=== PATIENT | male | born 1945 | race Caucasian/White ===

== ENCOUNTER → 2019-11-16 09:09 | Outpatient (BNVA) | payer SELFPAY | PROVIDERS: PCP Internal Medicine; Visit Provider Internal Medicine Cardiovascular Disease | DX: Z76.89 Persons encountering health services in other specified circumstances (principal) ==

== ENCOUNTER → 2020-04-19 10:23 | Outpatient (BNVA) | payer MEDICARE, SELFPAY | PROVIDERS: PCP Internal Medicine; Visit Provider Internal Medicine | DX: I25.10 Atherosclerotic heart disease of native coronary artery without angina pectoris (principal); I25.5 Ischemic cardiomyopathy; I10 Essential (primary) hypertension; Z95.1 Presence of aortocoronary bypass graft | CPT/HCPCS: 99212 ==

== ENCOUNTER 2020-10-03 08:08 | Outpatient (REF) | payer MEDICARE, SELFPAY ==
[2020-10-03 12:48] LABS: MANUAL DIFF FLAG NO
[2020-10-03 12:57] LABS: Basophils Absolute Auto 0.1 X10*3/uL (0.0-0.2); Basophils Percent Auto 1.2 % (0-2); Eosinophils Absolute Auto 0.2 X10*3/uL (0.0-0.4); Eosinophils Percent Auto 2.3 % (0-4); Hematocrit 44.6 % (42-52); Hemoglobin 14.2 g/dl (14.0-18.0); Imm Gran Abs Auto 0.02 X10*3/uL (0.00-0.03); Imm Gran Pct Auto 0.3 % (0.0-0.4); Immature Retic Fraction 7.4 % (2.3-13.4); Lymphocytes Absolute Auto 1.5 X10*3/uL (1.2-4.9); Lymphocytes Percent Auto 23.2 % (20-40); Mean Corpuscular HGB Conc 31.8 g/dl (31.0-36.0); Mean Corpuscular Hemoglobin 28.4 pg (27.0-33.0); Mean Corpuscular Volume 89.2 fL (80-98); Mean Platelet Volume 9.8 fL (9.4-12.4); Monocytes Absolute Auto 0.8 X10*3/uL (0.1-1.2); Platelet Count 246 X10*3/uL (160-400); Red Cell Distribution Width 14.8 % (11.0-16.0); Reticulocyte Percent 0.8 % (0.5-1.8); Reticulocytes Absolute 0.038 X10*6/uL (0.026-0.095); White Blood Count 6.5 X10*3/uL (4.8-10.8)
[2020-10-03 13:32] LABS: Alanine Aminotransferase 22 U/L (0-40); Albumin Level 4.2 g/dL (3.5-5.0); Alkaline Phosphatase 60 U/L (39-117); Anion Gap 13 (12-20); Aspartate Amino Transferase 24 U/L (5-37); Bilirubin Total 0.7 mg/dL (0.0-1.0); Blood Urea Nitrogen 19 mg/dL (9-16); Calcium 9.4 mg/dL (8.4-10.2); Carbon Dioxide 28 mmol/L (22-29); Chloride 101 mmol/L (96-108); Cholesterol 144 mg/dL; Estimated Glomerular Filt Rate > 60; Free T4 (Free Thyroxine) 1.19 ng/dL (0.71-1.85); Glucose Random 86 mg/dL (60-115); HDL Cholesterol 58 mg/dL; Iron 115 mcg/dL (45-160); LDL Cholesterol Calculated 71 mg/dl; Potassium 4.5 mmol/L (3.3-5.1); Sodium 137 mmol/L (135-145); Thyroid Stimulating Hormone 1.31 uIU/mL (0.32-4.0); Total Protein 6.8 g/dL (6.5-8.0); Triglycerides 77 mg/dL
[2020-10-03 13:41] LABS: Folate 18.8 ng/mL (> or = 4.0); Vitamin B12 662 pg/mL (200-900)
[2020-10-03 14:00] LABS: Ferritin 55 ng/mL (20-250)
[2020-10-05 15:07] LABS: Percent Iron Saturation 35 % (15-50); Total Iron Binding Capacity 326 mcg/dL (228-428); Unsaturated Iron Binding 211 ug/dL
== END 2020-10-03 08:09 | disposition home or self-care (01) ==
LOC: HO.HMGCLDS 08:08
PROVIDERS: PCP Internal Medicine; Visit Provider Internal Medicine
DX: I10 Essential (primary) hypertension (principal); D50.9 Iron deficiency anemia, unspecified; R73.01 Impaired fasting glucose; E78.00 Pure hypercholesterolemia, unspecified
CPT/HCPCS: 36415; 80053; 80061; 82607; 82728; 82746; 83540; 84439; 84443; 85025; 85045

== ENCOUNTER → 2020-10-24 12:14 | Outpatient (BNVA) | payer MEDICARE, SELFPAY | PROVIDERS: PCP Internal Medicine; Visit Provider Internal Medicine | DX: I25.10 Atherosclerotic heart disease of native coronary artery without angina pectoris (principal); I25.5 Ischemic cardiomyopathy; I34.0 Nonrheumatic mitral (valve) insufficiency; I10 Essential (primary) hypertension; Z95.1 Presence of aortocoronary bypass graft | CPT/HCPCS: 93005; 99212 ==

== ENCOUNTER → 2021-05-01 08:28 | Outpatient (BNVA) | payer MEDICARE, SELFPAY | PROVIDERS: PCP Internal Medicine; Referring Provider Internal Medicine; Visit Provider Internal Medicine | DX: I25.10 Atherosclerotic heart disease of native coronary artery without angina pectoris (principal); I34.0 Nonrheumatic mitral (valve) insufficiency; I25.5 Ischemic cardiomyopathy; I10 Essential (primary) hypertension; Z95.1 Presence of aortocoronary bypass graft | CPT/HCPCS: 93005; 99212 ==

== ENCOUNTER 2021-05-04 13:56 | Inpatient (IN) | payer MEDICARE, SELFPAY ==
--- NOTE | ~2021-05-04 | FL_ITS ---
EXAMINATION: FL SMALL BOWEL SERIES CLINICAL INFORMATION: Small bowel obstruction COMPARISON: Previous CT of the abdomen and pelvis 05/04/2021 TECHNIQUE: Following a licensed prosthetist/orthotist image of the abdomen, Gastrografin contrast was administered through the nasogastric tube and interval abdominal radiographs were performed to assess for contrast progression through the small bowel. FINDINGS: Software Administrator film demonstrates a nasogastric tube projecting over the proximal stomach. There are dilated loops of small bowel. There is a paucity of bowel gas seen in the large bowel. Small bowel follow-through was performed up to 20 hours post administration of oral Gastrografin contrast. There are dilated contrast-filled loops of small bowel. There is delayed small bowel transit. There is no passage of contrast into the large bowel. Appearance is compatible with complete small bowel obstruction. There is evidence of atherosclerotic disease. There are degenerative changes of the spine and hip joints. There are median sternotomy wires. FLUOROSCOPY TIME: 0 minutes 9 overhead exams. FL/FL small bowel follow through IMPRESSION: Small bowel obstruction. Findings will be communicated by the [employer] work flow machine programmer.
--- NOTE | ~2021-05-04 | XR_ITS ---
EXAMINATION: XR CHEST CLINICAL INFORMATION: NG tube placement COMPARISON: chest x-ray 09/14/2018 TECHNIQUE: Frontal portable view of the chest was obtained. 11:04 PM FINDINGS: Nasogastric and and sidehole are within the stomach. Status post median sternotomy. There is low inspiratory effort causing crowding of the bronchovascular markings. Patchy airspace opacity in the right midlung may be cardiogenic in etiology or related to an infectious or inflammatory etiology. No pleural effusion or pneumothorax. XR/XR chest 1V IMPRESSION: Nasogastric tube in stomach. Low inspiratory effort. Patchy airspace opacity in the right midlung.
--- NOTE | ~2021-05-04 | CT_ITS ---
EXAMINATION: CT GI BLEED ABDOMEN PELVIS WITHOUT AND WITH CONTRAST. CT CLINICAL INFORMATION: GI bleed. COMPARISON: None TECHNIQUE: 5 minutes thin axial and reformatted 2 mm thin sagittal and coronal images of abdomen were obtained without and with IV 80 mL Omnipaque 350. DLP 577 FINDINGS: Hyperinflated lung bases with right basilar scarring or atelectasis. The heart size is normal. Visualized liver, spleen and pancreas appears unremarkable. Bilateral adrenal glands are unremarkable. There is symmetrical bilateral left grams without any cyst, solid mass or hydronephrosis. The abdominal aorta is atherosclerotic and calcified without dilation. No recurrent lymph nodes seen. There are multiple dilated small bowel loops involving the jejunum and ileum. The ileocecal junction and the cecum appears normal the terminal ileum is likely normal as well. The transition point is not well visualized on this exam. The entire colon is nondistended and collapsed. No free air seen. There is no free fluid visualized. No contrast extravasation seen to suspect any site of GI bleed The abdominal wall appears unremarkable. No evidence of hernia. Imaging through the pelvis reveals no significant abnormality. Bone windows reveal diffuse osteopenia. No lytic or sclerotic process seen. CT/CT gi bleed abd pel wo/w con IMPRESSION: Small bowel obstruction with transition point not well visualized but presumed to be somewhere in distal ileum/right lower quadrant. The terminal ileum and the entire colon appears normal. Appendix is not seen. There is no free fluid. Recommend NG tube with small bowel follow-through. There is no contrast extravasation seen to suspect any site of GI bleed at this time.
[2021-05-04 14:38] VITALS: BP 152/85; PULSE 105; RESP 18; TEMP 37.1; O2SAT 93; BMI 15.7
[2021-05-04 16:36] LABS: Hematocrit 47.7 % (42.0-52.0); Mean Corpuscular HGB Conc 33.5 g/dl (31.0-36.0); Mean Corpuscular Hemoglobin 28.4 pg (27.0-33.0); Mean Corpuscular Volume 84.7 fL (80.0-98.0); Mean Platelet Volume 9.1 fL (9.4-12.4); Platelet Count 309 X10*3/uL (160-400); Red Blood Count 5.63 X10*6/uL (4.60-5.80); Red Cell Distribution Width 14.4 % (11.0-16.0); White Blood Count 11.6 X10*3/uL (4.8-10.8)
[2021-05-04 16:53] LABS: Anion Gap 21 (12-20); Blood Urea Nitrogen 59 mg/dL (9-16); Calcium 10.6 mg/dL (8.4-10.2); Carbon Dioxide 23 mmol/L (22-29); Chloride 93 mmol/L (96-108); Creatinine Clr Calc Pharmacy 26.3; Estimated Glomerular Filt Rate 46; Glucose Random 158 mg/dL (60-115); Potassium 4.9 mmol/L (3.3-5.1); Sodium 132 mmol/L (135-145)
[2021-05-04 17:18] LABS: Band Neutrophils Percent 5 % (3-5); Lymphocytes Absolute Manual 0.5 X10*3/uL (1.2-4.9); Lymphocytes Percent Manual 4 % (20-40); Microcytosis 1+ (5-14) /OIF; Monocytes Percent Manual 9 % (2-11); Neutrophils Absolute Manual 10.1 X10*3/uL (2.0-8.3); Neutrophils Percent Manual 82 % (45-73); Platelet Estimate SLIGHTLY DECREASED (NORMAL); Platelet Morphology Comment NORMAL
[2021-05-04 17:19] LABS: Burr Cells 1+ (0-2) /OIF; Toxic Vacuolation PRESENT
[2021-05-04 18:18] LABS: RBC Morphology NOTED
--- NOTE | 2021-05-04 18:28 | ED.GENADULT ---
HPI - General Adult General Chief complaint: General Medical <Deedee Sheppard NP - Last Filed: 05/05/21 01:03> Stated complaint: bleeding ulcer <Deedee Sheppard NP - Last Filed: 05/05/21 01:03> Time Seen by Provider: 05/05/21 01:25 <GABY Gallardo Last Filed: 05/05/21 01:03> Source: patient <Deedee Sheppard NP - Last Filed: 05/05/21 01:03> Mode of arrival: ambulatory <Deedee Sheppard NP - Last Filed: 05/05/21 01:03> Limitations: no limitations <Deedee Sheppard NP - Last Filed: 05/05/21 01:03> History of Present Illness HPI narrative: 75-year-old male presents for a suspected GI bleed. States that he vomited coffee ground emesis this morning, has been feeling weak, has had significant weight loss and is pale. Patient states that he has not been feeling well for several weeks. He does have a history of GI bleed approximately 20 years ago. He does not take any NSAIDs or blood thinners at this time. He does take a daily baby aspirin. <Deedee Sheppard NP - Last Filed: 05/05/21 01:03> Onset (ago): week(s) <Deedee Sheppard NP - Last Filed: 05/05/21 01:03> Location: abdomen <Deedee Sheppard NP - Last Filed: 05/05/21 01:03> Radiation: non-radiation <Deedee Sheppard NP - Last Filed: 05/05/21 01:03> Severity: severe <Deedee Sheppard NP - Last Filed: 05/05/21 01:03> Severity scale (1-10): 8 <Deedee Sheppard NP - Last Filed: 05/05/21 01:03> Quality: aching <Deedee Sheppard NP - Last Filed: 05/05/21 01:03> Pain Consistency: constant <GABY Gallardo Last Filed: 05/05/21 01:03> Relieving factors: none <Deedee Sheppard NP - Last Filed: 05/05/21 01:03> Exacerbating factors: movement <GABY Gallardo Last Filed: 05/05/21 01:03> Associated symptoms: loss of appetite, malaise, nausea/vomiting, shortness of breath and weakness <GABY Gallardo Last Filed: 05/05/21 01:03> Treatments prior to arrival: none <GABY Gallardo Last Filed: 05/05/21 01:03> Related Data Home medications: Home Medications Medication Instructions Recorded Confirmed aspirin 81 mg tablet,delayed 81 mg PO DAILY 11/16/19 05/04/21 release vitamin B complex 1 tab PO DAILY 11/16/19 05/04/21 Previous Rx's Medication Instructions Recorded pantoprazole 40 mg tablet,delayed 40 mg PO DAILY #90 tab 11/23/20 release metoprolol succinate 25 mg 25 mg PO DAILY 90 Days #90 tab 03/27/21 tablet,extended release 24 hr <GABY Gallardo Last Filed: 05/05/21 01:03> Allergies/adverse reactions: Allergies Allergy/AdvReac Type Severity Reaction Status Date / Time lisinopril AdvReac Unknown cough Verified 05/01/21 08:42 <GABY Gallardo Last Filed: 05/05/21 01:03> Review of Systems Review of Systems: Constitutional: Positive Weight loss, No Fever, No Chills, No Night Sweats, positive Fatigue, No Malaise ENT/Mouth: No Hearing loss, No Ear Pain, No Nasal Congestion, No Sinus Pain, No Hoarseness, No sore throat, No Rhinorrhea, No Swallowing Difficulty Eyes: No Eye Pain, No Swelling, No Redness, No Foreign Body, No Discharge, No Vision Changes Cardiovascular: No Chest Pain, positive SOB, positive Dyspnea on Exertion, No Orthopnea, No Edema, positive Palpitations Respiratory: No Cough, No Sputum, No Wheezing, No Smoke Exposure, No Dyspnea Gastrointestinal: Positive Nausea, Positive Vomiting, no Diarrhea, positive abdominal Pain, No Hematochezia, positive Melena, positive hematemesis Genitourinary: no irregular bleeding, No Dysuria, No Urinary Frequency, No Hematuria, No Urinary Incontinence, No Urgency, No Flank Pain, No Urinary Flow Changes, No Hesitancy Musculoskeletal: No joint pain, No Myalgias, No Joint Swelling Skin: No Skin Lesions, No rash Neuro: Positive Weakness, No Numbness, No Paresthesias, No Loss of Consciousness, positive Dizziness, No Headache Psych: No Anxiety/Panic, No Depression, No SI/HI/AH/VH, No Social Issues Heme/Lymph: No Bruising, No Bleeding,No Lymphadenopathy Endocrine: No Polyuria, No Polydipsia, No Temperature Intolerance <Deedee Sheppard NP - Last Filed: 05/05/21 01:03> Yes all other systems are reviewed and are negative <Deedee Sheppard NP - Last Filed: 05/05/21 01:03> [facility] Past Medical History Attestation statement: The following information was validated with the patient. 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 Mother No problems noted. <Deedee Sheppard NP - Last Filed: 05/05/21 01:03> Social History Social History: Social History Housing: House Alcohol intake: never Patient Tobacco Use Status: Former Tobacco user Tobacco use type: Cigarette e-Cigarette/Vaping Use: Never Used Second Hand Smoke Exposure: No Advance Directives: Yes Advance Directives Information Provided: No Advance Directives on File: No Current occupational status: retired <Deedee Sheppard NP - Last Filed: 05/05/21 01:03> Physical Exam ED Vital Signs: Vital Signs - 24 hr 05/04/21 14:38 05/04/21 19:22 05/04/21 21:33 Temperature 98.7 F 98.4 F Pulse Rate 105 H 105 H 109 H Respiratory Rate 18 18 16 Blood Pressure 152/85 H 137/82 150/77 H Pulse Oximetry 93 99 98 BMI result Body Mass Index 15.7 <Deedee Sheppard NP - Last Filed: 05/05/21 01:03> Appearance: Alert. Oriented X3. Moderate distress. Cachectic. Pale. Head: Normal external exam. Normocephalic. Atraumatic. No Connell signs noted. No raccoon eyes noted Eyes: PERRLA. EOMI. Conjunctiva and sclera pale. Eyelids normal. ENT: TM's Normal. Pharynx normal. Uvula midline. Dry mucous membranes. No trismus noted. No drooling noted. No muffled voice noted. Neck: Normal inspection. Neck supple. No adenopathy. CVS: Tachycardic heart rate and rhythm. Heart sound normal. No murmurs noted. Pulses equal to all extremities. Respiratory: Tachypneic, moderate respiratory distress. Painless inspiration. Breath sounds normal. No wheezes/rales/rhonchi noted. Chest nontender. No accessory muscle usage noted or decreased air movement noted. Abdomen: Soft and diffusely tender. Hyperactive sounds normal in all 4 quadrants. No organomegaly noted. No visible injury noted. Back: No CVA tenderness. Full range of motion noted. Skin: Skin warm and dry. Normal skin color. Normal skin turgor. No rashes/lesions/lacerations noted. Extremities: No lower extremity edema. Extremities exhibit normal range of motion. Extremities nontender. Neuro: cranial nerves 2-12 intact, no focal neural deficits, strength 5/5 to all extremities, No motor deficit. No sensory deficit. <Deedee Sheppard NP - Last Filed: 05/05/21 01:03> Course Course Course Narrative: 75-year-old male presents with an episode of hematemesis, weakness, pallor, tachycardia, shortness breath on exertion and weight loss. High suspicion for GI bleed. Labs drawn while patient was in the waiting room, BUN elevated at 59, H&H is 16/47.7 which is significantly higher than prior values however I feel that this patient may be dehydrated at this time. He is cachectic, mucous membranes are dry, sclera nonicteric, conjunctiva nonicteric and pale. Tachycardic will order EKG, troponins, start proton pump inhibitor, fluids, CT scan of abdomen pelvis for GI protocol. Patient will be NPO. Two IV line started, type and screen is pending. 19:35 troponin elevated at 67.8, will repeat in 3 hours. 21:06 CT scan abdomen pelvis indicates small bowel obstruction. [place] text to Dr. Johnson. 21:[address] Lund, plan to admit for small-bowel obstruction. <Deedee Sheppard NP - Last Filed: 05/05/21 01:03> Consultations Consultation #1: Alex <Deedee Sheppard NP - Last Filed: 05/05/21 01:03> Time: 21:07 <Deedee Sheppard NP - Last Filed: 05/05/21 01:03> Consultation #2: Kevon <Deedee Sheppard NP - Last Filed: 05/05/21 01:03> Time: 21:24 <Deedee Sheppard NP - Last Filed: 05/05/21 01:03> Medical Decision Making Differential Diagnosis Differential Diagnosis: PUD, ischemia, obstruction, colon cancer, gastric CA <Deedee Sheppard NP - Last Filed: 05/05/21 01:03> Medical Records Medical records reviewed: Yes I reviewed the patient's medical records. <Deedee Sheppard NP - Last Filed: 05/05/21 01:03> Lab Data Lab results reviewed: Yes I reviewed the patient's lab results. <Deedee Sheppard NP - Last Filed: 05/05/21 01:03> Result diagrams: : 05/04/21 19:03 05/04/21 20:50 <Deedee Sheppard NP - Last Filed: 05/05/21 01:03> Labs: Lab Results 05/04/21 05/04/21 05/04/21 Range/Units 16:23 16:23 19:03 WBC 11.6 H 10.7 (4.8-10.8) X10*3/uL RBC 5.63 5.71 (4.60-5.80) X10*6/uL Hgb 16.0 16.1 (14.0-18.0) g/dl Hct 47.7 48.5 (42.0-52.0) % MCV 84.7 84.9 (80.0-98.0) fL MCH 28.4 28.2 (27.0-33.0) pg MCHC 33.5 33.2 (31.0-36.0) g/dl RDW 14.4 14.4 (11.0-16.0) % Plt Count 309 316 (160-400) X10*3/uL MPV 9.1 L 9.1 L (9.4-12.4) fL Immature Gran % (Auto) Cancelled Cancelled Neut % (Auto) Cancelled Cancelled Lymph % (Auto) Cancelled Cancelled [place] % (Auto) Cancelled Cancelled Eos % (Auto) Cancelled Cancelled Baso % (Auto) Cancelled Cancelled Lymph # (Auto) Cancelled Cancelled [place] # (Auto) Cancelled Cancelled Eos # (Auto) Cancelled Cancelled Baso # (Auto) Cancelled Cancelled Abs Immat Gran (auto) Cancelled Cancelled Absolute Neuts (auto) Cancelled Cancelled Absolute Nucleated RBC 0.000 0.000 (0.0-0.012) X10*3/uL Nucleated RBC % (auto) 0.0 0.0 (0.0-0.2) /100WBC Neutrophils % (Manual) 82 H 82 H (45-73) % Band Neutrophils % 5 3 (3-5) % Lymphocytes % (Manual) 4 L 5 L (20-40) % Monocytes % (Manual) 9 10 (2-11) % Abs Neuts (Manual) 10.1 H 9.1 H (2.0-8.3) X10*3/uL Lymphocytes # (Manual) 0.5 L 0.5 L (1.2-4.9) X10*3/uL Monocytes # (Manual) 1.0 1.1 (0.1-1.2) X10*3/uL Toxic Vacuolation PRESENT PRESENT Platelet Estimate SLIGHTLY DECREASED SLIGHTLY DECREASED (NORMAL) Plt Morphology Comment NORMAL NORM RBC Morphology NOTED NOTED Polychromasia 1+ (0-2) /OIF Microcytosis 1+ (5-14) 1+ (5-14) /OIF Stefanie Cells 1+ (0-2) 1+ (0-2) /OIF PT (9.9-13.0) SEC INR (0.9-1.1) APTT (24.1-38.0) SEC Sodium 132 L (135-145) mmol/L Potassium 4.9 (3.3-5.1) mmol/L Chloride 93 L (96-108) mmol/L Carbon Dioxide 23 (22-29) mmol/L Anion Gap 21 H (12-20) BUN 59 H (9-16) mg/dL Creatinine 1.50 H (0.5-1.4) mg/dL Estim Creat Clear Calc 26.3 Estimated GFR 46 Random Glucose 158 H D (60-115) mg/dL Lactic Acid (0.5-2.0) mmol/L Calcium 10.6 H D (8.4-10.2) mg/dL Magnesium (1.6-2.6) mg/dL Total Bilirubin (0.0-1.0) mg/dL Direct Bilirubin (0.0-0.5) mg/dL AST (5-37) U/L ALT (0-40) U/L Alkaline Phosphatase (39-117) U/L Troponin I High Sens (<3.5-35.0) ng/L Total Protein (6.5-8.0) g/dL Albumin (3.5-5.0) g/dL Lipase (8-78) U/L Urine Color Urine Appearance Urine pH (5.0-8.0) Ur Specific [place] (1.005-1.025) Urine Protein (NEG-TRACE) MG/DL Urine Glucose (UA) (NEG) MG/DL Urine Ketones (NEG) MG/DL Urine Blood (NEG) Urine Nitrite (NEG) Ur Leukocyte Esterase (NEG) Urine RBC (0) /HPF Urine WBC (0-4) /HPF Ur Squamous Epith Cells /LPF Urine Bacteria /LPF Ethyl Alcohol mg/dL Influenza Type A (PCR) (Negative) Influenza Type B (PCR) (Negative) RSV RNA Qual (PCR) (Negative) SARS-CoV-2 RNA (RT-PCR) (Negative) Blood Type Antibody Screen 05/04/21 05/04/21 05/04/21 Range/Units 19:03 19:03 19:03 WBC (4.8-10.8) X10*3/uL RBC (4.60-5.80) X10*6/uL Hgb (14.0-18.0) g/dl Hct (42.0-52.0) % MCV (80.0-98.0) fL MCH (27.0-33.0) pg MCHC (31.0-36.0) g/dl RDW (11.0-16.0) % Plt Count (160-400) X10*3/uL MPV (9.4-12.4) fL Immature Gran % (Auto) Neut % (Auto) Lymph % (Auto) [place] % (Auto) Eos % (Auto) Baso % (Auto) Lymph # (Auto) [place] # (Auto) Eos # (Auto) Baso # (Auto) Abs Immat Gran (auto) Absolute Neuts (auto) Absolute Nucleated RBC (0.0-0.012) X10*3/uL Nucleated RBC % (auto) (0.0-0.2) /100WBC Neutrophils % (Manual) (45-73) % Band Neutrophils % (3-5) % Lymphocytes % (Manual) (20-40) % Monocytes % (Manual) (2-11) % Abs Neuts (Manual) (2.0-8.3) X10*3/uL Lymphocytes # (Manual) (1.2-4.9) X10*3/uL Monocytes # (Manual) (0.1-1.2) X10*3/uL Toxic Vacuolation Platelet Estimate (NORMAL) Plt Morphology Comment RBC Morphology Polychromasia /OIF Microcytosis /OIF [place] Cells /OIF PT 16.6 H (9.9-13.0) SEC INR 1.5 H (0.9-1.1) APTT 33.1 (24.1-38.0) SEC Sodium (135-145) mmol/L Potassium (3.3-5.1) mmol/L Chloride (96-108) mmol/L Carbon Dioxide (22-29) mmol/L Anion Gap (12-20) BUN (9-16) mg/dL Creatinine (0.5-1.4) mg/dL Estim Creat Clear Calc Estimated GFR Random Glucose (60-115) mg/dL Lactic Acid (0.5-2.0) mmol/L Calcium (8.4-10.2) mg/dL Magnesium 2.7 H (1.6-2.6) mg/dL Total Bilirubin 1.3 H (0.0-1.0) mg/dL Direct Bilirubin 0.4 (0.0-0.5) mg/dL AST 36 D (5-37) U/L ALT 19 (0-40) U/L Alkaline Phosphatase 75 D (39-117) U/L Troponin I High Sens 67.8 H (<3.5-35.0) ng/L Total Protein 8.1 H (6.5-8.0) g/dL Albumin 4.6 (3.5-5.0) g/dL Lipase 22 (8-78) U/L Urine Color Urine Appearance Urine pH (5.0-8.0) Ur Specific [place] (1.005-1.025) Urine Protein (NEG-TRACE) MG/DL Urine Glucose (UA) (NEG) MG/DL Urine Ketones (NEG) MG/DL Urine Blood (NEG) Urine Nitrite (NEG) Ur Leukocyte Esterase (NEG) Urine RBC (0) /HPF Urine WBC (0-4) /HPF Ur Squamous Epith Cells /LPF Urine Bacteria /LPF Ethyl Alcohol mg/dL Influenza Type A (PCR) (Negative) Influenza Type B (PCR) (Negative) RSV RNA Qual (PCR) (Negative) SARS-CoV-2 RNA (RT-PCR) (Negative) Blood Type Antibody Screen 05/04/21 05/04/21 05/04/21 Range/Units 19:03 19:03 20:50 WBC (4.8-10.8) X10*3/uL RBC (4.60-5.80) X10*6/uL Hgb (14.0-18.0) g/dl Hct (42.0-52.0) % MCV (80.0-98.0) fL MCH (27.0-33.0) pg MCHC (31.0-36.0) g/dl RDW (11.0-16.0) % Plt Count (160-400) X10*3/uL MPV (9.4-12.4) fL Immature Gran % (Auto) Neut % (Auto) Lymph % (Auto) [place] % (Auto) Eos % (Auto) Baso % (Auto) Lymph # (Auto) [place] # (Auto) Eos # (Auto) Baso # (Auto) Abs Immat Gran (auto) Absolute Neuts (auto) Absolute Nucleated RBC (0.0-0.012) X10*3/uL Nucleated RBC % (auto) (0.0-0.2) /100WBC Neutrophils % (Manual) (45-73) % Band Neutrophils % (3-5) % Lymphocytes % (Manual) (20-40) % Monocytes % (Manual) (2-11) % Abs Neuts (Manual) (2.0-8.3) X10*3/uL Lymphocytes # (Manual) (1.2-4.9) X10*3/uL Monocytes # (Manual) (0.1-1.2) X10*3/uL Toxic Vacuolation Platelet Estimate (NORMAL) Plt Morphology Comment RBC Morphology Polychromasia /OIF Microcytosis /OIF Stefanie Cells /OIF PT (9.9-13.0) SEC INR (0.9-1.1) APTT (24.1-38.0) SEC Sodium (135-145) mmol/L Potassium (3.3-5.1) mmol/L Chloride (96-108) mmol/L Carbon Dioxide (22-29) mmol/L Anion Gap (12-20) BUN (9-16) mg/dL Creatinine (0.5-1.4) mg/dL Estim Creat Clear Calc Estimated GFR Random Glucose (60-115) mg/dL Lactic Acid (0.5-2.0) mmol/L Calcium (8.4-10.2) mg/dL Magnesium (1.6-2.6) mg/dL Total Bilirubin (0.0-1.0) mg/dL Direct Bilirubin (0.0-0.5) mg/dL AST (5-37) U/L ALT (0-40) U/L Alkaline Phosphatase (39-117) U/L Troponin I High Sens (<3.5-35.0) ng/L Total Protein (6.5-8.0) g/dL Albumin (3.5-5.0) g/dL Lipase (8-78) U/L Urine Color Urine Appearance Urine pH (5.0-8.0) Ur Specific [place] (1.005-1.025) Urine Protein (NEG-TRACE) MG/DL Urine Glucose (UA) (NEG) MG/DL Urine Ketones (NEG) MG/DL Urine Blood (NEG) Urine Nitrite (NEG) Ur Leukocyte Esterase (NEG) Urine RBC (0) /HPF Urine WBC (0-4) /HPF Ur Squamous Epith Cells /LPF Urine Bacteria /LPF Ethyl Alcohol < 10 mg/dL Influenza Type A (PCR) NEGATIVE (Negative) Influenza Type B (PCR) NEGATIVE (Negative) RSV RNA Qual (PCR) NEGATIVE (Negative) SARS-CoV-2 RNA (RT-PCR) NEGATIVE (Negative) Blood Type O Positive Antibody Screen NEGATIVE 05/04/21 05/04/21 05/04/21 Range/Units 20:50 20:50 20:50 WBC (4.8-10.8) X10*3/uL RBC (4.60-5.80) X10*6/uL Hgb (14.0-18.0) g/dl Hct (42.0-52.0) % MCV (80.0-98.0) fL MCH (27.0-33.0) pg MCHC (31.0-36.0) g/dl RDW (11.0-16.0) % Plt Count (160-400) X10*3/uL MPV (9.4-12.4) fL Immature Gran % (Auto) Neut % (Auto) Lymph % (Auto) [place] % (Auto) Eos % (Auto) Baso % (Auto) Lymph # (Auto) [place] # (Auto) Eos # (Auto) Baso # (Auto) Abs Immat Gran (auto) Absolute Neuts (auto) Absolute Nucleated RBC (0.0-0.012) X10*3/uL Nucleated RBC % (auto) (0.0-0.2) /100WBC Neutrophils % (Manual) (45-73) % Band Neutrophils % (3-5) % Lymphocytes % (Manual) (20-40) % Monocytes % (Manual) (2-11) % Abs Neuts (Manual) (2.0-8.3) X10*3/uL Lymphocytes # (Manual) (1.2-4.9) X10*3/uL Monocytes # (Manual) (0.1-1.2) X10*3/uL Toxic Vacuolation Platelet Estimate (NORMAL) Plt Morphology Comment RBC Morphology Polychromasia /OIF Microcytosis /OIF Stefanie Cells /OIF PT (9.9-13.0) SEC INR (0.9-1.1) APTT (24.1-38.0) SEC Sodium 134 L (135-145) mmol/L Potassium 4.4 (3.3-5.1) mmol/L Chloride 96 (96-108) mmol/L Carbon Dioxide 24 (22-29) mmol/L Anion Gap 18 (12-20) BUN 60 H (9-16) mg/dL Creatinine 1.40 (0.5-1.4) mg/dL Estim Creat Clear Calc 28.2 Estimated GFR 50 Random Glucose 127 H (60-115) mg/dL Lactic Acid 1.6 (0.5-2.0) mmol/L Calcium 9.6 D (8.4-10.2) mg/dL Magnesium (1.6-2.6) mg/dL Total Bilirubin (0.0-1.0) mg/dL Direct Bilirubin (0.0-0.5) mg/dL AST (5-37) U/L ALT (0-40) U/L Alkaline Phosphatase (39-117) U/L Troponin I High Sens 57.2 H (<3.5-35.0) ng/L Total Protein (6.5-8.0) g/dL Albumin (3.5-5.0) g/dL Lipase (8-78) U/L Urine Color Urine Appearance Urine pH (5.0-8.0) Ur Specific [place] (1.005-1.025) Urine Protein (NEG-TRACE) MG/DL Urine Glucose (UA) (NEG) MG/DL Urine Ketones (NEG) MG/DL Urine Blood (NEG) Urine Nitrite (NEG) Ur Leukocyte Esterase (NEG) Urine RBC (0) /HPF Urine WBC (0-4) /HPF Ur Squamous Epith Cells /LPF Urine Bacteria /LPF Ethyl Alcohol mg/dL Influenza Type A (PCR) (Negative) Influenza Type B (PCR) (Negative) RSV RNA Qual (PCR) (Negative) SARS-CoV-2 RNA (RT-PCR) (Negative) Blood Type Antibody Screen 05/04/21 Range/Units 21:18 WBC (4.8-10.8) X10*3/uL RBC (4.60-5.80) X10*6/uL Hgb (14.0-18.0) g/dl Hct (42.0-52.0) % MCV (80.0-98.0) fL MCH (27.0-33.0) pg MCHC (31.0-36.0) g/dl RDW (11.0-16.0) % Plt Count (160-400) X10*3/uL MPV (9.4-12.4) fL Immature Gran % (Auto) Neut % (Auto) Lymph % (Auto) [place] % (Auto) Eos % (Auto) Baso % (Auto) Lymph # (Auto) [place] # (Auto) Eos # (Auto) Baso # (Auto) Abs Immat Gran (auto) Absolute Neuts (auto) Absolute Nucleated RBC (0.0-0.012) X10*3/uL Nucleated RBC % (auto) (0.0-0.2) /100WBC Neutrophils % (Manual) (45-73) % Band Neutrophils % (3-5) % Lymphocytes % (Manual) (20-40) % Monocytes % (Manual) (2-11) % Abs Neuts (Manual) (2.0-8.3) X10*3/uL Lymphocytes # (Manual) (1.2-4.9) X10*3/uL Monocytes # (Manual) (0.1-1.2) X10*3/uL Toxic Vacuolation Platelet Estimate (NORMAL) Plt Morphology Comment RBC Morphology Polychromasia /OIF Microcytosis /OIF [place] Cells /OIF PT (9.9-13.0) SEC INR (0.9-1.1) APTT (24.1-38.0) SEC Sodium (135-145) mmol/L Potassium (3.3-5.1) mmol/L Chloride (96-108) mmol/L Carbon Dioxide (22-29) mmol/L Anion Gap (12-20) BUN (9-16) mg/dL Creatinine (0.5-1.4) mg/dL Estim Creat Clear Calc Estimated GFR Random Glucose (60-115) mg/dL Lactic Acid (0.5-2.0) mmol/L Calcium (8.4-10.2) mg/dL Magnesium (1.6-2.6) mg/dL Total Bilirubin (0.0-1.0) mg/dL Direct Bilirubin (0.0-0.5) mg/dL AST (5-37) U/L ALT (0-40) U/L Alkaline Phosphatase (39-117) U/L Troponin I High Sens (<3.5-35.0) ng/L Total Protein (6.5-8.0) g/dL Albumin (3.5-5.0) g/dL Lipase (8-78) U/L Urine Color YELLOW Urine Appearance CLEAR Urine pH 6.0 (5.0-8.0) Ur Specific [place] <= 1.005 (1.005-1.025) Urine Protein TRACE (NEG-TRACE) MG/DL Urine Glucose (UA) NEG (NEG) MG/DL Urine Ketones 5 (NEG) MG/DL Urine Blood 2+ H (NEG) Urine Nitrite NEG (NEG) Ur Leukocyte Esterase NEG (NEG) Urine RBC 1-4 (0) /HPF Urine WBC 0 (0-4) /HPF Ur Squamous Epith Cells NONE /LPF Urine Bacteria TRACE /LPF Ethyl Alcohol mg/dL Influenza Type A (PCR) (Negative) Influenza Type B (PCR) (Negative) RSV RNA Qual (PCR) (Negative) SARS-CoV-2 RNA (RT-PCR) (Negative) Blood Type Antibody Screen <Deedee Sheppard NP - Last Filed: 05/05/21 01:03> Imaging Data CT abdomen pelvis GI protocol: Attestation: I personally reviewed and interpreted this imaging study as follows: <Deedee Sheppard NP - Last Filed: 05/05/21 01:03> Radiologist's impression: EXAMINATION: CT GI BLEED ABDOMEN PELVIS WITHOUT AND WITH CONTRAST. CT CLINICAL INFORMATION: GI bleed.? COMPARISON: None? TECHNIQUE: 5 minutes thin axial and reformatted 2 mm thin sagittal and coronal images of abdomen were obtained without and with IV 80 mL Omnipaque [id number]. DLP 577? FINDINGS: Hyperinflated lung bases with right basilar scarring or atelectasis. The heart size is normal. Visualized liver, spleen and pancreas appears unremarkable. Bilateral adrenal glands are unremarkable. There is symmetrical bilateral left grams without any cyst, solid mass or hydronephrosis. The abdominal aorta is atherosclerotic and calcified without dilation. No recurrent lymph nodes seen. There are multiple dilated small bowel loops involving the jejunum and ileum. The ileocecal junction and the cecum appears normal the terminal ileum is likely normal as well. The transition point is not well visualized on this exam. The entire colon is nondistended and collapsed. No free air seen. There is no free fluid visualized. No contrast extravasation seen to suspect any site of GI bleed The abdominal wall appears unremarkable. No evidence of hernia. Imaging through the pelvis reveals no significant abnormality. Bone windows reveal diffuse osteopenia. No lytic or sclerotic process seen. CT/CT gi bleed abd pel wo/w con IMPRESSION: Small bowel obstruction with transition point? not well visualized but presumed to be somewhere in distal ileum/right lower quadrant. The terminal ileum and the entire colon appears normal. Appendix is not seen. There is no free fluid. ? Recommend NG tube with small bowel follow-through. ? There is no contrast extravasation seen to suspect any site of GI bleed at this time.? <Deedee Sheppard NP - Last Filed: 05/05/21 01:03> ECG Data Attestation: I personally reviewed and interpreted this ECG as follows: <Deedee Sheppard NP - Last Filed: 05/05/21 01:03> Prior ECG tracings: available for review <GABY Gallardo Last Filed: 05/05/21 01:03> Interpretation: Vent. rate 110 BPM DE interval 146 ms QRS duration 100 ms QT/QTc 340/460 ms P-R-T axes 52 -27 81 Sinus tachycardia with Fusion complexes Inferior infarct , age undetermined Anterior infarct , age undetermined Abnormal ECG When compared with ECG of 27-SEP-2018 10:20, Significant changes have occurred 04-MAY-2021 18:34:22 <GABY Gallardo Last Filed: 05/05/21 01:03> Critical Care Time Critical Care Time Critical Care Time: Yes <GABY Gallardo Last Filed: 05/05/21 01:03> Total Critical Care Time: 45 <Deedee Sheppard NP - Last Filed: 05/05/21 01:03> Attestation: I have personally provided critical care time exclusive of time spent on separately billable procedures. Time includes review of laboratory data, radiology results, discussion with consultants, and monitoring for potential decompensation. Interventions were performed as documented. <Deedee Sheppard NP - Last Filed: 05/05/21 01:03> Discharge Plan Discharge Clinical Impression: GI bleed, Small bowel obstruction, Dehydration <Deedee Sheppard NP - Last Filed: 05/05/21 01:03> Patient Disposition: Admitted As Inpatient <Deedee Sheppard NP - Last Filed: 05/05/21 01:03>
--- NOTE | 2021-05-04 18:32 | ECG_ITS ---
Test Reason : GENERAL MEDICAL Blood Pressure : / mmHG Vent. Rate : 110 BPM Atrial Rate : 110 BPM P-R Int : 146 ms QRS Dur : 100 ms QT Int : 340 ms P-R-T Axes : 052 -27 081 degrees QTc Int : 460 ms Sinus tachycardia with Fusion complexes Inferior infarct , age undetermined Anterior infarct , age undetermined Abnormal ECG When compared with ECG of 27-SEP-2018 10:20, Significant changes have occurred Referred By: Deedee Sheppard Electronically Signed By:SELENA MANNING MD
[2021-05-04 19:19] LABS: Hematocrit 48.5 % (42.0-52.0); Hemoglobin 16.1 g/dl (14.0-18.0); Mean Corpuscular HGB Conc 33.2 g/dl (31.0-36.0); Mean Corpuscular Hemoglobin 28.2 pg (27.0-33.0); Mean Corpuscular Volume 84.9 fL (80.0-98.0); Mean Platelet Volume 9.1 fL (9.4-12.4); Platelet Count 316 X10*3/uL (160-400); Red Blood Count 5.71 X10*6/uL (4.60-5.80); Red Cell Distribution Width 14.4 % (11.0-16.0); White Blood Count 10.7 X10*3/uL (4.8-10.8)
[2021-05-04 19:22] VITALS: BP 137/82; PULSE 105; RESP 18; TEMP 36.9; O2SAT 99
[2021-05-04 19:24] LABS: INTERNATIONAL NORM RATIO 1.5 (0.9-1.1); Prothrombin Time 16.6 SEC (9.9-13.0)
[2021-05-04 19:27] LABS: Partial Thromboplastin Time 33.1 SEC (24.1-38.0)
[2021-05-04 19:34] LABS: Alanine Aminotransferase 19 U/L (0-40); Albumin Level 4.6 g/dL (3.5-5.0); Alkaline Phosphatase 75 U/L (39-117); Aspartate Amino Transferase 36 U/L (5-37); Bilirubin Direct 0.4 mg/dL (0.0-0.5); Bilirubin Total 1.3 mg/dL (0.0-1.0); Ethanol < 10 mg/dL; Lipase 22 U/L (8-78); Magnesium 2.7 mg/dL (1.6-2.6); Total Protein 8.1 g/dL (6.5-8.0)
[2021-05-04 19:40] LABS: Troponin-I High Sensitivity 67.8 ng/L (<3.5-35.0)
[2021-05-04] MEDS: iohexoL 350 MG/ML 100 ML INFUS..BTL IV (19:47)
[2021-05-04 19:55] LABS: Influenza A PCR NEGATIVE (Negative); Influenza B PCR NEGATIVE (Negative); Resp Syncy Virus RNA Qual PCR NEGATIVE (Negative); SARS COV2 PCR INHOUSE NEGATIVE (Negative)
[2021-05-04 19:56] LABS: Band Neutrophils Percent 3 % (3-5); Lymphocytes Absolute Manual 0.5 X10*3/uL (1.2-4.9); Lymphocytes Percent Manual 5 % (20-40); Monocytes Absolute Manual 1.1 X10*3/uL (0.1-1.2); Monocytes Percent Manual 10 % (2-11); Neutrophils Absolute Manual 9.1 X10*3/uL (2.0-8.3); Neutrophils Percent Manual 82 % (45-73)
[2021-05-04] MEDS: 0.9 % Sodium Chloride 1,000 ML 999 ML IVCONT ×2 (19:58→21:30)
[2021-05-04] MEDS: Pantoprazole Sodium 40 MG/10 ML VIAL 80 MG IVPUSH (19:59)
[2021-05-04 20:00] LABS: Platelet Estimate SLIGHTLY DECREASED (NORMAL); RBC Morphology NOTED
[2021-05-04] MEDS: Pantoprazole Sodium 80 MG in 0.9 % Sodium Chloride 80 ML 10 MG IV (20:00)
[2021-05-04 20:01] LABS: Burr Cells 1+ (0-2) /OIF; Microcytosis 1+ (5-14) /OIF; Platelet Morphology Comment NORM; Polychromasia 1+ (0-2) /OIF; Toxic Vacuolation PRESENT
[2021-05-04 21:11] LABS: Lactic Acid 1.6 mmol/L (0.5-2.0)
[2021-05-04 21:16] LABS: Anion Gap 18 (12-20); Blood Urea Nitrogen 60 mg/dL (9-16); Calcium 9.6 mg/dL (8.4-10.2); Carbon Dioxide 24 mmol/L (22-29); Chloride 96 mmol/L (96-108); Creatinine Clr Calc Pharmacy 28.2; Estimated Glomerular Filt Rate 50; Glucose Random 127 mg/dL (60-115); Potassium 4.4 mmol/L (3.3-5.1); Sodium 134 mmol/L (135-145)
[2021-05-04 21:22] LABS: Troponin-I High Sensitivity 57.2 ng/L (<3.5-35.0)
[2021-05-04 21:25] LABS: Appearance Urine CLEAR; Color Urine YELLOW; Glucose Urine UA NEG (NEG); Leukocyte Esterase Urine NEG (NEG); Nitrite Urine NEG (NEG); Specific Gravity - Urine <= 1.005 (1.005-1.025); UACC Culture Trigger NO; Urine Blood 2+ (NEG); Urine Ketones 5 MG/DL (NEG); Urine Protein TRACE MG/DL (NEG-TRACE)
[2021-05-04 21:31] LABS: WBC Urine 0 /HPF (0-4)
[2021-05-04 21:32] LABS: Bacteria Urine TRACE /LPF
[2021-05-04 21:33] VITALS: BP 150/77; PULSE 109; RESP 16; O2SAT 98
[2021-05-04 22:01] VITALS: BP 150/77; PULSE 109; RESP 16; TEMP 36.9; O2SAT 98
--- NOTE | 2021-05-04 23:43 | P.HPHOSP_ITS ---
History of Present Illness Date of Service: 05/04/21 Chief Complaint: coffee ground emesis 75-year-old male with past medical history of GERD, CAD, hypercholesterolemia, iron deficiency anemia, ischemic cardiomyopathy, history of CABG, who presents to the hospital with coffee-ground emesis. He reports that it is feels like a stomach ulcer because he has something similar about 30 years ago. Patient reports that he has had constipation, on and off black stools, as well as a vomiting episode of black coffee-ground emesis. Patient reports that his symptoms started about few days ago. He does not recall it vomiting but reports liquid came out of his mouth that was dark black. He has also been experiencing abdominal pain. Abdominal pain is diffuse, constant, 8/10, nonradiating, no leaving or exacerbating factors. Patient reports last BM was this a.m., and he has not been passing any gas. He reports that he has been constipated for the past few days. He otherwise denies any chest pain, no shortness of breath, no urinary symptoms, no lower extremity edema. No headache or change in vision, no numbness tingling or weakness. On arrival to the ED patient hemodynamically stable with no significant abnormal vitals except a slightly elevated heart rate Labs are significant for sodium of 134 magnesium of 2.7, troponin of 67 that trended down to 57, UA negative. CT abdomen shows small bowel obstruction with transition point. Transition point present to be somewhere in distal ileum/right lower quadrant. The terminal ileum and the entire colon appears normal. NG tube placed and patient will be admitted for further management Review of Systems Review of Systems: Yes all other systems are reviewed and are negative [facility] Medical History Atherosclerotic cardiovascular disease Coronary artery disease GERD (gastroesophageal reflux disease) Hypercholesterolemia Impaired fasting glucose Iron deficiency anemia Ischemic cardiomyopathy Leukoencephalopathy Peptic ulcer disease Family History Father No problems noted. Mother No problems noted. Surgical History History of appendectomy History of hernia repair History of tonsillectomy S/P CABG x 5 Status post aorto-coronary artery bypass graft Status post surgical removal of malignant neoplasm of skin Social History Housing: House Alcohol intake: never Patient Tobacco Use Status: Former Tobacco user Tobacco use type: Cigarette e-Cigarette/Vaping Use: Never Used Second Hand Smoke Exposure: No Advance Directives: Yes Advance Directives Information Provided: No Advance Directives on File: No Current occupational status: retired Meds Allergies Allergy/AdvReac Type Severity Reaction Status Date / Time lisinopril AdvReac Unknown cough Verified 05/01/21 08:42 Active Medications: Current Medications Acetaminophen (Acetaminophen Supp 650 Mg Supp.Rect) 650 mg [place] Q6H PRN PRN Reason: Pain, Mild (Pain Scale 1-3) Pantoprazole Sodium 80 mg/ (Sodium Chloride) 100 mls @ 10 mls/hr IV .Q10H SAMSON Last Admin: 05/04/21 20:00 Dose: 8 mg/hr, 10 mls/hr Documented by: Metoprolol Succinate (Metoprolol Succinate Er 25 Mg Tab.Er.24h) 25 mg PO DAILY SAMSON; Protocol Morphine Sulfate (Morphine Sulfate 4 Mg/Ml Cartridge) 4 mg IVPUSH Q4H PRN; Protocol PRN Reason: Pain, Severe (Pain Scale 7-10) Multivitamins/Vitamin C (Multivitamin Tablet) 1 tab PO DAILY SAMSON Ondansetron HCl (Ondansetron Hcl 4 Mg/2 Ml Vial) 4 mg IVPUSH Q8H PRN PRN Reason: Nausea and Vomiting Sodium Chloride (0.9 % Sodium Chloride Flush 3 Ml Syringe) 3 ml IVFLUSH QSHIFT [facility] Home Medications Medication Instructions Recorded Confirmed Last Taken Type aspirin 81 mg tablet,delayed 81 mg PO DAILY 11/16/19 05/04/21 05/04/21 History release vitamin B complex 1 tab PO DAILY 11/16/19 05/04/21 05/04/21 History Physical Exam Vital Signs and Narrative: Vital Signs: Last Vital Signs Temp 98.4 F 05/04/21 22:01 Pulse 109 H 05/04/21 22:01 Resp 16 05/04/21 22:01 BP 150/77 H 05/04/21 22:01 Pulse Ox 98 05/04/21 22:01 BMI result Body Mass Index 15.7 Const: General: cooperative and no acute distress Orientation/consciousness: patient oriented x3 Eyes: General: appearance normal, both eyes and all related structures Pupils: Equal, round and reactive pupils present Resp: Effort & Inspection: normal respiratory effort Auscultation: clear to auscultation bilaterally Cardio: Rate: regular rate Rhythm: regular rhythm GI: Other: Diffuse abdominal tenderness, guarding with no rebound Palpation (GI): Soft to palpation Auscultation: normal bowel sounds Skin: General skin exam: no rashes or lesions noted Neuro: General: patient oriented x3 Cranial nerves: Yes Equal, round and reactive pupils present Cognition (Neuro): normal cognition Extrem: General: Yes normal to inspection and Yes no pedal edema Results Labs CBC and Chem 7: 05/04/21 19:03 05/04/21 20:50 Labs: Laboratory Results - last 24 hr 05/04/21 05/04/21 05/04/21 16:23 16:23 19:03 MCV 84.7 84.9 MCH 28.4 28.2 MCHC 33.5 33.2 RDW 14.4 14.4 Plt Count 309 316 MPV 9.1 L 9.1 L Immature Gran % (Auto) Cancelled Cancelled Neut % (Auto) Cancelled Cancelled Lymph % (Auto) Cancelled Cancelled [place] % (Auto) Cancelled Cancelled Eos % (Auto) Cancelled Cancelled Baso % (Auto) Cancelled Cancelled Lymph # (Auto) Cancelled Cancelled [place] # (Auto) Cancelled Cancelled Eos # (Auto) Cancelled Cancelled Baso # (Auto) Cancelled Cancelled Abs Immat Gran (auto) Cancelled Cancelled Absolute Neuts (auto) Cancelled Cancelled Absolute Nucleated RBC 0.000 0.000 Nucleated RBC % (auto) 0.0 0.0 Neutrophils % (Manual) 82 H 82 H Band Neutrophils % 5 3 Lymphocytes % (Manual) 4 L 5 L Monocytes % (Manual) 9 10 Abs Neuts (Manual) 10.1 H 9.1 H Lymphocytes # (Manual) 0.5 L 0.5 L Monocytes # (Manual) 1.0 1.1 Toxic Vacuolation PRESENT PRESENT Platelet Estimate SLIGHTLY DECREASED SLIGHTLY DECREASED Plt Morphology Comment NORMAL NORM RBC Morphology NOTED NOTED Polychromasia 1+ (0-2) Microcytosis 1+ (5-14) 1+ (5-14) Stefanie Cells 1+ (0-2) 1+ (0-2) PT INR APTT Anion Gap 21 H Estim Creat Clear Calc 26.3 Estimated GFR 46 Random Glucose 158 H D Lactic Acid Calcium 10.6 H D Magnesium Total Bilirubin Direct Bilirubin AST ALT Alkaline Phosphatase Total Protein Albumin Lipase Urine Color Urine Appearance Urine pH Ur Specific [place] Urine Protein Urine Glucose (UA) Urine Ketones Urine Blood Urine Nitrite Ur Leukocyte Esterase Urine RBC Urine WBC Ur Squamous Epith Cells Urine Bacteria Ethyl Alcohol Influenza Type A (PCR) Influenza Type B (PCR) RSV RNA Qual (PCR) SARS-CoV-2 RNA (RT-PCR) Blood Type Antibody Screen 05/04/21 05/04/21 05/04/21 19:03 19:03 19:03 MCV MCH MCHC RDW Plt Count MPV Immature Gran % (Auto) Neut % (Auto) Lymph % (Auto) [place] % (Auto) Eos % (Auto) Baso % (Auto) Lymph # (Auto) [place] # (Auto) Eos # (Auto) Baso # (Auto) Abs Immat Gran (auto) Absolute Neuts (auto) Absolute Nucleated RBC Nucleated RBC % (auto) Neutrophils % (Manual) Band Neutrophils % Lymphocytes % (Manual) Monocytes % (Manual) Abs Neuts (Manual) Lymphocytes # (Manual) Monocytes # (Manual) Toxic Vacuolation Platelet Estimate Plt Morphology Comment RBC Morphology Polychromasia Microcytosis Stefanie Cells PT 16.6 H INR 1.5 H APTT 33.1 Anion Gap Estim Creat Clear Calc Estimated GFR Random Glucose Lactic Acid Calcium Magnesium 2.7 H Total Bilirubin 1.3 H Direct Bilirubin 0.4 AST 36 D ALT 19 Alkaline Phosphatase 75 D Total Protein 8.1 H Albumin 4.6 Lipase 22 Urine Color Urine Appearance Urine pH Ur Specific [place] Urine Protein Urine Glucose (UA) Urine Ketones Urine Blood Urine Nitrite Ur Leukocyte Esterase Urine RBC Urine WBC Ur Squamous Epith Cells Urine Bacteria Ethyl Alcohol < 10 Influenza Type A (PCR) Influenza Type B (PCR) RSV RNA Qual (PCR) SARS-CoV-2 RNA (RT-PCR) Blood Type Antibody Screen 05/04/21 05/04/21 05/04/21 19:03 20:50 20:50 MCV MCH MCHC RDW Plt Count MPV Immature Gran % (Auto) Neut % (Auto) Lymph % (Auto) [place] % (Auto) Eos % (Auto) Baso % (Auto) Lymph # (Auto) [place] # (Auto) Eos # (Auto) Baso # (Auto) Abs Immat Gran (auto) Absolute Neuts (auto) Absolute Nucleated RBC Nucleated RBC % (auto) Neutrophils % (Manual) Band Neutrophils % Lymphocytes % (Manual) Monocytes % (Manual) Abs Neuts (Manual) Lymphocytes # (Manual) Monocytes # (Manual) Toxic Vacuolation Platelet Estimate Plt Morphology Comment RBC Morphology Polychromasia Microcytosis Stefanie Cells PT INR APTT Anion Gap 18 Estim Creat Clear Calc 28.2 Estimated GFR 50 Random Glucose 127 H Lactic Acid Calcium 9.6 D Magnesium Total Bilirubin Direct Bilirubin AST ALT Alkaline Phosphatase Total Protein Albumin Lipase Urine Color Urine Appearance Urine pH Ur Specific [place] Urine Protein Urine Glucose (UA) Urine Ketones Urine Blood Urine Nitrite Ur Leukocyte Esterase Urine RBC Urine WBC Ur Squamous Epith Cells Urine Bacteria Ethyl Alcohol Influenza Type A (PCR) NEGATIVE Influenza Type B (PCR) NEGATIVE RSV RNA Qual (PCR) NEGATIVE SARS-CoV-2 RNA (RT-PCR) NEGATIVE Blood Type O Positive Antibody Screen NEGATIVE 05/04/21 05/04/21 20:50 21:18 MCV MCH MCHC RDW Plt Count MPV Immature Gran % (Auto) Neut % (Auto) Lymph % (Auto) [place] % (Auto) Eos % (Auto) Baso % (Auto) Lymph # (Auto) [place] # (Auto) Eos # (Auto) Baso # (Auto) Abs Immat Gran (auto) Absolute Neuts (auto) Absolute Nucleated RBC Nucleated RBC % (auto) Neutrophils % (Manual) Band Neutrophils % Lymphocytes % (Manual) Monocytes % (Manual) Abs Neuts (Manual) Lymphocytes # (Manual) Monocytes # (Manual) Toxic Vacuolation Platelet Estimate Plt Morphology Comment RBC Morphology Polychromasia Microcytosis Stefanie Cells PT INR APTT Anion Gap Estim Creat Clear Calc Estimated GFR Random Glucose Lactic Acid 1.6 Calcium Magnesium Total Bilirubin Direct Bilirubin AST ALT Alkaline Phosphatase Total Protein Albumin Lipase Urine Color YELLOW Urine Appearance CLEAR Urine pH 6.0 Ur Specific [place] <= 1.005 Urine Protein TRACE Urine Glucose (UA) NEG Urine Ketones 5 Urine Blood 2+ H Urine Nitrite NEG Ur Leukocyte Esterase NEG Urine RBC 1-4 Urine WBC 0 Ur Squamous Epith Cells NONE Urine Bacteria TRACE Ethyl Alcohol Influenza Type A (PCR) Influenza Type B (PCR) RSV RNA Qual (PCR) SARS-CoV-2 RNA (RT-PCR) Blood Type Antibody Screen Imaging Radiologist's Impressions: Impressions Abdomen/Pelvis CT 05/04/21 19:57 IMPRESSION: Small bowel obstruction with transition point not well visualized but presumed to be somewhere in distal ileum/right lower quadrant. The terminal ileum and the entire colon appears normal. Appendix is not seen. There is no free fluid. Recommend NG tube with small bowel follow-through. There is no contrast extravasation seen to suspect any site of GI bleed at this time. Assessment and Plan (1) Coffee ground emesis: Status: Acute (2) Small bowel obstruction: Status: Acute Plan 75-year-old male with history of CAD status post CABG, who presents to the hospital with complaints of coffee-ground emesis as well as abdominal pain found to have SBO # small-bowel obstruction - findings on CT as above - NG tube in place draining large amount of bile - patient hemodynamically stable - general surgery consulted - will keep NPO # coffee-ground emesis - patient reports history of GERD - hemodynamically stable, hemoglobin stable - patient started on Protonix drip the ED, will continue - GI consult - follow H&H # CAD with history of CABG - 2019 - will hold aspirin given the coffee-ground emesis - continue metoprolol DVT prophylaxis: SCDs I anticipate a necessary tonight medical admission for this patient given his findings of small bowel obstruction requiring NG tube placement, evaluation for coffee-ground emesis Quality Stroke Does the patient have a stroke diagnosis?: No VTE Prior VTE?: No VTE Risk Level:: Medical - moderate - high VTE Device Contraindication: N/A - Device Ordered VTE Drug Contraindication: Treatment Not Indicated
[2021-05-05] MEDS: Morphine Sulfate 4 MG/ML CARTRIDGE IVPUSH ×2 (00:03→16:52)
[2021-05-05] MEDS: Pantoprazole Sodium 80 MG in 0.9 % Sodium Chloride 80 ML 10 MG IV ×2 (05:23→14:37)
[2021-05-05 07:23] LABS: MANUAL DIFF FLAG NO
[2021-05-05 07:30] LABS: Basophils Percent Auto 0.2 % (0-2); Hematocrit 41.9 % (42.0-52.0); Hemoglobin 13.9 g/dl (14.0-18.0); Imm Gran Abs Auto 0.05 X10*3/uL (0.00-0.03); Imm Gran Pct Auto 0.5 % (0.0-0.4); Lymphocytes Absolute Auto 0.6 X10*3/uL (1.2-4.9); Lymphocytes Percent Auto 6.8 % (20-40); Mean Corpuscular HGB Conc 33.2 g/dl (31.0-36.0); Mean Corpuscular Hemoglobin 28.4 pg (27.0-33.0); Mean Corpuscular Volume 85.7 fL (80.0-98.0); Mean Platelet Volume 9.2 fL (9.4-12.4); Monocytes Absolute Auto 1.1 X10*3/uL (0.1-1.2); Monocytes Percent Auto 11.9 % (2-11); Neutrophils Absolute Auto 7.5 x10*3/uL (2.0-8.3); Neutrophils Percent Auto 80.6 % (45-73); Platelet Count 267 X10*3/uL (160-400); Red Blood Count 4.89 X10*6/uL (4.60-5.80); Red Cell Distribution Width 14.6 % (11.0-16.0); White Blood Count 9.4 X10*3/uL (4.8-10.8)
[2021-05-05 07:48] LABS: Anion Gap 16 (12-20); Blood Urea Nitrogen 44 mg/dL (9-16); Calcium 9.4 mg/dL (8.4-10.2); Carbon Dioxide 24 mmol/L (22-29); Chloride 101 mmol/L (96-108); Estimated Glomerular Filt Rate > 60; Glucose Random 104 mg/dL (60-115); Potassium 4.8 mmol/L (3.3-5.1); Sodium 136 mmol/L (135-145)
[2021-05-05] MEDS: Dextrose 5 % and 0.9 % NaCl 1,000 ML 80 ML IVCONT ×2 (08:27→20:55)
--- NOTE | 2021-05-05 09:22 | PC.NURSE ---
Pt moved from overflow bed 11 to overflow bed 3. Tele placed on pt per order. Pt s.tach on the monitor at 101. Pt ambulating up to the bedside commode with ax1. NGT remains on intermittent suction, dark brown fluid draining into suction canister, pt tolerating well. IVFs started this AM. PT resting in the hospital bed, linens changed. pt is A/O. Callbell and belongings within reach. Pt continuously requesting water. pt educated on NPO status.
[2021-05-05 09:34] VITALS: BP 131/73; PULSE 101; RESP 18; O2SAT 92
--- NOTE | 2021-05-05 09:40 | PM.CNGS ---
History of Present Illness Consult details Consult date: 05/05/21 Requesting physician: Madelyn Lund Narrative: 75-year-old male patient presenting to the emergency department with complaints of spitting up coffee-ground material. His past history of ulcers (GERD), CAD status post CABG x3, iron deficiency anemia, ischemic cardiomyopathy. He is status post appendectomy and right inguinal hernia repair. Workup in the emergency department with CT abdomen and pelvis revealed dilated loops of small bowel with a transition point not clearly identified but decompressed terminal ileum and cecum suggestive of a small-bowel obstruction. The patient reports passing his bowels on a daily basis is unaware of any blood in his stool. He is admitted to the hospitalist service with surgical consultation for small-bowel obstruction. A nasogastric tube was placed and is currently draining fecal appearing material. Patient does report feeling improved with no current abdominal pain, nausea, or vomiting. He is requesting sips of liquids. Review of Systems Constitutional: Constitutional: Denies chills, Denies fever(s), Denies headache(s) and Reports poor appetite ENT: Denies dizziness and Denies headache(s) Cardiovascular: Cardiovascular: Denies chest pain, Denies rapid heart rate, Denies palpitations and Denies slow heart rate Respiratory: Respiratory: Denies chest congestion, Denies cough, Denies pain on inspiration and Denies wheezing Gastrointestinal: Gastrointestinal: Reports abdominal pain, Reports bloating, Denies change in stool character, Denies constipation, Denies diarrhea, Reports nausea, Reports vomiting and Reports hematemesis Musculoskeletal: Musculoskeletal: Denies back pain, Denies arthralgias, Denies joint swelling and Denies numbness Integumentary/Breasts: Skin/Breast: Denies change in pigmentation, Denies erythema and Denies rash Neurologic: Denies dizziness, Denies headache(s) and Denies numbness Psychiatric: Psychiatric: Denies anxiety and Denies depression Endocrine: Endocrine: Denies palpitations Hematologic/Lymphatic: Hematologic/Lymphatic: Denies easy bleeding, Denies easy bruising and Denies lymphadenopathy Allergic/Immunologic: Allergic/Immunologic: Denies wheezing PMFSH Past Medical History Medical History Atherosclerotic cardiovascular disease Coronary artery disease GERD (gastroesophageal reflux disease) Hypercholesterolemia Impaired fasting glucose Iron deficiency anemia Ischemic cardiomyopathy Leukoencephalopathy Peptic ulcer disease Family History Family History Father No problems noted. Mother No problems noted. Surgical History Surgical History History of appendectomy History of hernia repair History of tonsillectomy S/P CABG x 5 Status post aorto-coronary artery bypass graft Status post surgical removal of malignant neoplasm of skin Social History Social History Housing: House Alcohol intake: never Patient Tobacco Use Status: Former Tobacco user Tobacco use type: Cigarette e-Cigarette/Vaping Use: Never Used Second Hand Smoke Exposure: No Advance Directives: Yes Advance Directives Information Provided: No Advance Directives on File: No Current occupational status: retired Meds Allergies Allergy/AdvReac Type Severity Reaction Status Date / Time lisinopril AdvReac Unknown cough Verified 05/01/21 08:42 Active Medications: Current Medications Acetaminophen (Acetaminophen Supp 650 Mg Supp.Rect) 650 mg ND Q6H PRN PRN Reason: Pain, Mild (Pain Scale 1-3) Pantoprazole Sodium 80 mg/ (Sodium Chloride) 100 mls @ 10 mls/hr IV .Q10H [facility] Last Admin: 05/05/21 05:23 Dose: 8 mg/hr, 10 mls/hr Documented by: Dextrose/Sodium Chloride (D5ns) 1,000 mls @ 80 mls/hr IVCONT .[id number] [facility] Last Admin: 05/05/21 08:27 Dose: 80 mls/hr Documented by: Metoprolol Succinate (Metoprolol Succinate Er 25 Mg Tab.Er.24h) 25 mg PO DAILY [facility]; Protocol Last Admin: 05/05/21 08:34 Dose: Not Given Documented by: Morphine Sulfate (Morphine Sulfate 4 Mg/Ml Cartridge) 4 mg IVPUSH Q4H PRN; Protocol PRN Reason: Pain, Severe (Pain Scale 7-10) Last Admin: 05/05/21 00:03 Dose: 4 mg Documented by: Multivitamins/Vitamin C (Multivitamin Tablet) 1 tab PO DAILY [facility] Last Admin: 05/05/21 08:35 Dose: Not Given Documented by: Ondansetron HCl (Ondansetron Hcl 4 Mg/2 Ml Vial) 4 mg IVPUSH Q8H PRN PRN Reason: Nausea and Vomiting Sodium Chloride (0.9 % Sodium Chloride Flush 3 Ml Syringe) 3 ml IVFLUSH QSHIFT [facility] Last Admin: 05/05/21 08:35 Dose: Not Given Documented by: Home Medications Medication Instructions Recorded Confirmed Last Taken Type aspirin 81 mg tablet,delayed 81 mg PO DAILY 11/16/19 05/04/21 05/04/21 History release vitamin B complex 1 tab PO DAILY 11/16/19 05/04/21 05/04/21 History Physical Exam Vital Signs: Vital Signs: Last Vital Signs Temp 98.4 F 05/04/21 22:01 Pulse 101 H 05/05/21 09:34 Resp 18 05/05/21 09:34 BP 131/73 05/05/21 09:34 Pulse Ox 92 05/05/21 09:34 BMI result Body Mass Index 15.7 Const: General: cooperative, comfortable and well developed Nutritional Appearance: well nourished Orientation/consciousness: patient oriented x3 Eyes: Sclerae: sclerae normal EOM: EOMs intact bilaterally Neck: Neck: Yes normal visual inspection Resp: Effort & Inspection: normal respiratory effort, no cough, no respiratory distress and no stridor Cardio: Jugular venous distension: no JVD GI: Inspection: Yes normal to inspection Palpation (GI): Soft to palpation, nontender, no guarding and not rigid Percussion: Yes normal to percussion Auscultation: abnormal bowel sounds Rectal Exam - Male: Yes deferred Skin: General skin exam: dry skin Rashes: no rashes Neuro: General: patient oriented x3 and no focal motor deficits Extrem: General: Yes full ROM and Yes no clubbing, cyanosis or edema Psych: Appearance: grossly normal Results Labs Result diagrams: 05/05/21 07:11 05/05/21 07:11 Labs: Abnormal lab results 05/04/21 05/04/21 05/04/21 Range/Units 16:23 16:23 19:03 WBC 11.6 H (4.8-10.8) X10*3/uL Hgb (14.0-18.0) g/dl Hct (42.0-52.0) % MPV 9.1 L 9.1 L (9.4-12.4) fL Immature Gran % (Auto) (0.0-0.4) % Neut % (Auto) (45-73) % Lymph % (Auto) (20-40) % [place]eller % (Auto) (2-11) % Lymph # (Auto) (1.2-4.9) X10*3/uL Abs Immat Gran (auto) (0.00-0.03) X10*3/uL Neutrophils % (Manual) 82 H 82 H (45-73) % Lymphocytes % (Manual) 4 L 5 L (20-40) % Abs Neuts (Manual) 10.1 H 9.1 H (2.0-8.3) X10*3/uL Lymphocytes # (Manual) 0.5 L 0.5 L (1.2-4.9) X10*3/uL PT (9.9-13.0) SEC INR (0.9-1.1) Sodium 132 L (135-145) mmol/L Chloride 93 L (96-108) mmol/L Anion Gap 21 H (12-20) BUN 59 H (9-16) mg/dL Creatinine 1.50 H (0.5-1.4) mg/dL Random Glucose 158 H D (60-115) mg/dL Calcium 10.6 H D (8.4-10.2) mg/dL Magnesium (1.6-2.6) mg/dL Total Bilirubin (0.0-1.0) mg/dL Troponin I High Sens (<3.5-35.0) ng/L Total Protein (6.5-8.0) g/dL Urine Blood (NEG) 05/04/21 05/04/21 05/04/21 Range/Units 19:03 19:03 19:03 WBC (4.8-10.8) X10*3/uL Hgb (14.0-18.0) g/dl Hct (42.0-52.0) % MPV (9.4-12.4) fL Immature Gran % (Auto) (0.0-0.4) % Neut % (Auto) (45-73) % Lymph % (Auto) (20-40) % [place]eller % (Auto) (2-11) % Lymph # (Auto) (1.2-4.9) X10*3/uL Abs Immat Gran (auto) (0.00-0.03) X10*3/uL Neutrophils % (Manual) (45-73) % Lymphocytes % (Manual) (20-40) % Abs Neuts (Manual) (2.0-8.3) X10*3/uL Lymphocytes # (Manual) (1.2-4.9) X10*3/uL PT 16.6 H (9.9-13.0) SEC INR 1.5 H (0.9-1.1) Sodium (135-145) mmol/L Chloride (96-108) mmol/L Anion Gap (12-20) BUN (9-16) mg/dL Creatinine (0.5-1.4) mg/dL Random Glucose (60-115) mg/dL Calcium (8.4-10.2) mg/dL Magnesium 2.7 H (1.6-2.6) mg/dL Total Bilirubin 1.3 H (0.0-1.0) mg/dL Troponin I High Sens 67.8 H (<3.5-35.0) ng/L Total Protein 8.1 H (6.5-8.0) g/dL Urine Blood (NEG) 05/04/21 05/04/21 05/04/21 Range/Units 20:50 20:50 21:18 WBC (4.8-10.8) X10*3/uL Hgb (14.0-18.0) g/dl Hct (42.0-52.0) % MPV (9.4-12.4) fL Immature Gran % (Auto) (0.0-0.4) % Neut % (Auto) (45-73) % Lymph % (Auto) (20-40) % [place]eller % (Auto) (2-11) % Lymph # (Auto) (1.2-4.9) X10*3/uL Abs Immat Gran (auto) (0.00-0.03) X10*3/uL Neutrophils % (Manual) (45-73) % Lymphocytes % (Manual) (20-40) % Abs Neuts (Manual) (2.0-8.3) X10*3/uL Lymphocytes # (Manual) (1.2-4.9) X10*3/uL PT (9.9-13.0) SEC INR (0.9-1.1) Sodium 134 L (135-145) mmol/L Chloride (96-108) mmol/L Anion Gap (12-20) BUN 60 H (9-16) mg/dL Creatinine (0.5-1.4) mg/dL Random Glucose 127 H (60-115) mg/dL Calcium (8.4-10.2) mg/dL Magnesium (1.6-2.6) mg/dL Total Bilirubin (0.0-1.0) mg/dL Troponin I High Sens 57.2 H (<3.5-35.0) ng/L Total Protein (6.5-8.0) g/dL Urine Blood 2+ H (NEG) 05/05/21 05/05/21 Range/Units 07:11 07:11 WBC (4.8-10.8) X10*3/uL Hgb 13.9 L (14.0-18.0) g/dl Hct 41.9 L (42.0-52.0) % MPV 9.2 L (9.4-12.4) fL Immature Gran % (Auto) 0.5 H (0.0-0.4) % Neut % (Auto) 80.6 H (45-73) % Lymph % (Auto) 6.8 L (20-40) % Teller % (Auto) 11.9 H (2-11) % Lymph # (Auto) 0.6 L (1.2-4.9) X10*3/uL Abs Immat Gran (auto) 0.05 H (0.00-0.03) X10*3/uL Neutrophils % (Manual) (45-73) % Lymphocytes % (Manual) (20-40) % Abs Neuts (Manual) (2.0-8.3) X10*3/uL Lymphocytes # (Manual) (1.2-4.9) X10*3/uL PT (9.9-13.0) SEC INR (0.9-1.1) Sodium (135-145) mmol/L Chloride (96-108) mmol/L Anion Gap (12-20) BUN 44 H (9-16) mg/dL Creatinine (0.5-1.4) mg/dL Random Glucose (60-115) mg/dL Calcium (8.4-10.2) mg/dL Magnesium (1.6-2.6) mg/dL Total Bilirubin (0.0-1.0) mg/dL Troponin I High Sens (<3.5-35.0) ng/L Total Protein (6.5-8.0) g/dL Urine Blood (NEG) Short CBC 05/04/21 05/04/21 05/05/21 Range/Units 16:23 19:03 07:11 WBC 11.6 H 10.7 9.4 (4.8-10.8) X10*3/uL Hgb 16.0 16.1 13.9 L (14.0-18.0) g/dl Hct 47.7 48.5 41.9 L (42.0-52.0) % Plt Count 309 316 267 (160-400) X10*3/uL BMP 05/04/21 05/04/21 05/05/21 16:23 20:50 07:11 Sodium 132 L 134 L 136 Potassium 4.9 4.4 4.8 Chloride 93 L 96 101 Carbon Dioxide 23 24 24 BUN 59 H 60 H 44 H Creatinine 1.50 H 1.40 0.79 Calcium 10.6 H D 9.6 D 9.4 Liver Function 05/04/21 Range/Units 19:03 Total Bilirubin 1.3 H (0.0-1.0) mg/dL Direct Bilirubin 0.4 (0.0-0.5) mg/dL AST 36 D (5-37) U/L ALT 19 (0-40) U/L Alkaline Phosphatase 75 D (39-117) U/L Albumin 4.6 (3.5-5.0) g/dL Urine 05/04/21 Range/Units 21:18 Urine Color YELLOW Urine Appearance CLEAR Urine pH 6.0 (5.0-8.0) Ur Specific [place] <= 1.005 (1.005-1.025) Urine Protein TRACE (NEG-TRACE) MG/DL Urine Glucose (UA) NEG (NEG) MG/DL All other labs normal. Assessment and Plan (1) Coffee ground emesis: Status: Acute (2) GI bleed: Status: Acute (3) Small bowel obstruction: Status: Acute Plan 75-year-old male patient presenting with complaints of abdominal pain, nausea and vomiting with a history of coffee-ground emesis. He had a prior history of ileus in 1998 and a previous appendectomy. I see no record of a previous colonoscopy at [facility] [place]. on examination a nasogastric tube is in place and suctioning thick bilious secretions. No bright bleeding is identified. His abdomen is soft , nontender, and mildly tympanitic. Bowel sounds are hypoactive. Recommend IV hydration, NPO, NG tube compression and close monitoring of the patient's clinical examination. Patient may need exploratory laparotomy if no improvement with the current non operative measures. Will follow along with you. Procedures Date of Service Date of Service: 05/05/21
--- NOTE | 2021-05-05 13:26 | HO.PM.IMPN ---
Subjective Subjective Date of Service: 05/05/21 Interval History: patient denies abdominal pain, no further bout of dark-colored stools, NG draining dark bilious material, patient denies chest pain, no palpitations, no other acute issues since admission, noted to have mild tachycardia. Review of Systems Review of Systems: Yes all other systems are reviewed and are negative Physical Exam Vital Signs: Vital Signs: Last Vital Signs Temp 98.4 F 05/04/21 22:01 Pulse 101 H 05/05/21 09:34 Resp 18 05/05/21 09:34 BP 131/73 05/05/21 09:34 Pulse Ox 92 05/05/21 09:34 BMI result Body Mass Index 15.7 Const: Other: General Awake alert, no acute distress. Neck supple no JVD. CVS regular rate rhythm, Respiratory lungs clear to auscultation, no respiratory distress, no wheeze, no rhonchi. Gastrointestinal abdomen soft, nontender, bowel sounds audible, no guarding , no rigidity. NG in place Extremities no edema. Neuro nonfocal Skin no rash psych appropriate affect Objective Data Active Medications Acetaminophen (Acetaminophen Supp 650 Mg Supp.Rect) 650 mg [place] Q6H PRN PRN Reason: Pain, Mild (Pain Scale 1-3) Pantoprazole Sodium 80 mg/ (Sodium Chloride) 100 mls @ 10 mls/hr IV .Q10H [facility] Last Admin: 05/05/21 05:23 Dose: 8 mg/hr, 10 mls/hr Documented by: LADI Dextrose/Sodium Chloride (D5ns) 1,000 mls @ 80 mls/hr IVCONT .[id number] [facility] Last Admin: 05/05/21 08:27 Dose: 80 mls/hr Documented by: JUAN J Metoprolol Succinate (Metoprolol Succinate Er 25 Mg Tab.Er.24h) 25 mg PO DAILY [facility]; Protocol Last Admin: 05/05/21 08:34 Dose: Not Given Documented by: JUAN J Non-Admin Reason: NPO Morphine Sulfate (Morphine Sulfate 4 Mg/Ml Cartridge) 4 mg IVPUSH Q4H PRN; Protocol PRN Reason: Pain, Severe (Pain Scale 7-10) Last Admin: 05/05/21 00:03 Dose: 4 mg Documented by: HO.N-PARRC Multivitamins/Vitamin C (Multivitamin Tablet) 1 tab PO DAILY [facility] Last Admin: 05/05/21 08:35 Dose: Not Given Documented by: JUAN J Non-Admin Reason: NPO Ondansetron HCl (Ondansetron Hcl 4 Mg/2 Ml Vial) 4 mg IVPUSH Q8H PRN PRN Reason: Nausea and Vomiting Sodium Chloride (0.9 % Sodium Chloride Flush 3 Ml Syringe) 3 ml IVFLUSH QSHIFT [facility] Last Admin: 05/05/21 08:35 Dose: Not Given Documented by: JUAN J Non-Admin Reason: IV Running Labs CBC & Chem 7: 05/05/21 07:11 05/05/21 07:11 Labs: Laboratory Results - last 24 hr 05/04/21 05/04/21 05/04/21 16:23 16:23 19:03 MCV 84.7 84.9 MCH 28.4 28.2 MCHC 33.5 33.2 RDW 14.4 14.4 Plt Count 309 316 MPV 9.1 L 9.1 L Immature Gran % (Auto) Cancelled Cancelled Neut % (Auto) Cancelled Cancelled Lymph % (Auto) Cancelled Cancelled [place] % (Auto) Cancelled Cancelled Eos % (Auto) Cancelled Cancelled Baso % (Auto) Cancelled Cancelled Lymph # (Auto) Cancelled Cancelled [place] # (Auto) Cancelled Cancelled Eos # (Auto) Cancelled Cancelled Baso # (Auto) Cancelled Cancelled Abs Immat Gran (auto) Cancelled Cancelled Absolute Neuts (auto) Cancelled Cancelled Absolute Nucleated RBC 0.000 0.000 Nucleated RBC % (auto) 0.0 0.0 Neutrophils % (Manual) 82 H 82 H Band Neutrophils % 5 3 Lymphocytes % (Manual) 4 L 5 L Monocytes % (Manual) 9 10 Abs Neuts (Manual) 10.1 H 9.1 H Lymphocytes # (Manual) 0.5 L 0.5 L Monocytes # (Manual) 1.0 1.1 Toxic Vacuolation PRESENT PRESENT Platelet Estimate SLIGHTLY DECREASED SLIGHTLY DECREASED Plt Morphology Comment NORMAL NORM RBC Morphology NOTED NOTED Polychromasia 1+ (0-2) Microcytosis 1+ (5-14) 1+ (5-14) Jerome Cells 1+ (0-2) 1+ (0-2) PT INR APTT Anion Gap 21 H Estim Creat Clear Calc 26.3 Estimated GFR 46 Random Glucose 158 H D Lactic Acid Calcium 10.6 H D Magnesium Total Bilirubin Direct Bilirubin AST ALT Alkaline Phosphatase Total Protein Albumin Lipase Urine Color Urine Appearance Urine pH Ur Specific [place] Urine Protein Urine Glucose (UA) Urine Ketones Urine Blood Urine Nitrite Ur Leukocyte Esterase Urine RBC Urine WBC Ur Squamous Epith Cells Urine Bacteria Ethyl Alcohol Influenza Type A (PCR) Influenza Type B (PCR) RSV RNA Qual (PCR) SARS-CoV-2 RNA (RT-PCR) Blood Type Antibody Screen 05/04/21 05/04/21 05/04/21 19:03 19:03 19:03 MCV MCH MCHC RDW Plt Count MPV Immature Gran % (Auto) Neut % (Auto) Lymph % (Auto) [place] % (Auto) Eos % (Auto) Baso % (Auto) Lymph # (Auto) [place] # (Auto) Eos # (Auto) Baso # (Auto) Abs Immat Gran (auto) Absolute Neuts (auto) Absolute Nucleated RBC Nucleated RBC % (auto) Neutrophils % (Manual) Band Neutrophils % Lymphocytes % (Manual) Monocytes % (Manual) Abs Neuts (Manual) Lymphocytes # (Manual) Monocytes # (Manual) Toxic Vacuolation Platelet Estimate Plt Morphology Comment RBC Morphology Polychromasia Microcytosis Stefanie Cells PT 16.6 H INR 1.5 H APTT 33.1 Anion Gap Estim Creat Clear Calc Estimated GFR Random Glucose Lactic Acid Calcium Magnesium 2.7 H Total Bilirubin 1.3 H Direct Bilirubin 0.4 AST 36 D ALT 19 Alkaline Phosphatase 75 D Total Protein 8.1 H Albumin 4.6 Lipase 22 Urine Color Urine Appearance Urine pH Ur Specific [place] Urine Protein Urine Glucose (UA) Urine Ketones Urine Blood Urine Nitrite Ur Leukocyte Esterase Urine RBC Urine WBC Ur Squamous Epith Cells Urine Bacteria Ethyl Alcohol < 10 Influenza Type A (PCR) Influenza Type B (PCR) RSV RNA Qual (PCR) SARS-CoV-2 RNA (RT-PCR) Blood Type Antibody Screen 05/04/21 05/04/21 05/04/21 19:03 20:50 20:50 MCV MCH MCHC RDW Plt Count MPV Immature Gran % (Auto) Neut % (Auto) Lymph % (Auto) [place] % (Auto) Eos % (Auto) Baso % (Auto) Lymph # (Auto) [place] # (Auto) Eos # (Auto) Baso # (Auto) Abs Immat Gran (auto) Absolute Neuts (auto) Absolute Nucleated RBC Nucleated RBC % (auto) Neutrophils % (Manual) Band Neutrophils % Lymphocytes % (Manual) Monocytes % (Manual) Abs Neuts (Manual) Lymphocytes # (Manual) Monocytes # (Manual) Toxic Vacuolation Platelet Estimate Plt Morphology Comment RBC Morphology Polychromasia Microcytosis Jerome Cells PT INR APTT Anion Gap 18 Estim Creat Clear Calc 28.2 Estimated GFR 50 Random Glucose 127 H Lactic Acid Calcium 9.6 D Magnesium Total Bilirubin Direct Bilirubin AST ALT Alkaline Phosphatase Total Protein Albumin Lipase Urine Color Urine Appearance Urine pH Ur Specific [place] Urine Protein Urine Glucose (UA) Urine Ketones Urine Blood Urine Nitrite Ur Leukocyte Esterase Urine RBC Urine WBC Ur Squamous Epith Cells Urine Bacteria Ethyl Alcohol Influenza Type A (PCR) NEGATIVE Influenza Type B (PCR) NEGATIVE RSV RNA Qual (PCR) NEGATIVE SARS-CoV-2 RNA (RT-PCR) NEGATIVE Blood Type O Positive Antibody Screen NEGATIVE 05/04/21 05/04/21 05/05/21 20:50 21:18 07:11 MCV 85.7 MCH 28.4 MCHC 33.2 RDW 14.6 Plt Count 267 MPV 9.2 L Immature Gran % (Auto) 0.5 H Neut % (Auto) 80.6 H Lymph % (Auto) 6.8 L [place] % (Auto) 11.9 H Eos % (Auto) 0.0 Baso % (Auto) 0.2 Lymph # (Auto) 0.6 L [place] # (Auto) 1.1 Eos # (Auto) 0.0 Baso # (Auto) 0.0 Abs Immat Gran (auto) 0.05 H Absolute Neuts (auto) 7.5 Absolute Nucleated RBC 0.000 Nucleated RBC % (auto) 0.0 Neutrophils % (Manual) Band Neutrophils % Lymphocytes % (Manual) Monocytes % (Manual) Abs Neuts (Manual) Lymphocytes # (Manual) Monocytes # (Manual) Toxic Vacuolation Platelet Estimate Plt Morphology Comment RBC Morphology Polychromasia Microcytosis Jerome Cells PT INR APTT Anion Gap Estim Creat Clear Calc Estimated GFR Random Glucose Lactic Acid 1.6 Calcium Magnesium Total Bilirubin Direct Bilirubin AST ALT Alkaline Phosphatase Total Protein Albumin Lipase Urine Color YELLOW Urine Appearance CLEAR Urine pH 6.0 Ur Specific [place] <= 1.005 Urine Protein TRACE Urine Glucose (UA) NEG Urine Ketones 5 Urine Blood 2+ H Urine Nitrite NEG Ur Leukocyte Esterase NEG Urine RBC 1-4 Urine WBC 0 Ur Squamous Epith Cells NONE Urine Bacteria TRACE Ethyl Alcohol Influenza Type A (PCR) Influenza Type B (PCR) RSV RNA Qual (PCR) SARS-CoV-2 RNA (RT-PCR) Blood Type Antibody Screen 05/05/21 07:11 MCV MCH MCHC RDW Plt Count MPV Immature Gran % (Auto) Neut % (Auto) Lymph % (Auto) [place] % (Auto) Eos % (Auto) Baso % (Auto) Lymph # (Auto) [place] # (Auto) Eos # (Auto) Baso # (Auto) Abs Immat Gran (auto) Absolute Neuts (auto) Absolute Nucleated RBC Nucleated RBC % (auto) Neutrophils % (Manual) Band Neutrophils % Lymphocytes % (Manual) Monocytes % (Manual) Abs Neuts (Manual) Lymphocytes # (Manual) Monocytes # (Manual) Toxic Vacuolation Platelet Estimate Plt Morphology Comment RBC Morphology Polychromasia Microcytosis Stefanie Cells PT INR APTT Anion Gap 16 Estim Creat Clear Calc 50.0 Estimated GFR > 60 Random Glucose 104 Lactic Acid Calcium 9.4 Magnesium Total Bilirubin Direct Bilirubin AST ALT Alkaline Phosphatase Total Protein Albumin Lipase Urine Color Urine Appearance Urine pH Ur Specific [place] Urine Protein Urine Glucose (UA) Urine Ketones Urine Blood Urine Nitrite Ur Leukocyte Esterase Urine RBC Urine WBC Ur Squamous Epith Cells Urine Bacteria Ethyl Alcohol Influenza Type A (PCR) Influenza Type B (PCR) RSV RNA Qual (PCR) SARS-CoV-2 RNA (RT-PCR) Blood Type Antibody Screen Assessment and Plan (1) Coffee ground emesis: Status: Acute (2) Small bowel obstruction: Status: Acute (3) GI bleed: Status: Acute (4) Essential hypertension: Status: Acute (5) Hypercholesterolemia: Status: Acute Plan 75-year-old male patient with past medical history of GERD, coronary artery disease, hypercholesterolemia, iron deficiency anemia, ischemic cardiomyopathy, history of CABG presenting with complaints of abdominal pain, nausea and vomiting with a history of coffee-ground emesis, dark-colored stool CT abdomen showed small bowel obstruction with transition point patient admitted to [facility] with a diagnosis of small-bowel obstruction # small-bowel obstruction NG tube with dark bilious drainage, no abdominal pain, continue NPO, place on IV fluid and continue NG patient evaluated by Dr. Pantoja from General surgery, he recommend IV hydration and NG decompression with close monitoring if no improvement with current non operative measures, then he will need exploratory laparotomy. follow CBC and BMP # Upper GI bleed coffee-ground emesis and dark stools at home, continue with dark colored NG drainage, hemoglobin hematocrit dropped from baseline but remains stable will repeat CBC, transfuse if indicated hemodynamically stable, continue IV Protonix drip follow GI consult # CAD with history of CABG in 2019 hold aspirin given the coffee-ground emesis, will place on IV metoprolol, was on metoprolol 25 mg daily at home. # hyperlipidemia not on statin DVT prophylaxis:? SCDs Code status full code patient will need continued inpatient hospitalization due to ongoing small-bowel obstruction NPO on IV fluids. Quality Stroke Does the patient have a stroke diagnosis?: No VTE Prior VTE?: No VTE Risk Level:: Medical - moderate - high VTE Device Contraindication: N/A - Device Ordered VTE Drug Contraindication: Treatment Not Indicated
[2021-05-05 14:04] LABS: Hemoglobin 14.3 g/dl (14.0-18.0); Mean Corpuscular HGB Conc 33.3 g/dl (31.0-36.0); Mean Corpuscular Hemoglobin 28.5 pg (27.0-33.0); Mean Corpuscular Volume 85.8 fL (80.0-98.0); Mean Platelet Volume 8.7 fL (9.4-12.4); Platelet Count 271 X10*3/uL (160-400); Red Blood Count 5.01 X10*6/uL (4.60-5.80); Red Cell Distribution Width 14.6 % (11.0-16.0); White Blood Count 8.4 X10*3/uL (4.8-10.8)
[2021-05-05 16:40] VITALS: BP 154/84; PULSE 104; RESP 20; O2SAT 94
[2021-05-05] MEDS: Metoprolol Tartrate 5 MG/5 ML VIAL 2.5 MG IVPUSH (16:40)
--- NOTE | 2021-05-05 18:50 | CONS_ITS ---
DATE OF SERVICE: 05/05/2021 REFERRING PHYSICIAN: Madelyn Lund REASON FOR CONSULTATION: Coffee-grounds emesis. HISTORY OF PRESENT ILLNESS: The patient is a pleasant 75-year-old man admitted to the hospital after presenting to the emergency room with complaints of vomiting coffee-ground material. He states he fell on the ice about 2 weeks ago and hurt his shoulder. Since that time, he has been feeling unwell and developed abdominal pain over the day prior to admission with some vomiting of small amounts of coffee-ground material. He has no history of hematemesis and denies any black tarry stools. He states he has had a poor appetite for several days prior to admission and some generalized abdominal discomfort. He does have a history of peptic ulcer disease and has been maintained on pantoprazole as an outpatient. He denies any significant NSAID intake except for baby aspirin. He was evaluated in the Emergency Department with laboratory studies, which showed a hematocrit of 47.7, which is decreased to 41.9 this morning after hydration and is stable at 43 as of 2 o'clock today. He has had no melena. CT scanning was obtained, which is reviewed. This is interpreted as showing a small bowel obstruction with a presumed transition point in the distal ileum/right lower quadrant. NG tube has been inserted and is draining brownish material with no blood. He has been seen in consultation by Dr. Pantoja. The patient describes some reflux symptoms over the past day or 2 despite pantoprazole 40 mg daily. He has also had some weight loss over the past year from about 110 pounds to about 90 pounds by his report. He does not recall undergoing prior endoscopy, but does state a history of peptic ulcer disease and has not had colonoscopy. PAST MEDICAL HISTORY: 1. Peptic ulcer disease with reflux. 2. Coronary artery disease with history of bypass surgery. 3. Iron deficiency anemia. 4. Elevated cholesterol. 5. Cardiomyopathy. 6. Hernia repair. 7. Appendectomy. CURRENT MEDICATIONS: His current medication list is reviewed in the chart. ALLERGIES: LISINOPRIL. FAMILY HISTORY: This is reviewed with the patient and is negative for GI malignancy. SOCIAL HISTORY: He denies current tobacco or alcohol abuse. REVIEW OF SYSTEMS: SKIN: No pruritus. HEENT: Negative cardiopulmonary. No shortness of breath or chest pain. GASTROINTESTINAL: As above. GENITOURINARY: Negative. NEUROPSYCHIATRIC: Negative. PHYSICAL EXAMINATION: GENERAL: Shows a pleasant male, lying in bed. NG tube is draining brownish material. VITAL SIGNS: Reviewed in the electronic medical record and are stable. He does have a mild tachycardia in the low 100s. SKIN: Anicteric. HEENT: Shows no scleral icterus. NECK: Without lymphadenopathy or thyromegaly. LUNGS: Clear. HEART: Shows a regular rate and rhythm. S1, S2. No murmur. ABDOMEN: Soft without focal masses or tenderness. Bowel sounds are high-pitched. There is no organomegaly palpable. There is a right paramedian scar from his prior surgery. EXTREMITIES: Without edema. LABORATORY DATA AND CT SCANNING: Reviewed. IMPRESSION: Small-bowel obstruction with history of coffee-grounds emesis. At this point, the patient seems quite stable from a GI standpoint with no evidence of active bleeding. It is likely that some of his coffee-grounds emesis could be related to esophagitis with his recent small bowel obstruction or possible Domenica-Cisse tear. At this time he seems quite stable without any evidence of ongoing GI bleeding and I would recommend treating him with a proton pump inhibitor as you are doing and following his hematocrit. He may require endoscopy at some point and has not undergone colonoscopy and does have a history of iron deficiency anemia. This was discussed with the patient. Thanks for asking me to see him. I will follow him in the hospital with you. MD HANNAH Arenas/NOÉ / [phone]
[2021-05-05 19:10] VITALS: BP 146/84; PULSE 94; RESP 16; O2SAT 100
--- NOTE | 2021-05-05 19:31 | PC.NURSE ---
Took report from Damian to assume care of PT, Pt resting comfortably, Pt needs met, call light in reach, this RN continues to monitor.
[2021-05-05 23:39] VITALS: BP 156/77; PULSE 95; RESP 18; TEMP 37.4; O2SAT 96
[2021-05-06] MEDS: Pantoprazole Sodium 80 MG in 0.9 % Sodium Chloride 80 ML 10 MG IV ×3 (01:07→20:51)
[2021-05-06 03:51] VITALS: BP 148/75; PULSE 98; RESP 20; TEMP 36.8; O2SAT 93
[2021-05-06] MEDS: Metoprolol Tartrate 5 MG/5 ML VIAL 2.5 MG IVPUSH ×3 (04:11→19:49)
[2021-05-06 06:47] LABS: Hematocrit 42.2 % (42.0-52.0); Mean Corpuscular HGB Conc 33.2 g/dl (31.0-36.0); Mean Corpuscular Hemoglobin 28.4 pg (27.0-33.0); Mean Corpuscular Volume 85.6 fL (80.0-98.0); Mean Platelet Volume 9.2 fL (9.4-12.4); Platelet Count 270 X10*3/uL (160-400); Red Blood Count 4.93 X10*6/uL (4.60-5.80); Red Cell Distribution Width 14.6 % (11.0-16.0); White Blood Count 8.6 X10*3/uL (4.8-10.8)
[2021-05-06 07:12] LABS: Anion Gap 13 (12-20); Blood Urea Nitrogen 28 mg/dL (9-16); Calcium 9.3 mg/dL (8.4-10.2); Carbon Dioxide 25 mmol/L (22-29); Chloride 107 mmol/L (96-108); Creatinine Clr Calc Pharmacy 54.8; Estimated Glomerular Filt Rate > 60; Glucose Random 138 mg/dL (60-115); Potassium 4.1 mmol/L (3.3-5.1); Sodium 141 mmol/L (135-145)
[2021-05-06 08:00] VITALS: BP 155/85; PULSE 84; RESP 18; TEMP 37.2; O2SAT 97
--- NOTE | 2021-05-06 08:09 | MHC.CM.PN ---
CM met with Patient at bedside and addressed IMM with him, providing him with the original and placing a copy on the chart. 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 Patient's goal is home/no services and CM has initiated and will follow for dc planning. Dr. Fran Munson is the PCP and Patient has received Covid/Pfizer vax X3.
[2021-05-06] MEDS: Dextrose 5 % and 0.9 % NaCl 1,000 ML 80 ML IVCONT ×2 (10:11→22:41)
[2021-05-06 11:26] VITALS: BP 164/84; PULSE 92; RESP 18; TEMP 36.9; O2SAT 96
--- NOTE | 2021-05-06 11:36 | PM.PNGS ---
Subjective Subjective Date of Service: 05/06/21 Interval history: ?I am thirsty,? denies abdominal pain or nausea. No flatus or BM yet. Physical Exam Vital Signs: Vital Signs: Last Vital Signs Temp 98.4 F 05/06/21 11:26 Pulse 92 05/06/21 11:26 Resp 18 05/06/21 11:26 BP 164/84 H 05/06/21 11:26 Pulse Ox 96 05/06/21 11:26 BMI result Body Mass Index 15.7 Const: General: no acute distress Nutritional Appearance: thin Orientation/consciousness: patient oriented x3 Limitations: no limitations Resp: Effort & Inspection: normal respiratory effort GI: Inspection: Yes normal to inspection Palpation (GI): Soft to palpation, nontender and no guarding Percussion: Yes normal to percussion Auscultation: normal bowel sounds Skin: General skin exam: no rashes or lesions noted Neuro: General: patient oriented x3 Extrem: General: Yes normal to inspection Objective Data Active Medications Acetaminophen (Acetaminophen Supp 650 Mg Supp.Rect) 650 mg [place] Q6H PRN PRN Reason: Pain, Mild (Pain Scale 1-3) Pantoprazole Sodium 80 mg/ (Sodium Chloride) 100 mls @ 10 mls/hr IV .Q10H [facility] Last Admin: 05/06/21 01:07 Dose: 8 mg/hr, 10 mls/hr Documented by: CHENCHO Dextrose/Sodium Chloride (D5ns) 1,000 mls @ 80 mls/hr IVCONT .[id number] [facility] Last Admin: 05/06/21 10:11 Dose: 80 mls/hr Documented by: REAL Metoprolol Tartrate (Metoprolol Tartrate 5 Mg/5 Ml Vial) 2.5 mg IVPUSH Q12H [facility] Last Admin: 05/06/21 04:11 Dose: 2.5 mg Documented by: MARKELL Morphine Sulfate (Morphine Sulfate 4 Mg/Ml Cartridge) 4 mg IVPUSH Q4H PRN; Protocol PRN Reason: Pain, Severe (Pain Scale 7-10) Last Admin: 05/05/21 16:52 Dose: 4 mg Documented by: JUAN J Ondansetron HCl (Ondansetron Hcl 4 Mg/2 Ml Vial) 4 mg IVPUSH Q8H PRN PRN Reason: Nausea and Vomiting Sodium Chloride (0.9 % Sodium Chloride Flush 3 Ml Syringe) 3 ml IVFLUSH QSHIFT [facility] Last Admin: 05/06/21 10:11 Dose: Not Given Documented by: REAL Non-Admin Reason: IV Running Labs CBC & Chem 7: 05/06/21 06:11 05/06/21 06:11 Labs: Laboratory Results - last 24 hr 05/05/21 05/06/21 05/06/21 13:56 06:11 06:11 MCV 85.8 85.6 MCH 28.5 28.4 MCHC 33.3 33.2 RDW 14.6 14.6 Plt Count 271 270 MPV 8.7 L 9.2 L Absolute Nucleated RBC 0.000 0.000 Nucleated RBC % (auto) 0.0 0.0 Anion Gap 13 Estim Creat Clear Calc 54.8 Estimated GFR > 60 Random Glucose 138 H Calcium 9.3 Microbiology Microbiology Results: Microbiology 05/04/21 21:19 Blood Culture - Preliminary Blood - Venous No growth after 24 hours. 05/04/21 20:50 Blood Culture - Preliminary Blood - Venous No growth after 24 hours. Procedures Date of Service Date of Service: 05/06/21 Progress Note: A&P Assessment and plan (1) Small bowel obstruction: Status: Acute (2) Coffee ground emesis: Status: Acute Plan 75-year-old male patient presenting with complaints of abdominal pain, nausea and vomiting with a history of coffee-ground emesis. He had a prior history of ileus in 1998 and a previous appendectomy. Examination today reveals continued thick bilious fluid per NG tube. His abdomen is softer with no tympany to percussion. There is no apparent tenderness. No evidence of bleeding but no return of bowel function as of yet. May be able to begin sips of clear liquids for comfort with the NG tube in place. Small-bowel follow-through may be necessary if no improvement. Fall Risk Details Current Medications: Current Medications Acetaminophen (Acetaminophen Supp 650 Mg Supp.Rect) 650 mg NE Q6H PRN PRN Reason: Pain, Mild (Pain Scale 1-3) Pantoprazole Sodium 80 mg/ (Sodium Chloride) 100 mls @ 10 mls/hr IV .Q10H [facility] Last Admin: 05/06/21 01:07 Dose: 8 mg/hr, 10 mls/hr Documented by: Dextrose/Sodium Chloride (D5ns) 1,000 mls @ 80 mls/hr IVCONT .[id number] [facility] Last Admin: 05/06/21 10:11 Dose: 80 mls/hr Documented by: Metoprolol Tartrate (Metoprolol Tartrate 5 Mg/5 Ml Vial) 2.5 mg IVPUSH Q12H [facility] Last Admin: 05/06/21 04:11 Dose: 2.5 mg Documented by: Morphine Sulfate (Morphine Sulfate 4 Mg/Ml Cartridge) 4 mg IVPUSH Q4H PRN; Protocol PRN Reason: Pain, Severe (Pain Scale 7-10) Last Admin: 05/05/21 16:52 Dose: 4 mg Documented by: Ondansetron HCl (Ondansetron Hcl 4 Mg/2 Ml Vial) 4 mg IVPUSH Q8H PRN PRN Reason: Nausea and Vomiting Sodium Chloride (0.9 % Sodium Chloride Flush 3 Ml Syringe) 3 ml IVFLUSH QSHIFT [facility] Last Admin: 05/06/21 10:11 Dose: Not Given Documented by: Time Spent With Patient Time: Total time spent is greater than 50% in coordination of care (as documented) at patient's floor/unit and/or counseling patient: Quality Stroke Does the patient have a stroke diagnosis?: No VTE Prior VTE?: No VTE Risk Level:: Medical - moderate - high VTE Device Contraindication: N/A - Device Ordered VTE Drug Contraindication: Treatment Not Indicated
--- NOTE | 2021-05-06 13:25 | HO.PM.IMPN ---
Subjective Subjective Date of Service: 05/06/21 Interval History: offers no acute complaints asking for water, no bowel movement, NG with 300 mL of thick bilious drainage. denies fever chills, no chest pain, no palpitations no other acute issues overnight. Review of Systems Review of Systems: Yes all other systems are reviewed and are negative Physical Exam Vital Signs: Vital Signs: Last Vital Signs Temp 98.4 F 05/06/21 11:26 Pulse 92 05/06/21 11:26 Resp 18 05/06/21 11:26 BP 164/84 H 05/06/21 11:26 Pulse Ox 96 05/06/21 11:26 BMI result Body Mass Index 15.7 Const: Other: General ? Awake alert, no acute distress.? Neck supple no JVD. CVS? regular rate rhythm, Respiratory lungs clear to auscultation, no respiratory distress, no wheeze, no rhonchi. Gastrointestinal abdomen soft, nontender, bowel sounds audible, no guarding , no rigidity. NG in place Extremities no edema. Neuro nonfocal Skin no rash psych appropriate affect Objective Data Active Medications Acetaminophen (Acetaminophen Supp 650 Mg Supp.Rect) 650 mg [place] Q6H PRN PRN Reason: Pain, Mild (Pain Scale 1-3) Pantoprazole Sodium 80 mg/ (Sodium Chloride) 100 mls @ 10 mls/hr IV .Q10H [facility] Last Admin: 05/06/21 12:07 Dose: 8 mg/hr, 10 mls/hr Documented by: LAURA Dextrose/Sodium Chloride (D5ns) 1,000 mls @ 80 mls/hr IVCONT .[id number] [facility] Last Admin: 05/06/21 10:11 Dose: 80 mls/hr Documented by: REAL Metoprolol Tartrate (Metoprolol Tartrate 5 Mg/5 Ml Vial) 2.5 mg IVPUSH Q12H [facility] Last Admin: 05/06/21 04:11 Dose: 2.5 mg Documented by: MARKELL Morphine Sulfate (Morphine Sulfate 4 Mg/Ml Cartridge) 4 mg IVPUSH Q4H PRN; Protocol PRN Reason: Pain, Severe (Pain Scale 7-10) Last Admin: 05/05/21 16:52 Dose: 4 mg Documented by: JUAN J Ondansetron HCl (Ondansetron Hcl 4 Mg/2 Ml Vial) 4 mg IVPUSH Q8H PRN PRN Reason: Nausea and Vomiting Sodium Chloride (0.9 % Sodium Chloride Flush 3 Ml Syringe) 3 ml IVFLUSH QSHIFT [facility] Last Admin: 05/06/21 10:11 Dose: Not Given Documented by: REAL Non-Admin Reason: IV Running Labs CBC & Chem 7: 05/06/21 06:11 05/06/21 06:11 Labs: Laboratory Results - last 24 hr 05/05/21 05/06/21 05/06/21 13:56 06:11 06:11 MCV 85.8 85.6 MCH 28.5 28.4 MCHC 33.3 33.2 RDW 14.6 14.6 Plt Count 271 270 MPV 8.7 L 9.2 L Absolute Nucleated RBC 0.000 0.000 Nucleated RBC % (auto) 0.0 0.0 Anion Gap 13 Estim Creat Clear Calc 54.8 Estimated GFR > 60 Random Glucose 138 H Calcium 9.3 Microbiology Microbiology Results: Microbiology 05/04/21 21:19 Blood Culture - Preliminary Blood - Venous No growth after 24 hours. 05/04/21 20:50 Blood Culture - Preliminary Blood - Venous No growth after 24 hours. Assessment and Plan (1) Coffee ground emesis: Status: Acute (2) Small bowel obstruction: Status: Acute (3) GI bleed: Status: Acute (4) Essential hypertension: Status: Acute (5) Hypercholesterolemia: Status: Acute Plan 75-year-old male patient with past medical history of GERD, coronary artery disease, hypercholesterolemia, iron deficiency anemia, ischemic cardiomyopathy, history of CABG presenting with complaints of abdominal pain, nausea and vomiting with a history of coffee-ground emesis, dark-colored stool CT abdomen showed small bowel obstruction with transition point patient admitted to [facility] with a diagnosis of small-bowel obstruction # small-bowel obstruction NG tube with persistent dark bilious drainage, no abdominal pain, no flatus, no bowel movement continue NPO, IV fluid and continue NG case discussed with Dr. Pantoja he recommend to continue conservative management for 24 hours and if no improvement will need small-bowel follow-through normal CBC and BMP, will order sips water # Upper GI bleed coffee-ground emesis and dark stools at home, continue with dark colored NG drainage, hemoglobin hematocrit stable hemodynamically stable, continue IV Protonix drip and transition to IV Protonix b.i.d. follow GI consult # CAD with history of CABG in 2019 hold aspirin given the coffee-ground emesis, will place on IV metoprolol, was on metoprolol 25 mg daily at home. elevated troponin but flat, no chest pain EKG showed, inferior and anterior infarction undeterminate, will repeat EKG # hyperlipidemia not on statin DVT prophylaxis:? SCDs Code status full code patient will need continued inpatient hospitalization due to ongoing small-bowel obstruction NPO on IV fluids. Quality Stroke Does the patient have a stroke diagnosis?: No VTE Prior VTE?: No VTE Risk Level:: Medical - moderate - high VTE Device Contraindication: N/A - Device Ordered VTE Drug Contraindication: Treatment Not Indicated
[2021-05-06 15:27] VITALS: BP 165/91; PULSE 98; RESP 18; TEMP 37.1; O2SAT 96
[2021-05-06 19:38] VITALS: BP 177/85; PULSE 102; RESP 17; TEMP 36.9; O2SAT 95
[2021-05-06 23:23] VITALS: BP 166/82; PULSE 99; RESP 18; TEMP 36.9; O2SAT 97
[2021-05-07] VITALS (7 sets, daily range): BP systolic 141–174; BP diastolic 77–98; PULSE 91–104; RESP 16–18; TEMP 36.4–37.1; O2SAT 89–98
[2021-05-07] MEDS: Metoprolol Tartrate 5 MG/5 ML VIAL 2.5 MG IVPUSH ×4 (02:13→20:12)
--- NOTE | 2021-05-07 02:27 | PC.NURSE ---
Patient tolerating ice and sips water. Denies nausea, states pain only when moving and denies need for pain medication. NGT draining dark green/brown. Denies flatus or BM.
--- NOTE | 2021-05-07 08:16 | P.PNIM_ITS ---
Subjective Subjective Date of Service: 05/07/21 Interval History: sbo Review of Systems still draining significantly,requesting water,still no bowel movement, NG [id number] mL of thick bilious drainage. denies fever chills, no chest pain, no palpitations no other acute issues overnight. Physical Exam Vital Signs: Vital Signs: Last Vital Signs Temp 98.0 F 05/07/21 03:28 Pulse 91 05/07/21 03:28 Resp 18 05/07/21 03:28 BP 156/84 H 05/07/21 03:28 Pulse Ox 95 05/07/21 03:28 BMI result Body Mass Index 15.7 General ? Awake alert, no acute distress.? Neck supple no JVD. CVS? regular rate rhythm, chest: lungs clear to auscultation, no respiratory distress, no rales or wheezing GI: abdomen soft, nontender, bowel sounds audible, no guarding , no rigidity. NG in place Extremities no edema or cyanosis. Neuro : axo3,nonfocal Skin no rash psych appropriate affect Objective Data Active Medications Acetaminophen (Acetaminophen Supp 650 Mg Supp.Rect) 650 mg [place] Q6H PRN PRN Reason: Pain, Mild (Pain Scale 1-3) Pantoprazole Sodium 80 mg/ (Sodium Chloride) 100 mls @ 10 mls/hr IV .Q10H [facility]PLAC[facility] BY [facility] Last Admin: 05/06/21 20:51 Dose: 8 mg/hr, 10 mls/hr Documented by: ESTHER Dextrose/Sodium Chloride (D5ns) 1,000 mls @ 80 mls/hr IVCONT .[id number] [facility]PLACED [facility] Last Admin: 05/06/21 22:41 Dose: 80 mls/hr Documented by: ESTHER Metoprolol Tartrate (Metoprolol Tartrate 5 Mg/5 Ml Vial) 2.5 mg IVPUSH Q6H [facility]PL[facility] Last Admin: 05/07/21 02:13 Dose: 2.5 mg Documented by: CHENCHO Morphine Sulfate (Morphine Sulfate 4 Mg/Ml Cartridge) 4 mg IVPUSH Q4H PRN; Protocol PRN Reason: Pain, Severe (Pain Scale 7-10) Last Admin: 05/05/21 16:52 Dose: 4 mg Documented by: JUAN J Ondansetron HCl (Ondansetron Hcl 4 Mg/2 Ml Vial) 4 mg IVPUSH Q8H PRN PRN Reason: Nausea and Vomiting Sodium Chloride (0.9 % Sodium Chloride Flush 3 Ml Syringe) 3 ml IVFLUSH QSHIFT [facility] Last Admin: 05/06/21 22:52 Dose: Not Given Documented by: ESTHER Non-Admin Reason: IV Running Labs CBC & Chem 7: 05/06/21 06:11 05/06/21 06:11 Microbiology Microbiology Results: Microbiology 05/04/21 21:19 Blood Culture - Preliminary Blood - Venous No growth after 48 hours. 05/04/21 20:50 Blood Culture - Preliminary Blood - Venous No growth after 48 hours. Assessment and Plan (1) Small bowel obstruction: Status: Acute (2) Coffee ground emesis: Status: Acute Plan 75-year-old male patient? with past medical history of GERD, coronary artery disease, hypercholesterolemia, iron deficiency anemia, ischemic cardiomyopathy, history of CABG presenting with complaints of abdominal pain, nausea and vomiting with a history of coffee-ground emesis, dark-colored stool CT abdomen showed small bowel obstruction with transition point patient admitted to [facility] with a diagnosis of small-bowel obstruction 1. small-bowel obstruction ? ? NG tube with persistent dark bilious drainage, no abdominal pain, no flatus, no bowel movement ? ? continue NPO, IV fluid and continue NG ? ? case discussed with Dr. Pantoja? he recommend to continue conservative management -added small-bowel follow-through ? ? normal CBC and BMP, order sips water ? ? 2. Upper GI bleed ?? coffee-ground emesis and dark stools at home, continue with dark colored NG drainage, hemoglobin hematocrit stable ?? hemodynamically stable,? continue IV Protonix drip and transition to IV Protonix b.i.d. ?? follow GI consult-possible nurys mcmahon , continue ppi,no new bleeding episode. 3. CAD with history of CABG in 2019 ? hold aspirin given the coffee-ground emesis, will place on IV metoprolol, was on metoprolol 25 mg daily at home. elevated troponin but flat,? no chest pain ? EKG showed, inferior and anterior infarction undeterminate(?old chnages) d/w cardiology: Patient denies any active symptoms including chest pain or shortness of breath. Added echo 4. hyperlipidemia not on statin DVT prophylaxis:? SCDs Code status full code Quality Stroke Does the patient have a stroke diagnosis?: No VTE Prior VTE?: No VTE Risk Level:: Medical - moderate - high VTE Device Contraindication: N/A - Device Ordered VTE Drug Contraindication: Treatment Not Indicated
--- NOTE | 2021-05-07 09:57 | PM.PNGS ---
Subjective Subjective Date of Service: 05/07/21 Interval history: Wants to drink john chris. Continued thick bilious output from NG tube. No flatus or BM. Patient denies abdominal pain. Physical Exam Vital Signs: Vital Signs: Last Vital Signs Temp 98.2 F 05/07/21 08:00 Pulse 95 05/07/21 08:00 Resp 18 05/07/21 08:00 BP 159/86 H 05/07/21 08:00 Pulse Ox 95 05/07/21 08:00 BMI result Body Mass Index 15.7 Const: General: no acute distress and well developed Nutritional Appearance: thin Orientation/consciousness: patient oriented x3 Limitations: no limitations HEENT: Other: Nasogastric tube in place Head: Yes normocephalic and Yes atraumatic Resp: Other: Breathing comfortably on room air. GI: Other: Flat, nontender, normal to percussion, no rebound or guarding Skin: Other: Warm, dry, no rashes Neuro: General: patient oriented x3 Extrem: Other: No edema Objective Data Active Medications Acetaminophen (Acetaminophen Supp 650 Mg Supp.Rect) 650 mg [place] Q6H PRN PRN Reason: Pain, Mild (Pain Scale 1-3) Dextrose/Sodium Chloride (D5ns) 1,000 mls @ 80 mls/hr IVCONT .[id number] [facility] Last Admin: 05/06/21 22:41 Dose: 80 mls/hr Documented by: ESTHER Pantoprazole Sodium 80 mg/ (Sodium Chloride) 100 mls @ 10 mls/hr IV .Q10H [facility] Metoprolol Tartrate (Metoprolol Tartrate 5 Mg/5 Ml Vial) 2.5 mg IVPUSH Q6H [facility] Last Admin: 05/07/21 09:04 Dose: 2.5 mg Documented by: ARTHUR Morphine Sulfate (Morphine Sulfate 4 Mg/Ml Cartridge) 4 mg IVPUSH Q4H PRN; Protocol PRN Reason: Pain, Severe (Pain Scale 7-10) Last Admin: 05/05/21 16:52 Dose: 4 mg Documented by: JUAN J Ondansetron HCl (Ondansetron Hcl 4 Mg/2 Ml Vial) 4 mg IVPUSH Q8H PRN PRN Reason: Nausea and Vomiting Sodium Chloride (0.9 % Sodium Chloride Flush 3 Ml Syringe) 3 ml IVFLUSH QSHIFT [facility] Last Admin: 05/07/21 09:03 Dose: Not Given Documented by: ARTHUR Non-Admin Reason: IV Running Labs CBC & Chem 7: 05/06/21 06:11 05/06/21 06:11 Microbiology Microbiology Results: Microbiology 05/04/21 21:19 Blood Culture - Preliminary Blood - Venous No growth after 48 hours. 05/04/21 20:50 Blood Culture - Preliminary Blood - Venous No growth after 48 hours. Procedures Date of Service Date of Service: 05/07/21 Progress Note: A&P Assessment and plan (1) Small bowel obstruction: Status: Acute Assessment and Plan: 75-year-old male patient presenting with nausea, vomiting, coffee-ground emesis, found on CT to have distended loops of small bowel with a transition point suggestive of a small-bowel obstruction. Patient is undergoing non operative management with nasogastric tube and IV hydration. Patient continues to have no flatus or BM. Small-bowel follow-through scheduled for today. Further management based on this study. Fall Risk Details Current Medications: Current Medications Acetaminophen (Acetaminophen Supp 650 Mg Supp.Rect) 650 mg [place] Q6H PRN PRN Reason: Pain, Mild (Pain Scale 1-3) Dextrose/Sodium Chloride (D5ns) 1,000 mls @ 80 mls/hr IVCONT .[id number] [facility] Last Admin: 05/06/21 22:41 Dose: 80 mls/hr Documented by: Pantoprazole Sodium 80 mg/ (Sodium Chloride) 100 mls @ 10 mls/hr IV .Q10H [facility] Metoprolol Tartrate (Metoprolol Tartrate 5 Mg/5 Ml Vial) 2.5 mg IVPUSH Q6H [facility] Last Admin: 05/07/21 09:04 Dose: 2.5 mg Documented by: Morphine Sulfate (Morphine Sulfate 4 Mg/Ml Cartridge) 4 mg IVPUSH Q4H PRN; Protocol PRN Reason: Pain, Severe (Pain Scale 7-10) Last Admin: 05/05/21 16:52 Dose: 4 mg Documented by: Ondansetron HCl (Ondansetron Hcl 4 Mg/2 Ml Vial) 4 mg IVPUSH Q8H PRN PRN Reason: Nausea and Vomiting Sodium Chloride (0.9 % Sodium Chloride Flush 3 Ml Syringe) 3 ml IVFLUSH QSHIFT [facility] Last Admin: 05/07/21 09:03 Dose: Not Given Documented by: Time Spent With Patient Time: Total time spent is greater than 50% in coordination of care (as documented) at patient's floor/unit and/or counseling patient: Quality Stroke Does the patient have a stroke diagnosis?: No VTE Prior VTE?: No VTE Risk Level:: Medical - moderate - high VTE Device Contraindication: N/A - Device Ordered VTE Drug Contraindication: Treatment Not Indicated
[2021-05-07] MEDS: Pantoprazole Sodium 80 MG in 0.9 % Sodium Chloride 80 ML 10 MG IV ×2 (10:04→20:12)
[2021-05-07] MEDS: Dextrose 5 % and 0.9 % NaCl 1,000 ML 80 ML IVCONT ×2 (10:05→21:36)
[2021-05-07] MEDS: Diatrizoate Meglumine, Sodium 120 ML SOLUTION 360 ML PO (11:26)
[2021-05-07 13:41] LABS: Hematocrit 49.7 % (42.0-52.0)
[2021-05-07] MEDS: Morphine Sulfate 4 MG/ML CARTRIDGE IVPUSH (14:15)
[2021-05-08] VITALS (16 sets, daily range): BP systolic 113–175; BP diastolic 60–97; PULSE 56–110; RESP 16–20; TEMP 36.4–38.4; O2SAT 93–99; BMI 15.7
[2021-05-08] MEDS: Metoprolol Tartrate 5 MG/5 ML VIAL 2.5 MG IVPUSH ×4 (02:29→20:50)
[2021-05-08] MEDS: Throat Lozenge, Medicated LOZENGE 1 LOZENGE MUCOUS MEM (05:29)
[2021-05-08] MEDS: Dextrose 5 % and 0.9 % NaCl 1,000 ML 80 ML IVCONT (05:30)
[2021-05-08] MEDS: Pantoprazole Sodium 80 MG in 0.9 % Sodium Chloride 80 ML 10 MG IV ×2 (05:37→15:15)
[2021-05-08 06:53] LABS: Anion Gap 14 (12-20); Blood Urea Nitrogen 25 mg/dL (9-16); Carbon Dioxide 28 mmol/L (22-29); Chloride 117 mmol/L (96-108); Creatinine Clr Calc Pharmacy 48.1; Estimated Glomerular Filt Rate > 60; Glucose Random 157 mg/dL (60-115); Potassium 4.9 mmol/L (3.3-5.1)
[2021-05-08 07:05] LABS: Sodium 155 mmol/L (135-145)
--- NOTE | 2021-05-08 07:45 | CA_ITS ---
Transthoracic Echocardiogram Patient (Last, First, Middle): Jacob Bauer A Gender: Male Date of : 1945 Age: 75 Procedure Date: 05/08/2021 Procedure Type: Transthoracic Echocardiogram Location: S3E Height: 165.1 cm Weight: 43.09 kg BSA: 1.44 m2 Heart Rate: bpm BP: 138 / 76 mmHg Science Manager: Referring MD: Chuckie Rosado MD Symptoms: ekg chnages Study Quality: Technically Difficult due to limited window ECG Rhythm: Sinus with extra beats Conclusions: - Technically, very limited. - LVEF or wall motion cannot be assessed on this study. - Valvular assessment is also markedly limited. Findings Left Ventricle The left ventricle was not well visualized. Regional wall motion abnormalities can not be excluded due to suboptimal endocardial definition. Right Ventricle The right ventricle was not well visualized. Normal right ventricular cavity size. Aortic Valve The aortic valve was not well visualized. No significant aortic stenosis. Mitral Valve The mitral valve was not well visualized. Pulmonic Valve The pulmonic valve was not well visualized. There is trace pulmonic valve regurgitation. Tricuspid Valve The tricuspid valve was not well visualized. There is trace tricuspid valve regurgitation. Pericardium/Pleural The pericardium was not well visualized. Prior Study Comparison Due to poor quality, cannot compare with prior study. Measurements Aortic Valve AoV Pk Brant: 1.33 AoV Mn Brant: 0.81 AoV VTI: 0.24 AoV Pk Grad: 7.00 Aov Mn Grad: 3.00 LVOT LVOT Pk Brant: 0.41 LVOT Mn Brant: 0.26 LVOT VTI: 0.09 LVOT Pk Grad: 1.00 LVOT Mn Grad: 0.00 Tricuspid Valve TR Pk Brant: 1.53 TR Pk Grad: 9.00 Pulmonary Valve PV Pk Brant: 0.82 Peak PV Grad: 3.00 Updated in Other Vendor System with Status of Final Chuy Castanon MD electronically signed on 05/08/2021 11:24:17 AM with status of Final
[2021-05-08] MEDS: Dextrose 5 % 1,000 ML 150 ML IVCONT ×2 (08:45→15:16)
--- NOTE | 2021-05-08 11:38 | P.PNGS_ITS ---
Subjective Subjective Date of Service: 05/08/21 <Seema Delgadillo PA-C - Last Filed: 05/08/21 11:44> 05/08/21 <Tony Pantoja MD - Last Filed: 05/08/21 14:31> Interval history: Denies passing flatus. Pain when he moves. Does not want to lie in bed anymore. Either wants the tube out and to eat or to go to surgery. <Seema Delgadillo PA-C - Last Filed: 05/08/21 11:44> Physical Exam Vital Signs: Vital Signs: Last Vital Signs Temp 99.5 F 05/08/21 11:20 Pulse 95 05/08/21 11:20 Resp 18 05/08/21 11:20 BP 159/92 H 05/08/21 11:20 Pulse Ox 97 05/08/21 11:20 BMI result Body Mass Index 15.7 <Seema Delgadillo PA-C - Last Filed: 05/08/21 11:44> Const: General: comfortable and alert <Seema Delgadillo PA-C - Last Filed: 05/08/21 11:44> Nutritional Appearance: cachectic <Seema Delgadillo PA-C - Last Filed: 05/08/21 11:44> Orientation/consciousness: patient oriented x3 <Seema Delgadillo PA-C - Last Filed: 05/08/21 11:44> Resp: Effort & Inspection: normal respiratory effort <Seema Delgadillo PA-C - Last Filed: 05/08/21 11:44> GI: Inspection: Yes distended <Seema Delgadillo PA-C - Last Filed: 05/08/21 11:44> Palpation (GI): Soft to palpation <Seema Delgadillo PA-C - Last Filed: 05/08/21 11:44> Percussion: Yes tympanic to percussion <BHAVIN Nazario Last Filed: 05/08/21 11:44> Skin: General skin exam: no rashes or lesions noted <Seema Delgadillo PA-C - Last Filed: 05/08/21 11:44> Neuro: General: patient oriented x3 <Seema Delgadillo PA-C - Last Filed: 05/08/21 11:44> Extrem: General: Yes no clubbing, cyanosis or edema <Seema Delgadillo PA-C - Last Filed: 05/08/21 11:44> Objective Data Active Medications Acetaminophen (Acetaminophen Supp 650 Mg Supp.Rect) 650 mg MA Q6H PRN PRN Reason: Pain, Mild (Pain Scale 1-3) Benzocaine (Throat Lozenge, Medicated Lozenge) 1 lozenge MUCOUS MEM Q2H PRN PRN Reason: Sore Throat Last Admin: 05/08/21 05:29 Dose: 1 lozenge Documented by: MISSY Pantoprazole Sodium 80 mg/ (Sodium Chloride) 100 mls @ 10 mls/hr IV .Q10H [facility] Last Admin: 05/08/21 05:37 Dose: 8 mg/hr, 10 mls/hr Documented by: MISSY Dextrose (D5w) 1,000 mls @ 150 mls/hr IVCONT .Q6H40M [facility] Last Admin: 05/08/21 08:45 Dose: 150 mls/hr Documented by: TOMAS Metoprolol Tartrate (Metoprolol Tartrate 5 Mg/5 Ml Vial) 2.5 mg IVPUSH Q6H [facility] Last Admin: 05/08/21 08:46 Dose: 2.5 mg Documented by: TOMAS Morphine Sulfate (Morphine Sulfate 4 Mg/Ml Cartridge) 4 mg IVPUSH Q4H PRN; Pr otocol PRN Reason: Pain, Severe (Pain Scale 7-10) Last Admin: 05/07/21 14:15 Dose: 4 mg Documented by: ARTHUR Ondansetron HCl (Ondansetron Hcl 4 Mg/2 Ml Vial) 4 mg IVPUSH Q8H PRN PRN Reason: Nausea and Vomiting Sodium Chloride (0.9 % Sodium Chloride Flush 3 Ml Syringe) 3 ml IVFLUSH QSHIFT [facility] Last Admin: 05/08/21 08:46 Dose: Not Given Documented by: TOMAS Non-Admin Reason: IV Running <BHAVIN Nazario Last Filed: 05/08/21 11:44> Labs CBC & Chem 7: : 05/07/21 13:29 05/08/21 05:53 <Seema Delgadillo PA-C - Last Filed: 05/08/21 11:44> Labs: Laboratory Results - last 24 hr 05/08/21 05:53 Anion Gap 14 Estim Creat Clear Calc 48.1 Estimated GFR > 60 Random Glucose 157 H Calcium 10.0 D <Seema Delgadillo PA-C - Last Filed: 05/08/21 11:44> Procedures Date of Service Date of Service: 05/08/21 <Seema Delgadillo PA-C - Last Filed: 05/08/21 11:44> Progress Note: A&P Assessment and plan (1) Small bowel obstruction: Status: Acute <Seema Delgadillo PA-C - Last Filed: 05/08/21 11:44> Plan 75 year old male admitted with SBO. Still without any evidence of return of GI function and NGT output remains high. Abd tympanitic. Had SB series with gastrograffin yesterday. F/u imaging this morning revealed no contrast in colon. At this point, the patient has failed nonoperative measures. Discussed this with the patient. Recommended to proceed with exploratory laparotomy, lysis of adhesions, possible small bowel resection. He is comfortable with plan. May need PICC and TPN if remains NPO for much longer. Will revisit this following the procedure. Patient agrees to proceed. Will add onto OR schedule for today. Electrolytes currently being corrected. <Seema Delgadillo PA-C - Last Filed: 05/08/21 11:44> 75 year old male admitted with SBO. Still without any evidence of return of GI function and NGT output remains high. Abd tympanitic. Had SB series with gastrograffin yesterday. F/u imaging this morning revealed no contrast in colon. At this point, the patient has failed nonoperative measures. Discussed this with the patient. Recommended to proceed with exploratory laparotomy, lysis of adhesions, possible small bowel resection. He is comfortable with plan. May need PICC and TPN if remains NPO for much longer. Will revisit this following the procedure. Patient agrees to proceed. Will add onto OR schedule for today. Electrolytes currently being corrected. I reviewed the GI series results with the patient as noted above; no progression of contrast into the colon after 20 hours and dilated small bowel consistent with complete small bowel obstruction. I recommended an exploratory laparotomy with lysis adhesions, possible bowel resection. After a discussion of the procedure, alternatives and risks, he consents to the surgery. <Tony Pantoja MD - Last Filed: 05/08/21 14:31> Fall Risk Details Current Medications: Current Medications Acetaminophen (Acetaminophen Supp 650 Mg Supp.Rect) 650 mg MA Q6H PRN PRN Reason: Pain, Mild (Pain Scale 1-3) Benzocaine (Throat Lozenge, Medicated Lozenge) 1 lozenge MUCOUS MEM Q2H PRN PRN Reason: Sore Throat Last Admin: 05/08/21 05:29 Dose: 1 lozenge Documented by: Pantoprazole Sodium 80 mg/ (Sodium Chloride) 100 mls @ 10 mls/hr IV .Q10H [facility] Last Admin: 05/08/21 05:37 Dose: 8 mg/hr, 10 mls/hr Documented by: Dextrose (D5w) 1,000 mls @ 150 mls/hr IVCONT .Q6H40M [facility] Last Admin: 05/08/21 08:45 Dose: 150 mls/hr Documented by: Metoprolol Tartrate (Metoprolol Tartrate 5 Mg/5 Ml Vial) 2.5 mg IVPUSH Q6H [facility] Last Admin: 05/08/21 08:46 Dose: 2.5 mg Documented by: Morphine Sulfate (Morphine Sulfate 4 Mg/Ml Cartridge) 4 mg IVPUSH Q4H PRN; Protocol PRN Reason: Pain, Severe (Pain Scale 7-10) Last Admin: 05/07/21 14:15 Dose: 4 mg Documented by: Ondansetron HCl (Ondansetron Hcl 4 Mg/2 Ml Vial) 4 mg IVPUSH Q8H PRN PRN Reason: Nausea and Vomiting Sodium Chloride (0.9 % Sodium Chloride Flush 3 Ml Syringe) 3 ml IVFLUSH QSHIFT [facility] Last Admin: 05/08/21 08:46 Dose: Not Given Documented by: <Seema Delgadillo PA-C - Last Filed: 05/08/21 11:44> Time Spent With Patient Time: Total time spent is greater than 50% in coordination of care (as documented) at patient's floor/unit and/or counseling patient: <Seema Delgadillo PA-C - Last Filed: 05/08/21 11:44> Quality Stroke Does the patient have a stroke diagnosis?: No <Seema Delgadillo PA-C - Last Filed: 05/08/21 11:44> VTE Prior VTE?: No <Seema Delgadillo PA-C - Last Filed: 05/08/21 11:44> VTE Risk Level:: Medical - moderate - high <Seema Delgadillo PA-C - Last Filed: 05/08/21 11:44> VTE Device Contraindication: N/A - Device Ordered <Seema Delgadillo PA-C - Last Filed: 05/08/21 11:44> VTE Drug Contraindication: Treatment Not Indicated <Seema Delgadillo PA-C - Last Filed: 05/08/21 11:44>
--- NOTE | 2021-05-08 11:56 | MHC.CM.PN ---
EMR REVIEWED, PER HOSPITALIST PT WILL BE GOING TO SURGERY TODAY FOR BOWEL RESECTION, NO D/C PLANNED FOR TODAY AND ANTIC PT WILL NEED NEW [facility], PT'S FOR TRANSPORT.
--- NOTE | 2021-05-08 13:41 | P.CDIC_ITS ---
CDI Concurrent Query Documentation Clarification: PHYSICIAN'S DOCUMENTATION REQUEST Date of Query: 05/08/21 1345 Patient Name: Jacob Bauer Admit Date: 05/04/21 Dear Doctor, A review of the medical record indicates additional documentation may be needed. Please review below and update the documentation accordingly. Risk Factors/Clinical Indicators/Treatments Per H&P: SBO NG tube inserted OR planned for 05/08/21 Based on the above, could you clarify in the Progress Notes the appropriate diagnosis, if significant, that supports the above abnormalities and additional evaluation, monitoring, and/or treatment rendered: * Partial SBO * Complete SBO * Other (please specify) * Unable to determine Use of terms such as suspected, likely, concern for, or probable (associated with a specific diagnosis that is being evaluated, monitored, or treated as if it exists) are acceptable and can be coded in the inpatient setting, when documented at the time of discharge. Thank you, Kyra Lynne RN Extension: [phone] Please use your independent medical judgment in providing your response. THIS QUERY IS PART OF THE PERMANENT MEDICAL RECORD Provider Response: Other Other Diagnosis: see note on admission CT abdomen did not suggest partial or complete just had report of a small-bowel follow-through this morning.
--- NOTE | 2021-05-08 13:51 | P.CDIC_ITS ---
CDI Concurrent Query Documentation Clarification: PHYSICIAN'S DOCUMENTATION REQUEST Date of Query: 05/08/21 6301 Patient Name: Jacob Bauer Admit Date: 05/04/21 Dear Doctor, A review of the medical record indicates additional documentation may be needed. Please review below and update the documentation accordingly. Clinical Indicators: Height: [] 5'5 Weight: [] 43.09 kg BMI: [] 15.8 Other Clinical Notes Supporting Significance of the BMI: Risk Factors/Clinical Indicators/Treatments Per ED note cachectic Per Nutrition note 05/08/21: 90% or < DBW, BMI < 19.0, po/NPO/clear liquids > 5 days If possible, please provide an associated diagnosis related to the abnormal BMI, such as: For a BMI <= 19: * Underweight * Weight loss * Cachexia * Anorexia Or: * BMI is not significant * Other (please specify) * Unable to determine Use of terms such as suspected, likely, concern for, or probable (associated with a specific diagnosis that is being evaluated, monitored, or treated as if it exists) are acceptable and can be coded in the inpatient setting, when documented at the time of discharge. Thank you, Kyra Lynne RN Extension: [phone] Please use your independent medical judgment in providing your response. 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
--- NOTE | 2021-05-08 14:11 | HO.PM.IMPN ---
Subjective Subjective Date of Service: 05/08/21 Interval History: being followed for small-bowel obstruction, small-bowel follow through showed complete small-bowel obstruction, patient complaining of discomfort with NG tube, denies abdominal pain, no flatus no bowel movement, scheduled for exploratory laparotomy this afternoon. Persistent high NG output, no fevers,no chills, no acute events overnight. Review of Systems Review of Systems: Yes all other systems are reviewed and are negative Physical Exam Vital Signs: Vital Signs: Last Vital Signs Temp 99.5 F 05/08/21 11:20 Pulse 95 05/08/21 11:20 Resp 18 05/08/21 11:20 BP 159/92 H 05/08/21 11:20 Pulse Ox 97 05/08/21 11:20 BMI result Body Mass Index 15.7 Const: Other: General ? Awake, a lert, no acute dis tress.? Neck suppl e no JVD. CVS? reg ular rate rhythm, Respiratory lungs clear to auscultat ion, no respirator y distress, no whe jorge, no rhonchi. G astrointestinal ab domen soft, nonten maris, bowel sounds audible, no guardi ng , no rigidity. NG in place Extrem ities no edema. Ne uro nonfocal Skin no rash psych appr opriate affect Objective Data Active Medications Acetaminophen (Acetaminophen Supp 650 Mg Supp.Rect) 650 mg TN Q6H PRN PRN Reason: Pain, Mild (Pain Scale 1-3) Benzocaine (Throat Lozenge, Medicated Lozenge) 1 lozenge MUCOUS MEM Q2H PRN PRN Reason: Sore Throat Last Admin: 05/08/21 05:29 Dose: 1 lozenge Documented by: MISSY Pantoprazole Sodium 80 mg/ (Sodium Chloride) 100 mls @ 10 mls/hr IV .Q10H [facility] Last Admin: 05/08/21 05:37 Dose: 8 mg/hr, 10 mls/hr Documented by: MISSY Dextrose (D5w) 1,000 mls @ 150 mls/hr IVCONT .Q6H40M [facility] Last Admin: 05/08/21 08:45 Dose: 150 mls/hr Documented by: TOMAS Metoprolol Tartrate (Metoprolol Tartrate 5 Mg/5 Ml Vial) 2.5 mg IVPUSH Q6H [facility] Last Admin: 05/08/21 13:36 Dose: 2.5 mg Documented by: TOMAS Morphine Sulfate (Morphine Sulfate 4 Mg/Ml Cartridge) 4 mg IVPUSH Q4H PRN; Protocol PRN Reason: Pain, Severe (Pain Scale 7-10) Last Admin: 05/07/21 14:15 Dose: 4 mg Documented by: ARTHUR Ondansetron HCl (Ondansetron Hcl 4 Mg/2 Ml Vial) 4 mg IVPUSH Q8H PRN PRN Reason: Nausea and Vomiting Sodium Chloride (0.9 % Sodium Chloride Flush 3 Ml Syringe) 3 ml IVFLUSH QSHIFT [facility] Last Admin: 05/08/21 08:46 Dose: Not Given Documented by: TOMAS Non-Admin Reason: IV Running Labs CBC & Chem 7: 05/07/21 13:29 05/08/21 05:53 Labs: Laboratory Results - last 24 hr 05/08/21 05:53 Anion Gap 14 Estim Creat Clear Calc 48.1 Estimated GFR > 60 Random Glucose 157 H Calcium 10.0 D Assessment and Plan (1) Small bowel obstruction: Status: Acute (2) Coffee ground emesis: Status: Acute Plan 75-year-old male patient? with past medical history of GERD, coronary artery disease, hypercholesterolemia, iron deficiency anemia, ischemic cardiomyopathy, history of CABG presenting with complaints of abdominal pain, nausea and vomiting with a history of coffee-ground emesis, dark-colored stool CT abdomen showed small bowel obstruction with transition point patient admitted to [facility] with a diagnosis of small-bowel obstruction 1. small-bowel obstruction ? ? NG tube with persistent dark bilious drainage, no abdominal pain, no flatus, no bowel movement ? ? Small-bowel follow-through revealed complete small-bowel obstruction,continue NPO, IV fluid and continue NG patient is scheduled for exploratory laparotomy this afternoon, is spoke with patient's and updated her about plan of care. ? 2. Upper GI bleed ?? coffee-ground emesis and dark stools at home, continue with dark colored NG drainage, hemoglobin hematocrit stable ?? hemodynamically stable,? on IV Protonix drip will transition to IV Protonix b.i.d. ?? seen by GI likely bleed related to esophagitis/or possible nurys mcmahon tear, continue ppi,no new bleeding episode. 3. CAD with history of CABG in 2019 ? hold aspirin given the coffee-ground emesis, cont. on IV metoprolol, was on metoprolol 25 mg daily at home. elevated troponin but flat,? no chest pain ? EKG showed, inferior and anterior infarction undeterminate(?old changes) echo, technically very limited study wall motion not assessed, valvular assessment also markedly limited. 4. hyperlipidemia not on statin 5. hypernatremia sodium 155, BUN gradually improved, normal renal function will change to D5W and recheck labs, if sodium improves will change to D5 half-normal saline, follow BMP 6. moderate protein calorie malnutrition patient NPO since admission if post surgery need to remain NPO will place on PPN/TPN. DVT prophylaxis:? SCDs Code status full code Quality Stroke Does the patient have a stroke diagnosis?: No VTE Prior VTE?: No VTE Risk Level:: Medical - moderate - high VTE Device Contraindication: N/A - Device Ordered VTE Drug Contraindication: Treatment Not Indicated
--- NOTE | 2021-05-08 14:14 | MHC.CLN ---
NUTRITION NUTRITION DX MODERATE MALNUTRITION IN THE CONTEXT OF ACUTE ILLNESS. TODAY IS DAY 5 OF NPO. PATIENT TO HAVE BOWEL SURGERY TODAY. FOLLOW FOR DIET ADVANCEMENT. CONSIDER TPN/PPN IF UNABLE TO ADVANCE DIET.
--- NOTE | 2021-05-08 14:31 | MHC.SHP ---
Pre-Procedural Eval Section A Date of Service: 05/08/21 The patient is an INPATIENT: No Changes since office visit: Yes Patient answered all questions; No Cold of Flu in the past 2 weeks, No New Medical Problems and No Changes in Medication The History & Physical has been completed within 30 days and I have reviewed it.: Yes Section B Chief Complaint: SBO Allergies: Allergies Allergy/AdvReac Type Severity Reaction Status Date / Time lisinopril AdvReac Unknown cough Verified 05/01/21 08:42 Plan Diagnosis/Plan: Unchanged I have reviewed the history and physical and performed a pertinent physical examination on my patient. No changes have occurred unless specified.
[2021-05-08 14:40] LABS: Anion Gap 15 (12-20); Blood Urea Nitrogen 24 mg/dL (9-16); Calcium 9.7 mg/dL (8.4-10.2); Carbon Dioxide 26 mmol/L (22-29); Chloride 115 mmol/L (96-108); Creatinine Clr Calc Pharmacy 51.9; Estimated Glomerular Filt Rate > 60; Glucose Random 157 mg/dL (60-115); Potassium 3.5 mmol/L (3.3-5.1); Sodium 152 mmol/L (135-145)
--- NOTE | 2021-05-08 17:02 | P.CONAN_ITS ---
Documented by User: Jeffery Ricci MD 05/08/21 17:19 HPI - Anesthesia Eval Consult details Narrative: 75 M for Ex lap PMFSH Active Problems Active Problems: All Active Problems (Updated 05/05/21 @ 06:47 by Madelyn Lund MD) Coffee ground emesis (Acute) GI bleed (Acute) Small bowel obstruction (Acute) Dehydration (Acute) Colon cancer screening declined (Acute) Osteoarthritis, hip, bilateral (Acute) Non-rheumatic mitral regurgitation (Acute) Essential hypertension (Acute) Status post aorto-coronary artery bypass graft (Acute) Atherosclerotic cardiovascular disease (Acute) Scalp lesion (Acute) Iron deficiency anemia (Acute) Coronary artery disease (Acute) GERD (gastroesophageal reflux disease) (Acute) Impaired fasting glucose (Acute) Hypercholesterolemia (Acute) Ischemic cardiomyopathy (Acute) Stable angina (Acute) Past Medical History Medical History Atherosclerotic cardiovascular disease Coronary artery disease GERD (gastroesophageal reflux disease) Hypercholesterolemia Impaired fasting glucose Iron deficiency anemia Ischemic cardiomyopathy Leukoencephalopathy Peptic ulcer disease Family History Family History Father No problems noted. Mother No problems noted. Surgical History Surgical History History of appendectomy History of hernia repair History of tonsillectomy S/P CABG x 5 Status post aorto-coronary artery bypass graft Status post surgical removal of malignant neoplasm of skin Social History Social History Household Members: Spouse Housing: House Do you presently have visiting nurse or other home services: No Alcohol intake: never Patient Tobacco Use Status: Former Tobacco user Tobacco use type: Cigarette e-Cigarette/Vaping Use: Never Used Second Hand Smoke Exposure: No Advance Directives Date on File: 05/05/21 service: No Current occupational status: retired Meds Allergies Allergy/AdvReac Type Severity Reaction Status Date / Time lisinopril AdvReac Unknown cough Verified 05/01/21 08:42 Active Medications: Current Medications Acetaminophen (Acetaminophen Supp 650 Mg Supp.Rect) 650 mg RI Q6H PRN PRN Reason: Pain, Mild (Pain Scale 1-3) Benzocaine (Throat Lozenge, Medicated Lozenge) 1 lozenge MUCOUS MEM Q2H PRN PRN Reason: Sore Throat Last Admin: 05/08/21 05:29 Dose: 1 lozenge Documented by: Pantoprazole Sodium 80 mg/ (Sodium Chloride) 100 mls @ 10 mls/hr IV .Q10H [facility] Last Admin: 05/08/21 15:15 Dose: 8 mg/hr, 10 mls/hr Documented by: Dextrose (D5w) 1,000 mls @ 150 mls/hr IVCONT .Q6H40M [facility] Last Admin: 05/08/21 15:16 Dose: 150 mls/hr Documented by: Metoprolol Tartrate (Metoprolol Tartrate 5 Mg/5 Ml Vial) 2.5 mg IVPUSH Q6H [facility] Last Admin: 05/08/21 13:36 Dose: 2.5 mg Documented by: Morphine Sulfate (Morphine Sulfate 4 Mg/Ml Cartridge) 4 mg IVPUSH Q4H PRN; Protocol PRN Reason: Pain, Severe (Pain Scale 7-10) Last Admin: 05/07/21 14:15 Dose: 4 mg Documented by: Ondansetron HCl (Ondansetron Hcl 4 Mg/2 Ml Vial) 4 mg IVPUSH Q8H PRN PRN Reason: Nausea and Vomiting Sodium Chloride (0.9 % Sodium Chloride Flush 3 Ml Syringe) 3 ml IVFLUSH QSHIFT [facility] Last Admin: 05/08/21 15:16 Dose: Not Given Documented by: Home Medications Medication Instructions Recorded Confirmed Last Taken Type aspirin 81 mg tablet,delayed 81 mg PO DAILY 11/16/19 05/04/21 05/04/21 History release vitamin B complex 1 tab PO DAILY 11/16/19 05/04/21 05/04/21 History Exam Exam Date and Time: May 08, 2021 170 Height,Weight and Vital Signs: Height 5 ft 5 in Weight 43.091 kg Last Vital Signs Temp 101.2 F H 05/08/21 16:22 Pulse 110 H 05/08/21 16:22 Resp 18 05/08/21 16:22 BP 146/79 H 05/08/21 16:22 Pulse Ox 97 05/08/21 16:22 Pertinent Lab Results Pertinent Lab Results: Laboratory Tests 05/04/21 05/04/21 05/04/21 16:23 16:23 19:03 WBC 11.6 H 10.7 RBC 5.63 5.71 Hgb 16.0 16.1 Hct 47.7 48.5 MCV 84.7 84.9 MCH 28.4 28.2 MCHC 33.5 33.2 RDW 14.4 14.4 Plt Count 309 316 MPV 9.1 L 9.1 L Immature Gran % (Auto) Cancelled Cancelled Neut % (Auto) Cancelled Cancelled Lymph % (Auto) Cancelled Cancelled Frontier % (Auto) Cancelled Cancelled Eos % (Auto) Cancelled Cancelled Baso % (Auto) Cancelled Cancelled Lymph # (Auto) Cancelled Cancelled Frontier # (Auto) Cancelled Cancelled Eos # (Auto) Cancelled Cancelled Baso # (Auto) Cancelled Cancelled Abs Immat Gran (auto) Cancelled Cancelled Absolute Neuts (auto) Cancelled Cancelled Absolute Nucleated RBC 0.000 0.000 Nucleated RBC % (auto) 0.0 0.0 Neutrophils % (Manual) 82 H 82 H Band Neutrophils % 5 3 Lymphocytes % (Manual) 4 L 5 L Monocytes % (Manual) 9 10 Abs Neuts (Manual) 10.1 H 9.1 H Lymphocytes # (Manual) 0.5 L 0.5 L Monocytes # (Manual) 1.0 1.1 Toxic Vacuolation PRESENT PRESENT Platelet Estimate SLIGHTLY DECREASED SLIGHTLY DECREASED Plt Morphology Comment NORMAL NORM RBC Morphology NOTED NOTED Polychromasia 1+ (0-2) Microcytosis 1+ (5-14) 1+ (5-14) Concord Cells 1+ (0-2) 1+ (0-2) PT INR APTT Sodium 132 L Potassium 4.9 Chloride 93 L Carbon Dioxide 23 Anion Gap 21 H BUN 59 H Creatinine 1.50 H Estim Creat Clear Calc 26.3 Estimated GFR 46 Random Glucose 158 H D Lactic Acid Calcium 10.6 H D Magnesium Total Bilirubin Direct Bilirubin AST ALT Alkaline Phosphatase Troponin I High Sens Total Protein Albumin Lipase Urine Color Urine Appearance Urine pH Ur Specific Bath Urine Protein Urine Glucose (UA) Urine Ketones Urine Blood Urine Nitrite Ur Leukocyte Esterase Urine RBC Urine WBC Ur Squamous Epith Cells Urine Bacteria Ethyl Alcohol Influenza Type A (PCR) Influenza Type B (PCR) RSV RNA Qual (PCR) SARS-CoV-2 RNA (RT-PCR) Blood Type Antibody Screen 05/04/21 05/04/2122 19:03 19:03 19:03 WBC RBC Hgb Hct MCV MCH MCHC RDW Plt Count MPV Immature Gran % (Auto) Neut % (Auto) Lymph % (Auto) Frontier % (Auto) Eos % (Auto) Baso % (Auto) Lymph # (Auto) Frontier # (Auto) Eos # (Auto) Baso # (Auto) Abs Immat Gran (auto) Absolute Neuts (auto) Absolute Nucleated RBC Nucleated RBC % (auto) Neutrophils % (Manual) Band Neutrophils % Lymphocytes % (Manual) Monocytes % (Manual) Abs Neuts (Manual) Lymphocytes # (Manual) Monocytes # (Manual) Toxic Vacuolation Platelet Estimate Plt Morphology Comment RBC Morphology Polychromasia Microcytosis Concord Cells PT 16.6 H INR 1.5 H APTT 33.1 Sodium Potassium Chloride Carbon Dioxide Anion Gap BUN Creatinine Estim Creat Clear Calc Estimated GFR Random Glucose Lactic Acid Calcium Magnesium 2.7 H Total Bilirubin 1.3 H Direct Bilirubin 0.4 AST 36 D ALT 19 Alkaline Phosphatase 75 D Troponin I High Sens 67.8 H Total Protein 8.1 H Albumin 4.6 Lipase 22 Urine Color Urine Appearance Urine pH Ur Specific Bath Urine Protein Urine Glucose (UA) Urine Ketones Urine Blood Urine Nitrite Ur Leukocyte Esterase Urine RBC Urine WBC Ur Squamous Epith Cells Urine Bacteria Ethyl Alcohol Influenza Type A (PCR) Influenza Type B (PCR) RSV RNA Qual (PCR) SARS-CoV-2 RNA (RT-PCR) Blood Type Antibody Screen 05/04/21 05/04/21 05/04/21 19:03 19:03 20:50 WBC RBC Hgb Hct MCV MCH MCHC RDW Plt Count MPV Immature Gran % (Auto) Neut % (Auto) Lymph % (Auto) Frontier % (Auto) Eos % (Auto) Baso % (Auto) Lymph # (Auto) Frontier # (Auto) Eos # (Auto) Baso # (Auto) Abs Immat Gran (auto) Absolute Neuts (auto) Absolute Nucleated RBC Nucleated RBC % (auto) Neutrophils % (Manual) Band Neutrophils % Lymphocytes % (Manual) Monocytes % (Manual) Abs Neuts (Manual) Lymphocytes # (Manual) Monocytes # (Manual) Toxic Vacuolation Platelet Estimate Plt Morphology Comment RBC Morphology Polychromasia Microcytosis Stefanie Cells PT INR APTT Sodium Potassium Chloride Carbon Dioxide Anion Gap BUN Creatinine Estim Creat Clear Calc Estimated GFR Random Glucose Lactic Acid Calcium Magnesium Total Bilirubin Direct Bilirubin AST ALT Alkaline Phosphatase Troponin I High Sens Total Protein Albumin Lipase Urine Color Urine Appearance Urine pH Ur Specific Bath Urine Protein Urine Glucose (UA) Urine Ketones Urine Blood Urine Nitrite Ur Leukocyte Esterase Urine RBC Urine WBC Ur Squamous Epith Cells Urine Bacteria Ethyl Alcohol < 10 Influenza Type A (PCR) NEGATIVE Influenza Type B (PCR) NEGATIVE RSV RNA Qual (PCR) NEGATIVE SARS-CoV-2 RNA (RT-PCR) NEGATIVE Blood Type O Positive Antibody Screen NEGATIVE 05/04/21 05/04/21 05/04/21 20:50 20:50 20:50 WBC RBC Hgb Hct MCV MCH MCHC RDW Plt Count MPV Immature Gran % (Auto) Neut % (Auto) Lymph % (Auto) Frontier % (Auto) Eos % (Auto) Baso % (Auto) Lymph # (Auto) Frontier # (Auto) Eos # (Auto) Baso # (Auto) Abs Immat Gran (auto) Absolute Neuts (auto) Absolute Nucleated RBC Nucleated RBC % (auto) Neutrophils % (Manual) Band Neutrophils % Lymphocytes % (Manual) Monocytes % (Manual) Abs Neuts (Manual) Lymphocytes # (Manual) Monocytes # (Manual) Toxic Vacuolation Platelet Estimate Plt Morphology Comment RBC Morphology Polychromasia Microcytosis Concord Cells PT INR APTT Sodium 134 L Potassium 4.4 Chloride 96 Carbon Dioxide 24 Anion Gap 18 BUN 60 H Creatinine 1.40 Estim Creat Clear Calc 28.2 Estimated GFR 50 Random Glucose 127 H Lactic Acid 1.6 Calcium 9.6 D Magnesium Total Bilirubin Direct Bilirubin AST ALT Alkaline Phosphatase Troponin I High Sens 57.2 H Total Protein Albumin Lipase Urine Color Urine Appearance Urine pH Ur Specific Bath Urine Protein Urine Glucose (UA) Urine Ketones Urine Blood Urine Nitrite Ur Leukocyte Esterase Urine RBC Urine WBC Ur Squamous Epith Cells Urine Bacteria Ethyl Alcohol Influenza Type A (PCR) Influenza Type B (PCR) RSV RNA Qual (PCR) SARS-CoV-2 RNA (RT-PCR) Blood Type Antibody Screen 05/04/21 05/05/21 05/05/21 21:18 07:11 07:11 WBC 9.4 RBC 4.89 Hgb 13.9 L Hct 41.9 L MCV 85.7 MCH 28.4 MCHC 33.2 RDW 14.6 Plt Count 267 MPV 9.2 L Immature Gran % (Auto) 0.5 H Neut % (Auto) 80.6 H Lymph % (Auto) 6.8 L Frontier % (Auto) 11.9 H Eos % (Auto) 0.0 Baso % (Auto) 0.2 Lymph # (Auto) 0.6 L Frontier # (Auto) 1.1 Eos # (Auto) 0.0 Baso # (Auto) 0.0 Abs Immat Gran (auto) 0.05 H Absolute Neuts (auto) 7.5 Absolute Nucleated RBC 0.000 Nucleated RBC % (auto) 0.0 Neutrophils % (Manual) Band Neutrophils % Lymphocytes % (Manual) Monocytes % (Manual) Abs Neuts (Manual) Lymphocytes # (Manual) Monocytes # (Manual) Toxic Vacuolation Platelet Estimate Plt Morphology Comment RBC Morphology Polychromasia Microcytosis Concord Cells PT INR APTT Sodium 136 Potassium 4.8 Chloride 101 Carbon Dioxide 24 Anion Gap 16 BUN 44 H Creatinine 0.79 Estim Creat Clear Calc 50.0 Estimated GFR > 60 Random Glucose 104 Lactic Acid Calcium 9.4 Magnesium Total Bilirubin Direct Bilirubin AST ALT Alkaline Phosphatase Troponin I High Sens Total Protein Albumin Lipase Urine Color YELLOW Urine Appearance CLEAR Urine pH 6.0 Ur Specific Bath <= 1.005 Urine Protein TRACE Urine Glucose (UA) NEG Urine Ketones 5 Urine Blood 2+ H Urine Nitrite NEG Ur Leukocyte Esterase NEG Urine RBC 1-4 Urine WBC 0 Ur Squamous Epith Cells NONE Urine Bacteria TRACE Ethyl Alcohol Influenza Type A (PCR) Influenza Type B (PCR) RSV RNA Qual (PCR) SARS-CoV-2 RNA (RT-PCR) Blood Type Antibody Screen 05/05/21 05/06/21 05/06/21 13:56 06:11 06:11 WBC 8.4 8.6 RBC 5.01 4.93 Hgb 14.3 14.0 Hct 43.0 42.2 MCV 85.8 85.6 MCH 28.5 28.4 MCHC 33.3 33.2 RDW 14.6 14.6 Plt Count 271 270 MPV 8.7 L 9.2 L Immature Gran % (Auto) Neut % (Auto) Lymph % (Auto) Frontier % (Auto) Eos % (Auto) Baso % (Auto) Lymph # (Auto) Frontier # (Auto) Eos # (Auto) Baso # (Auto) Abs Immat Gran (auto) Absolute Neuts (auto) Absolute Nucleated RBC 0.000 0.000 Nucleated RBC % (auto) 0.0 0.0 Neutrophils % (Manual) Band Neutrophils % Lymphocytes % (Manual) Monocytes % (Manual) Abs Neuts (Manual) Lymphocytes # (Manual) Monocytes # (Manual) Toxic Vacuolation Platelet Estimate Plt Morphology Comment RBC Morphology Polychromasia Microcytosis Stefanie Cells PT INR APTT Sodium 141 Potassium 4.1 Chloride 107 Carbon Dioxide 25 Anion Gap 13 BUN 28 H Creatinine 0.72 Estim Creat Clear Calc 54.8 Estimated GFR > 60 Random Glucose 138 H Lactic Acid Calcium 9.3 Magnesium Total Bilirubin Direct Bilirubin AST ALT Alkaline Phosphatase Troponin I High Sens Total Protein Albumin Lipase Urine Color Urine Appearance Urine pH Ur Specific Bath Urine Protein Urine Glucose (UA) Urine Ketones Urine Blood Urine Nitrite Ur Leukocyte Esterase Urine RBC Urine WBC Ur Squamous Epith Cells Urine Bacteria Ethyl Alcohol Influenza Type A (PCR) Influenza Type B (PCR) RSV RNA Qual (PCR) SARS-CoV-2 RNA (RT-PCR) Blood Type Antibody Screen 05/07/21 05/08/21 05/08/21 13:29 05:53 13:23 WBC RBC Hgb 16.0 Hct 49.7 MCV MCH MCHC RDW Plt Count MPV Immature Gran % (Auto) Neut % (Auto) Lymph % (Auto) Frontier % (Auto) Eos % (Auto) Baso % (Auto) Lymph # (Auto) Frontier # (Auto) Eos # (Auto) Baso # (Auto) Abs Immat Gran (auto) Absolute Neuts (auto) Absolute Nucleated RBC Nucleated RBC % (auto) Neutrophils % (Manual) Band Neutrophils % Lymphocytes % (Manual) Monocytes % (Manual) Abs Neuts (Manual) Lymphocytes # (Manual) Monocytes # (Manual) Toxic Vacuolation Platelet Estimate Plt Morphology Comment RBC Morphology Polychromasia Microcytosis Concord Cells PT INR APTT Sodium 155 H 152 H Potassium 4.9 3.5 D Chloride 117 H 115 H Carbon Dioxide 28 26 Anion Gap 14 15 BUN 25 H 24 H Creatinine 0.82 0.76 Estim Creat Clear Calc 48.1 51.9 Estimated GFR > 60 > 60 Random Glucose 157 H 157 H Lactic Acid Calcium 10.0 D 9.7 Magnesium Total Bilirubin Direct Bilirubin AST ALT Alkaline Phosphatase Troponin I High Sens Total Protein Albumin Lipase Urine Color Urine Appearance Urine pH Ur Specific Bath Urine Protein Urine Glucose (UA) Urine Ketones Urine Blood Urine Nitrite Ur Leukocyte Esterase Urine RBC Urine WBC Ur Squamous Epith Cells Urine Bacteria Ethyl Alcohol Influenza Type A (PCR) Influenza Type B (PCR) RSV RNA Qual (PCR) SARS-CoV-2 RNA (RT-PCR) Blood Type Antibody Screen Documented by User: Tal Colorado MD 05/08/21 18:41 [facility] Past Medical History Medical History Atherosclerotic cardiovascular disease Coronary artery disease GERD (gastroesophageal reflux disease) Hypercholesterolemia Impaired fasting glucose Iron deficiency anemia Ischemic cardiomyopathy Leukoencephalopathy Peptic ulcer disease Family History Family History Father No problems noted. Mother No problems noted. Family history of problems with anesthesia: No Surgical History Surgical History History of appendectomy History of hernia repair History of tonsillectomy S/P CABG x 5 Status post aorto-coronary artery bypass graft Status post surgical removal of malignant neoplasm of skin History of Problems with Anesthesia: No Social History Social History Household Members: Spouse Housing: House Do you presently have visiting nurse or other home services: No Alcohol intake: never Patient Tobacco Use Status: Former Tobacco user Tobacco use type: Cigarette e-Cigarette/Vaping Use: Never Used Second Hand Smoke Exposure: No Advance Directives Date on File: 05/05/21 service: No Current occupational status: retired Meds Allergies Allergy/AdvReac Type Severity Reaction Status Date / Time lisinopril AdvReac Unknown cough Verified 05/01/21 08:42 Home Medications Medication Instructions Recorded Confirmed Last Taken Type aspirin 81 mg tablet,delayed 81 mg PO DAILY 11/16/19 05/04/21 05/04/21 History release vitamin B complex 1 tab PO DAILY 11/16/19 05/04/21 05/04/21 History Exam Airway Mallampati Class: III Denture: Upper and Lower Loose/Missing/Broken Teeth: Yes Heart: tacy Assessment and Plan Assessment Anesthesia Assessment: Anesthesia Plan Discussed Final Anesthetic Review Family History of Problems with Anesthesia: No History of Problems with Anesthesia: No NPO: Yes ASA Class: III Final Preanesthetic Review: Meds/Allgs Chart Reviewed and Anes Risks/Benef Reviewed Patient Risk: High Procedure Risk: High Anesthetic Plan Anesthetic Plan: GA Disposition: Inp. Admit - Standard Bed
--- NOTE | 2021-05-08 18:29 | W.PM.OPN ---
Operative Note Operative Note Date of Service: 05/08/21 Narrative: Preoperative diagnosis: Small-bowel obstruction Postoperative diagnosis: Small-bowel obstruction due to adhesions Procedure: Exploratory laparotomy, extensive lysis of adhesions Surgeon: Tony Pantoja MD Application Integration Engineer: Seema Delgadillo PA-C Anesthesia: General endotracheal Indications for procedure: 75-year-old male patient presenting with nausea and vomiting and abdominal distension found to have markedly distended small bowel with a transition point in the distal small bowel. Findings were suggestive of a small-bowel obstruction. Upper GI study revealed no contrast in the colon. Patient presents for exploratory laparotomy. Operative findings: Extensive adhesions especially in the right lower quadrant adjacent to the previous appendectomy incision. Specimen: None Estimated blood loss: 5 mL Complications: None Procedure details: Patient was brought to the OR and placed in a supine position. After administering general anesthesia the patient's abdomen was prepped with ChloraPrep and draped in a sterile fashion. A surgical time-out was called the consent confirmed. Patient received preoperative antibiotics and Venodyne boots were in place. Local anesthesia was placed over the previous incision in a right paramedian location. A right paramedian incision was then made using the previous incision as a guide. The incision was carried out through subcutaneous tissue past the anterior rectus sheath around the rectus muscle and passed the posterior sheath. Peritoneum was then entered in the abdomen explored. Dense adhesions were encountered. My materials assistant elevated the abdominal wall and assisted in exposure of the multiple adhesions. Adhesions were divided using Metzenbaum scissors. Adhesions were taken down off of the abdominal wall using Metzenbaum scissors. Interloop adhesions were identified in the distal small bowel causing obstruction with a clear cut off point. The entire small bowel was run from ligament of Treitz to the terminal ileum and all major adhesions taken down using Metzenbaum scissors. Small bowel was then returned to the abdominal cavity and a sinusoidal manner. While the materials assistant protected the bowel the fascia was then closed using a looped PDS suture. Skin was then closed using skin eb. Sterile dressings were then applied. The patient tolerated the procedure well. Sponge, instrument, and needle counts reported as correct. The patient was transferred to PACU in stable condition.
[2021-05-08] MEDS: fentaNYL citrate/PF 100 MCG/2 ML VIAL 50 MCG IVPUSH (19:23)
[2021-05-08] MEDS: Acetaminophen Supp 650 MG SUPP.RECT PR (20:03)
[2021-05-08] MEDS: Morphine Sulfate 4 MG/ML CARTRIDGE IVPUSH (20:51)
[2021-05-09] VITALS: BP 110/63; PULSE 119; RESP 17; TEMP 36.2; O2SAT 95
[2021-05-09] MEDS: Throat Lozenge, Medicated LOZENGE 1 LOZENGE MUCOUS MEM (00:45)
[2021-05-09] MEDS: Pantoprazole Sodium 80 MG in 0.9 % Sodium Chloride 80 ML 10 MG IV (00:45)
[2021-05-09] MEDS: Metoprolol Tartrate 5 MG/5 ML VIAL 2.5 MG IVPUSH ×4 (02:17→19:31)
[2021-05-09] MEDS: Dextrose 5 % 1,000 ML 150 ML IVCONT (03:17)
[2021-05-09 03:53] VITALS: BP 110/58; PULSE 77; RESP 17; TEMP 36.5; O2SAT 94
[2021-05-09 06:43] LABS: Anion Gap 13 (12-20); Blood Urea Nitrogen 25 mg/dL (9-16); Calcium 8.4 mg/dL (8.4-10.2); Carbon Dioxide 24 mmol/L (22-29); Chloride 109 mmol/L (96-108); Creatinine Clr Calc Pharmacy 49.3; Estimated Glomerular Filt Rate > 60; Glucose Random 192 mg/dL (60-115); Potassium 3.6 mmol/L (3.3-5.1); Sodium 142 mmol/L (135-145)
[2021-05-09 07:47] VITALS: BP 133/76; PULSE 79; RESP 18; TEMP 37.4; O2SAT 94
--- NOTE | 2021-05-09 07:52 | PM.PNGS ---
Subjective Subjective Date of Service: 05/09/21 Interval history: Very sore at incision site but analgesics helping. Denies passing flatus. Physical Exam Vital Signs: Vital Signs: Last Vital Signs Temp 99.3 F 05/09/21 07:47 Pulse 79 05/09/21 07:47 Resp 18 05/09/21 07:47 BP 133/76 05/09/21 07:47 Pulse Ox 94 05/09/21 07:47 BMI result Body Mass Index 15.7 Const: General: comfortable and no acute distress Orientation/consciousness: patient oriented x3 Resp: Effort & Inspection: normal respiratory effort GI: Inspection: Yes distended and Yes incision (dressing c/d/i) Palpation (GI): Soft to palpation, Tenderness to palpation present (GI), no guarding and not rigid Percussion: Yes tympanic to percussion Skin: General skin exam: no rashes or lesions noted Neuro: General: patient oriented x3 Extrem: General: Yes no clubbing, cyanosis or edema Objective Data Active Medications Acetaminophen (Acetaminophen Supp 650 Mg Supp.Rect) 650 mg AR Q6H PRN PRN Reason: Pain, Mild (Pain Scale 1-3) Last Admin: 05/08/21 20:03 Dose: 650 mg Documented by: ROLAND Benzocaine (Throat Lozenge, Medicated Lozenge) 1 lozenge MUCOUS MEM Q2H PRN PRN Reason: Sore Throat Last Admin: 05/09/21 00:45 Dose: 1 lozenge Documented by: ODRISSonido Fentanyl (Fentanyl Citrate/Pf 100 Mcg/2 Ml Vial) 50 mcg IVPUSH Q5M PRN; Protocol PRN Reason: Pain, Severe (Pain Scale 7-10) Last Admin: 05/08/21 19:23 Dose: 25 mcg Documented by: ROLAND Hydromorphone HCl (Hydromorphone Hcl 0.5 Mg/0.5 Ml Syringe) 0.5 mg IVPUSH Q5M PRN; Protocol PRN Reason: Pain, Severe (Pain Scale 7-10) Promethazine HCl 12.5 mg/ (Sodium Chloride) 50.5 mls @ 202 mls/hr IV ONCE PRN PRN Reason: Nausea and Vomiting Dextrose/Sodium Chloride (D51/2ns) 1,000 mls @ 100 mls/hr IVCONT .Q10H [facility] Metoprolol Tartrate (Metoprolol Tartrate 5 Mg/5 Ml Vial) 2.5 mg IVPUSH Q6H [facility] Last Admin: 05/09/21 02:17 Dose: 2.5 mg Documented by: MISSY Morphine Sulfate (Morphine Sulfate 4 Mg/Ml Cartridge) 4 mg IVPUSH Q4H PRN; Protocol PRN Reason: Pain, Severe (Pain Scale 7-10) Last Admin: 05/08/21 20:51 Dose: 4 mg Documented by: MISSY Ondansetron HCl (Ondansetron Hcl 4 Mg/2 Ml Vial) 4 mg IVPUSH Q8H PRN PRN Reason: Nausea and Vomiting Pantoprazole Sodium (Pantoprazole Sodium 40 Mg/10 Ml Vial) 40 mg IVPUSH DAILY@0630 [facility] Sodium Chloride (0.9 % Sodium Chloride Flush 3 Ml Syringe) 3 ml IVFLUSH QSHIFT [facility] Last Admin: 05/09/21 01:13 Dose: Not Given Documented by: MISSY Non-Admin Reason: IV Running Labs CBC & Chem 7: 05/07/21 13:29 05/09/21 06:01 Labs: Laboratory Results - last 24 hr 05/08/21 05/08/21 05/09/21 13:23 17:02 06:01 Anion Gap 15 13 Estim Creat Clear Calc 51.9 49.3 Estimated GFR > 60 > 60 Random Glucose 157 H 192 H Calcium 9.7 8.4 D Blood Type O Positive Antibody Screen NEGATIVE Procedures Date of Service Date of Service: 05/09/21 Progress Note: A&P Assessment and plan (1) Small bowel obstruction: Status: Acute (2) S/P exploratory laparotomy: Status: Acute Plan 75-year-old male patient presenting with nausea and vomiting and abdominal distension found to have markedly distended small bowel with a transition point in the distal small bowel suggestive of a small-bowel obstruction. He failed non operative management and is now POD #1 s/p exploratory laparotomy, extensive LEONARD. Doing fairly well post op. NGT in place with bilious drainage. No evidence of return of GI function yet. Abd exam benign, appropriate post op tenderness, still remains distended. Dressing c/d/i. Would recommend keeping NGT until some evidence of GI function. Encouraged OOB/ambulation this morning at least 4x. D/c proctor. Consider adding PPN/TPN given NPO status for extended period. Fall Risk Details Current Medications: Current Medications Acetaminophen (Acetaminophen Supp 650 Mg Supp.Rect) 650 mg AR Q6H PRN PRN Reason: Pain, Mild (Pain Scale 1-3) Last Admin: 05/08/21 20:03 Dose: 650 mg Documented by: Benzocaine (Throat Lozenge, Medicated Lozenge) 1 lozenge MUCOUS MEM Q2H PRN PRN Reason: Sore Throat Last Admin: 05/09/21 00:45 Dose: 1 lozenge Documented by: Fentanyl (Fentanyl Citrate/Pf 100 Mcg/2 Ml Vial) 50 mcg IVPUSH Q5M PRN; Protocol PRN Reason: Pain, Severe (Pain Scale 7-10) Last Admin: 05/08/21 19:23 Dose: 25 mcg Documented by: Hydromorphone HCl (Hydromorphone Hcl 0.5 Mg/0.5 Ml Syringe) 0.5 mg IVPUSH Q5M PRN; Protocol PRN Reason: Pain, Severe (Pain Scale 7-10) Promethazine HCl 12.5 mg/ (Sodium Chloride) 50.5 mls @ 202 mls/hr IV ONCE PRN PRN Reason: Nausea and Vomiting Dextrose/Sodium Chloride (D51/2ns) 1,000 mls @ 100 mls/hr IVCONT .Q10H [facility] Metoprolol Tartrate (Metoprolol Tartrate 5 Mg/5 Ml Vial) 2.5 mg IVPUSH Q6H [facility] Last Admin: 05/09/21 02:17 Dose: 2.5 mg Documented by: Morphine Sulfate (Morphine Sulfate 4 Mg/Ml Cartridge) 4 mg IVPUSH Q4H PRN; Protocol PRN Reason: Pain, Severe (Pain Scale 7-10) Last Admin: 05/08/21 20:51 Dose: 4 mg Documented by: Ondansetron HCl (Ondansetron Hcl 4 Mg/2 Ml Vial) 4 mg IVPUSH Q8H PRN PRN Reason: Nausea and Vomiting Pantoprazole Sodium (Pantoprazole Sodium 40 Mg/10 Ml Vial) 40 mg IVPUSH DAILY@0630 [facility] Sodium Chloride (0.9 % Sodium Chloride Flush 3 Ml Syringe) 3 ml IVFLUSH QSHIFT [facility] Last Admin: 05/09/21 01:13 Dose: Not Given Documented by: Time Spent With Patient Time: Total time spent is greater than 50% in coordination of care (as documented) at patient's floor/unit and/or counseling patient: Quality Stroke Does the patient have a stroke diagnosis?: No VTE Prior VTE?: No VTE Risk Level:: Medical - moderate - high VTE Device Contraindication: N/A - Device Ordered VTE Drug Contraindication: Treatment Not Indicated
[2021-05-09] MEDS: Dextrose 5 % and 0.45 % NaCl 1,000 ML 100 ML IVCONT ×2 (08:08→17:44)
--- NOTE | 2021-05-09 08:56 | MHC.CM.PN ---
EMR REVIEWED, PER SURGICAL NG TUBE IN PLACE, PT C/O PAIN AT INCISION SITE W/DEISTENDED ABD, AWAITING RETURN OF GI FX, PT REMAINS ON NPO, [facility] FOLLOWING IN ANTIC PT MAY NEED [facility] SERVICES UPON D/C, CM WILL CONT TO FOLLOW D/C NEEDS.
--- NOTE | 2021-05-09 09:14 | HO.POSTANES ---
Post Anesthesia Evaluation Post Anesthesia Evaluation Vital Signs: Vital Signs Temp Pulse Resp BP Pulse Ox 05/09/21 07:47 99.3 F 79 18 133/76 94 05/09/21 03:53 97.7 F 77 17 110/58 L 94 05/09/21 00:00 97.2 F 119 H 17 110/63 95 Anesthesia: General Endotracheal-GETA Mental Status: Awake Pain Control: Satisfactory Nausea/Vomiting: None Hydration: Adequate Anesthesia-Related Issues: No Anes. Related Issues
--- NOTE | 2021-05-09 11:01 | HO.PM.IMPN ---
Subjective Subjective Date of Service: 05/09/21 Interval History: status post exploratory laparotomy with lysis of adhesions, denies abdominal pain, persistent bilious drainage from NG tube, denies flatus, no bowel movement denies nausea but feels better, no acute overnight events. Review of Systems Review of Systems: Yes all other systems are reviewed and are negative Physical Exam Vital Signs: Vital Signs: Last Vital Signs Temp 99.3 F 05/09/21 07:47 Pulse 79 05/09/21 07:47 Resp 18 05/09/21 07:47 BP 133/76 05/09/21 07:47 Pulse Ox 94 05/09/21 07:47 BMI result Body Mass Index 15.7 Const: Other: General Awake alert, no acute distress.? Neck supple no JVD. CVS? regular rate rhythm, Respiratory lungs clear to auscultation, no respiratory distress, no wheeze, no rhonchi. Gastrointestinal abdomen soft, nontender, no guarding , tenderness at incision site, dressing in place. NG with biliary drainage Extremities no edema. Neuro nonfocal Skin no rash psych appropriate affect Objective Data Active Medications Acetaminophen (Acetaminophen Supp 650 Mg Supp.Rect) 650 mg RI Q6H PRN PRN Reason: Pain, Mild (Pain Scale 1-3) Last Admin: 05/08/21 20:03 Dose: 650 mg Documented by: ROLAND Benzocaine (Throat Lozenge, Medicated Lozenge) 1 lozenge MUCOUS MEM Q2H PRN PRN Reason: Sore Throat Last Admin: 05/09/21 00:45 Dose: 1 lozenge Documented by: NISHARISSonido Fentanyl (Fentanyl Citrate/Pf 100 Mcg/2 Ml Vial) 50 mcg IVPUSH Q5M PRN; Protocol PRN Reason: Pain, Severe (Pain Scale 7-10) Last Admin: 05/08/21 19:23 Dose: 25 mcg Documented by: ROLAND Hydromorphone HCl (Hydromorphone Hcl 0.5 Mg/0.5 Ml Syringe) 0.5 mg IVPUSH Q5M PRN; Protocol PRN Reason: Pain, Severe (Pain Scale 7-10) Promethazine HCl 12.5 mg/ (Sodium Chloride) 50.5 mls @ 202 mls/hr IV ONCE PRN PRN Reason: Nausea and Vomiting Dextrose/Sodium Chloride (D51/2ns) 1,000 mls @ 100 mls/hr IVCONT .Q10H [facility] Last Admin: 05/09/21 08:08 Dose: 100 mls/hr Documented by: TOMAS Metoprolol Tartrate (Metoprolol Tartrate 5 Mg/5 Ml Vial) 2.5 mg IVPUSH Q6H [facility] Last Admin: 05/09/21 08:08 Dose: 2.5 mg Documented by: TOMAS Morphine Sulfate (Morphine Sulfate 4 Mg/Ml Cartridge) 4 mg IVPUSH Q4H PRN; Protocol PRN Reason: Pain, Severe (Pain Scale 7-10) Last Admin: 05/08/21 20:51 Dose: 4 mg Documented by: ODRISSonido Ondansetron HCl (Ondansetron Hcl 4 Mg/2 Ml Vial) 4 mg IVPUSH Q8H PRN PRN Reason: Nausea and Vomiting Pantoprazole Sodium (Pantoprazole Sodium 40 Mg/10 Ml Vial) 40 mg IVPUSH DAILY@0630 [facility] Sodium Chloride (0.9 % Sodium Chloride Flush 3 Ml Syringe) 3 ml IVFLUSH QSHIFT [facility] Last Admin: 05/09/21 08:08 Dose: Not Given Documented by: TOMAS Non-Admin Reason: IV Running Labs CBC & Chem 7: 05/07/21 13:29 05/09/21 06:01 Labs: Laboratory Results - last 24 hr 05/08/21 05/08/21 05/09/21 13:23 17:02 06:01 Anion Gap 15 13 Estim Creat Clear Calc 51.9 49.3 Estimated GFR > 60 > 60 Random Glucose 157 H 192 H Calcium 9.7 8.4 D Blood Type O Positive Antibody Screen NEGATIVE Assessment and Plan (1) Small bowel obstruction: Status: Acute (2) Coffee ground emesis: Status: Acute Plan 75-year-old male patient? with past medical history of GERD, coronary artery disease, hypercholesterolemia, iron deficiency anemia, ischemic cardiomyopathy, history of CABG presenting with complaints of abdominal pain, nausea and vomiting with a history of coffee-ground emesis, dark-colored stool CT abdomen showed small bowel obstruction with transition point patient admitted to [facility] with a diagnosis of small-bowel obstruction 1. small-bowel obstruction ? ? status post exploratory laparotomy with extentsive lysis of adhesions pod #1 no evidence of return of GI function, incision clean and dry, good pain control continue NPO, IV fluid and NG tube, obtained nutrition consult for PPN 2. Upper GI bleed ?? coffee-ground emesis and dark stools at home, hemoglobin hematocrit stable, NG with green bile no recurrent GI bleed ?? hemodynamically stable,? on IV Protonix drip , transition to IV Protonix daily ?? seen by GI likely bleed related to esophagitis/or possible nurys mcmahon tear, continue ppi,no new bleeding episode, outpatient evaluation for upper endoscopy. 3. CAD with history of CABG in 2019 ? hold aspirin given the coffee-ground emesis, cont. on IV metoprolol, was on metoprolol 25 mg daily at home. elevated troponin but flat,? no chest pain ? EKG showed, inferior and anterior infarction undeterminate(?old changes) echo, technically very limited study wall motion not assessed, valvular assessment also markedly limited. hold off on further workup 4. hyperlipidemia not on statin 5. hypernatremia sodium normalized, will change IV fluid to D5 half-normal saline and follow labs 6. moderate protein calorie malnutrition patient NPO since admission , will order PPN obtained nutrition consult. DVT prophylaxis:? SCDs Code status full code Quality Stroke Does the patient have a stroke diagnosis?: No VTE Prior VTE?: No VTE Risk Level:: Medical - moderate - high VTE Device Contraindication: N/A - Device Ordered VTE Drug Contraindication: Treatment Not Indicated
[2021-05-09 11:04] VITALS: BP 125/67; PULSE 88; RESP 18; TEMP 37.3; O2SAT 96
[2021-05-09 11:54] LABS: Albumin Level 2.8 g/dL (3.5-5.0); Magnesium 1.7 mg/dL (1.6-2.6); Phosphorus 2.8 mg/dL (2.7-4.5)
--- NOTE | 2021-05-09 13:34 | MHC.CLN ---
RE: CONSULT PPN TO START PER MD RECOMMEND D10AA4.25 AT 35ML/HR TO PROVIDE 428KCALS, 36G PROTEIN DISCUSSED WITH PHARMACY REPLETE LYTES NEEDED; CHECK TRIGS PT IS AT RISK FOR RE-FEEDING SYNDROME R/T MALNUTRITION MONITOR K+, PHOS, MG CLOSELY
[2021-05-09] MEDS: Morphine Sulfate 4 MG/ML CARTRIDGE IVPUSH (13:50)
[2021-05-09] MEDS: Potassium Phosphate/NS 15 MMOL/250 ML PLAST..BAG 62.5 MMOL IV (13:56)
[2021-05-09 15:59] VITALS: BP 138/72; PULSE 94; RESP 17; TEMP 36.6; O2SAT 95
[2021-05-09 19:17] VITALS: BP 166/80; PULSE 100; RESP 17; TEMP 36.6; O2SAT 98
[2021-05-09] MEDS: 0.9 % Sodium Chloride Flush 3 ML SYRINGE IVFLUSH (19:30)
[2021-05-10] VITALS (9 sets, daily range): BP systolic 120–163; BP diastolic 58–80; PULSE 51–92; RESP 16–18; TEMP 36.5–37.3; O2SAT 90–98; BMI 15.7
[2021-05-10] MEDS: Metoprolol Tartrate 5 MG/5 ML VIAL 2.5 MG IVPUSH ×4 (03:07→20:39)
[2021-05-10] MEDS: Dextrose 5 % and 0.45 % NaCl 1,000 ML 100 ML IVCONT ×2 (03:08→23:59)
[2021-05-10] MEDS: Pantoprazole Sodium 40 MG/10 ML VIAL IVPUSH (05:46)
[2021-05-10] MEDS: 0.9 % Sodium Chloride Flush 3 ML SYRINGE IVFLUSH (08:40)
[2021-05-10 09:31] LABS: Albumin Level 2.8 g/dL (3.5-5.0); Anion Gap 10 (12-20); Blood Urea Nitrogen 17 mg/dL (9-16); Calcium 8.7 mg/dL (8.4-10.2); Carbon Dioxide 26 mmol/L (22-29); Chloride 105 mmol/L (96-108); Creatinine Clr Calc Pharmacy 61.7; Estimated Glomerular Filt Rate > 60; Glucose Random 155 mg/dL (60-115); Magnesium 1.7 mg/dL (1.6-2.6); Phosphorus 1.9 mg/dL (2.7-4.5); Potassium 3.9 mmol/L (3.3-5.1); Sodium 137 mmol/L (135-145)
--- NOTE | 2021-05-10 10:04 | P.PNIM_ITS ---
Subjective Subjective Date of Service: 05/10/21 Interval History: Patient requesting food, denies abdominal pain, no significant NG drainage no flatus, no bowel movement is belching a lot, and denies shortness of breath, no cough, not on home oxygen. Review of Systems Review of Systems: Yes all other systems are reviewed and are negative Physical Exam Vital Signs: Vital Signs: Last Vital Signs Temp 98.4 F 05/10/21 07:41 Pulse 84 05/10/21 09:11 Resp 18 05/10/21 07:41 BP 143/60 H 05/10/21 09:11 Pulse Ox 90 L 05/10/21 09:11 BMI result Body Mass Index 15.7 Const: Other: General? Awake alert, no acute distress.? Neck supple no JVD. CVS? regular rate rhythm, Respiratory lungs clear to auscultation, no respiratory distress, no wheeze, no rhonchi. Gastrointestinal abdomen soft, nontender, no guarding , Mild distension,dressing in place. NG? with biliary drainage, bowel sounds audible Extremities no edema. Neuro nonfocal Skin no rash psych appropriate affect Objective Data Active Medications Acetaminophen (Acetaminophen Supp 650 Mg Supp.Rect) 650 mg AR Q6H PRN PRN Reason: Pain, Mild (Pain Scale 1-3) Last Admin: 05/08/21 20:03 Dose: 650 mg Documented by: ROLAND Benzocaine (Throat Lozenge, Medicated Lozenge) 1 lozenge MUCOUS MEM Q2H PRN PRN Reason: Sore Throat Last Admin: 05/09/21 00:45 Dose: 1 lozenge Documented by: MISSY Fentanyl (Fentanyl Citrate/Pf 100 Mcg/2 Ml Vial) 50 mcg IVPUSH Q5M PRN; Protocol PRN Reason: Pain, Severe (Pain Scale 7-10) Last Admin: 05/08/21 19:23 Dose: 25 mcg Documented by: ROLAND Hydromorphone HCl (Hydromorphone Hcl 0.5 Mg/0.5 Ml Syringe) 0.5 mg IVPUSH Q5M PRN; Protocol PRN Reason: Pain, Severe (Pain Scale 7-10) Promethazine HCl 12.5 mg/ (Sodium Chloride) 50.5 mls @ 202 mls/hr IV ONCE PRN PRN Reason: Nausea and Vomiting Dextrose/Sodium Chloride (D51/2ns) 1,000 mls @ 100 mls/hr IVCONT .Q10H [facility] Last Admin: 05/10/21 03:08 Dose: 100 mls/hr Documented by: MEREDITH Amino Acids/Electrolytes/Dextrose (Clinimix E 4.25%-10%) 840 mls @ 35 mls/hr IV DAILY@1800 [facility] Stop: 05/10/21 17:59 Last Admin: 05/09/21 18:49 Dose: 35 mls/hr Documented by: TOMAS Metoprolol Tartrate (Metoprolol Tartrate 5 Mg/5 Ml Vial) 2.5 mg IVPUSH Q6H [facility] Last Admin: 05/10/21 08:40 Dose: 2.5 mg Documented by: PASTOR Morphine Sulfate (Morphine Sulfate 4 Mg/Ml Cartridge) 4 mg IVPUSH Q4H PRN; Protocol PRN Reason: Pain, Severe (Pain Scale 7-10) Last Admin: 05/09/21 13:50 Dose: 4 mg Documented by: TOMAS Ondansetron HCl (Ondansetron Hcl 4 Mg/2 Ml Vial) 4 mg IVPUSH Q8H PRN PRN Reason: Nausea and Vomiting Pantoprazole Sodium (Pantoprazole Sodium 40 Mg/10 Ml Vial) 40 mg IVPUSH JAZMINE LY@0630 [facility] Last Admin: 05/10/21 05:46 Dose: 40 mg Documented by: MEREDITH Sodium Chloride (0.9 % Sodium Chloride Flush 3 Ml Syringe) 3 ml IVFLUSH QSHIFT [facility] Last Admin: 05/10/21 08:40 Dose: 3 ml Documented by: PASTOR Labs CBC & Chem 7: 05/07/21 13:29 05/10/21 08:57 Labs: Laboratory Results - last 24 hr 05/09/21 05/10/21 06:01 08:57 Anion Gap 10 L Estim Creat Clear Calc 61.7 Estimated GFR > 60 Random Glucose 155 H Calcium 8.7 Phosphorus 2.8 1.9 L Magnesium 1.7 1.7 Albumin 2.8 L D 2.8 L Microbiology Microbiology Results: Microbiology 05/04/21 21:19 Blood Culture - Final Blood - Venous No growth after 5 days. 05/04/21 20:50 Blood Culture - Final Blood - Venous No growth after 5 days. Assessment and Plan (1) Small bowel obstruction: Status: Acute (2) Coffee ground emesis: Status: Acute Plan 75-year-old male patient? with past medical history of GERD, coronary artery disease, hypercholesterolemia, iron deficiency anemia, ischemic cardiomyopathy, history of CABG presenting with complaints of abdominal pain, nausea and vomiting with a history of coffee-ground emesis, dark-colored stool CT abdomen showed small bowel obstruction with transition point patient admitted to [facility] with a diagnosis of small-bowel obstruction 1.small-bowel obstruction ? ? status post exploratory laparotomy with extentsive lysis of adhesions pod #2 no evidence of return of GI function, incision clean and dry, requesting for food no significant NG drainage recommend out of bed to chair and ambulation wean oxygen add incentive spirometry, patient has not received narcotics in last 24 hours continue NPO, IV fluid , NG tube, and PPN 2. Upper GI bleed ?? coffee-ground emesis and dark stools at home, hemoglobin hematocrit stable, NG with green bile, no recurrent GI bleed ?? hemodynamically stable,? on IV Protonix daily ?? seen by GI likely bleed related to esophagitis/or possible nurys mcmahon tear, continue ppi,no new bleeding episode, outpatient evaluation for upper endoscopy. 3. CAD with history of CABG in 2019 ? hold aspirin given the coffee-ground emesis, cont. on IV metoprolol, was on metoprolol 25 mg daily at home. elevated troponin but flat,? no chest pain ? EKG showed, inferior and anterior infarction undeterminate(?old changes) echo, technically very limited study wall motion not assessed, valvular assessment also markedly limited. hold off on further workup, no cardiac symptoms 4. hyperlipidemia not on statin 5. hypernatremia resolved 6. moderate protein calorie malnutrition on PPN resume diet once GI function return DVT prophylaxis:? SCDs Code status full code Quality Stroke Does the patient have a stroke diagnosis?: No VTE Prior VTE?: No VTE Risk Level:: Medical - moderate - high VTE Device Contraindication: N/A - Device Ordered VTE Drug Contraindication: Treatment Not Indicated
--- NOTE | 2021-05-10 10:56 | MHC.CLN ---
Addendum entered by Alba Ivy RD 05/10/21 11:06: DISCUSSED RECOMMENDATION WITH PHARMACIST. Original Note: F/U PPN RUNNING AT D10AA4.25 AT 35ML/HR TO PROVIDE 428KCALS, 36G PROTEIN. REPLETE LYTES NEEDED; CHECK TRIGS. 05/10/21 RECOMMEND INCREASE PPN TO D10AA4.25 TO 55 ML PER HOUR. PROVIDES 673 KCALS, 51 G PROTEIN. REPLETE LYTES NEEDED. CHECK TRIGLYCERIDES. ON 05/11/21, CONTINUE PPN AT 55 ML PER HOUR. ADD 13 ML OF 20% LIPIDS. PROVIDES 1297 KCAL (30.1 KCALS/KG); 51 G PROTEIN (1.3 G/KG) PT IS AT RISK FOR RE-FEEDING SYNDROME DUE TO MALNUTRITION. MONITOR K+, PHOS, MG CLOSELY,
--- NOTE | 2021-05-10 11:27 | MHC.CM.PN ---
Per ROUNDS discussion, Patient is not yet medically cleared for dc (TPN, IV Lopressor today, IV Protonix);Home is Patient's goal and CM will follow for possible need to adjust the dc plan.
[2021-05-10 12:17] LABS: Triglycerides 155 mg/dL
--- NOTE | 2021-05-10 14:44 | PM.PNGS ---
Subjective Subjective Date of Service: 05/10/21 Interval history: Feeling better this morning. Less pain. Denies flatus. Physical Exam Vital Signs: Vital Signs: Last Vital Signs Temp 99 F 05/10/21 11:15 Pulse 81 05/10/21 14:23 Resp 18 05/10/21 11:15 BP 147/66 H 05/10/21 14:23 Pulse Ox 96 05/10/21 14:23 BMI result Body Mass Index 15.7 Const: General: no acute distress and alert Orientation/consciousness: patient oriented x3 Resp: Effort & Inspection: normal respiratory effort GI: Inspection: Yes distended and Yes incision (clean) Palpation (GI): Soft to palpation, Tenderness to palpation present (GI) (mild, incisional), no guarding and not rigid Percussion: Yes tympanic to percussion Skin: General skin exam: no rashes or lesions noted Neuro: General: patient oriented x3 Objective Data Active Medications Acetaminophen (Acetaminophen Supp 650 Mg Supp.Rect) 650 mg [place] Q6H PRN PRN Reason: Pain, Mild (Pain Scale 1-3) Last Admin: 05/08/21 20:03 Dose: 650 mg Documented by: ROLAND Benzocaine (Throat Lozenge, Medicated Lozenge) 1 lozenge MUCOUS MEM Q2H PRN PRN Reason: Sore Throat Last Admin: 05/09/21 00:45 Dose: 1 lozenge Documented by: MISSY Fentanyl (Fentanyl Citrate/Pf 100 Mcg/2 Ml Vial) 50 mcg IVPUSH Q5M PRN; Protocol PRN Reason: Pain, Severe (Pain Scale 7-10) Last Admin: 05/08/21 19:23 Dose: 25 mcg Documented by: ROLAND Hydromorphone HCl (Hydromorphone Hcl 0.5 Mg/0.5 Ml Syringe) 0.5 mg IVPUSH Q5M PRN; Protocol PRN Reason: Pain, Severe (Pain Scale 7-10) Promethazine HCl 12.5 mg/ (Sodium Chloride) 50.5 mls @ 202 mls/hr IV ONCE PRN PRN Reason: Nausea and Vomiting Dextrose/Sodium Chloride (D51/2ns) 1,000 mls @ 100 mls/hr IVCONT .Q10H [facility] Last Admin: 05/10/21 03:08 Dose: 100 mls/hr Documented by: MEREDITH Amino Acids/Electrolytes/Dextrose (Clinimix E 4.25%-10%) 840 mls @ 35 mls/hr IV DAILY@1800 [facility] Stop: 05/10/21 17:59 Last Admin: 05/09/21 18:49 Dose: 35 mls/hr Documented by: TOMAS Multivitamins 10 ml/ Trace Metals 1 ml/ Amino Acids/Electrolytes/Dextrose 1,320 mls @ 55 mls/hr IV DAILY@1800 [facility] Stop: 05/11/21 17:59 Potassium Phosphate (Kphos) 15 mmol in 250 mls @ 62.5 mls/hr IV Q4H [facility] Stop: 05/10/21 20:44 Metoprolol Tartrate (Metoprolol Tartrate 5 Mg/5 Ml Vial) 2.5 mg IVPUSH Q6H [facility] Last Admin: 05/10/21 14:02 Dose: 2.5 mg Documented by: PASTOR Morphine Sulfate (Morphine Sulfate 4 Mg/Ml Cartridge) 4 mg IVPUSH Q4H PRN; Protocol PRN Reason: Pain, Severe (Pain Scale 7-10) Last Admin: 05/09/21 13:50 Dose: 4 mg Documented by: TOMAS Ondansetron HCl (Ondansetron Hcl 4 Mg/2 Ml Vial) 4 mg IVPUSH Q8H PRN PRN Reason: Nausea and Vomiting Pantoprazole Sodium (Pantoprazole Sodium 40 Mg/10 Ml Vial) 40 mg IVPUSH DAILY@0630 [facility] Last Admin: 05/10/21 05:46 Dose: 40 mg Documented by: MEREDITH Sodium Chloride (0.9 % Sodium Chloride Flush 3 Ml Syringe) 3 ml IVFLUSH QSHIFT [facility] Last Admin: 05/10/21 08:40 Dose: 3 ml Documented by: PASTOR Labs CBC & Chem 7: 05/07/21 13:29 05/10/21 08:57 Labs: Laboratory Results - last 24 hr 05/10/21 05/10/21 08:57 11:48 Anion Gap 10 L Estim Creat Clear Calc 61.7 Estimated GFR > 60 Random Glucose 155 H Calcium 8.7 Phosphorus 1.9 L Magnesium 1.7 Albumin 2.8 L Triglycerides 155 Microbiology Microbiology Results: Microbiology 05/04/21 21:19 Blood Culture - Final Blood - Venous No growth after 5 days. 05/04/21 20:50 Blood Culture - Final Blood - Venous No growth after 5 days. Procedures Date of Service Date of Service: 05/10/21 Progress Note: A&P Assessment and plan (1) S/P exploratory laparotomy: Status: Acute (2) Small bowel obstruction: Status: Acute Plan 75-year-old male patient presenting with nausea and vomiting and abdominal distension found to have markedly distended small bowel with a transition point in the distal small bowel suggestive of a small-bowel obstruction. He failed non operative management and is now POD #2 s/p exploratory laparotomy, extensive LEONARD. Continues to do well post op but still without evidence of GI function. NGT output is decreasing but abd remains distended. Continue NGT decompression, NPO status and PPN for nutrition. Encouraged OOB/ambulation this morning at least 4x. Fall Risk Details Current Medications: Current Medications Acetaminophen (Acetaminophen Supp 650 Mg Supp.Rect) 650 mg [place] Q6H PRN PRN Reason: Pain, Mild (Pain Scale 1-3) Last Admin: 05/08/21 20:03 Dose: 650 mg Documented by: Benzocaine (Throat Lozenge, Medicated Lozenge) 1 lozenge MUCOUS MEM Q2H PRN PRN Reason: Sore Throat Last Admin: 05/09/21 00:45 Dose: 1 lozenge Documented by: Fentanyl (Fentanyl Citrate/Pf 100 Mcg/2 Ml Vial) 50 mcg IVPUSH Q5M PRN; Protocol PRN Reason: Pain, Severe (Pain Scale 7-10) Last Admin: 05/08/21 19:23 Dose: 25 mcg Documented by: Hydromorphone HCl (Hydromorphone Hcl 0.5 Mg/0.5 Ml Syringe) 0.5 mg IVPUSH Q5M PRN; Protocol PRN Reason: Pain, Severe (Pain Scale 7-10) Promethazine HCl 12.5 mg/ (Sodium Chloride) 50.5 mls @ 202 mls/hr IV ONCE PRN PRN Reason: Nausea and Vomiting Dextrose/Sodium Chloride (D51/2ns) 1,000 mls @ 100 mls/hr IVCONT .Q10H [facility] Last Admin: 05/10/21 03:08 Dose: 100 mls/hr Documented by: Amino Acids/Electrolytes/Dextrose (Clinimix E 4.25%-10%) 840 mls @ 35 mls/hr IV DAILY@1800 [facility] Stop: 05/10/21 17:59 Last Admin: 05/09/21 18:49 Dose: 35 mls/hr Documented by: Multivitamins 10 ml/ Trace Metals 1 ml/ Amino Acids/Electrolytes/Dextrose 1,320 mls @ 55 mls/hr IV DAILY@1800 [facility] Stop: 05/11/21 17:59 Potassium Phosphate (Kphos) 15 mmol in 250 mls @ 62.5 mls/hr IV Q4H [facility] Stop: 05/10/21 20:44 Metoprolol Tartrate (Metoprolol Tartrate 5 Mg/5 Ml Vial) 2.5 mg IVPUSH Q6H [facility] Last Admin: 05/10/21 14:02 Dose: 2.5 mg Documented by: Morphine Sulfate (Morphine Sulfate 4 Mg/Ml Cartridge) 4 mg IVPUSH Q4H PRN; Protocol PRN Reason: Pain, Severe (Pain Scale 7-10) Last Admin: 05/09/21 13:50 Dose: 4 mg Documented by: Ondansetron HCl (Ondansetron Hcl 4 Mg/2 Ml Vial) 4 mg IVPUSH Q8H PRN PRN Reason: Nausea and Vomiting Pantoprazole Sodium (Pantoprazole Sodium 40 Mg/10 Ml Vial) 40 mg IVPUSH DAILY@0630 [facility] Last Admin: 05/10/21 05:46 Dose: 40 mg Documented by: Sodium Chloride (0.9 % Sodium Chloride Flush 3 Ml Syringe) 3 ml IVFLUSH QSHIFT [facility] Last Admin: 05/10/21 08:40 Dose: 3 ml Documented by: Time Spent With Patient Time: Total time spent is greater than 50% in coordination of care (as documented) at patient's floor/unit and/or counseling patient: Quality Stroke Does the patient have a stroke diagnosis?: No VTE Prior VTE?: No VTE Risk Level:: Medical - moderate - high VTE Device Contraindication: N/A - Device Ordered VTE Drug Contraindication: Treatment Not Indicated
[2021-05-10] MEDS: Potassium Phosphate/NS 15 MMOL/250 ML PLAST..BAG 62.5 MMOL IV ×2 (15:32→18:24)
[2021-05-10] MEDS: Throat Lozenge, Medicated LOZENGE 1 LOZENGE MUCOUS MEM (18:32)
[2021-05-11] MEDS: 0.9 % Sodium Chloride Flush 3 ML SYRINGE IVFLUSH
[2021-05-11] MEDS: Metoprolol Tartrate 5 MG/5 ML VIAL 2.5 MG IVPUSH ×4 (02:42→19:24)
[2021-05-11 04:00] VITALS: BP 144/80; PULSE 83; RESP 16; TEMP 36.9; O2SAT 92
[2021-05-11] MEDS: Pantoprazole Sodium 40 MG/10 ML VIAL IVPUSH (06:04)
[2021-05-11 06:48] LABS: Anion Gap 12 (12-20); Blood Urea Nitrogen 13 mg/dL (9-16); Calcium 7.5 mg/dL (8.4-10.2); Carbon Dioxide 24 mmol/L (22-29); Chloride 105 mmol/L (96-108); Creatinine Clr Calc Pharmacy 74.5; Estimated Glomerular Filt Rate > 60; Glucose Random 148 mg/dL (60-115); Phosphorus 2.1 mg/dL (2.7-4.5); Potassium 3.5 mmol/L (3.3-5.1); Sodium 137 mmol/L (135-145)
[2021-05-11 07:11] VITALS: BP 151/72; PULSE 86; RESP 18; TEMP 36.9; O2SAT 93
[2021-05-11 07:27] LABS: Glucose, Whole Blood 150 mg/dL (60-115)
[2021-05-11 07:41] LABS: Magnesium 1.8 mg/dL (1.6-2.6)
[2021-05-11] MEDS: Dextrose 5 % and 0.45 % NaCl 1,000 ML 100 ML IVCONT ×2 (09:35→20:40)
--- NOTE | 2021-05-11 10:17 | PM.PNGS ---
Subjective Subjective Date of Service: 05/11/21 <Seema Delgadillo PA-C - Last Filed: 05/11/21 10:21> 05/11/21 <Gera Johnson MD - Last Filed: 05/11/21 11:50> Interval history: Began to pass flatus yesterday afternoon and this morning. Feeling better. Denies nausea. Was OOB and ambulating halls yesterday. <Seema Delgadillo PA-C - Last Filed: 05/11/21 10:21> Physical Exam Vital Signs: Vital Signs: Last Vital Signs Temp 98.5 F 05/11/21 07:11 Pulse 86 05/11/21 07:11 Resp 18 05/11/21 07:11 BP 151/72 H 05/11/21 07:11 Pulse Ox 93 05/11/21 07:11 BMI result Body Mass Index 15.7 <Seema Delgadillo PA-C - Last Filed: 05/11/21 10:21> Const: General: no acute distress and alert <Seema Delgadillo PA-C - Last Filed: 05/11/21 10:21> Orientation/consciousness: patient oriented x3 <Seema Delgadillo PA-C - Last Filed: 05/11/21 10:21> Resp: Effort & Inspection: normal respiratory effort <Seema Delgadillo PA-C - Last Filed: 05/11/21 10:21> GI: Inspection: Yes distended (decreasingly, much softer this am) and Yes incision (no erythema) <Seema Delgadillo PA-C - Last Filed: 05/11/21 10:21> Palpation (GI): Soft to palpation, Tenderness to palpation present (GI) (mild), no guarding and not rigid <Seema Delgadillo PA-C - Last Filed: 05/11/21 10:21> Percussion: Yes tympanic to percussion <BHAVIN Nazario Last Filed: 05/11/21 10:21> Skin: General skin exam: no rashes or lesions noted <BHAVIN Nazario Last Filed: 05/11/21 10:21> Neuro: General: patient oriented x3 <Seema Delgadillo PA-C - Last Filed: 05/11/21 10:21> Objective Data Active Medications Acetaminophen (Acetaminophen Supp 650 Mg Supp.Rect) 650 mg [place] Q6H PRN PRN Reason: Pain, Mild (Pain Scale 1-3) Last Admin: 05/08/21 20:03 Dose: 650 mg Documented by: ROLAND Benzocaine (Throat Lozenge, Medicated Lozenge) 1 lozenge MUCOUS MEM Q2H PRN PRN Reason: Sore Throat Last Admin: 05/10/21 18:32 Dose: 1 lozenge Documented by: PASTOR Fentanyl (Fentanyl Citrate/Pf 100 Mcg/2 Ml Vial) 50 mcg IVPUSH Q5M PRN; Protocol PRN Reason: Pain, Severe (Pain Scale 7-10) Last Admin: 05/08/21 19:23 Dose: 25 mcg Documented by: ROLAND Hydromorphone HCl (Hydromorphone Hcl 0.5 Mg/0.5 Ml Syringe) 0.5 mg IVPUSH Q5M PRN; Protocol PRN Reason: Pain, Severe (Pain Scale 7-10) Promethazine HCl 12.5 mg/ (Sodium Chloride) 50.5 mls @ 202 mls/hr IV ONCE PRN PRN Reason: Nausea and Vomiting Dextrose/Sodium Chloride (D51/2ns) 1,000 mls @ 100 mls/hr IVCONT .Q10H [facility] Last Admin: 05/11/21 09:35 Dose: 100 mls/hr Documented by: TOMAS Multivitamins 10 ml/ Trace Metals 1 ml/ Amino Acids/Electrolytes/Dextrose 1,320 mls @ 55 mls/hr IV DAILY@1800 [facility] Stop: 05/11/21 17:59 Last Admin: 05/10/21 18:24 Dose: 55 mls/hr Documented by: PASTOR Metoprolol Tartrate (Metoprolol Tartrate 5 Mg/5 Ml Vial) 2.5 mg IVPUSH Q6H [facility] Last Admin: 05/11/21 09:14 Dose: 2.5 mg Documented by: TOMAS Morphine Sulfate (Morphine Sulfate 4 Mg/Ml Cartridge) 4 mg IVPUSH Q4H PRN; Protocol PRN Reason: Pain, Severe (Pain Scale 7-10) Last Admin: 05/09/21 13:50 Dose: 4 mg Documented by: TOMAS Ondansetron HCl (Ondansetron Hcl 4 Mg/2 Ml Vial) 4 mg IVPUSH Q8H PRN PRN Reason: Nausea and Vomiting Pantoprazole Sodium (Pantoprazole Sodium 40 Mg/10 Ml Vial) 40 mg IVPUSH DAILY@0630 [facility] Last Admin: 05/11/21 06:04 Dose: 40 mg Documented by: MEREDITH Sodium Chloride (0.9 % Sodium Chloride Flush 3 Ml Syringe) 3 ml IVFLUSH QSHIFT [facility] Last Admin: 05/11/21 09:14 Dose: Not Given Documented by: TOMAS Non-Admin Reason: IV Running <Seema Delgadillo PA-C - Last Filed: 05/11/21 10:21> Labs CBC & Chem 7: : 05/07/21 13:29 05/11/21 06:02 <Seema Delgadillo PA-C - Last Filed: 05/11/21 10:21> Labs: Laboratory Results - last 24 hr 05/10/21 05/11/21 05/11/21 11:48 06:02 07:15 Anion Gap 12 Estim Creat Clear Calc 74.5 Estimated GFR > 60 POC Glucose 150 H Random Glucose 148 H Calcium 7.5 L D Phosphorus 2.1 L Magnesium 1.8 Triglycerides 155 <Seema Delgadillo PA-C - Last Filed: 05/11/21 10:21> Procedures Date of Service Date of Service: 05/11/21 <Seema Delgadillo PA-C - Last Filed: 05/11/21 10:21> Progress Note: A&P Assessment and plan (1) S/P exploratory laparotomy: Status: Acute <Seema Delgadillo PA-C - Last Filed: 05/11/21 10:21> Assessment and Plan: Says he has been passing flatus Abdomen much less distended and softer Clamp NG tube and possibly DC this later today Looks well Incision clean Seen and examined independently - agree with DALJIT Delgadillo <Gera Johnson MD - Last Filed: 05/11/21 11:50> (2) Small bowel obstruction: Status: Acute <Seema Delgadillo PA-C - Last Filed: 05/11/21 10:21> Plan 75-year-old male patient presenting with nausea and vomiting and abdominal distension found to have markedly distended small bowel with a transition point in the distal small bowel suggestive of a small-bowel obstruction. He failed non operative management and is now POD #3 s/p exploratory laparotomy, extensive LEONARD. Now with some evidence of GI function and abd increasingly soft and less distended this morning. Will clamp NGT for 4 hrs, check residual. Unclamp sooner if develops nausea, vomiting, worsening abd pain. If residual <100cc can remove and start on sips. Continue PPN until PO intake increasing/adequate. Encouraged OOB/ambulation at least 4x daily. Patient comfortable with plan. <Seema Delgadillo PA-C - Last Filed: 05/11/21 10:21> Fall Risk Details Current Medications: Current Medications Acetaminophen (Acetaminophen Supp 650 Mg Supp.Rect) 650 mg NM Q6H PRN PRN Reason: Pain, Mild (Pain Scale 1-3) Last Admin: 05/08/21 20:03 Dose: 650 mg Documented by: Benzocaine (Throat Lozenge, Medicated Lozenge) 1 lozenge MUCOUS MEM Q2H PRN PRN Reason: Sore Throat Last Admin: 05/10/21 18:32 Dose: 1 lozenge Documented by: Fentanyl (Fentanyl Citrate/Pf 100 Mcg/2 Ml Vial) 50 mcg IVPUSH Q5M PRN; Protocol PRN Reason: Pain, Severe (Pain Scale 7-10) Last Admin: 05/08/21 19:23 Dose: 25 mcg Documented by: Hydromorphone HCl (Hydromorphone Hcl 0.5 Mg/0.5 Ml Syringe) 0.5 mg IVPUSH Q5M PRN; Protocol PRN Reason: Pain, Severe (Pain Scale 7-10) Promethazine HCl 12.5 mg/ (Sodium Chloride) 50.5 mls @ 202 mls/hr IV ONCE PRN PRN Reason: Nausea and Vomiting Dextrose/Sodium Chloride (D51/2ns) 1,000 mls @ 100 mls/hr IVCONT .Q10H [facility] Last Admin: 05/11/21 09:35 Dose: 100 mls/hr Documented by: Multivitamins 10 ml/ Trace Metals 1 ml/ Amino Acids/Electrolytes/Dextrose 1,320 mls @ 55 mls/hr IV DAILY@1800 [facility] Stop: 05/11/21 17:59 Last Admin: 05/10/21 18:24 Dose: 55 mls/hr Documented by: Metoprolol Tartrate (Metoprolol Tartrate 5 Mg/5 Ml Vial) 2.5 mg IVPUSH Q6H [facility] Last Admin: 05/11/21 09:14 Dose: 2.5 mg Documented by: Morphine Sulfate (Morphine Sulfate 4 Mg/Ml Cartridge) 4 mg IVPUSH Q4H PRN; Protocol PRN Reason: Pain, Severe (Pain Scale 7-10) Last Admin: 05/09/21 13:50 Dose: 4 mg Documented by: Ondansetron HCl (Ondansetron Hcl 4 Mg/2 Ml Vial) 4 mg IVPUSH Q8H PRN PRN Reason: Nausea and Vomiting Pantoprazole Sodium (Pantoprazole Sodium 40 Mg/10 Ml Vial) 40 mg IVPUSH DAILY@0630 [facility] Last Admin: 05/11/21 06:04 Dose: 40 mg Documented by: Sodium Chloride (0.9 % Sodium Chloride Flush 3 Ml Syringe) 3 ml IVFLUSH QSHIFT [facility] Last Admin: 05/11/21 09:14 Dose: Not Given Documented by: <Seema Delgadillo PA-C - Last Filed: 05/11/21 10:21> Time Spent With Patient Time: Total time spent is greater than 50% in coordination of care (as documented) at patient's floor/unit and/or counseling patient: <Seema Delgadillo PA-C - Last Filed: 05/11/21 10:21> Quality Stroke Does the patient have a stroke diagnosis?: No <Seema Delgadillo PA-C - Last Filed: 05/11/21 10:21> VTE Prior VTE?: No <Seema Delgadillo PA-C - Last Filed: 05/11/21 10:21> VTE Risk Level:: Medical - moderate - high <Seema Delgadillo PA-C - Last Filed: 05/11/21 10:21> VTE Device Contraindication: N/A - Device Ordered <Seema Delgadillo PA-C - Last Filed: 05/11/21 10:21> VTE Drug Contraindication: Treatment Not Indicated <Seema Delgadillo PA-C - Last Filed: 05/11/21 10:21>
--- NOTE | 2021-05-11 10:58 | HO.PM.IMPN ---
Subjective Subjective Date of Service: 05/11/21 Interval History: lying in bed offers no complaints of nausea, no abdominal pain, passing flatus, no bowel movement, no fevers, no chills, no other acute issues overnight. Review of Systems Review of Systems: Yes all other systems are reviewed and are negative Physical Exam Vital Signs: Vital Signs: Last Vital Signs Temp 98.5 F 05/11/21 07:11 Pulse 86 05/11/21 07:11 Resp 18 05/11/21 07:11 BP 151/72 H 05/11/21 07:11 Pulse Ox 93 05/11/21 07:11 BMI result Body Mass Index 15.7 Const: Other: General? Awake alert, no acute distress.? Neck supple no JVD. CVS? regular rate rhythm, Respiratory lungs clear to auscultation, no respiratory distress, no wheeze, no rhonchi. Gastrointestinal abdomen soft, nontender, no guarding ,? Mild distension,dressing in place. NG?with biliary drainage, bowel sounds audible Extremities no edema. Neuro nonfocal Skin no rash psych appropriate affect Objective Data Active Medications Acetaminophen (Acetaminophen Supp 650 Mg Supp.Rect) 650 mg [place] Q6H PRN PRN Reason: Pain, Mild (Pain Scale 1-3) Last Admin: 05/08/21 20:03 Dose: 650 mg Documented by: ROLAND Benzocaine (Throat Lozenge, Medicated Lozenge) 1 lozenge MUCOUS MEM Q2H PRN PRN Reason: Sore Throat Last Admin: 05/10/21 18:32 Dose: 1 lozenge Documented by: PASTOR Fentanyl (Fentanyl Citrate/Pf 100 Mcg/2 Ml Vial) 50 mcg IVPUSH Q5M PRN; Protocol PRN Reason: Pain, Severe (Pain Scale 7-10) Last Admin: 05/08/21 19:23 Dose: 25 mcg Documented by: ROLAND Hydromorphone HCl (Hydromorphone Hcl 0.5 Mg/0.5 Ml Syringe) 0.5 mg IVPUSH Q5M PRN; Protocol PRN Reason: Pain, Severe (Pain Scale 7-10) Promethazine HCl 12.5 mg/ (Sodium Chloride) 50.5 mls @ 202 mls/hr IV ONCE PRN PRN Reason: Nausea and Vomiting Dextrose/Sodium Chloride (D51/2ns) 1,000 mls @ 100 mls/hr IVCONT .Q10H [facility] Last Admin: 05/11/21 09:35 Dose: 100 mls/hr Documented by: TOMAS Multivitamins 10 ml/ Trace Metals 1 ml/ Amino Acids/Electrolytes/Dextrose 1,320 mls @ 55 mls/hr IV DAILY@1800 [facility] Stop: 05/11/21 17:59 Last Admin: 05/10/21 18:24 Dose: 55 mls/hr Documented by: PASTOR Amino Acids/Electrolytes/Dextrose (Clinimix E 4.25%-10%) 1,320 mls @ 55 mls/hr IV DAILY@1800 [facility] Stop: 05/12/21 17:59 Fat Emulsion Intravenous (Intralipid) 156 mls @ 13 mls/hr IVCONT BID@0600,1800 [facility] Stop: 05/12/21 17:59 Metoprolol Tartrate (Metoprolol Tartrate 5 Mg/5 Ml Vial) 2.5 mg IVPUSH Q6H [facility] Last Admin: 05/11/21 09:14 Dose: 2.5 mg Documented by: TOMAS Morphine Sulfate (Morphine Sulfate 4 Mg/Ml Cartridge) 4 mg IVPUSH Q4H PRN; Protocol PRN Reason: Pain, Severe (Pain Scale 7-10) Last Admin: 05/09/21 13:50 Dose: 4 mg Documented by: TOMAS Ondansetron HCl (Ondansetron Hcl 4 Mg/2 Ml Vial) 4 mg IVPUSH Q8H PRN PRN Reason: Nausea and Vomiting Pantoprazole Sodium (Pantoprazole Sodium 40 Mg/10 Ml Vial) 40 mg IVPUSH DAILY@0630 [facility] Last Admin: 05/11/21 06:04 Dose: 40 mg Documented by: MEREDITH Sodium Chloride (0.9 % Sodium Chloride Flush 3 Ml Syringe) 3 ml IVFLUSH QSHIFT [facility] Last Admin: 05/11/21 09:14 Dose: Not Given Documented by: TOMAS Non-Admin Reason: IV Running Labs CBC & Chem 7: 05/07/21 13:29 05/11/21 06:02 Labs: Laboratory Results - last 24 hr 05/10/21 05/11/21 05/11/21 11:48 06:02 07:15 Anion Gap 12 Estim Creat Clear Calc 74.5 Estimated GFR > 60 POC Glucose 150 H Random Glucose 148 H Calcium 7.5 L D Phosphorus 2.1 L Magnesium 1.8 Triglycerides 155 Assessment and Plan (1) Small bowel obstruction: Status: Acute (2) Coffee ground emesis: Status: Acute Plan 75-year-old male patient? with past medical history of GERD, coronary artery disease, hypercholesterolemia, iron deficiency anemia, ischemic cardiomyopathy, history of CABG presenting with complaints of abdominal pain, nausea and vomiting with a history of coffee-ground emesis, dark-colored stool CT abdomen showed small bowel obstruction with transition point patient admitted to [facility] with a diagnosis of small-bowel obstruction 1.small-bowel obstruction ? ? status post exploratory laparotomy with extentsive lysis of adhesions pod #3 passing flatus, no abdominal pain NG clamped per surgery if no nausea, vomiting and if no high residual , will start clear patient has been of bed to chair and ambulation, will recommend to continue ambulation oxygenation dropped to high 80s therefore placed back on oxygen continue incentive spirometry and wean oxygen continue PPN 2. Upper GI bleed ?? coffee-ground emesis and dark stools at home, hemoglobin hematocrit stable, NG with green bile, no recurrent GI bleed ?? hemodynamically stable,? on IV Protonix daily ?? seen by GI likely bleed related to esophagitis/or possible nurys mcmahon tear, continue ppi,no new bleeding episode, outpatient evaluation for upper endoscopy. 3. CAD with history of CABG in 2019 ? hold aspirin given the coffee-ground emesis, cont. on IV metoprolol, was on metoprolol 25 mg daily at home. elevated troponin but flat,? no chest pain ? EKG showed, inferior and anterior infarction undeterminate(?old changes) echo, technically very limited study wall motion not assessed, valvular assessment also markedly limited. hold off on further workup, no cardiac symptoms 4. hyperlipidemia not on statin 5. hypernatremia resolved 6. severe protein calorie malnutrition on PPN resume diet if no recurrent nausea vomiting after NG clamped 7. mild acute hypoxic respiratory failure likely due to atelectasis encourage incentive spirometry and gradually wean oxygen 8. hypophosphatemia will replace IV phosphorous and follow level DVT prophylaxis:? SCDs Code status full code Quality Stroke Does the patient have a stroke diagnosis?: No VTE Prior VTE?: No VTE Risk Level:: Medical - moderate - high VTE Device Contraindication: N/A - Device Ordered VTE Drug Contraindication: Treatment Not Indicated
[2021-05-11 11:21] VITALS: BP 182/81; PULSE 86; RESP 20; TEMP 37.2; O2SAT 96
--- NOTE | 2021-05-11 11:26 | MHC.CLN ---
F/U PPN RUNNING D10AA4.25 AT 55 ML PER HOUR PROVIDES 673 KCALS, 56 G PROTEIN (1.3G/KG) RECOMMEND ADDING 13 ML OF 20% LIPIDS TO PROVIDE 1297 TOTAL KCALS (30.1 KCALS/KG) PT IS AT RISK FOR RE-FEEDING SYNDROME DUE TO MALNUTRITION-MONITOR K+, PHOS, MG CLOSELY REVIEWED LABS AND DISCUSSED WITH PHARMACY REPLETE LYTES NEEDED
[2021-05-11] MEDS: Potassium Phosphate/NS 15 MMOL/250 ML PLAST..BAG 62.5 MMOL IV ×2 (12:20→16:52)
[2021-05-11 15:19] VITALS: BP 142/80; PULSE 69; RESP 18; TEMP 36.9; O2SAT 96
[2021-05-11] MEDS: Fat Emulsions 20% 250 ML 13 ML IVCONT (18:42)
[2021-05-11 18:51] VITALS: BP 155/82; PULSE 78; RESP 18; TEMP 37.3; O2SAT 97
[2021-05-11] MEDS: Morphine Sulfate 4 MG/ML CARTRIDGE IVPUSH (20:37)
[2021-05-11 23:19] VITALS: BP 139/69; PULSE 91; RESP 16; TEMP 36.3; O2SAT 91
[2021-05-12] MEDS: Metoprolol Tartrate 5 MG/5 ML VIAL 2.5 MG IVPUSH ×4 (02:13→20:32)
[2021-05-12 03:39] VITALS: BP 146/73; PULSE 72; RESP 17; TEMP 36.7; O2SAT 93
[2021-05-12] MEDS: Dextrose 5 % and 0.45 % NaCl 1,000 ML 100 ML IVCONT (05:32)
[2021-05-12] MEDS: Pantoprazole Sodium 40 MG/10 ML VIAL IVPUSH (05:32)
[2021-05-12 06:32] LABS: Anion Gap 11 (12-20); Blood Urea Nitrogen 13 mg/dL (9-16); Carbon Dioxide 25 mmol/L (22-29); Chloride 102 mmol/L (96-108); Creatinine Clr Calc Pharmacy 77.4; Estimated Glomerular Filt Rate > 60; Glucose Random 132 mg/dL (60-115); Sodium 134 mmol/L (135-145)
[2021-05-12] MEDS: Fat Emulsions 20% 250 ML 13 ML IVCONT ×2 (06:33→18:30)
[2021-05-12 07:16] VITALS: BP 170/79; PULSE 89; RESP 18; TEMP 36.8; O2SAT 96
[2021-05-12 07:34] LABS: Albumin Level 2.5 g/dL (3.5-5.0); Magnesium 1.9 mg/dL (1.6-2.6); Phosphorus 2.8 mg/dL (2.7-4.5)
[2021-05-12 08:00] VITALS: BP 148/72; O2SAT 93
[2021-05-12] MEDS: Dextrose 5 % and 0.9 % NaCl 1,000 ML 80 ML IVCONT ×2 (08:24→21:21)
--- NOTE | 2021-05-12 09:07 | P.PNGS_ITS ---
Subjective Subjective Date of Service: 05/12/21 <Seema Delgadillo PA-C - Last Filed: 05/12/21 09:09> 05/12/21 <Gera Johnson MD - Last Filed: 05/12/21 10:10> Interval history: Feels much better with NGT out. Tolerated sips yesterday. Hungry and wants to eat. Passing flatus. OOB in chair this morning. <Seema Delgadillo PA-C - Last Filed: 05/12/21 09:09> Physical Exam Vital Signs: Vital Signs: Last Vital Signs Temp 98.2 F 05/12/21 07:16 Pulse 89 05/12/21 07:16 Resp 18 05/12/21 07:16 BP 170/79 H 05/12/21 07:16 Pulse Ox 96 05/12/21 07:16 BMI result Body Mass Index 15.7 <Seema Delgadillo PA-C - Last Filed: 05/12/21 09:09> Const: General: comfortable, no acute distress and alert <Seema Delgadillo PA-C - Last Filed: 05/12/21 09:09> GI: Inspection: Yes distended and Yes incision (clean) <Seema Delgadillo PA-C - Last Filed: 05/12/21 09:09> Palpation (GI): Soft to palpation, Tenderness to palpation present (GI) (mild), no guarding and not rigid <Seema Delgadillo PA-C - Last Filed: 05/12/21 09:09> Skin: General skin exam: no rashes or lesions noted <Seema Delgadillo PA-C - Last Filed: 05/12/21 09:09> Objective Data Active Medications Acetaminophen (Acetaminophen Supp 650 Mg Supp.Rect) 650 mg DC Q6H PRN PRN Reason: Pain, Mild (Pain Scale 1-3) Last Admin: 05/08/21 20:03 Dose: 650 mg Documented by: ROLAND Benzocaine (Throat Lozenge, Medicated Lozenge) 1 lozenge MUCOUS MEM Q2H PRN PRN Reason: Sore Throat Last Admin: 05/10/21 18:32 Dose: 1 lozenge Documented by: HO.[email or web address] Fentanyl (Fentanyl Citrate/Pf 100 Mcg/2 Ml Vial) 50 mcg IVPUSH Q5M PRN; Protocol PRN Reason: Pain, Severe (Pain Scale 7-10) Last Admin: 05/08/21 19:23 Dose: 25 mcg Documented by: ROLAND Hydromorphone HCl (Hydromorphone Hcl 0.5 Mg/0.5 Ml Syringe) 0.5 mg IVPUSH Q5M PRN; Protocol PRN Reason: Pain, Severe (Pain Scale 7-10) Promethazine HCl 12.5 mg/ (Sodium Chloride) 50.5 mls @ 202 mls/hr IV ONCE PRN PRN Reason: Nausea and Vomiting Amino Acids/Electrolytes/Dextrose (Clinimix E 4.25%-10%) 1,320 mls @ 55 mls/hr IV DAILY@1800 [facility] Stop: 05/12/21 17:59 Last Admin: 05/11/21 18:39 Dose: 55 mls/hr Documented by: TOMAS Fat Emulsion Intravenous (Intralipid) 156 mls @ 13 mls/hr IVCONT BID@0600,1800 [facility] Stop: 05/12/21 17:59 Last Admin: 05/12/21 06:33 Dose: 13 mls/hr Documented by: ESTHER Dextrose/Sodium Chloride (D5ns) 1,000 mls @ 80 mls/hr IVCONT .[id number] [facility] Last Admin: 05/12/21 08:24 Dose: 80 mls/hr Documented by: MADELYNEMA Metoprolol Tartrate (Metoprolol Tartrate 5 Mg/5 Ml Vial) 2.5 mg IVPUSH Q6H [facility] Last Admin: 05/12/21 08:24 Dose: 2.5 mg Documented by: COTEMA Morphine Sulfate (Morphine Sulfate 4 Mg/Ml Cartridge) 4 mg IVPUSH Q4H PRN; Protocol PRN Reason: Pain, Severe (Pain Scale 7-10) Last Admin: 05/11/21 20:37 Dose: 4 mg Documented by: ESTHER Ondansetron HCl (Ondansetron Hcl 4 Mg/2 Ml Vial) 4 mg IVPUSH Q8H PRN PRN Reason: Nausea and Vomiting Pantoprazole Sodium (Pantoprazole Sodium 40 Mg/10 Ml Vial) 40 mg IVPUSH DAILY@0630 [facility] Last Admin: 05/12/21 05:32 Dose: 40 mg Documented by: ESTHER Sodium Chloride (0.9 % Sodium Chloride Flush 3 Ml Syringe) 3 ml IVFLUSH QSHIFT [facility] Last Admin: 05/12/21 08:17 Dose: Not Given Documented by: COTAMANDA Non-Admin Reason: IV Running <Seema Delgadillo PA-C - Last Filed: 05/12/21 09:09> Labs CBC & Chem 7: : 05/07/21 13:29 05/12/21 05:36 <BHAVIN Nazario Last Filed: 05/12/21 09:09> Labs: Laboratory Results - last 24 hr 05/12/21 05:36 Anion Gap 11 L Estim Creat Clear Calc 77.4 Estimated GFR > 60 Random Glucose 132 H Calcium 8.0 L D Phosphorus 2.8 Magnesium 1.9 Albumin 2.5 L <Seema Delgadillo PA-C - Last Filed: 05/12/21 09:09> Procedures Date of Service Date of Service: 05/12/21 <BHAVIN Nazario Last Filed: 05/12/21 09:09> Progress Note: A&P Assessment and plan (1) S/P exploratory laparotomy: Status: Acute <Seema Delgadillo PA-C - Last Filed: 05/12/21 09:09> (2) Small bowel obstruction: Status: Acute <BHAVIN Nazario Last Filed: 05/12/21 09:09> Assessment and Plan: Passing flatus Feels well No vomiting Start clear liquid tray today Advance diet as tolerated Abdomen soft Seen examined independently - agree with DALJIT Delgadillo <Gera Johnson MD - Last Filed: 05/12/21 10:10> Plan 75-year-old male patient presenting with nausea and vomiting and abdominal distension found to have markedly distended small bowel with a transition point in the distal small bowel suggestive of a small-bowel obstruction. He failed non operative management and is now POD #4 s/p exploratory laparotomy, extensive LEONARD. NGT removed yesterday and started on sips. Passing more flatus. VSS. Abd is still distended but soft. Will advance to clear liquids. Encouraged ambulation. WIll consult PT for ambulation/dispo planning. Cont PPN until PO intake increased. Await BM. <Seema Delgadillo PA-C - Last Filed: 05/12/21 09:09> Fall Risk Details Current Medications: Current Medications Acetaminophen (Acetaminophen Supp 650 Mg Supp.Rect) 650 mg DC Q6H PRN PRN Reason: Pain, Mild (Pain Scale 1-3) Last Admin: 05/08/21 20:03 Dose: 650 mg Documented by: Benzocaine (Throat Lozenge, Medicated Lozenge) 1 lozenge MUCOUS MEM Q2H PRN PRN Reason: Sore Throat Last Admin: 05/10/21 18:32 Dose: 1 lozenge Documented by: Fentanyl (Fentanyl Citrate/Pf 100 Mcg/2 Ml Vial) 50 mcg IVPUSH Q5M PRN; Protocol PRN Reason: Pain, Severe (Pain Scale 7-10) Last Admin: 05/08/21 19:23 Dose: 25 mcg Documented by: Hydromorphone HCl (Hydromorphone Hcl 0.5 Mg/0.5 Ml Syringe) 0.5 mg IVPUSH Q5M PRN; Protocol PRN Reason: Pain, Severe (Pain Scale 7-10) Promethazine HCl 12.5 mg/ (Sodium Chloride) 50.5 mls @ 202 mls/hr IV ONCE PRN PRN Reason: Nausea and Vomiting Amino Acids/Electrolytes/Dextrose (Clinimix E 4.25%-10%) 1,320 mls @ 55 mls/hr IV DAILY@1800 [facility] Stop: 05/12/21 17:59 Last Admin: 05/11/21 18:39 Dose: 55 mls/hr Documented by: Fat Emulsion Intravenous (Intralipid) 156 mls @ 13 mls/hr IVCONT BID@0600,1800 [facility] Stop: 05/12/21 17:59 Last Admin: 05/12/21 06:33 Dose: 13 mls/hr Documented by: Dextrose/Sodium Chloride (D5ns) 1,000 mls @ 80 mls/hr IVCONT .[id number] [facility] Last Admin: 05/12/21 08:24 Dose: 80 mls/hr Documented by: Metoprolol Tartrate (Metoprolol Tartrate 5 Mg/5 Ml Vial) 2.5 mg IVPUSH Q6H [facility] Last Admin: 05/12/21 08:24 Dose: 2.5 mg Documented by: Morphine Sulfate (Morphine Sulfate 4 Mg/Ml Cartridge) 4 mg IVPUSH Q4H PRN; Protocol PRN Reason: Pain, Severe (Pain Scale 7-10) Last Admin: 05/11/21 20:37 Dose: 4 mg Documented by: Ondansetron HCl (Ondansetron Hcl 4 Mg/2 Ml Vial) 4 mg IVPUSH Q8H PRN PRN Reason: Nausea and Vomiting Pantoprazole Sodium (Pantoprazole Sodium 40 Mg/10 Ml Vial) 40 mg IVPUSH DAILY@0630 [facility] Last Admin: 05/12/21 05:32 Dose: 40 mg Documented by: Sodium Chloride (0.9 % Sodium Chloride Flush 3 Ml Syringe) 3 ml IVFLUSH QSHIFT [facility] Last Admin: 05/12/21 08:17 Dose: Not Given Documented by: <Seema Delgadillo PA-C - Last Filed: 05/12/21 09:09> Time Spent With Patient Time: Total time spent is greater than 50% in coordination of care (as documented) at patient's floor/unit and/or counseling patient: <Seema Delgadillo PA-C - Last Filed: 05/12/21 09:09> Quality Stroke Does the patient have a stroke diagnosis?: No <Seema Delgadillo PA-C - Last Filed: 05/12/21 09:09> VTE Prior VTE?: No <Seema Delgadillo PA-C - Last Filed: 05/12/21 09:09> VTE Risk Level:: Medical - moderate - high <Seema Delgadillo PA-C - Last Filed: 05/12/21 09:09> VTE Device Contraindication: N/A - Device Ordered <BHAVIN Nazario Last Filed: 05/12/21 09:09> VTE Drug Contraindication: Treatment Not Indicated <Seema Delgadillo PA-C - Last Filed: 05/12/21 09:09>
--- NOTE | 2021-05-12 09:31 | P.PNIM_ITS ---
Subjective Subjective Date of Service: 05/12/21 Interval History: feeling hungry requesting for food passing flatus no bowel movement NG tube removed yesterday tolerating sips of water, denies nausea, no vomiting, no abdominal pain, no fevers, no chills, no other acute issues overnight. Review of Systems Review of Systems: Yes all other systems are reviewed and are negative Physical Exam Vital Signs: Vital Signs: Last Vital Signs Temp 98.2 F 05/12/21 07:16 Pulse 89 05/12/21 07:16 Resp 18 05/12/21 07:16 BP 148/72 H 05/12/21 08:00 Pulse Ox 93 05/12/21 08:00 BMI result Body Mass Index 15.7 Const: Other: General? Awake alert X3, no acute distress.? Neck supple no JVD. CVS? regular rate rhythm, Respiratory lungs clear to auscultation, no respiratory distress, no wheeze, no rhonchi. Gastrointestinal abdomen soft, nontender, no guarding ,? Mild distension,dressing in place, bowel sounds audible. Extremities no edema. Neuro nonfocal Skin no rash psych appropriate affect Objective Data Active Medications Acetaminophen (Acetaminophen Supp 650 Mg Supp.Rect) 650 mg VA Q6H PRN PRN Reason: Pain, Mild (Pain Scale 1-3) Last Admin: 05/08/21 20:03 Dose: 650 mg Documented by: ROLAND Benzocaine (Throat Lozenge, Medicated Lozenge) 1 lozenge MUCOUS MEM Q2H PRN PRN Reason: Sore Throat Last Admin: 05/10/21 18:32 Dose: 1 lozenge Documented by: PASTOR Fentanyl (Fentanyl Citrate/Pf 100 Mcg/2 Ml Vial) 50 mcg IVPUSH Q5M PRN; Protocol PRN Reason: Pain, Severe (Pain Scale 7-10) Last Admin: 05/08/21 19:23 Dose: 25 mcg Documented by: ROLAND Hydromorphone HCl (Hydromorphone Hcl 0.5 Mg/0.5 Ml Syringe) 0.5 mg IVPUSH Q5M PRN; Protocol PRN Reason: Pain, Severe (Pain Scale 7-10) Promethazine HCl 12.5 mg/ (Sodium Chloride) 50.5 mls @ 202 mls/hr IV ONCE PRN PRN Reason: Nausea and Vomiting Amino Acids/Electrolytes/Dextrose (Clinimix E 4.25%-10%) 1,320 mls @ 55 mls/hr IV DAILY@1800 [facility] Stop: 05/12/21 17:59 Last Admin: 05/11/21 18:39 Dose: 55 mls/hr Documented by: TOMAS Fat Emulsion Intravenous (Intralipid) 156 mls @ 13 mls/hr IVCONT BID@0600,1800 [facility] Stop: 05/12/21 17:59 Last Admin: 05/12/21 06:33 Dose: 13 mls/hr Documented by: ESTHER Dextrose/Sodium Chloride (D5ns) 1,000 mls @ 80 mls/hr IVCONT .[id number] [facility] Last Admin: 05/12/21 08:24 Dose: 80 mls/hr Documented by: J CARLOS Metoprolol Tartrate (Metoprolol Tartrate 5 Mg/5 Ml Vial) 2.5 mg IVPUSH Q6H [facility] Last Admin: 05/12/21 08:24 Dose: 2.5 mg Documented by: J CARLOS Morphine Sulfate (Morphine Sulfate 4 Mg/Ml Cartridge) 4 mg IVPUSH Q4H PRN; Protocol PRN Reason: Pain, Severe (Pain Scale 7-10) Last Admin: 05/11/21 20:37 Dose: 4 mg Documented by: ESTHER Ondansetron HCl (Ondansetron Hcl 4 Mg/2 Ml Vial) 4 mg IVPUSH Q8H PRN PRN Reason: Nausea and Vomiting Pantoprazole Sodium (Pantoprazole Sodium 40 Mg/10 Ml Vial) 40 mg IVPUSH DAILY@0630 [facility] Last Admin: 05/12/21 05:32 Dose: 40 mg Documented by: ESTHER Sodium Chloride (0.9 % Sodium Chloride Flush 3 Ml Syringe) 3 ml IVFLUSH QSHIFT [facility] Last Admin: 05/12/21 08:17 Dose: Not Given Documented by: J CARLOS Non-Admin Reason: IV Running Labs CBC & Chem 7: 05/07/21 13:29 05/12/21 05:36 Labs: Laboratory Results - last 24 hr 05/12/21 05:36 Anion Gap 11 L Estim Creat Clear Calc 77.4 Estimated GFR > 60 Random Glucose 132 H Calcium 8.0 L D Phosphorus 2.8 Magnesium 1.9 Albumin 2.5 L Assessment and Plan (1) Small bowel obstruction: Status: Acute (2) Coffee ground emesis: Status: Acute Plan 75-year-old male patient? with past medical history of GERD, coronary artery disease, hypercholesterolemia, iron deficiency anemia, ischemic cardiomyopathy, history of CABG presenting with complaints of abdominal pain, nausea and vomiting with a history of coffee-ground emesis, dark-colored stool CT abdomen showed small bowel obstruction with transition point patient admitted to [facility] with a diagnosis of small-bowel obstruction 1.small-bowel obstruction failed conservative management with NG tube, NPO and IV fluids. ? ? status post exploratory laparotomy with extentsive lysis of adhesions pod #4 passing flatus, no abdominal pain, NG removed 0n 3, tolerating sips of water no nausea, no vomiting, feeling hungry placed on clear liquid diet by General surgery continue PPN due to prolong NPO status and low albumin oxygenation improved will DC O2, continue incentive spirometry 2. Upper GI bleed ?? coffee-ground emesis and dark stools at home, hemoglobin hematocrit stable, no recurrent GI bleed ?? hemodynamically stable,? on IV Protonix daily, transition to by mouth PPI when start tolerating diet ?? seen by GI likely bleed related to esophagitis/or possible nurys mcmahon tear, continue ppi,no new bleeding episode, outpatient evaluation for upper endoscopy. 3. CAD with history of CABG in 2019 ? hold aspirin given the coffee-ground emesis, cont. on IV metoprolol, was on metoprolol 25 mg daily at home. elevated troponin but flat,? no chest pain, transition to by mouth metoprolol if tolerates diet today ? EKG showed, inferior and anterior infarction undeterminate(?old changes) echo, technically very limited study wall motion not assessed, valvular assessment also markedly limited. hold off on further workup, no cardiac symptoms 4. hyperlipidemia not on statin 5. hypernatremia resolved 6. severe protein calorie malnutrition on PPN / clear liquids DC PPN when able to tolerate regular 7. mild acute hypoxic respiratory failure likely due to atelectasis / hypoxia resolved 8. hypophosphatemia repleted 9. disposition PT eval obtained encourage out of bed to a chair and ambulate DVT prophylaxis:? SCDs Code status full code Quality Stroke Does the patient have a stroke diagnosis?: No VTE Prior VTE?: No VTE Risk Level:: Medical - moderate - high VTE Device Contraindication: N/A - Device Ordered VTE Drug Contraindication: Treatment Not Indicated
--- NOTE | 2021-05-12 09:56 | MHC.CLN ---
F/U PPN RUNNING D10AA4.25 AT 55 ML PER HOUR WITH 13 ML OF 20% LIPIDS TO PROVIDE 1297 TOTAL KCALS (30.1 KCALS/KG); 56 G PTOETIN (1.3 G/KG). NG TUBE OUT 05/11/21. CLEAR LIQUID DIET STARTED THIS MORNING. RECOMMEND CONTINUE PPN UNTIL INCREASE IN PO. PT IS AT RISK FOR RE-FEEDING SYNDROME DUE TO MALNUTRITION-MONITOR K+, PHOS, MG CLOSELY. REVIEWED LABS AND DISCUSSED WITH PHARMACY. REPLETE LYTES NEEDED.
[2021-05-12 11:26] VITALS: BP 165/81; PULSE 92; RESP 18; TEMP 37; O2SAT 96
[2021-05-12 15:44] VITALS: BP 154/81; PULSE 84; RESP 18; TEMP 37.6; O2SAT 95
[2021-05-12] MEDS: Milk of Magnesia 30 ML ORAL.SUSP PO (17:19)
[2021-05-12 19:22] VITALS: BP 165/83; PULSE 104; RESP 20; TEMP 37.8; O2SAT 95
[2021-05-12] MEDS: Famotidine/PF 20 MG/2 ML VIAL IVPUSH (22:50)
[2021-05-13] VITALS (9 sets, daily range): BP systolic 148–168; BP diastolic 73–84; PULSE 60–98; RESP 13–20; TEMP 36.9–37.7; O2SAT 94–96
[2021-05-13] MEDS: Metoprolol Tartrate 5 MG/5 ML VIAL 2.5 MG IVPUSH ×4 (01:53→20:29)
[2021-05-13 06:02] LABS: Hematocrit 40.6 % (42.0-52.0); Hemoglobin 13.6 g/dl (14.0-18.0); Mean Corpuscular HGB Conc 33.5 g/dl (31.0-36.0); Mean Corpuscular Hemoglobin 28.2 pg (27.0-33.0); Mean Corpuscular Volume 84.1 fL (80.0-98.0); Mean Platelet Volume 10.3 fL (9.4-12.4); Platelet Count 284 X10*3/uL (160-400); Red Blood Count 4.83 X10*6/uL (4.60-5.80); Red Cell Distribution Width 13.9 % (11.0-16.0); White Blood Count 12.2 X10*3/uL (4.8-10.8)
[2021-05-13 06:17] LABS: Anion Gap 11 (12-20); Blood Urea Nitrogen 12 mg/dL (9-16); Calcium 7.9 mg/dL (8.4-10.2); Carbon Dioxide 24 mmol/L (22-29); Chloride 102 mmol/L (96-108); Creatinine Clr Calc Pharmacy 80.6; Estimated Glomerular Filt Rate > 60; Glucose Random 134 mg/dL (60-115); Potassium 3.9 mmol/L (3.3-5.1); Sodium 133 mmol/L (135-145)
[2021-05-13] MEDS: Fat Emulsions 20% 250 ML 13 ML IVCONT (06:36)
[2021-05-13] MEDS: Pantoprazole Sodium 40 MG/10 ML VIAL IVPUSH (06:36)
[2021-05-13] MEDS: 0.9 % Sodium Chloride Flush 3 ML SYRINGE IVFLUSH (08:22)
[2021-05-13 08:28] LABS: Albumin Level 2.6 g/dL (3.5-5.0); Magnesium 2.2 mg/dL (1.6-2.6); Phosphorus 2.2 mg/dL (2.7-4.5)
[2021-05-13] MEDS: Dextrose 5 % and 0.9 % NaCl 1,000 ML 80 ML IVCONT ×2 (09:09→20:33)
--- NOTE | 2021-05-13 09:15 | P.PNIM_ITS ---
Subjective Subjective Date of Service: 05/13/21 Interval History: CC: f/u on sbo s/p Ex lap, lysis of adhesion, Interval history: Feeling better, reports multiple BMs yesterday and today, passing flatus, tolerating liquid diet. No abdominal pain. No longer has NGT Review of Systems No n/v or abdominal pain, no fever Physical Exam Vital Signs: Vital Signs: Last Vital Signs Temp 98.4 F 05/13/21 07:51 Pulse 98 05/13/21 07:51 Resp 13 05/13/21 07:51 BP 168/84 H 05/13/21 07:51 Pulse Ox 94 05/13/21 07:51 BMI result Body Mass Index 15.7 Const: Other: General: AO X 3, no acute distress Resp: CTA bilateral CVS: S1,S2,RRR GI: good bowel sounds, NT, no distention Skin: No rash Neuro: motor grossly intact Psych: appropriate affect Objective Data Active Medications Acetaminophen (Acetaminophen Supp 650 Mg Supp.Rect) 650 mg [place] Q6H PRN PRN Reason: Pain, Mild (Pain Scale 1-3) Last Admin: 05/08/21 20:03 Dose: 650 mg Documented by: ROLAND Benzocaine (Throat Lozenge, Medicated Lozenge) 1 lozenge MUCOUS MEM Q2H PRN PRN Reason: Sore Throat Last Admin: 05/10/21 18:32 Dose: 1 lozenge Documented by: PASTOR Fentanyl (Fentanyl Citrate/Pf 100 Mcg/2 Ml Vial) 50 mcg IVPUSH Q5M PRN; Protocol PRN Reason: Pain, Severe (Pain Scale 7-10) Last Admin: 05/08/21 19:23 Dose: 25 mcg Documented by: ROLAND Hydromorphone HCl (Hydromorphone Hcl 0.5 Mg/0.5 Ml Syringe) 0.5 mg IVPUSH Q5M PRN; Protocol PRN Reason: Pain, Severe (Pain Scale 7-10) Promethazine HCl 12.5 mg/ (Sodium Chloride) 50.5 mls @ 202 mls/hr IV ONCE PRN PRN Reason: Nausea and Vomiting Dextrose/Sodium Chloride (D5ns) 1,000 mls @ 80 mls/hr IVCONT .[id number] [facility] Last Admin: 05/13/21 09:09 Dose: 80 mls/hr Documented by: MARY Multivitamins 15 ml/ Trace Metals 1.5 ml/ Amino Acids/Electrolytes/Dextrose 1,320 mls @ 55 mls/hr IV DAILY@1800 [facility] Stop: 05/13/21 17:59 Last Admin: 05/12/21 18:30 Dose: 55 mls/hr Documented by: J CARLOS Fat Emulsion Intravenous (Intralipid) 156 mls @ 13 mls/hr IVCONT BID@0600,1800 [facility] Stop: 05/13/21 17:59 Last Admin: 05/13/21 06:36 Dose: 13 mls/hr Documented by: MISSY Metoprolol Tartrate (Metoprolol Tartrate 5 Mg/5 Ml Vial) 2.5 mg IVPUSH Q6H [facility] Last Admin: 05/13/21 08:22 Dose: 2.5 mg Documented by: MARY Morphine Sulfate (Morphine Sulfate 4 Mg/Ml Cartridge) 4 mg IVPUSH Q4H PRN; Protocol PRN Reason: Pain, Severe (Pain Scale 7-10) Last Admin: 05/11/21 20:37 Dose: 4 mg Documented by: ESTHER Ondansetron HCl (Ondansetron Hcl 4 Mg/2 Ml Vial) 4 mg IVPUSH Q8H PRN PRN Reason: Nausea and Vomiting Pantoprazole Sodium (Pantoprazole Sodium 40 Mg/10 Ml Vial) 40 mg IVPUSH DAILY@0630 [facility] Last Admin: 05/13/21 06:36 Dose: 40 mg Documented by: MISSY Sodium Chloride (0.9 % Sodium Chloride Flush 3 Ml Syringe) 3 ml IVFLUSH QSHIFT [facility] Last Admin: 05/13/21 08:22 Dose: 3 ml Documented by: MARY Labs CBC & Chem 7: 05/13/21 05:40 05/13/21 05:40 Labs: Laboratory Results - last 24 hr 05/13/21 05/13/21 05:40 05:40 MCV 84.1 MCH 28.2 MCHC 33.5 RDW 13.9 Plt Count 284 MPV 10.3 Absolute Nucleated RBC 0.000 Nucleated RBC % (auto) 0.0 Anion Gap 11 L Estim Creat Clear Calc 80.6 Estimated GFR > 60 Random Glucose 134 H Calcium 7.9 L Phosphorus 2.2 L Magnesium 2.2 Albumin 2.6 L Assessment and Plan (1) Small bowel obstruction: Status: Acute (2) Coffee ground emesis: Status: Acute Plan 75-year-old male patient? with past medical history of GERD, coronary artery disease, hypercholesterolemia, iron deficiency anemia, ischemic cardiomyopathy, history of CABG presenting with complaints of abdominal pain, nausea and vomiting with a history of coffee-ground emesis, dark-colored stool CT abdomen showed small bowel obstruction with transition point patient admitted to [facility] with a diagnosis of small-bowel obstruction 1.small-bowel obstruction that required ex-lap and lysis of adhesion POD 5, doing well, diet is being advanced, still on TPN, surgery to address continuing need , continue clear diet and surgery to advance as deem apropriate 2. Upper GI bleed ?? coffee-ground emesis and dark stools at home, hemoglobin hematocrit stable, no recurrent GI bleed ?? hemodynamically stable,? on IV Protonix daily, transition to by mouth PPI when start tolerating diet ?? seen by GI likely bleed related to esophagitis/or possible nurys mcmahon tear, continue ppi,no new bleeding episode, outpatient evaluation for upper endoscopy. 3. CAD with history of CABG in 2019 ? hold aspirin given the coffee-ground emesis, cont. on IV metoprolol, was on metoprolol 25 mg daily at home. elevated troponin but flat,? no chest pain, transition to by mouth metoprolol if tolerates diet today ? EKG showed, inferior and anterior infarction undeterminate(?old changes) echo, technically very limited study wall motion not assessed, valvular assessment also markedly limited. hold off on further workup, no cardiac symptoms 4. hyperlipidemia not on statin 5. hypernatremia resolved 6. severe protein calorie malnutrition on PPN / clear liquids DC PPN when able to tolerate regular 7. mild acute hypoxic respiratory failure likely due to atelectasis / hypoxia resolved 8. hypophosphatemia repleted 9. disposition PT eval obtained encourage out of bed to a chair and ambulate DVT prophylaxis:? SCD, Out of bed and ambulate, Inpatient need: ongoing post operative care for sbo s/p surgery, diet been advanced, and still on tp Code status full code Quality Stroke Does the patient have a stroke diagnosis?: No VTE Prior VTE?: No VTE Risk Level:: Medical - moderate - high VTE Device Contraindication: N/A - Device Ordered VTE Drug Contraindication: Treatment Not Indicated
--- NOTE | 2021-05-13 10:26 | P.PNGS_ITS ---
Subjective Subjective Date of Service: 05/13/21 Interval history: tolerating clears denies pain has BMs, flatus Physical Exam Vital Signs: Vital Signs: Last Vital Signs Temp 98.4 F 05/13/21 07:51 Pulse 98 05/13/21 09:00 Resp 13 05/13/21 07:51 BP 168/84 H 05/13/21 09:00 Pulse Ox 94 05/13/21 09:00 BMI result Body Mass Index 15.7 Const: General: comfortable and no acute distress Resp: Effort & Inspection: normal respiratory effort GI: Other: incision clean Palpation (GI): Soft to palpation, not firm, nontender and no guarding Objective Data Active Medications Acetaminophen (Acetaminophen Supp 650 Mg Supp.Rect) 650 mg CO Q6H PRN PRN Reason: Pain, Mild (Pain Scale 1-3) Last Admin: 05/08/21 20:03 Dose: 650 mg Documented by: ROLAND Benzocaine (Throat Lozenge, Medicated Lozenge) 1 lozenge MUCOUS MEM Q2H PRN PRN Reason: Sore Throat Last Admin: 05/10/21 18:32 Dose: 1 lozenge Documented by: PASTOR Fentanyl (Fentanyl Citrate/Pf 100 Mcg/2 Ml Vial) 50 mcg IVPUSH Q5M PRN; Protocol PRN Reason: Pain, Severe (Pain Scale 7-10) Last Admin: 05/08/21 19:23 Dose: 25 mcg Documented by: ROLAND Hydromorphone HCl (Hydromorphone Hcl 0.5 Mg/0.5 Ml Syringe) 0.5 mg IVPUSH Q5M PRN; Protocol PRN Reason: Pain, Severe (Pain Scale 7-10) Promethazine HCl 12.5 mg/ (Sodium Chloride) 50.5 mls @ 202 mls/hr IV ONCE PRN PRN Reason: Nausea and Vomiting Dextrose/Sodium Chloride (D5ns) 1,000 mls @ 80 mls/hr IVCONT .[id number] [facility] Last Admin: 05/13/21 09:09 Dose: 80 mls/hr Documented by: MARY Multivitamins 15 ml/ Trace Metals 1.5 ml/ Amino Acids/Electrolytes/Dextrose 1,320 mls @ 55 mls/hr IV DAILY@1800 [facility] Stop: 05/13/21 17:59 Last Admin: 05/12/21 18:30 Dose: 55 mls/hr Documented by: J CARLOS Fat Emulsion Intravenous (Intralipid) 156 mls @ 13 mls/hr IVCONT BID@0600,1800 [facility] Stop: 05/13/21 17:59 Last Admin: 05/13/21 06:36 Dose: 13 mls/hr Documented by: MISSY Metoprolol Tartrate (Metoprolol Tartrate 5 Mg/5 Ml Vial) 2.5 mg IVPUSH Q6H [facility] Last Admin: 05/13/21 08:22 Dose: 2.5 mg Documented by: MARY Morphine Sulfate (Morphine Sulfate 4 Mg/Ml Cartridge) 4 mg IVPUSH Q4H PRN; Protocol PRN Reason: Pain, Severe (Pain Scale 7-10) Last Admin: 05/11/21 20:37 Dose: 4 mg Documented by: ESTHER Ondansetron HCl (Ondansetron Hcl 4 Mg/2 Ml Vial) 4 mg IVPUSH Q8H PRN PRN Reason: Nausea and Vomiting Pantoprazole Sodium (Pantoprazole Sodium 40 Mg/10 Ml Vial) 40 mg IVPUSH DAILY@0630 [facility] Last Admin: 05/13/21 06:36 Dose: 40 mg Documented by: MISSY Sodium Chloride (0.9 % Sodium Chloride Flush 3 Ml Syringe) 3 ml IVFLUSH QSHIFT [facility] Last Admin: 05/13/21 08:22 Dose: 3 ml Documented by: MARY Labs CBC & Chem 7: 05/13/21 05:40 05/13/21 05:40 Labs: Laboratory Results - last 24 hr 05/13/21 05/13/21 05:40 05:40 MCV 84.1 MCH 28.2 MCHC 33.5 RDW 13.9 Plt Count 284 MPV 10.3 Absolute Nucleated RBC 0.000 Nucleated RBC % (auto) 0.0 Anion Gap 11 L Estim Creat Clear Calc 80.6 Estimated GFR > 60 Random Glucose 134 H Calcium 7.9 L Phosphorus 2.2 L Magnesium 2.2 Albumin 2.6 L Procedures Date of Service Date of Service: 05/13/21 Progress Note: A&P Assessment and plan (1) S/P exploratory laparotomy: Status: Acute Assessment and Plan: good GI function ok for regular diet PT eval doing well postop Fall Risk Details Current Medications: Current Medications Acetaminophen (Acetaminophen Supp 650 Mg Supp.Rect) 650 mg CO Q6H PRN PRN Reason: Pain, Mild (Pain Scale 1-3) Last Admin: 05/08/21 20:03 Dose: 650 mg Documented by: Benzocaine (Throat Lozenge, Medicated Lozenge) 1 lozenge MUCOUS MEM Q2H PRN PRN Reason: Sore Throat Last Admin: 05/10/21 18:32 Dose: 1 lozenge Documented by: Fentanyl (Fentanyl Citrate/Pf 100 Mcg/2 Ml Vial) 50 mcg IVPUSH Q5M PRN; Protocol PRN Reason: Pain, Severe (Pain Scale 7-10) Last Admin: 05/08/21 19:23 Dose: 25 mcg Documented by: Hydromorphone HCl (Hydromorphone Hcl 0.5 Mg/0.5 Ml Syringe) 0.5 mg IVPUSH Q5M PRN; Protocol PRN Reason: Pain, Severe (Pain Scale 7-10) Promethazine HCl 12.5 mg/ (Sodium Chloride) 50.5 mls @ 202 mls/hr IV ONCE PRN PRN Reason: Nausea and Vomiting Dextrose/Sodium Chloride (D5ns) 1,000 mls @ 80 mls/hr IVCONT .[id number] [facility] Last Admin: 05/13/21 09:09 Dose: 80 mls/hr Documented by: Multivitamins 15 ml/ Trace Metals 1.5 ml/ Amino Acids/Electrolytes/Dextrose 1,320 mls @ 55 mls/hr IV DAILY@1800 [facility] Stop: 05/13/21 17:59 Last Admin: 05/12/21 18:30 Dose: 55 mls/hr Documented by: Fat Emulsion Intravenous (Intralipid) 156 mls @ 13 mls/hr IVCONT BID@0600,1800 [facility] Stop: 05/13/21 17:59 Last Admin: 05/13/21 06:36 Dose: 13 mls/hr Documented by: Metoprolol Tartrate (Metoprolol Tartrate 5 Mg/5 Ml Vial) 2.5 mg IVPUSH Q6H [facility] Last Admin: 05/13/21 08:22 Dose: 2.5 mg Documented by: Morphine Sulfate (Morphine Sulfate 4 Mg/Ml Cartridge) 4 mg IVPUSH Q4H PRN; Protocol PRN Reason: Pain, Severe (Pain Scale 7-10) Last Admin: 05/11/21 20:37 Dose: 4 mg Documented by: Ondansetron HCl (Ondansetron Hcl 4 Mg/2 Ml Vial) 4 mg IVPUSH Q8H PRN PRN Reason: Nausea and Vomiting Pantoprazole Sodium (Pantoprazole Sodium 40 Mg/10 Ml Vial) 40 mg IVPUSH DAILY@0630 [facility] Last Admin: 05/13/21 06:36 Dose: 40 mg Documented by: Sodium Chloride (0.9 % Sodium Chloride Flush 3 Ml Syringe) 3 ml IVFLUSH QSHIFT [facility] Last Admin: 05/13/21 08:22 Dose: 3 ml Documented by: Time Spent With Patient Time: Total time spent is greater than 50% in coordination of care (as documented) at patient's floor/unit and/or counseling patient: Quality Stroke Does the patient have a stroke diagnosis?: No VTE Prior VTE?: No VTE Risk Level:: Medical - moderate - high VTE Device Contraindication: N/A - Device Ordered VTE Drug Contraindication: Treatment Not Indicated
[2021-05-14] MEDS: Metoprolol Tartrate 5 MG/5 ML VIAL 2.5 MG IVPUSH ×3 (01:59→14:18)
[2021-05-14] MEDS: Morphine Sulfate 4 MG/ML CARTRIDGE IVPUSH (02:05)
[2021-05-14] MEDS: Pantoprazole Sodium 40 MG/10 ML VIAL IVPUSH (05:35)
[2021-05-14 06:17] LABS: Anion Gap 10 (12-20); Blood Urea Nitrogen 9 mg/dL (9-16); Carbon Dioxide 23 mmol/L (22-29); Chloride 106 mmol/L (96-108); Creatinine Clr Calc Pharmacy 71.8; Estimated Glomerular Filt Rate > 60; Glucose Random 105 mg/dL (60-115); Potassium 4.3 mmol/L (3.3-5.1); Sodium 135 mmol/L (135-145)
[2021-05-14 07:36] VITALS: BP 162/85; PULSE 96; RESP 17; TEMP 36.7; O2SAT 94
[2021-05-14] MEDS: Dextrose 5 % and 0.9 % NaCl 1,000 ML 80 ML IVCONT ×2 (08:31→23:02)
--- NOTE | 2021-05-14 09:20 | HO.PM.IMPN ---
Subjective Subjective Date of Service: 05/14/21 Interval History: CC: f/u on sbo s/p Ex lap, lysis of adhesion, Interval history: Feeling better, reports multiple BMs yesterday and today, passing flatus, tolerating liquid diet. No abdominal pain. No longer has NGT Review of Systems No n/v or abdominal pain, no fever Physical Exam Vital Signs: Vital Signs: Last Vital Signs Temp 98.1 F 05/14/21 07:36 Pulse 96 05/14/21 07:36 Resp 17 05/14/21 07:36 BP 162/85 H 05/14/21 07:36 Pulse Ox 94 05/14/21 07:36 BMI result Body Mass Index 15.7 Const: Other: General: AO X 3, no acute distress Resp: CTA bilateral CVS: S1,S2,RRR GI: good bowel sounds, NT, no distention Skin: No rash Neuro: motor grossly intact Psych: appropriate affect Objective Data Active Medications Acetaminophen (Acetaminophen Supp 650 Mg Supp.Rect) 650 mg [place] Q6H PRN PRN Reason: Pain, Mild (Pain Scale 1-3) Last Admin: 05/08/21 20:03 Dose: 650 mg Documented by: ROLAND Benzocaine (Throat Lozenge, Medicated Lozenge) 1 lozenge MUCOUS MEM Q2H PRN PRN Reason: Sore Throat Last Admin: 05/10/21 18:32 Dose: 1 lozenge Documented by: PASTOR Promethazine HCl 12.5 mg/ (Sodium Chloride) 50.5 mls @ 202 mls/hr IV ONCE PRN PRN Reason: Nausea and Vomiting Dextrose/Sodium Chloride (D5ns) 1,000 mls @ 80 mls/hr IVCONT .[id number] [facility] Last Admin: 05/14/21 08:31 Dose: 80 mls/hr Documented by: MARY Metoprolol Tartrate (Metoprolol Tartrate 5 Mg/5 Ml Vial) 2.5 mg IVPUSH Q6H [facility] Last Admin: 05/14/21 08:28 Dose: 2.5 mg Documented by: MARY Ondansetron HCl (Ondansetron Hcl 4 Mg/2 Ml Vial) 4 mg IVPUSH Q8H PRN PRN Reason: Nausea and Vomiting Pantoprazole Sodium (Pantoprazole Sodium 40 Mg/10 Ml Vial) 40 mg IVPUSH DAILY@0630 [facility] Last Admin: 05/14/21 05:35 Dose: 40 mg Documented by: MISSY Sodium Chloride (0.9 % Sodium Chloride Flush 3 Ml Syringe) 3 ml IVFLUSH QSHIFT [facility] Last Admin: 05/14/21 08:28 Dose: Not Given Documented by: MARY Non-Admin Reason: IV Running Labs CBC & Chem 7: 05/13/21 05:40 05/14/21 05:51 Labs: Laboratory Results - last 24 hr 05/14/21 05:51 Anion Gap 10 L Estim Creat Clear Calc 71.8 Estimated GFR > 60 Random Glucose 105 Calcium 8.0 L Assessment and Plan (1) Small bowel obstruction: Status: Acute (2) Coffee ground emesis: Status: Acute Plan 75-year-old male patient? with past medical history of GERD, coronary artery disease, hypercholesterolemia, iron deficiency anemia, ischemic cardiomyopathy, history of CABG presenting with complaints of abdominal pain, nausea and vomiting with a history of coffee-ground emesis, dark-colored stool CT abdomen showed small bowel obstruction with transition point patient admitted to [facility] with a diagnosis of small-bowel obstruction 1.small-bowel obstruction that required ex-lap and lysis of adhesion POD 6 -Advancing to regular diet today -TPN stopped 4/2 -out of bed ambulate -anticipate dc early this week 2. Upper GI bleed-- coffee-ground emesis and dark stools at home, hemoglobin hematocrit stable, -PPI orally ?-GI (jaimee Choudhary) likely bleed related to esophagitis/or possible nurys mcmahon, outpatient endoscopy 3. CAD with history of CABG in 2019 -Will restart ASA in a day -change to PO metoprolol now that he's eating -No further testing by cardiology 4. hyperlipidemia not on statin 5. hypernatremia resolved 6. severe protein calorie malnutrition--regular diet, nutritional f/u 7. mild acute hypoxic respiratory failure likely due to atelectasis / hypoxia resolved 8. hypophosphatemia repleted 9. PT to reassess tomorrow for home vs rehab DVT prophylaxis:? SCD, Out of bed and ambulate, Inpatient need: ongoing post operative care for sbo s/p surgery, diet been advanced today and we need to see how well he tolerates this Code status full code Quality Stroke Does the patient have a stroke diagnosis?: No VTE Prior VTE?: No VTE Risk Level:: Medical - moderate - high VTE Device Contraindication: N/A - Device Ordered VTE Drug Contraindication: Treatment Not Indicated
--- NOTE | 2021-05-14 10:57 | PM.PNGS ---
Subjective Subjective Date of Service: 05/14/21 Interval history: feels well hungry good BMs, flatus Physical Exam Vital Signs: Vital Signs: Last Vital Signs Temp 98.1 F 05/14/21 07:36 Pulse 96 05/14/21 07:36 Resp 17 05/14/21 07:36 BP 162/85 H 05/14/21 07:36 Pulse Ox 94 05/14/21 07:36 BMI result Body Mass Index 15.7 Const: General: comfortable and no acute distress Resp: Effort & Inspection: normal respiratory effort Cardio: Rate: regular rate GI: Other: soft, nontender, incision clean Objective Data Active Medications Acetaminophen (Acetaminophen Supp 650 Mg Supp.Rect) 650 mg [place] Q6H PRN PRN Reason: Pain, Mild (Pain Scale 1-3) Last Admin: 05/08/21 20:03 Dose: 650 mg Documented by: ROLAND Benzocaine (Throat Lozenge, Medicated Lozenge) 1 lozenge MUCOUS MEM Q2H PRN PRN Reason: Sore Throat Last Admin: 05/10/21 18:32 Dose: 1 lozenge Documented by: PASTOR Promethazine HCl 12.5 mg/ (Sodium Chloride) 50.5 mls @ 202 mls/hr IV ONCE PRN PRN Reason: Nausea and Vomiting Dextrose/Sodium Chloride (D5ns) 1,000 mls @ 80 mls/hr IVCONT .[id number] [facility] Last Admin: 05/14/21 10:36 Dose: Not Given Documented by: MARY Non-Admin Reason: IV Running Metoprolol Tartrate (Metoprolol Tartrate 5 Mg/5 Ml Vial) 2.5 mg IVPUSH Q6H [facility] Last Admin: 05/14/21 08:28 Dose: 2.5 mg Documented by: MARY Ondansetron HCl (Ondansetron Hcl 4 Mg/2 Ml Vial) 4 mg IVPUSH Q8H PRN PRN Reason: Nausea and Vomiting Pantoprazole Sodium (Pantoprazole Sodium 40 Mg/10 Ml Vial) 40 mg IVPUSH DAILY@0630 [facility] Last Admin: 05/14/21 05:35 Dose: 40 mg Documented by: MISSY Sodium Chloride (0.9 % Sodium Chloride Flush 3 Ml Syringe) 3 ml IVFLUSH QSHIFT [facility] Last Admin: 05/14/21 08:28 Dose: Not Given Documented by: MARY Non-Admin Reason: IV Running Labs CBC & Chem 7: 05/13/21 05:40 05/14/21 05:51 Labs: Laboratory Results - last 24 hr 05/14/21 05:51 Anion Gap 10 L Estim Creat Clear Calc 71.8 Estimated GFR > 60 Random Glucose 105 Calcium 8.0 L Procedures Date of Service Date of Service: 05/14/21 Progress Note: A&P Assessment and plan (1) S/P exploratory laparotomy: Status: Acute Assessment and Plan: s/p lysis of adhesions doing well good GI function regular diet Fall Risk Details Current Medications: Current Medications Acetaminophen (Acetaminophen Supp 650 Mg Supp.Rect) 650 mg [place] Q6H PRN PRN Reason: Pain, Mild (Pain Scale 1-3) Last Admin: 05/08/21 20:03 Dose: 650 mg Documented by: Benzocaine (Throat Lozenge, Medicated Lozenge) 1 lozenge MUCOUS MEM Q2H PRN PRN Reason: Sore Throat Last Admin: 05/10/21 18:32 Dose: 1 lozenge Documented by: Promethazine HCl 12.5 mg/ (Sodium Chloride) 50.5 mls @ 202 mls/hr IV ONCE PRN PRN Reason: Nausea and Vomiting Dextrose/Sodium Chloride (D5ns) 1,000 mls @ 80 mls/hr IVCONT .[id number] [facility] Last Admin: 05/14/21 10:36 Dose: Not Given Documented by: Metoprolol Tartrate (Metoprolol Tartrate 5 Mg/5 Ml Vial) 2.5 mg IVPUSH Q6H [facility] Last Admin: 05/14/21 08:28 Dose: 2.5 mg Documented by: Ondansetron HCl (Ondansetron Hcl 4 Mg/2 Ml Vial) 4 mg IVPUSH Q8H PRN PRN Reason: Nausea and Vomiting Pantoprazole Sodium (Pantoprazole Sodium 40 Mg/10 Ml Vial) 40 mg IVPUSH DAILY@0630 [facility] Last Admin: 05/14/21 05:35 Dose: 40 mg Documented by: Sodium Chloride (0.9 % Sodium Chloride Flush 3 Ml Syringe) 3 ml IVFLUSH [facility] Last Admin: 05/14/21 08:28 Dose: Not Given Documented by: Time Spent With Patient Time: Total time spent is greater than 50% in coordination of care (as documented) at patient's floor/unit and/or counseling patient: Quality Stroke Does the patient have a stroke diagnosis?: No VTE Prior VTE?: No VTE Risk Level:: Medical - moderate - high VTE Device Contraindication: N/A - Device Ordered VTE Drug Contraindication: Treatment Not Indicated
[2021-05-14 12:00] VITALS: BP 138/65; PULSE 72; RESP 16; TEMP 36.8; O2SAT 95
[2021-05-14 14:26] VITALS: BP 143/89; PULSE 96
[2021-05-14 15:55] VITALS: BP 166/90; PULSE 88; RESP 18; TEMP 36.3; O2SAT 95
[2021-05-14 19:50] VITALS: BP 157/80; PULSE 95; RESP 18; TEMP 36.4; O2SAT 95
[2021-05-14] MEDS: Omeprazole 40 MG CAPSULE.DR PO (20:34)
[2021-05-14] MEDS: Metoprolol Succinate ER 25 MG TAB.ER.24H PO (20:34)
[2021-05-14] MEDS: Acetaminophen 325 MG TABLET 650 MG PO (23:49)
[2021-05-15] VITALS (7 sets, daily range): BP systolic 113–160; BP diastolic 58–91; PULSE 63–99; RESP 14–20; TEMP 36–37.2; O2SAT 94–98; BMI 15.7
[2021-05-15] MEDS: Omeprazole 40 MG CAPSULE.DR PO ×2 (05:45→15:58)
[2021-05-15 06:16] LABS: Anion Gap 10 (12-20); Blood Urea Nitrogen 12 mg/dL (9-16); Calcium 8.1 mg/dL (8.4-10.2); Carbon Dioxide 22 mmol/L (22-29); Chloride 107 mmol/L (96-108); Creatinine Clr Calc Pharmacy 69.2; Estimated Glomerular Filt Rate > 60; Glucose Random 86 mg/dL (60-115); Potassium 4.2 mmol/L (3.3-5.1); Sodium 135 mmol/L (135-145)
--- NOTE | 2021-05-15 08:25 | P.PNGS_ITS ---
Subjective Subjective Date of Service: 05/15/21 <Seema Delgadillo PA-C - Last Filed: 05/15/21 08:32> 05/15/21 <Gera Johnson MD - Last Filed: 05/15/21 09:41> Interval history: Feels well. Tolerating solid diet without N/V or worsening abd pain. Passing flatus and moving his bowels. He and his are comfortable with him going home. Asking when he will be discharged. <Seema Delgadillo PA-C - Last Filed: 05/15/21 08:32> Physical Exam Vital Signs: Vital Signs: Last Vital Signs Temp 98.6 F 05/15/21 03:23 Pulse 83 05/15/21 03:23 Resp 20 05/15/21 03:23 BP 140/58 H 05/15/21 03:23 Pulse Ox 95 05/15/21 03:23 BMI result Body Mass Index 15.7 <Seema Delgadillo PA-C - Last Filed: 05/15/21 08:32> Const: General: comfortable and no acute distress <NICOLÁS Nazario - Last Filed: 05/15/21 08:32> Orientation/consciousness: patient oriented x3 <Seema Delgadillo PA-C - Last Filed: 05/15/21 08:32> GI: Inspection: Yes distended (mildly, significantly improved) <Seema Delgadillo PA-C - Last Filed: 05/15/21 08:32> Palpation (GI): Soft to palpation, nontender and no guarding <Seema Delgadillo PA-C - Last Filed: 05/15/21 08:32> Neuro: General: patient oriented x3 <Seema Delgadillo PA-C - Last Filed: 05/15/21 08:32> Objective Data Active Medications Acetaminophen (Acetaminophen Supp 650 Mg Supp.Rect) 650 mg [place] Q6H PRN PRN Reason: Pain, Mild (Pain Scale 1-3) Last Admin: 05/08/21 20:03 Dose: 650 mg Documented by: ROLAND Benzocaine (Throat Lozenge, Medicated Lozenge) 1 lozenge MUCOUS MEM Q2H PRN PRN Reason: Sore Throat Last Admin: 05/10/21 18:32 Dose: 1 lozenge Documented by: PASTOR Promethazine HCl 12.5 mg/ (Sodium Chloride) 50.5 mls @ 202 mls/hr IV ONCE PRN PRN Reason: Nausea and Vomiting Metoprolol Succinate (Metoprolol Succinate Er 25 Mg Tab.Er.24h) 25 mg PO DAILY [facility]; Protocol Last Admin: 05/14/21 20:34 Dose: 25 mg Documented by: JENAE Omeprazole (Omeprazole 40 Mg Capsule.Dr) 40 mg PO BID@0630,1630 [facility] Last Admin: 05/15/21 05:45 Dose: 40 mg Documented by: BOBBY Ondansetron HCl (Ondansetron Hcl 4 Mg/2 Ml Vial) 4 mg IVPUSH Q8H PRN PRN Reason: Nausea and Vomiting Sodium Chloride (0.9 % Sodium Chloride Flush 3 Ml Syringe) 3 ml IVFLUSH QSHIFT [facility] Last Admin: 05/14/21 23:54 Dose: Not Given Documented by: BOBBY Non-Admin Reason: IV Running <Seema Delgadillo PA-C - Last Filed: 05/15/21 08:32> Labs CBC & Chem 7: : 05/13/21 05:40 05/15/21 05:17 <Seema Delgadillo PA-C - Last Filed: 05/15/21 08:32> Labs: Laboratory Results - last 24 hr 05/15/21 05:17 Anion Gap 10 L Estim Creat Clear Calc 69.2 Estimated GFR > 60 Random Glucose 86 Calcium 8.1 L <Seema Delgadillo PA-C - Last Filed: 05/15/21 08:32> Procedures Date of Service Date of Service: 05/15/21 <BHAVIN Nazario Last Filed: 05/15/21 08:32> Progress Note: A&P Assessment and plan (1) S/P exploratory laparotomy: Status: Acute <BHAVIN Nazario Last Filed: 05/15/21 08:32> (2) Small bowel obstruction: Status: Acute <BHAVIN Nazario Last Filed: 05/15/21 08:32> Assessment and Plan: Tolerating diet Good GI function Abdomen soft and benign Looks well Okay to DC home to SNF Seen and examined independently - agree with DALJIT Delgadillo <Gera Johnson MD - Last Filed: 05/15/21 09:41> Plan 75-year-old male patient presenting with nausea and vomiting and abdominal distension found to have markedly distended small bowel with a transition point in the distal small bowel suggestive of a small-bowel obstruction. He failed non operative management and is now s/p exploratory laparotomy, extensive LEONARD. Doing well post op and tolerating solid food with good GI function. VSS. Abd exam benign, clean incision. He is surgically stable for discharge. He can f/u with Dr. Pantoja in 1 week in the office. Educated no heavy lifting. <Seema Delgadillo PA-C - Last Filed: 05/15/21 08:32> Fall Risk Details Current Medications: Current Medications Acetaminophen (Acetaminophen Supp 650 Mg Supp.Rect) 650 mg AL Q6H PRN PRN Reason: Pain, Mild (Pain Scale 1-3) Last Admin: 05/08/21 20:03 Dose: 650 mg Documented by: Benzocaine (Throat Lozenge, Medicated Lozenge) 1 lozenge MUCOUS MEM Q2H PRN PRN Reason: Sore Throat Last Admin: 05/10/21 18:32 Dose: 1 lozenge Documented by: Promethazine HCl 12.5 mg/ (Sodium Chloride) 50.5 mls @ 202 mls/hr IV ONCE PRN PRN Reason: Nausea and Vomiting Metoprolol Succinate (Metoprolol Succinate Er 25 Mg Tab.Er.24h) 25 mg PO DAILY [facility]; Protocol Last Admin: 05/14/21 20:34 Dose: 25 mg Documented by: Omeprazole (Omeprazole 40 Mg Capsule.) 40 mg PO BID@0630,1630 [facility] Last Admin: 05/15/21 05:45 Dose: 40 mg Documented by: Ondansetron HCl (Ondansetron Hcl 4 Mg/2 Ml Vial) 4 mg IVPUSH Q8H PRN PRN Reason: Nausea and Vomiting Sodium Chloride (0.9 % Sodium Chloride Flush 3 Ml Syringe) 3 ml IVFLUSH QSHIFT [facility] Last Admin: 05/14/21 23:54 Dose: Not Given Documented by: <Seema Delgadillo PA-C - Last Filed: 05/15/21 08:32> Time Spent With Patient Time: Total time spent is greater than 50% in coordination of care (as documented) at patient's floor/unit and/or counseling patient: <Seema Delgadillo PA-C - Last Filed: 05/15/21 08:32> Quality Stroke Does the patient have a stroke diagnosis?: No <Seema Delgadillo PA-C - Last Filed: 05/15/21 08:32> VTE Prior VTE?: No <Seema Delgadillo PA-C - Last Filed: 05/15/21 08:32> VTE Risk Level:: Medical - moderate - high <Seema Delgadillo PA-C - Last Filed: 05/15/21 08:32> VTE Device Contraindication: N/A - Device Ordered <Seema Delgadillo PA-C - Last Filed: 05/15/21 08:32> VTE Drug Contraindication: Treatment Not Indicated <Seema Delgadillo PA-C - Last Filed: 05/15/21 08:32>
[2021-05-15] MEDS: Metoprolol Succinate ER 25 MG TAB.ER.24H PO (10:18)
[2021-05-15] MEDS: 0.9 % Sodium Chloride Flush 3 ML SYRINGE IVFLUSH ×3 (10:18→20:24)
--- NOTE | 2021-05-15 10:21 | MHC.CLN ---
F/U DIET=REGULAR. APPEARS TO BE TOLERATING DIET WITH LIMITED INTAKE. ADDING ENSURE TID TO PROVIDE ADDITIONAL 1050 KCAL, 60 G PROTEIN. PPN LAST RUN 05/12 TO 05/13 THEN DISCONTINUED. NUTRITION DX SEVERE MALNUTRITION IN THE CONTEXT OF ACUTE ILLNESS.
--- NOTE | 2021-05-15 14:03 | HO.PM.IMPN ---
Subjective Subjective Date of Service: 05/15/21 Interval History: patient is sitting on chair tolerating diet denies nausea, vomiting , had 2 bowel movements, remains weak with unsteady gait refusing to go to rehab adamant that he will go home, no acute overnight events. Review of Systems Review of Systems: Yes all other systems are reviewed and are negative Physical Exam Vital Signs: Vital Signs: Last Vital Signs Temp 97.4 F 05/15/21 12:00 Pulse 78 05/15/21 12:00 Resp 20 05/15/21 12:00 BP 135/74 05/15/21 12:00 Pulse Ox 98 05/15/21 12:00 BMI result Body Mass Index 15.7 Const: Other: General? Awake chris rt X3, no acute di stress.? Neck supp le no JVD. CVS? re gular rate rhythm, Respiratory lungs clear to ausculta tion, no respirato ry distress, no wh eeze, no rhonchi. Gastrointestinal a bdomen soft, nonte nder, no guarding ,?bowel sounds aud ible. Extremities no edema. Neuro no nfocal Skin no lucinda h psych appropriat e affect Objective Data Active Medications Acetaminophen (Acetaminophen Supp 650 Mg Supp.Rect) 650 mg PA Q6H PRN PRN Reason: Pain, Mild (Pain Scale 1-3) Last Admin: 05/08/21 20:03 Dose: 650 mg Documented by: ROLAND Benzocaine (Throat Lozenge, Medicated Lozenge) 1 lozenge MUCOUS MEM Q2H PRN PRN Reason: Sore Throat Last Admin: 05/10/21 18:32 Dose: 1 lozenge Documented by: PASTOR Promethazine HCl 12.5 mg/ (Sodium Chloride) 50.5 mls @ 202 mls/hr IV ONCE PRN PRN Reason: Nausea and Vomiting Metoprolol Succinate (Metoprolol Succinate Er 25 Mg Tab.Er.24h) 25 mg PO DAILY [facility]; Protocol Last Admin: 05/15/21 10:18 Dose: 25 mg Documented by: DIAZ Omeprazole (Omeprazole 40 Mg Capsule.) 40 mg PO BID@0630,1630 [facility] Last Admin: 05/15/21 05:45 Dose: 40 mg Documented by: BOBBY Ondansetron HCl (Ondansetron Hcl 4 Mg/2 Ml Vial) 4 mg IVPUSH Q8H PRN PRN Reason: Nausea and Vomiting Sodium Chloride (0.9 % Sodium Chloride Flush 3 Ml Syringe) 3 ml IVFLUSH QSHIFT [facility] Last Admin: 05/15/21 10:18 Dose: 3 ml Documented by: DIAZ Labs CBC & Chem 7: 05/13/21 05:40 05/15/21 05:17 Labs: Laboratory Results - last 24 hr 05/15/21 05:17 Anion Gap 10 L Estim Creat Clear Calc 69.2 Estimated GFR > 60 Random Glucose 86 Calcium 8.1 L Assessment and Plan (1) S/P exploratory laparotomy: Status: Acute (2) Coffee ground emesis: Status: Acute (3) Small bowel obstruction: Status: Acute (4) Essential hypertension: Status: Acute (5) Atherosclerotic cardiovascular disease: Status: Acute Plan 75-year-old male patient? with past medical history of GERD, coronary artery disease, hypercholesterolemia, iron deficiency anemia, ischemic cardiomyopathy, history of CABG presenting with complaints of abdominal pain, nausea and vomiting with a history of coffee-ground emesis, dark-colored stool CT abdomen showed small bowel obstruction with transition point patient admitted to [facility] with a diagnosis of small-bowel obstruction ? 1.small-bowel obstruction ? ?? failed conservative management with NG tube, NPO and IV fluids. ? ?? status post? exploratory laparotomy with? extentsive lysis of adhesions pod #7 ??? tolerating regular diet, with no nausea vomiting or abdominal pain moving bowels , encourage out of bed to chair and incentive spirometery ? 2. Upper GI bleed ?? coffee-ground emesis and dark stools at home, hemoglobin hematocrit stable, no recurrent GI bleed, tolerating by mouth PPI and diet ?? seen by GI? likely bleed related to esophagitis/or possible nurys mcmahon tear, continue ppi,no new bleeding episode, outpatient evaluation for upper endoscopy. 3. CAD with history of CABG in 2019/ multiple episodes of PVCs ? continue metoprolol 25 mg daily , will resume aspirin, no chest pain ? EKG showed, inferior and anterior infarction undeterminate(?old changes) ? echo, technically very limited study wall motion not assessed, valvular assessment also markedly limited. hold off on further workup, no cardiac symptoms monitor on telemetry X 24 hrs, further workup if patient becomes symptomatic ? 4. hyperlipidemia not on statin 5.? hypernatremia? resolved 6.? severe protein calorie malnutrition Tolerating regular diet/ status post ppn 7.? mild acute hypoxic respiratory failure likely due to atelectasis / hypoxia resolved 8.? hypophosphatemia? repleted 9.? 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 patient will need overnight stay, since patient declined to go to rehab, and declined home services, family is not ready to take him home, patient is not safe to go home without family support, on re-evaluation PT recommend to ambulate in [place] with staff t.i.d. while hospitalized and then discharged home with PT services, patient with frequent PVCs will monitor on telemetry times 24 hours with history of coronary artery disease Quality Stroke Does the patient have a stroke diagnosis?: No VTE Prior VTE?: No VTE Risk Level:: Medical - moderate - high VTE Device Contraindication: N/A - Device Ordered VTE Drug Contraindication: Treatment Not Indicated
--- NOTE | 2021-05-15 14:40 | MHC.CM.PN ---
CM SPOKE TO PT WHO REPORTS HE IS NOT INTERESTED IN STR AND DOES NOT WANT SERVICES AT HOME. CHRISTOPHER SPOKE TO PTS WHO CALLED PT WHILE CM WAS AT BEDSIDE. SHE REPORTS SUPPORTING PTS DC GOAL AND SAYS SHE WILL HELP HIM AT HOME CM EXPLAINED THEY COULD CONTACT PTS PCP IF THEY CHANGE THEIR MINDS ONCE HOME PTS REPORTS SHE HAS APPTS TODAY AND WOULD NOT BE ABLE TO MANAGE ASSISTING PT UNTIL TOMORROW MORNING PT WILL DC HOME TOMORROW MORNING WITH 'S SUPPORT PER THEIR PREFERENCES TO TRANSPORT
--- NOTE | 2021-05-15 15:23 | MHC.CM.PN ---
NURSE TIP TESTER NOTE ELECTRONIC MEDICAL RECORD REVIEWED ( S/P SMALL BOWEL RESECTION. EXP LAPARATOMY WITH EXTENSIVE LYSIS OF ADHERSIONS POD 7, AND UGI BLEED DISPOSITION P.T. EVAL RECOMENDED REHAB PATIENT I HAS DECLINED TO GO AND DECLINING HOME SERVICES. FAMILY IS NOT READY TO TAKE HIM HOME AT THIS TIME AND PATIENT IS NOT SAFE T GO HOME WITH OUT FAMILY SUPPORTY PATIENT TO AMBULATED WITH STAFF IN [place] 3X QD AND THEN D/C HOME WITH PT SERVICES. PATIENT WITH FREQUENT PVSC ON MONITOR CONTINUE TO FOLLOW FOR 24 HOURS) DISCHARGE PLAN HOME WITH FAMILY TOMORROW WITH NEW REFERRAL TO THE [facility] FOR HOME PHYSICAL THERAPY
[2021-05-15] MEDS: Acetaminophen 325 MG TABLET 650 MG PO (20:24)
[2021-05-16] MEDS: Omeprazole 40 MG CAPSULE.DR PO (05:51)
[2021-05-16 06:11] LABS: Anion Gap 14 (12-20); Blood Urea Nitrogen 15 mg/dL (9-16); Calcium 8.2 mg/dL (8.4-10.2); Carbon Dioxide 22 mmol/L (22-29); Chloride 106 mmol/L (96-108); Creatinine Clr Calc Pharmacy 63.7; Estimated Glomerular Filt Rate > 60; Glucose Random 79 mg/dL (60-115); Potassium 4.7 mmol/L (3.3-5.1); Sodium 137 mmol/L (135-145)
[2021-05-16 07:19] VITALS: BP 162/77; PULSE 96; RESP 15; TEMP 36.9; O2SAT 96
[2021-05-16] MEDS: Metoprolol Succinate ER 25 MG TAB.ER.24H PO (08:36)
--- NOTE | 2021-05-16 10:38 | MHC.CM.PN ---
Addendum entered by Angelia Chandra 05/16/21 10:47: OF NOTE: PTS IS AWARE SHE CAN CALL THE PCP'S OFFICE AT ANY TIME TO REQUEST [facility] SERVICES BE ARRANGED AND REPORTED SHE WOULD DO SO IF SHE FELT PT REQUIRED THEM OR SHE WAS UNABLE TO MANAGE HIS NEEDS. Original Note: PT WILL DC HOME TODAY WITH NO SERVICES PER HIS PREFERENCE IS AGREEABLE TO DC PLAN AND REPORTS SHE WILL PROVIDE HIS ASSISTANCE WILL TRANSPORT
--- NOTE | 2021-05-16 10:38 | PM.DS ---
DS: Providers Provider Date of Service: 05/16/21 Date of admission: 05/04/21 22:01 Primary care physician: Fran Munson MD Consults: 05/04/21 22:37 Consult to Gastroenterology Routine Consulting Provider: Dm Latham Reason for consultation: hematemesis Has provider been notified: No 05/05/21 06:48 Consult to General Surgery Routine Consulting Provider: Gera Johnson Reason for consultation: SBO Has provider been notified: Yes DS: Diagnosis Discharge Diagnosis (1) S/P exploratory laparotomy: Status: Acute (2) Coffee ground emesis: Status: Acute (3) Small bowel obstruction: Status: Acute (4) Essential hypertension: Status: Acute (5) Atherosclerotic cardiovascular disease: Status: Acute DS: Summary Hospital Course Hospital Course: history of presenting illness Chief Complaint: coffee ground emesis 75-year-old male with past medical history of GERD, CAD, hypercholesterolemia, iron deficiency anemia, ischemic cardiomyopathy, history of CABG, who presents to the hospital with coffee-ground emesis.? He reports that it is feels like a stomach ulcer because he has something similar about 30 years ago.? Patient reports that he has had constipation, on and off black stools, as well as a vomiting episode of black coffee-ground emesis.? Patient reports that his symptoms started about few days ago.? He does not recall it vomiting but reports liquid came out of his mouth that was dark black.? He has also been experiencing abdominal pain.? Abdominal pain is diffuse, constant, 8/10, nonradiating, no leaving or exacerbating factors.? Patient reports last BM was this a.m., and he has not been passing any gas.? He reports that he has been constipated for the past few days. He otherwise denies any chest pain, no shortness of breath, no urinary symptoms, no lower extremity edema.? No headache or change in vision, no numbness tingling or weakness.? On arrival to the ED patient hemodynamically stable with no significant abnormal vitals except a slightly elevated heart rate Labs are significant for sodium of 134 magnesium of 2.7, troponin of 67 that trended down to 57, UA negative. ?CT abdomen shows small bowel obstruction with transition point.? Transition point present to be somewhere in distal ileum/right lower quadrant.? The terminal ileum and the entire colon appears normal. NG tube placed and patient will be admitted for further management. 75-year-old male patient? with past medical history of GERD, coronary artery disease, hypercholesterolemia, iron deficiency anemia, ischemic cardiomyopathy, history of CABG presented with complaints of abdominal pain, nausea and vomiting with a history of coffee-ground emesis, dark-colored stool CT abdomen showed small bowel obstruction with transition point patient admitted to [facility] with a diagnosis of small-bowel obstruction ? 1.small-bowel obstruction, patient failed conservative management with NG tube, NPO and IV fluids, therefore underwent exploratory laparotomy with? extentsive lysis of adhesions , post procedure diet was gradually advanced currently tolerating regular diet with no recurrent abdominal pain nausea vomiting, briefly patient was placed on PPN due to prolonged NPO ? he has been recommended outpatient follow-up with surgery for removal of his stitches in 1-2 weeks. ? 2.Upper GI bleed , patient had several episodes of? coffee-ground emesis and dark stools at home, hemoglobin hematocrit remained stable, had no recurrent GI bleed, tolerating by mouth PPI and diet ?? seen by GI? likely bleed related to esophagitis/or possible nurys mcmahon tear, Dr. Latham recommended to, continue ppi and outpatient evaluation for upper endoscopy. 3. CAD with history of CABG in 2019 continue metoprolol 25 mg daily , resume aspirin, EKG showed, inferior and anterior infarction undeterminate(?old changes), echo, technically very limited study wall motion not assessed, valvular assessment also markedly limited, since patient had no chest pain no further workup was obtained tele monitor showed frequent PVCs recommend to continue metoprolol ? 4. hyperlipidemia previously was on Lipitor 80 mg at bedtime, currently not taking statin 5.? hypernatremia? resolved 6.? severe protein calorie malnutrition? Tolerating regular diet/ status post ppn 7.? mild acute hypoxic respiratory failure likely due to atelectasis , oxygen improved 8.? hypophosphatemia? resolved Time Spent with Patient Time attestation: Total time spent providing and/or coordinating discharge services: Discharge coordination time: Greater than 30 minutes Quality: Safe Use of Opioids Does Pt have an Active Cancer Diagnosis on the Problem List?: No Quality: Stroke Does the patient have a stroke diagnosis?: No Physical Exam Vital Signs: Vital Signs: Last Vital Signs Temp 98.4 F 05/16/21 07:19 Pulse 96 05/16/21 07:19 Resp 15 05/16/21 07:19 BP 162/77 H 05/16/21 07:19 Pulse Ox 96 05/16/21 07:19 BMI result Body Mass Index 15.7 Const: Other: General? Awake alert, no acute distress.? Neck supple no JVD. CVS? regular rate rhythm, Respiratory lungs clear to auscultation, no respiratory distress, no wheeze, no rhonchi. Gastrointestinal abdomen soft, nontender, no guarding ,?bowel sounds audible, dressing in place Extremities no edema. Neuro nonfocal Skin no rash psych appropriate affect DS: Data Data Completed and Pending Labs on day of discharge: Laboratory Results - last 24 hr 05/16/21 05:33 Sodium 137 Potassium 4.7 Chloride 106 Carbon Dioxide 22 Anion Gap 14 BUN 15 Creatinine 0.62 Estim Creat Clear Calc 63.7 Estimated GFR > 60 Random Glucose 79 Calcium 8.2 L Discharge Plan Discharge Patient Disposition: Home Health Service Discharge Diagnosis: Small-bowel obstruction Upper GI bleed severe protein calorie malnutrition Referrals: Tony Pantoja MD [Physician] - 1 Week Po,Fran Ward MD [Primary Care Provider] - 1 Week Discharge Medications: Continued pantoprazole 40 mg tablet,delayed release (DR/EC) 40 mg PO DAILY Qty: 90 2RF metoprolol succinate 25 mg tablet extended release 24 hr 25 mg PO DAILY 90 Days Qty: 90 3RF aspirin 81 mg tablet,delayed release (DR/EC) 81 mg PO DAILY 0RF vitamin B complex Tablet 1 tab PO DAILY 0RF Discharge Orders: Discharge Order (Routine); Ordered 05/16/21 Ordered By: Yolanda Shipley Diet: advance to usual diet Activity on Discharge: No heavy lifting Stand Alone Forms: Patient Portal Discharge page Activity Restrictions/Additional Instructions: If the incision area is tender, you may apply an ice pack for short intervals (No more than 20 minutes on, followed by at least 20 minutes off). Do not apply heat. Do not use creams, lotions, or topical antibiotics unless instructed to do so by your surgeon. These can cause infection or allergic reaction. Ok to shower. You have eb closing your incision and these will be removed approximately 10-14 days after surgery. NO HEAVY LIFTING (>10lbs) or strenuous activity. Follow up in office. ([phone]) Call Your Doctor If: -Your temperature exceeds 101.5? F -You experience excessive pain or swelling -You have an unexpected reaction to medication -You have excessive bleeding -You experience continued vomiting/nausea -Your incision begins to separate -Your incision shows signs of infection such as increased redness, swelling, excessive pain, drainage (light blood or clear fluid is normal) or heat Care Plan Goals: severe protein calorie malnutrition continue Ensure, participate with physical therapy, your going home with physical therapy services, take all home medications as before return to check with recurrent abdominal pain, nausea or vomiting. Health Concerns: coronary artery disease/ upper GI bleed take all home medication Plan of Treatment: follow-up with General surgery in 10-14 days, follow-up with primary care physician in 1-2 weeks and need Gastroenterology follow-up for upper endoscopy. Assessment: per discharged some
--- NOTE | 2021-05-16 11:00 | W.MHC.F2F ---
Service Date Service Date: 05/16/21 Encounter Date of encounter: 05/16/21 Reasons for Services Signs and symptoms assessed: status post exploratory laparotomy, generalized weakness, history of coronary artery disease prolonged hospitalization and severe protein calorie malnutrition. Reason for occupational therapy: home safety and mobility Homebound: Leaving the home is medically contraindicated at this time without the asist of a device and/or another person due th the listed conditions above and below. Reason homebound: weakness related to hospital stay Certification: Based on the above findings, I certify that this patient is confined to the home and needs intermittent halfway care, physical therapy and/or speech therapy, or continues to need occupational therapy. The patient is under my care, and I have initiated the establishment of the plan of care. The patient will be followed by a physician who will periodically review the plan of care.
--- NOTE | 2021-05-16 12:18 | MHC.CM.PN ---
NURSE CASE Kenyatta note 11;30 met with patient and his , -they have reconsidered and are open to have the [facility] for nrsuing and home pt come to the house, discharge plan home with and eileenke barba for nursing diagnosis sign symptomn management , medication rconcilation and home physical therapy transportation his p[facility] follow up medicar macy updated and confirmed discharge and home services with liapam hubbard at the [facility]
== END 2021-05-16 12:26 | disposition home health service (06) | DRG 335 ==
LOC: HO.ED 21:26 → HO.EDOVER 22:58 → HO.IMC 05-05 21:42 → HO.S3 05-06 16:52
PROVIDERS: Internal Medicine; Nurse Practitioner Family; Surgery; Admitting Provider Internal Medicine; Emergency Provider Emergency Medicine; PCP Internal Medicine; Visit Provider Hospitalist
PROC: 0DNW0ZZ Release Peritoneum, Open Approach (ICD-10-PCS; CPT 49000; principal; 2021-05-08 15:20)
DX: K56.52 Intestinal adhesions [bands] with complete obstruction (principal); J96.01 Acute respiratory failure with hypoxia; K22.6 Gastro-esophageal laceration-hemorrhage syndrome; K21.01 Gastro-esophageal reflux disease with esophagitis, with bleeding; E87.0 Hyperosmolality and hypernatremia; E44.0 Moderate protein-calorie malnutrition; Z68.1 Body mass index [BMI] 19.9 or less, adult; J98.11 Atelectasis; I25.10 Atherosclerotic heart disease of native coronary artery without angina pectoris; E78.5 Hyperlipidemia, unspecified; E83.39 Other disorders of phosphorus metabolism; I25.5 Ischemic cardiomyopathy; E86.0 Dehydration; Z20.822 Contact with and (suspected) exposure to COVID-19; Z95.1 Presence of aortocoronary bypass graft; Z87.891 Personal history of nicotine dependence; Z79.82 Long term (current) use of aspirin; Z79.899 Other long term (current) drug therapy
CPT/HCPCS: 0241U; 36415; 71045; 74178; 74250; 80048; 80076; 81001; 82040; 82077; 82947; 83605; 83690; 83735; 84100; 84478; 84484; 85007; 85014; 85018; 85025; 85027; 85610; 85730; 86850; 86900; 86901; 87040; 93005; 93308; 96361; 96365; 96366; 96375; 97162; 97530; 99024; 99285; 99291; C1758; J0690; J2250; J2270; J2370; J2405; J3010; Q9967

== ENCOUNTER → 2021-05-25 09:54 | Outpatient (BNVA) | payer MEDICARE, SELFPAY | PROVIDERS: PCP Internal Medicine; Referring Provider Internal Medicine; Visit Provider Surgery | DX: Z48.815 Encounter for surgical aftercare following surgery on the digestive system (principal) | CPT/HCPCS: 99212 ==

== ENCOUNTER → 2021-06-29 10:28 | Outpatient (BNVA) | payer MEDICARE, SELFPAY | PROVIDERS: PCP Internal Medicine; Visit Provider Surgery | DX: Z48.815 Encounter for surgical aftercare following surgery on the digestive system (principal); Z98.890 Other specified postprocedural states | CPT/HCPCS: 99212 ==

== ENCOUNTER → 2021-10-12 09:08 | Outpatient (REF) | payer MEDICARE, SELFPAY ==
--- NOTE | 2021-10-12 09:11 | CA_ITS ---
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 Technically limited study as only subcostal views could be obtained 2. LV systolic function appears to be normal from multiple views with LVEF of 55-60% 3. Mild mitral regurgitation and trivial aortic regurgitation 4. Normal measured RV systolic pressure 5. No gross pericardial effusion Findings Procedure Information The study quality is limited by patients body habitus. Left Ventricle Normal left ventricular size, thickness, and systolic function. The visually estimated ejection fraction is between 55-60%. Regional wall motion abnormalities can not be excluded due to suboptimal endocardial definition. Diastolic function is indeterminate on the basis of available data. Right Ventricle Normal right ventricular cavity size. Atria The left atrium is normal in size. There is no evidence of interatrial shunt. The right atrium is normal in size. Aortic Valve There is mild calcification of the aortic valve. There is no aortic valve stenosis. There is trace (trivial) aortic valve regurgitation. Mitral Valve There is mild anterior and posterior mitral leaflet thickening. There is mild mitral valve regurgitation. There is no mitral valve stenosis. Pulmonic Valve The pulmonic valve was not well visualized. Tricuspid Valve Likely normal tricuspid valve structure and function. There is trace tricuspid valve regurgitation. The right ventricular systolic pressure is normal. The right ventricular systolic pressure is 21 mmHg. There is no evidence of pulmonary hypertension. Great Vessels The aorta was not well visualized. The visualized portions of the pulmonary artery and branches are normal. Venous The inferior vena cava is normal in size and collapses greater than 50% with inspiration. Pericardium/Pleural There is no evidence of pericardial effusion. Prior Study Comparison Changes noted compared to prior study dated: 05/08/2021. Mitral regurgitation is mild Measurements 2D Linear Measurements IVSd: 0.92 0.6-0.9/0.6-1.0 cm LVIDd: 5.49 3.9-5.3/4.2-5.9 cm LVIDd Index: 3.87 2.4-3.2/2.2-3.1 cm/m2 LVIDs: 4.24 2.0-3.6 cm LVPWd: 0.80 0.7-1.1 cm LV Mass: 217.87 67-162/88-224 g LV Mass Index: 153.43 43-95/49-115 g/m2 LVOT Diam: 1.80 3.0+(-)1.3 cm Mitral Valve MV Pk E: 0.33 MV PK A: 0.30 MV Decel Time: 283.00 E/A: 1.10 E'Lateral: 6.96 E'Medial: 3.92 E/E' Med: 8.40 E/E' Lat: 4.70 PHT: 83.00 MVA PHT: 2.65 Decel Carlton: 1.17 Aortic Valve AoV Pk Brant: 0.71 AoV Mn Brant: 0.48 AoV VTI: 0.14 AoV Pk Grad: 2.00 Aov Mn Grad: 1.00 ANDERS Cont.VTI: 1.81 LVOT LVOT Pk Brant: 0.51 LVOT Mn Brant: 0.34 LVOT VTI: 0.10 LVOT Pk Grad: 1.00 LVOT Mn Grad: 1.00 LVOT Diam: 1.80 LVOT Area: 2.54 Diastolic Function MV Pk E: 0.33 MV Pk A: 0.30 E/A: 1.10 E'Medial: 3.92 E/E' Med: 8.40 E' Laterial: 6.96 E/E' Lat: 4.70 Right Ventricle TAPSE (mm): 11.90 TVS' Brant: 9.25 Tricuspid Valve TR Pk Brant: 1.81 TR Pk Grad: 13.00 RA Press: 8.00 RVSP: 21.00 Great Vessels Aorta Sinus of Valsalva: 3.49 2.0-3.5 cm Ao Asc: 3.10 2.1-3.4 cm Updated in Other Vendor System with Status of Final Layton Santos MD electronically signed on 10/13/2021 3:05:35 PM with status of Final
== END ==
LOC: HO.CARD 09:08
PROVIDERS: PCP Internal Medicine; Visit Provider Internal Medicine
DX: I34.0 Nonrheumatic mitral (valve) insufficiency (principal)
CPT/HCPCS: 93306

== ENCOUNTER → 2021-10-23 09:20 | Outpatient (BNVA) | payer MEDICARE, SELFPAY | PROVIDERS: PCP Internal Medicine; Referring Provider Internal Medicine; Visit Provider Internal Medicine | DX: I25.10 Atherosclerotic heart disease of native coronary artery without angina pectoris (principal); I34.0 Nonrheumatic mitral (valve) insufficiency; I25.5 Ischemic cardiomyopathy; I10 Essential (primary) hypertension; E46 Unspecified protein-calorie malnutrition; Z95.1 Presence of aortocoronary bypass graft | CPT/HCPCS: 99212 ==

== ENCOUNTER 2022-05-11 09:00 | Outpatient (RCR) | payer MEDICARE, SELFPAY ==
--- NOTE | 2022-04-17 11:59 | MHC.PT.EP ---
[facility] [place] Office [place] Office [address] Santiago Altamirano [address] [phone] F: [phone] F: [phone] F: [phone] F: [phone] Physical Therapy Plan of Care Date of Evaluation: Date of Surgery: n/a Diagnosis: OA of knee, R Assessment: Patient is a 76 year old male presenting to PT with complaints of pain in his R knee. Pt reports onset of pain began worsening about 2 months ago due to insidious onset but notes he falls a lot due to pain. He presents today with impairments in pain, knee strength, hip strength, gait mechanics. Pt's current occupation is retired, with baseline physical activities including ambulating, ADLs, stair negotiation. 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 Clinical presentation today is most consistent with signs and sx associated with possible arthritis and pt will benefit from skilled PT 2 week x 4 weeks to address the following problems and impairments noted upon evaluation: pain, knee strength, hip strength, gait mechanics. These problems limit the patient with the following functional activities: ambulating, stair negotiation, ADLs. The prescribed treatment plan of care is medically necessary. Co-morbidities of cardiomyopathy, HTN, cardiovascular disease, CAD, quadruple bypass 4 years ago were identified and taken into considerations of plan of care. Pt was educated on HEP, role of PT, prognosis, POC. Frequency and Duration: The patient will be seen 2 x week x 4 weeks Short Term Goals: Pt will demonstrate compliance of walking with walker consistently in 2 weeks. Pt will demonstrate improved LE strength by 1/3 MMT grade in 2 weeks. Pt will demonstrate ability to stand with NBOS x 15 sec with good stability and supervision in 2 weeks. 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 Pt will demonstrate decreased reports of falling in 4 weeks for improved safety with ADLs. Pt will demonstrate ability to perform STS with good stability upon standing in 4 weeks for improved safety. Treatment Plan: Modalities to reduce pain, spasms and effusion. Manual therapy to restore motion and function. Therapeutic exercise to improve strength and flexibility. Neuromuscular re-education for posture and balance. Therapeutic activities to return to functional activities of daily living. Electronically signed by: Cynthia Person, PT, DPT, ATC Please sign and return to therapist. Thank you for your referral.
--- NOTE | 2022-05-15 07:55 | MHC.PT.DC ---
[facility] [place] Office [place] Office [place] Office [address] [phone] F: [phone] F: [phone] F: [phone] F: [phone] Physical Therapy Discharge Report Diagnosis: OA of knee, R Date of Surgery: n/a Date of Evaluation: 04/17/22 Date of Discharge: 05/15/22 Treatments to Date: 6 Cancellations to Date: No Shows to Date: Discharge Status: Patient Elected to Stop Discharge Summary: Pt called stating he would like to stop PT and continue with exercises at home. Pt to be d/c per his request. Electronically signed by: Cynthia Person, PT, DPT, ATC Please sign and return to therapist. Thank you for your referral.
== END 2022-05-15 07:55 | disposition home or self-care (01) ==
LOC: HO.PTCHIC 09:00
PROVIDERS: PCP Internal Medicine; Visit Provider Internal Medicine
DX: M17.11 Unilateral primary osteoarthritis, right knee (principal)
CPT/HCPCS: 97110; 97162

== ENCOUNTER 2022-09-20 08:31 | Outpatient (AMB) | payer MEDICARE, SELFPAY ==
[2022-09-20 08:35] VITALS: BP 130/78; PULSE 68; O2SAT 94; BMI 15.0
--- NOTE | 2022-09-20 08:35 | A.OFFPC_ITS ---
Vital Signs 09/20/22 08:35 Height 5 ft 5 in Weight 90 lb BMI 15.0 BP 130/78 Blood Pressure Location Lt brachial Position Sitting Pulse 68 Pulse Source Pulse Oximeter Pulse Oximetry (%) 94 Oxygen Delivery Method Room Air Intake Visit Reasons: gaint instability, L knee weakness, anorexia Allergies atorvastatin Adverse Reaction (Intermediate, Verified 09/20/22 08:35) Constipation lisinopril Adverse Reaction (Unknown, Verified 09/20/22 08:35) cough Medication List - Last Reconciled 09/20/22 by Fran Munson MD aspirin 81 mg PO DAILY diclofenac sodium 1% (Arthritis Pain (diclofenac)) 4 grams topical QID hydrocortisone 2.5% (Proctosol HC) 1 appl [place] BID-QID PRN metoprolol succinate ER 25 mg PO DAILY 90 days pantoprazole 40 mg PO DAILY paroxetine HCl 10 mg PO DAILY vitamin B complex 1 tab PO DAILY Tobacco use date assessed: 03/13/22 Fall risk assessment: 1 Fall in past year Last assessed Fall Risk: 09/20/22 Dental Screening Dental Screen Date: 09/20/22 Did you have a dental visit in the last 12 months?: No Did you have a dental problem in the last 6 months where you did not have access to dental care?: No Was dental information given to patient?: No HPI gaint instability, L knee weakness, anorexia HPI Details 77-year-old male with history of [place] iron deficiency anemia coronary artery disease GERD impaired glucose tolerance knee osteoarthritis and reaction last seen in February 2022 with frequency ultrasound was requested and physical therapy requested. Patient was started on paroxetine. Noted 4 lb weight loss still. patient did stop the paroxetine , taking am despited telling him to take at night due to drowsiness- advsied to restart and take at night - states no apetitte [facility] Medical History (Updated 09/20/22 @ 08:56 by Fran Munson MD) Atherosclerotic cardiovascular disease Colon cancer screening Colon cancer screening declined Colonoscopy refused Coronary artery disease Essential hypertension GERD (gastroesophageal reflux disease) Hypercholesterolemia Impaired fasting glucose Iron deficiency anemia Ischemic cardiomyopathy Leukoencephalopathy Low serum albumin Lower extremity edema Malnourished Peptic ulcer disease Scalp lesion Stable angina Surgical History History of appendectomy History of exploratory laparotomy (05/08/21) History of hernia repair History of tonsillectomy S/P CABG x 5 Status post aorto-coronary artery bypass graft Status post surgical removal of malignant neoplasm of skin Family History (Updated 09/20/22 @ 08:36 by Billie Persaud CMA) Father No problems noted. Mother No problems noted. Social History (Updated 11/20/21 @ 10:45 by Fran Munson MD) Household Members: Spouse Housing: House Do you presently have visiting nurse or other home services: No Alcohol intake: never Patient Tobacco Use Status: Former Tobacco user Tobacco use type: Cigarette Years Smoked: 2017 quit e-Cigarette/Vaping Use: Never Used Second Hand Smoke Exposure: No Advance Directives Date on File: 05/05/21 service: No Current occupational status: retired Cognitive needs: No Hearing needs: No Vision needs: Yes (glasses) Questionnaire PHQ-9 Over the last 2 weeks, how often have you been bothered by any of the following problems? 1. Little interest or pleasure in doing things: not at all 2. Feeling down, depressed, or hopeless: not at all 3. Trouble falling or staying asleep, or sleeping too much: not at all 4. Feeling tired or having little energy: not at all 5. Poor appetite or overeating: not at all 6. Feeling bad about yourself - or that you are a failure or have let yourself or your family down: not at all 7. Trouble concentrating on things, such as reading the newspaper or watching television: not at all 8. Moving or speaking so slowly that other people could have noticed. Or the opposite - being so fidgety or restless that you have been moving around a lot more than usual: not at all 9. Thoughts that you would be better off or of hurting yourself in some way: not at all Total score: 0 Depression Screening Interpretation: Negative Source: Developed by Drs. Adan Nicholson, Silvia Tse, Fracisco Davila and colleagues, with an educational monisha from [employer]. Thrive Questionnaire Date Thrive assessed: 09/20/22 I am a: Patient What is your living situation today?: I have a steady place to live Within the past 12 months, did the food you bought not last and you didn't have the money to get more?: Never true Within the past 12 months, did you worry whether your food would run out before you got money to buy more?: Never true Do you have trouble paying for medicines?: No Do you have trouble getting transportation to medical appointments?: No Do you have trouble paying your heating and electricity bill?: No Do you have trouble taking care of your child, family member or friend?: No Do you have trouble with day-to-day activities such as bathing, preparing meals, shopping, managing finances, etc.?: No Are you currently unemployed and looking for a job?: No Are you interested in more education?: No Currently or been in a relationship where the following occur: no concerns reported AUDIT C Alcohol Use Questionnaire (AUDIT-C) 1. How often do you have a drink containing alcohol?: Never 2. How many drinks containing alcohol do you have on a typical day when you are drinking?: 1 or 2 (0) 3. How often do you have six or more drinks on one occasion?: Never Total Score: 0 LAUREN-7 AMB Questionnaire LAUREN-7 Date LAUREN - 7 assessed: 09/20/22 Feeling nervous, anxious, or on edge: 0 = Not at all Not being able to stop or control worryin = Not at all Worrying too much about different things: 0 = Not at all Trouble relaxin = Not at all Being so restless that it is hard to sit still: 0 = Not at all Becoming easily annoyed or irritable: 0 = Not at all Feeling afraid as if something awful might happen: 0 = Not at all Total LAUREN-7 score (0-4 normal; 5-9 mild; 10-14 moderate; 15-21 severe): 0 Source: Developed by Drs. Adan Nicholson, Silvia Tse, Fracisco Davila and colleagues, with an educational monisha from [employer]. Physical exam (Primary Care) Vital Signs: Last Vital Signs Pulse 68 09/20/22 08:35 BP 130/78 09/20/22 08:35 Pulse Ox 94 09/20/22 08:35 Oxygen Delivery Method Room Air 09/20/22 08:35 BMI result Body Mass Index 15.0 Tobacco/Smoking Status: Tobacco use Status Tobacco use date assessed 03/13/22 09/20/22 08:40 Patient Tobacco Use Status Former Tobacco user 09/20/22 08:40 Tobacco use type Cigarette 09/20/22 08:40 e-Cigarette/Vaping Use Never Used 09/20/22 08:40 PHQ-9: PHQ-9 Score PHQ-9: Total score 0 09/20/22 08:40 Depression Screening Interpretation: Negative Thrive Assessment: Date of Thrive Assessment Date Thrive assessed 09/20/22 09/20/22 08:40 Currently or been in a relationship where the following occur: no concerns reported Const General: alert; No acute distress Eyes Conjunctivae: conjunctivae normal Resp Auscultation: clear to auscultation bilaterally Cardio Rate: regular rate Rhythm: regular rhythm GI Inspection: Yes normal to inspection Extrem General: Yes normal to inspection and No edema Assessment and Plan Assessment & Plan (1) Anorexia: Code(s): R63.0 - Anorexia Plan: Patient has been started on paroxetine yet noted weight loss. patient advsied to start med and take at night (2) Coronary artery disease: Comment: Acute inferior NH September 2018 CABG DE LEÓN to LAD, Dr. Salgado September 2018 echo December 2018 40-45% moderate MR akinetic multiple areas Code(s): I25.10 - Atherosclerotic heart disease of [place] coronary artery without angina pectoris Qualifiers: Coronary Disease-Associated Artery/Lesion type: [place] artery [place] vs. transplanted heart: [place] heart Associated angina: without angina Qualified Code(s): I25.10 - Atherosclerotic heart disease of [place] coronary artery without angina pectoris Plan: Control the cholesterol, weight, blood pressure patient needs blood work for cholesterol (3) GERD (gastroesophageal reflux disease): Code(s): K21.9 - Gastro-esophageal reflux disease without esophagitis Qualifiers: Esophagitis presence: without esophagitis Qualified Code(s): K21.9 - Gastro-esophageal reflux disease without esophagitis Plan: Avoid the foods that causes that usually spicy foods, tomato products, juices, coffee, soda and foods that your sensitive to. After eating do not lie down, allow 3-4 hours before in lie down. And keep the head of bed above 30 degrees to avoid the acid from going up. (4) Impaired fasting glucose: Code(s): R73.01 - Impaired fasting glucose Plan: Concern about weight loss (5) Ischemic cardiomyopathy: Comment: 2021Technically limited study as only subcostal views could be obtained 2. LV systolic function appears to be normal from multiple views with LVEF of 55-60% 3. Mild mitral regurgitation and trivial aortic regurgitation 4. Normal measured RV systolic pressure 5. No gross pericardial effusion Code(s): I25.5 - Ischemic cardiomyopathy Plan: Continue with metoprolol (6) Knee osteoarthritis: Code(s): M17.9 - Osteoarthritis of knee, unspecified Plan: Keep active (7) Osteoarthritis, hip, bilateral: Code(s): M16.0 - Bilateral primary osteoarthritis of hip (8) Frequency of urination: Code(s): R35.0 - Frequency of micturition (9) Weight loss: Code(s): R63.4 - Abnormal weight loss Orders: Orders US bladder Today R35.0 - Frequency of micturition Referrals Gastroenterology Referral K21.9 - Gastro-esophageal reflux disease without esophagitis, R63.4 - Abnormal weight loss Medications: New diclofenac sodium 1% (Arthritis Pain (diclofenac)) apply to single knee, ankle, foot; for foot includes sole/toes/top of foot 4 grams topical QID 100 grams 4RF M16.0 - Bilateral primary osteoarthritis of hip Refilled paroxetine HCl 10 mg PO DAILY 30 tabs 3RF R63.0 - Anorexia Coding Level of Care Code Est Pt Level 4 (16968) Diagnoses Anorexia R63.0 Coronary artery disease I25.10 Coronary Disease-Associated Artery/Lesion type: [place] artery [place] vs. transplanted heart: [place] heart Associated angina: without angina GERD (gastroesophageal reflux disease) K21.9 Esophagitis presence: without esophagitis Impaired fasting glucose R73.01 Ischemic cardiomyopathy I25.5 Knee osteoarthritis M17.9 Osteoarthritis, hip, bilateral M16.0 Frequency of urination R35.0 Weight loss R63.4
== END 2022-09-20 08:57 | disposition home or self-care (01) ==
PROVIDERS: PCP Internal Medicine; Visit Provider Internal Medicine
DX: R63.0 Anorexia (principal); I25.10 Atherosclerotic heart disease of native coronary artery without angina pectoris; K21.9 Gastro-esophageal reflux disease without esophagitis; R73.01 Impaired fasting glucose; I25.5 Ischemic cardiomyopathy; M17.9 Osteoarthritis of knee, unspecified; M16.0 Bilateral primary osteoarthritis of hip; R35.0 Frequency of micturition; R63.4 Abnormal weight loss
CPT/HCPCS: 99214

== ENCOUNTER 2022-10-22 09:45 | Outpatient (REF) | payer MEDICARE, SELFPAY ==
[2022-10-22 11:53] LABS: Hemoglobin 15.9 g/dl (14.0-18.0); Mean Corpuscular HGB Conc 32.4 g/dl (31.0-36.0); Mean Corpuscular Hemoglobin 28.7 pg (27.0-33.0); Mean Corpuscular Volume 88.4 fL (80.0-98.0); Mean Platelet Volume 9.3 fL (9.4-12.4); Platelet Count 365 X10*3/uL (160-400); Red Blood Count 5.54 X10*6/uL (4.60-5.80); Red Cell Distribution Width 13.2 % (11.0-16.0); White Blood Count 8.3 X10*3/uL (4.8-10.8)
[2022-10-22 12:28] LABS: Alanine Aminotransferase 18 U/L (0-40); Albumin Level 4.5 g/dL (3.5-5.0); Alkaline Phosphatase 73 U/L (39-117); Anion Gap 12 (12-20); Aspartate Amino Transferase 23 U/L (5-37); Bilirubin Total 0.5 mg/dL (0.0-1.0); Blood Urea Nitrogen 22 mg/dL (9-16); Calcium 10.3 mg/dL (8.4-10.2); Carbon Dioxide 30 mmol/L (22-29); Chloride 100 mmol/L (96-108); Estimated Glomerular Filt Rate > 60; Glucose Random 104 mg/dL (60-115); Iron 130 mcg/dL (45-160); Percent Iron Saturation 33 % (15-50); Potassium 5.1 mmol/L (3.3-5.1); Sodium 137 mmol/L (135-145); Total Iron Binding Capacity 396 mcg/dL (228-428); Unsaturated Iron Binding 266 ug/dL
[2022-10-22 12:46] LABS: Ferritin 32 ng/mL (20-250)
[2022-10-23 04:25] LABS: Hepatitis A Antibody IgG Nonreactive (Nonreactive); ~Hepatitis A Antibody IgG 0.43 S/CO (0.00-0.99)
[2022-10-23 04:32] LABS: HBS Num1 0.14 mIU/mL (0-7.99); HBc Num1 0.11 S/CO (0.00-0.79); HBsAGNum1 0.34 S/CO (0.00-0.99); HIV AB/AG Nonreactive (Nonreactive); HIV Num 1 0.04 S/CO (0.00-0.99); Hepatitis B Core Antibody Nonreactive (Nonreactive); Hepatitis B Surface Antigen Negative (Negative); ~Hepatitis B Surface Antibody NONREACTIVE (Nonreactive); ~Hepatitis C Antibody Nonreactive (Nonreactive)
[2022-10-24 17:49] LABS: Transglutaminase IgA <1.0 U/mL
[2022-10-24 21:28] LABS: Immunoglobulin A 335 mg/dL (70-320)
[2022-10-24 21:49] LABS: TS Negative Control Passed; TS Panel A 0; TS Panel B 0; TS Positive Control Passed; TSpotTB Negative (Negative)
== END 2022-10-22 09:46 | disposition home or self-care (01) ==
LOC: HO.LAB 09:45
PROVIDERS: PCP Internal Medicine; Visit Provider Internal Medicine
DX: R63.0 Anorexia (principal); K21.9 Gastro-esophageal reflux disease without esophagitis; R05.9 Cough, unspecified; Z95.1 Presence of aortocoronary bypass graft; Z87.891 Personal history of nicotine dependence
CPT/HCPCS: 36415; 80053; 82728; 82784; 83540; 85027; 86364; 86481; 86704; 86706; 86708; 86803; 87340; 87389; 99202

== ENCOUNTER 2022-10-22 09:45 | Outpatient (AMB) | payer MEDICARE, SELFPAY ==
[2022-10-22 09:52] VITALS: BP 163/86; PULSE 75; BMI 15.3
--- NOTE | 2022-10-22 09:52 | A.OFFVIS_ITS ---
Intake Vital Signs 10/22/22 09:52 Height 5 ft 5 in Weight 92 lb 2.452 oz BMI 15.3 BP 163/86 H Blood Pressure Location Rt brachial Position Sitting Pulse 75 Pulse Source Pulse Oximeter Intake Visit Reasons: Weight loss/GERD Intake Note: Pt presents to the office today for weight loss and GERD. Pt states he isnt hungry but forces himself to eat. Pt states he get stomach pain when he eats and even when he doesn't eat. Pt states he has no appetite. Pt denies any N/V/D. Pt states he does have soft bowel movements though. Allergies atorvastatin Adverse Reaction (Intermediate, Verified 10/22/22 09:56) Constipation lisinopril Adverse Reaction (Unknown, Verified 10/22/22 09:56) cough HPI HPI Comments History of Present Illness Details This is a 77 y.o M with PMH of CAD s/p CABG 2018, hx of SBO s/p ex lap and adhesiolysis 2021, who has been referred to our office for unintentional weight loss. Reports loss appetite since his admission for SBO in April 2021. Reports 20 lbs weight loss in the last year however per review of chart appears 10lbs weight loss - which is still >10% of TBW. Attributes this to abd discomfort that gets worse with eating and reduced appetite. No difficulty swallowing, changes in bowel habits, blood in stool, night sweats or chills. ALso reports increased cough and sputum production over the last 6 months. Has hx of smoking 5-6cigs/day x most of his adult life, quit in 2019. Has previously declined colon cancer screening on multiple occasions. Also noted to have RUTHIE in 2019, and H/H low again last year. [facility] Medical History Colon cancer screening Colonoscopy refused Malnourished Lower extremity edema Low serum albumin Colon cancer screening declined Essential hypertension Atherosclerotic cardiovascular disease Scalp lesion Leukoencephalopathy Peptic ulcer disease Iron deficiency anemia Coronary artery disease GERD (gastroesophageal reflux disease) Impaired fasting glucose Hypercholesterolemia Ischemic cardiomyopathy Stable angina Surgical History History of exploratory laparotomy (05/08/21) Status post aorto-coronary artery bypass graft S/P CABG x 5 Status post surgical removal of malignant neoplasm of skin History of tonsillectomy History of hernia repair History of appendectomy Family History Father No problems noted. Mother No problems noted. Social History Household Members: Spouse Housing: House Do you presently have visiting nurse or other home services: No Alcohol intake: never Patient Tobacco Use Status: Former Tobacco user Tobacco use type: Cigarette Years Smoked: 2017 quit e-Cigarette/Vaping Use: Never Used Second Hand Smoke Exposure: No Advance Directives Date on File: 05/05/21 service: No Current occupational status: retired Cognitive needs: No Hearing needs: No Vision needs: Yes (glasses) Review of Systems Const All systems reviewed & are unremarkable except as noted in HPI and below Physical Exam Vital Signs: Last Vital Signs Pulse 75 10/22/22 09:52 BP 163/86 H 10/22/22 09:52 BMI result Body Mass Index 15.3 Gen appear: NAD, undernourished BMI 15 HEENT: nonicteric, no cervical lymphadenopathy Chest: CTA CVS: Regular S1/S2 Abd: soft, tender, nondistended, bowel sounds + Ext: no peripheral edema Neuro: A/Ox3, noted to move all extremities spontaneously Psych: interacting appropriately Assessment & Plan Assessment & Plan (1) Weight loss: Code(s): R63.4 - Abnormal weight loss (2) Anorexia: Code(s): R63.0 - Anorexia (3) Cough: Code(s): R05.9 - Cough, unspecified (4) History of smoking: Code(s): Z87.891 - Personal history of nicotine dependence Plan Ddx include PUD, mesenteric ischemia, chronic infection, malignancy - GI or pulm valeriy given new onset of productive cough. Plan: - Labs ordered as below - CT chest,abd and pelvis with contrast - EGD and colo to be booked - pt states will call office to schedule this as needs to check when his will be available as well to escort him to and from the procedures after anesthesia - Split PEG prep instructions reviewed and handout given as well. - Will need Cardiology clearance and has an appt coming up next week Follow up after procedures. Orders: Orders Ferritin Today R63.4 - Abnormal weight loss Comprehensive Met. Panel Today R63.4 - Abnormal weight loss IRON PROFILE Today R63.4 - Abnormal weight loss Hepatitis A IgG Today R63.4 - Abnormal weight loss Hepatitis C Antibody Today R63.4 - Abnormal weight loss HIV Ab/Ag Today R63.4 - Abnormal weight loss Immunoglobulin A Today R63.4 - Abnormal weight loss CT chest w IV con Today R63.0 - Anorexia, R63.4 - Abnormal weight loss CT abdomen pelvis w IV con Today R63.0 - Anorexia, R63.4 - Abnormal weight loss T Spot TB Today R63.0 - Anorexia Complete Blood Count no Diff Today R63.4 - Abnormal weight loss Hepatitis B Core Antibody Today R63.4 - Abnormal weight loss Hepatitis B Surface Antibody Today R63.4 - Abnormal weight loss Hepatitis B Surface Antigen Today R63.4 - Abnormal weight loss Transglutaminase IgA Today R63.4 - Abnormal weight loss Medications: New peg 3350-electrolytes 236-22.74-6.74 -5.86 gram (Golytely) as per split prep instructions, until fecal effluent is clear 240 mL PO Q10M 4,000 mL 0RF colonoscopy Coding Level of Care Code New Pt Level 4 (19105) Diagnoses Weight loss R63.4 Anorexia R63.0 Cough R05.9 History of smoking Z87.891
== END 2022-10-22 11:51 | disposition home or self-care (01) ==
PROVIDERS: PCP Internal Medicine; Visit Provider Internal Medicine
DX: R63.4 Abnormal weight loss (principal); R63.0 Anorexia; R05.9 Cough, unspecified; Z87.891 Personal history of nicotine dependence
CPT/HCPCS: 99204

== ENCOUNTER 2022-10-29 10:30 | Outpatient (AMB) | payer MEDICARE, SELFPAY ==
--- NOTE | 2022-10-29 10:37 | A.OFFVIS_ITS ---
Intake Vital Signs 10/29/22 10:38 Height 5 ft 5 in Weight 87 lb 11.904 oz BMI 14.6 BP 162/92 H Blood Pressure Location Lt brachial Position Sitting Pulse 70 Intake Visit Reasons: 1 year follow up Intake Note: 1 year follow up w/ EKG Budget Consultant Required: No Accompanied by: Self / Same As Patient Allergies atorvastatin Adverse Reaction (Intermediate, Verified 10/29/22 10:38) Constipation lisinopril Adverse Reaction (Unknown, Verified 10/29/22 10:38) cough Medication List - Last Reconciled 10/29/22 by Chuy Castanon MD aspirin 81 mg PO DAILY diclofenac sodium 1% (Arthritis Pain (diclofenac)) 4 grams topical QID metoprolol succinate ER 25 mg PO DAILY 90 days pantoprazole 40 mg PO DAILY peg 3350-electrolytes 236-22.74-6.74 -5.86 gram (Golytely) 240 mL PO Q10M vitamin B complex 1 tab PO DAILY HPI HPI Comments History of Present Illness Details Jacob is here for follow-up regarding coronary artery disease and bypass surgery. In 2019, he underwent bypass surgery following inferior wall ST- elevation myocardial infarction. He is markedly underweight but otherwise seems to be generally doing okay from cardiac. No specific complaints like angina or shortness of breath or in fact anything cardiac sounding. [facility] Medical History (Updated 10/23/22 @ 19:03 by Fran Munson MD) Colon cancer screening Colonoscopy refused Malnourished Lower extremity edema Low serum albumin Colon cancer screening declined Essential hypertension Atherosclerotic cardiovascular disease Scalp lesion Leukoencephalopathy Peptic ulcer disease Iron deficiency anemia Coronary artery disease GERD (gastroesophageal reflux disease) Impaired fasting glucose Hypercholesterolemia Ischemic cardiomyopathy Stable angina Surgical History History of exploratory laparotomy (05/08/21) Status post aorto-coronary artery bypass graft S/P CABG x 5 Status post surgical removal of malignant neoplasm of skin History of tonsillectomy History of hernia repair History of appendectomy Family History Father No problems noted. Mother No problems noted. Social History Household Members: Spouse Housing: House Do you presently have visiting nurse or other home services: No Alcohol intake: never Patient Tobacco Use Status: Former Tobacco user Tobacco use type: Cigarette Years Smoked: 2017 quit e-Cigarette/Vaping Use: Never Used Second Hand Smoke Exposure: No Advance Directives Date on File: 05/05/21 service: No Current occupational status: retired Cognitive needs: No Hearing needs: No Vision needs: Yes (glasses) Review of Systems Const Denies weakness ENT Denies dizziness Card Denies chest pain, Denies chest pain with activity, Denies syncope, Denies rapid heart rate, Denies pedal edema, Denies edema, Denies leg edema, Denies lightheadedness, Denies palpitations, Denies dyspnea, Denies dyspnea on exertion and Denies orthopnea Resp Denies cough, Denies dyspnea and Denies dyspnea on exertion GI Denies hematochezia and Denies change in stool character Musc Denies abnormal gait, Denies muscle cramps, Denies muscle weakness, Denies numbness, Denies radiating pain into limb and Denies tingling Neuro Denies abnormal gait, Denies dizziness, Denies syncope, Denies numbness, Denies tingling and Denies weakness Endo Denies palpitations Physical Exam Vital Signs: Last Vital Signs Pulse 70 10/29/22 10:38 BP 162/92 H 10/29/22 10:38 BMI result Body Mass Index 14.6 Const General: comfortable and no acute distress Nutritional Appearance: malnourished, thin and underweight Orientation/consciousness: patient oriented x3 HEENT Other: Unremarkable Head: Yes normal to inspection Neck Neck: Yes normal visual inspection Chest Chest palpation & inspection: normal inspection of the chest Resp Auscultation: clear to auscultation bilaterally Cardio Palpation: normal PMI Heart sounds: S1 normal heart sound present, S2 normal heart sound present, no gallops, no murmurs and no rubs GI Palpation (GI): Soft to palpation Back/Spine/Pelvis Other: unremarkable Skin General skin exam: no rashes or lesions noted Neuro General: patient oriented x3 Extrem General: Yes normal to inspection Psych Mental Status: mental status grossly normal Office Procedures EKG Details: EKG with sinus rhythm at 70/Min; left ventricular hypertrophy; old inferior infarct; [place] [id number], Complete Assessment & Plan Assessment & Plan (1) Atherosclerotic cardiovascular disease: Code(s): I25.10 - Atherosclerotic heart disease of [place] coronary artery without angina pectoris (2) Status post aorto-coronary artery bypass graft: Code(s): Z95.1 - Presence of aortocoronary bypass graft (3) Non-rheumatic mitral regurgitation: Code(s): I34.0 - Nonrheumatic mitral (valve) insufficiency (4) Ischemic cardiomyopathy: Comment: 2021Technically limited study as only subcostal views could be obtained 2. LV systolic function appears to be normal from multiple views with LVEF of 55-60% 3. Mild mitral regurgitation and trivial aortic regurgitation 4. Normal measured RV systolic pressure 5. No gross pericardial effusion Code(s): I25.5 - Ischemic cardiomyopathy (5) Essential hypertension: Code(s): I10 - Essential (primary) hypertension (6) Malnourished: Code(s): E46 - Unspecified protein-calorie malnutrition Plan Cardiac studies reviewed. Most recent echocardiogram with LVEF 55-60%. Study was not adequate to assess wall motion. However, prior to that thought to have inferior/inferolateral akinesis. In the most recent echocardiogram, mitral regurgitation was mild. Prior to that, moderate. Overall, still not clinically significant. Carotid [id number]% stenosis bilaterally. With regard to medications, may remain on aspirin. He is also on a small dose of beta-zoe. Not clear why he is not on any statins but he also has an extremely low body weight and that may be the reason. Otherwise, his blood pressure seems to be running on the higher side and we checked twice today after waiting several minutes and still on the higher side. Hence start a small dose of amlodipine. There is a question of EGD/colonoscopy and if necessary, may proceed from cardiac. He will be at intermediate risk. However, patient states he may choose not to proceed. Otherwise, stable from cardiac. Medications: New amlodipine 2.5 mg PO DAILY 90 tabs 3RF Coding Level of Care Code Est Pt Level 4 (79155) Diagnoses Atherosclerotic cardiovascular disease I25.10 Status post aorto-coronary artery bypass graft Z95.1 Non-rheumatic mitral regurgitation I34.0 Ischemic cardiomyopathy I25.5 Essential hypertension I10 Malnourished E46 CPT Codes EKG - CPT: [id number], Complete ([id number])
[2022-10-29 10:38] VITALS: BP 162/92; PULSE 70; BMI 14.6
== END 2022-10-29 10:57 | disposition home or self-care (01) ==
PROVIDERS: PCP Internal Medicine; Referring Provider Internal Medicine; Visit Provider Internal Medicine
DX: I25.10 Atherosclerotic heart disease of native coronary artery without angina pectoris (principal); Z95.1 Presence of aortocoronary bypass graft; I34.0 Nonrheumatic mitral (valve) insufficiency; I25.5 Ischemic cardiomyopathy; I10 Essential (primary) hypertension; E46 Unspecified protein-calorie malnutrition
CPT/HCPCS: 93010; 99214

== ENCOUNTER → 2022-10-29 10:30 | Outpatient (BNVA) | payer MEDICARE, SELFPAY | PROVIDERS: PCP Internal Medicine; Referring Provider Internal Medicine; Visit Provider Internal Medicine | DX: I25.10 Atherosclerotic heart disease of native coronary artery without angina pectoris (principal); I34.0 Nonrheumatic mitral (valve) insufficiency; I25.5 Ischemic cardiomyopathy; Z95.1 Presence of aortocoronary bypass graft; I10 Essential (primary) hypertension; E46 Unspecified protein-calorie malnutrition | CPT/HCPCS: 93005; 99212 ==

== ENCOUNTER 2022-11-27 10:46 | Outpatient (AMB) | payer MEDICARE, SELFPAY ==
[2022-11-27 11:04] VITALS: BP 146/70; PULSE 72; O2SAT 98; BMI 15.7
--- NOTE | 2022-11-27 11:04 | MHC.PC.OV ---
Vital Signs 11/27/22 11:04 11/27/22 11:48 Height 5 ft 5 in Weight 94 lb 8 oz BMI 15.7 BP 146/70 H 130/80 Blood Pressure Location Lt brachial Lt brachial Position Sitting Sitting Pulse 72 Pulse Source Pulse Oximeter Pulse Oximetry (%) 98 Oxygen Delivery Method Room Air Intake Visit Reasons: Annual Exam Allergies lisinopril Adverse Reaction (Unknown, Verified 11/27/22 11:07) cough Medication List - Last Reconciled 11/27/22 by Fran Munson MD amlodipine 2.5 mg PO DAILY aspirin 81 mg PO DAILY atorvastatin 10 mg PO DAILY diclofenac sodium 1% (Arthritis Pain (diclofenac)) 4 grams topical QID metoprolol succinate ER 25 mg PO DAILY 90 days pantoprazole 40 mg PO DAILY peg 3350-electrolytes 236-22.74-6.74 -5.86 gram (Golytely) 240 mL PO Q10M vitamin B complex 1 tab PO DAILY Tobacco use date assessed: 03/13/22 Fall risk assessment: No Falls in past year Last assessed Fall Risk: 11/27/22 Dental Screening Dental Screen Date: 11/27/22 Did you have a dental visit in the last 12 months?: No Did you have a dental problem in the last 6 months where you did not have access to dental care?: No Was dental information given to patient?: Patient has dentist HPI Annual Exam HPI Details 77-year-old underweight male with coronary artery disease GERD ischemic cardiomyopathy osteoarthritis hip and knee coming in for physical exam last seen in September 2022. Patient has declined colonoscopy. Review of the notes patient has followed up with Cardiology last month CAD with CABG 2018. Patient has seen Cardiology and has started on amlodipine 2.5 mg once a day. With the weight loss patient was sent to Gastroenterology and workup was requested including a CT of the chest and abdomen. [facility] Medical History Colon cancer screening Colonoscopy refused Malnourished Lower extremity edema Low serum albumin Colon cancer screening declined Essential hypertension Atherosclerotic cardiovascular disease Scalp lesion Leukoencephalopathy Peptic ulcer disease Iron deficiency anemia Coronary artery disease GERD (gastroesophageal reflux disease) Impaired fasting glucose Hypercholesterolemia Ischemic cardiomyopathy Stable angina Surgical History History of exploratory laparotomy (05/08/21) Status post aorto-coronary artery bypass graft S/P CABG x 5 Status post surgical removal of malignant neoplasm of skin History of tonsillectomy History of hernia repair History of appendectomy Family History Father No problems noted. Mother No problems noted. Social History Household Members: Spouse Housing: House Do you presently have visiting nurse or other home services: No Alcohol intake: never Patient Tobacco Use Status: Former Tobacco user Tobacco use type: Cigarette Years Smoked: 2017 quit e-Cigarette/Vaping Use: Never Used Second Hand Smoke Exposure: No Advance Directives Date on File: 05/05/21 service: No Current occupational status: retired Cognitive needs: No Hearing needs: No Vision needs: Yes (glasses) Questionnaire PHQ-9 Over the last 2 weeks, how often have you been bothered by any of the following problems? 1. Little interest or pleasure in doing things: not at all 2. Feeling down, depressed, or hopeless: not at all 3. Trouble falling or staying asleep, or sleeping too much: not at all 4. Feeling tired or having little energy: not at all 5. Poor appetite or overeating: not at all 6. Feeling bad about yourself - or that you are a failure or have let yourself or your family down: not at all 7. Trouble concentrating on things, such as reading the newspaper or watching television: not at all 8. Moving or speaking so slowly that other people could have noticed. Or the opposite - being so fidgety or restless that you have been moving around a lot more than usual: not at all 9. Thoughts that you would be better off or of hurting yourself in some way: not at all Total score: 0 Depression Screening Interpretation: Negative Depression Screening Done: Yes Source: Developed by Drs. Adan Nicholson, Silvia Tse, Fracisco Davila and colleagues, with an educational monisha from [employer] Thrive Questionnaire Date Thrive assessed: 09/20/22 AUDIT C Alcohol Use Questionnaire (AUDIT-C) 1. How often do you have a drink containing alcohol?: Never 2. How many drinks containing alcohol do you have on a typical day when you are drinking?: 1 or 2 (0) 3. How often do you have six or more drinks on one occasion?: Never Total Score: 0 LAUREN-7 AMB Questionnaire LAUREN-7 Date LAUREN - 7 assessed: 09/20/22 Source: Developed by Drs. Adan Nicholson, Silvia Tse, Fracisco Davila and colleagues, with an educational monisha from [employer]. Review of Systems Const Denies poor appetite and Denies weakness Eyes Denies no additional complaints ENT Reports Normal hearing present, Denies dizziness, Denies nasal congestion, Denies tinnitus and Denies sore throat Card Denies chest pain, Denies syncope, Denies rapid heart rate and Denies dyspnea Resp Denies cough and Denies dyspnea GI Denies change in stool character, Reports constipation, Denies diarrhea, Denies nausea and Denies vomiting Denies dysuria and Denies urinary frequency Neuro Reports Normal hearing present, Denies confusion, Denies dizziness, Denies syncope and Denies weakness Psych Denies confusion Physical exam (Primary Care) Vital Signs: Last Vital Signs Pulse 72 11/27/22 11:04 BP 146/70 H 11/27/22 11:04 Pulse Ox 98 11/27/22 11:04 Oxygen Delivery Method Room Air 11/27/22 11:04 BMI result Body Mass Index 15.7 Tobacco/Smoking Status: Tobacco use Status Tobacco use date assessed 03/13/22 11/27/22 11:04 Patient Tobacco Use Status Former Tobacco user 11/27/22 11:04 Tobacco use type Cigarette 11/27/22 11:04 e-Cigarette/Vaping Use Never Used 11/27/22 11:04 PHQ-9: PHQ-9 Score PHQ-9: Total score 0 11/27/22 11:08 Depression Screening Interpretation: Negative Thrive Assessment: Date of Thrive Assessment Date Thrive assessed 09/20/22 11/27/22 11:04 Const General: No confusion Orientation/consciousness: No confusion HENMT Other: scalp rash noted scally 2 areas 2 by 4 cm - Head: Yes normocephalic Ears: external ears normal and TM's normal bilaterally Face and sinus: Yes normal facial exam Mouth: moist mucous membranes Throat: Yes tonsils normal Eyes Conjunctivae: conjunctivae normal Pupils: Equal, round and reactive pupils present and Pupil accommodation reflex normal Direct Ophthalmoscopy: normal light reflex Neck Neck: No lymphadenopathy Thyroid: Thyroid normal Chest Chest palpation & inspection: normal inspection of the chest Resp Effort & Inspection: normal respiratory effort and no audible wheezes Auscultation: clear to auscultation bilaterally, no crackles, no wheezes and lung sounds not diminished Cardio Rate: regular rate Rhythm: regular rhythm Peripheral pulses: radial pulses present and dorsalis pedis present GI Other: guaiac negative stools prostate negative Palpation (GI): no masses Auscultation: normal bowel sounds and normoactive bowel sounds Male General Exam: Yes normal external exam Skin General skin exam: no rashes or lesions noted Rashes: no rashes Neuro General: No confusion Cranial nerves: Yes Equal, round and reactive pupils present and Yes Normal hearing present Cognition (Neuro): normal cognition Gait exam (Neuro): Normal gait present Motor exam (neuro): 5/5 motor strength present throughout Deep tendon reflexes (DTR's): Right brachioradialis reflex intensity grade: 2+, Left brachioradialis reflex intensity grade: 2+, Right patellar reflex intensity grade: 2+ and Left patellar reflex intensity grade: 2+ Extrem General: No edema Assessment and Plan Assessment & Plan (1) Annual physical exam: Code(s): Z00.00 - Encounter for general adult medical examination without abnormal findings (2) Anorexia: Code(s): R63.0 - Anorexia Plan: Patient is presently being worked up advise CT of the chest in abdomen (3) Coronary artery disease: Comment: Acute inferior [place] September 2018 CABG DE LE[place]N to LAD, Dr. Salgado September 2018 echo December 2018 40-45% moderate MR akinetic multiple areas Code(s): I25.10 - Atherosclerotic heart disease of [place] coronary artery without angina pectoris Qualifiers: Coronary Disease-Associated Artery/Lesion type: [place] artery [place] vs. transplanted heart: [place] heart Associated angina: without angina Qualified Code(s): I25.10 - Atherosclerotic heart disease of [place] coronary artery without angina pectoris Plan: Control the cholesterol, weight, blood pressure (4) GERD (gastroesophageal reflux disease): Code(s): K21.9 - Gastro-esophageal reflux disease without esophagitis Qualifiers: Esophagitis presence: without esophagitis Qualified Code(s): K21.9 - Gastro-esophageal reflux disease without esophagitis Plan: Avoid the foods that causes that usually spicy foods, tomato products, juices, coffee, soda and foods that your sensitive to. After eating do not lie down, allow 3-4 hours before in lie down. And keep the head of bed above 30 degrees to avoid the acid from going up. (5) Hypertension: Code(s): I10 - Essential (primary) hypertension Plan: Continue with blood pressure medication. Decrease salt intake and exercise patient has been started on amlodipine in addition to metoprolol (6) Frequency of urination: Code(s): R35.0 - Frequency of micturition (7) Seborrhea: Code(s): L21.9 - Seborrheic dermatitis, unspecified Orders: Orders US bladder Today R35.0 - Frequency of micturition Free T4 (Free Thyroxine) Today I10 - Essential (primary) hypertension Medications: New ketoconazole 2% 1 appl topical BID 30 grams 1RF L21.9 - Seborrheic dermatitis, unspecified Refilled pantoprazole 40 mg PO DAILY 90 tabs 2RF R35.0 - Frequency of micturition Coding Level of Care Code Est Pt Prev Care >65y(45820) Diagnoses Annual physical exam Z00.00 Anorexia R63.0 Coronary artery disease involving [place] coronary artery of [place] heart without angina pectoris I25.10 Coronary Disease-Associated Artery/Lesion type: [place] artery [place] vs. transplanted heart: [place] heart Associated angina: without angina Gastroesophageal reflux disease without esophagitis K21.9 Esophagitis presence: without esophagitis Hypertension I10 Frequency of urination R35.0 Seborrhea L21.9
[2022-11-27 11:48] VITALS: BP 130/80
== END 2022-11-27 12:11 | disposition home or self-care (01) ==
PROVIDERS: Visit Provider Internal Medicine
DX: Z00.00 Encounter for general adult medical examination without abnormal findings (principal); R63.0 Anorexia; I25.10 Atherosclerotic heart disease of native coronary artery without angina pectoris; K21.9 Gastro-esophageal reflux disease without esophagitis; I10 Essential (primary) hypertension; R35.0 Frequency of micturition; L21.9 Seborrheic dermatitis, unspecified
CPT/HCPCS: 99397

== ENCOUNTER 2022-12-06 10:13 | Outpatient (REF) | payer MEDICARE, SELFPAY | END 2022-12-06 10:14 | disposition home or self-care (01) | LOC: HO.HMGCX 10:13 | PROVIDERS: PCP Internal Medicine; Visit Provider Internal Medicine | DX: Z13.89 Encounter for screening for other disorder (principal) ==

== ENCOUNTER 2023-06-19 08:51 | Outpatient (AMB) | payer MEDICARE, SELFPAY ==
[2023-06-19 09:00] VITALS: BP 138/70; PULSE 78; O2SAT 97; BMI 16.9
--- NOTE | 2023-06-19 09:00 | MHC.OFFVIS ---
Vital Signs 06/19/23 09:00 Height 5 ft 5 in Weight 101 lb 6.602 oz BMI 16.9 BP 138/70 Blood Pressure Location Lt brachial Position Sitting Pulse 78 Pulse Source Pulse Oximeter Pulse Oximetry (%) 97 Oxygen Delivery Method Room Air Intake Visit Reasons: 6 month follow up Allergies lisinopril Adverse Reaction (Unknown, Verified 11/27/22 11:07) cough Medication List - Last Reconciled 06/19/23 by Chuy Castanon MD amlodipine 2.5 mg PO DAILY aspirin 81 mg PO DAILY atorvastatin 10 mg PO DAILY metoprolol succinate ER 25 mg PO DAILY pantoprazole 40 mg PO DAILY vitamin B complex 1 tab PO DAILY HPI Comments Details: Jacob is here for follow-up regarding coronary artery disease and bypass surgery. In 2019, he underwent bypass surgery following inferior wall ST-elevation myocardial infarction. He is underweight and has been like this for a while. From cardiac, no clear-cut symptoms. [facility] Medical History Colon cancer screening Colonoscopy refused Malnourished Lower extremity edema Low serum albumin Colon cancer screening declined Essential hypertension Atherosclerotic cardiovascular disease Scalp lesion Leukoencephalopathy Peptic ulcer disease Iron deficiency anemia Coronary artery disease GERD (gastroesophageal reflux disease) Impaired fasting glucose Hypercholesterolemia Ischemic cardiomyopathy Stable angina Surgical History History of exploratory laparotomy (05/08/21) Status post aorto-coronary artery bypass graft S/P CABG x 5 Status post surgical removal of malignant neoplasm of skin History of tonsillectomy History of hernia repair History of appendectomy Family History Father No problems noted. Mother No problems noted. Social History Household Members: Spouse Housing: House Do you presently have visiting nurse or other home services: No Alcohol intake: never Patient Tobacco Use Status: Former Tobacco user Tobacco use type: Cigarette Years Smoked: 2017 quit e-Cigarette/Vaping Use: Never Used Second Hand Smoke Exposure: No Advance Directives Date on File: 05/05/21 service: No Current occupational status: retired Cognitive needs: No Hearing needs: No Vision needs: Yes (glasses) Review of Systems Const Denies weakness ENT Denies dizziness Card Denies chest pain, Denies chest pain with activity, Denies syncope, Denies rapid heart rate, Denies pedal edema, Denies edema, Denies leg edema, Denies lightheadedness, Denies palpitations, Denies dyspnea, Denies dyspnea on exertion and Denies orthopnea Resp Denies cough, Denies dyspnea and Denies dyspnea on exertion GI Denies hematochezia and Denies change in stool character Musc Denies abnormal gait, Denies muscle cramps, Denies muscle weakness, Denies numbness, Denies radiating pain into limb and Denies tingling Neuro Denies abnormal gait, Denies dizziness, Denies syncope, Denies numbness, Denies tingling and Denies weakness Endo Denies palpitations Physical Exam Vital Signs: Last Vital Signs Pulse 78 06/19/23 09:00 BP 138/70 06/19/23 09:00 Pulse Ox 97 06/19/23 09:00 Oxygen Delivery Method Room Air 06/19/23 09:00 BMI result Body Mass Index 16.9 Const General: comfortable and no acute distress Nutritional Appearance: malnourished, thin and underweight Orientation/consciousness: patient oriented x3 HEENT Other: Unremarkable Head: Yes normal to inspection Neck Neck: Yes normal visual inspection Chest Chest palpation & inspection: normal inspection of the chest Resp Auscultation: clear to auscultation bilaterally Cardio Palpation: normal PMI Heart sounds: S1 normal heart sound present, S2 normal heart sound present, no gallops, no murmurs and no rubs GI Palpation (GI): Soft to palpation Back/Spine/Pelvis Other: unremarkable Skin General skin exam: no rashes or lesions noted Neuro General: patient oriented x3 Extrem General: Yes normal to inspection Psych Mental Status: mental status grossly normal Assessment & Plan Assessment & Plan (1) Atherosclerotic cardiovascular disease: Code(s): I25.10 - Atherosclerotic heart disease of [place] coronary artery without angina pectoris Category: Medical (2) Status post aorto-coronary artery bypass graft: Code(s): Z95.1 - Presence of aortocoronary bypass graft Category: Surgical (3) Non-rheumatic mitral regurgitation: Code(s): I34.0 - Nonrheumatic mitral (valve) insufficiency Category: Medical (4) Ischemic cardiomyopathy: Comment: 2022Technically limited study as only subcostal views could be obtained 2. LV systolic function appears to be normal from multiple views with LVEF of 55-60% 3. Mild mitral regurgitation and trivial aortic regurgitation 4. Normal measured RV systolic pressure 5. No gross pericardial effusion Code(s): I25.5 - Ischemic cardiomyopathy Category: Medical (5) Essential hypertension: Code(s): I10 - Essential (primary) hypertension Category: Medical (6) Malnourished: Code(s): E46 - Unspecified protein-calorie malnutrition Category: Medical Plan Cardiac studies reviewed. Last echocardiogram with LVEF 55-60%. Study was not adequate to assess wall motion. However, prior to that thought to have inferior/inferolateral akinesis. Mitral regurgitation has been mild to moderate in different studies. Nothing significant. Carotid [id number] stenosis bilaterally. Overall, he is stable on current regimen including aspirin, beta-blockers, statins. Blood pressure controlled on amlodipine. His weight has been just about the same in the last few years. Unclear if that is going to were changed. Otherwise, we will plan on seeing him in about 1 year. To call with concerns in the interim. Coding Level of Care Code Est Pt Level 4 (02419) Diagnoses Atherosclerotic cardiovascular disease I25.10 Status post aorto-coronary artery bypass graft Z95.1 Non-rheumatic mitral regurgitation I34.0 Ischemic cardiomyopathy I25.5 Essential hypertension I10 Malnourished E46
== END 2023-06-19 09:15 | disposition home or self-care (01) ==
PROVIDERS: PCP Internal Medicine; Visit Provider Internal Medicine
DX: I25.10 Atherosclerotic heart disease of native coronary artery without angina pectoris (principal); Z95.1 Presence of aortocoronary bypass graft; I34.0 Nonrheumatic mitral (valve) insufficiency; I25.5 Ischemic cardiomyopathy; I10 Essential (primary) hypertension; E46 Unspecified protein-calorie malnutrition
CPT/HCPCS: 99214

== ENCOUNTER → 2023-06-19 08:51 | Outpatient (BNVA) | payer MEDICARE, SELFPAY | PROVIDERS: PCP Internal Medicine; Visit Provider Internal Medicine | DX: I25.10 Atherosclerotic heart disease of native coronary artery without angina pectoris (principal); I34.0 Nonrheumatic mitral (valve) insufficiency; I25.5 Ischemic cardiomyopathy; I10 Essential (primary) hypertension; E46 Unspecified protein-calorie malnutrition; Z95.1 Presence of aortocoronary bypass graft | CPT/HCPCS: 99212 ==

== ENCOUNTER 2023-09-03 14:18 | Outpatient (AMB) | payer MEDICARE, SELFPAY ==
[2023-09-03 14:25] VITALS: BP 136/62; PULSE 75; O2SAT 98; BMI 16.3
--- NOTE | 2023-09-03 14:25 | A.OFFPC_ITS ---
Vital Signs 09/03/23 14:25 Height 5 ft 5 in Weight 98 lb BMI 16.3 BP 136/62 Blood Pressure Location Lt brachial Position Sitting Pulse 75 Pulse Source Pulse Oximeter Pulse Oximetry (%) 98 Oxygen Delivery Method Room Air Intake Visit Reasons: weight loss, anorexia Public Health Dentist: Not Required per policy Accompanied by: Self / Same As Patient Allergies lisinopril Adverse Reaction (Unknown, Verified 09/03/23 14:26) cough Medication List - Last Reconciled 09/03/23 by Fran Munson MD amlodipine 2.5 mg PO DAILY aspirin 81 mg PO DAILY atorvastatin 10 mg PO DAILY metoprolol succinate ER 25 mg PO DAILY pantoprazole 40 mg PO DAILY vitamin B complex 1 tab PO DAILY Tobacco use date assessed: 09/03/23 Fall risk assessment: 1 Fall in past year Last assessed Fall Risk: 09/03/23 Dental Screening Dental Screen Date: 09/03/23 Did you have a dental visit in the last 12 months?: Yes Did you have a dental problem in the last 6 months where you did not have access to dental care?: No Was dental information given to patient?: Patient has dentist HPI weight loss, anorexia HPI Details 77-year-old underweight male with anorex ia, CAD GERD hypertension coming in for follow-up. Last seen in November 2022. Patient has declined colonoscopy review of the notes has been follow-up with cardiology seen in 10/01/2023 EF from last echo 55-60% PFSH Medical History Colon cancer screening Colonoscopy refused Malnourished Lower extremity edema Low serum albumin Colon cancer screening declined Essential hypertension Atherosclerotic cardiovascular disease Scalp lesion Leukoencephalopathy Peptic ulcer disease Iron deficiency anemia Coronary artery disease GERD (gastroesophageal reflux disease) Impaired fasting glucose Hypercholesterolemia Ischemic cardiomyopathy Stable angina Surgical History History of exploratory laparotomy (05/08/21) Status post aorto-coronary artery bypass graft S/P CABG x 5 Status post surgical removal of malignant neoplasm of skin History of tonsillectomy History of hernia repair History of appendectomy Family History Father No problems noted. Mother No problems noted. Social History Household Members: Spouse Housing: House Do you presently have visiting nurse or other home services: No Alcohol intake: never Patient Tobacco Use Status: Former Tobacco user Tobacco use type: Cigarette Years Smoked: 2017 quit e-Cigarette/Vaping Use: Never Used Second Hand Smoke Exposure: No Advance Directives Date on File: 05/05/21 service: No Current occupational status: retired Cognitive needs: Yes (walker) Hearing needs: No Vision needs: Yes (glasses) Questionnaire PHQ-9 Over the last 2 weeks, how often have you been bothered by any of the following problems? 1. Little interest or pleasure in doing things: not at all 2. Feeling down, depressed, or hopeless: not at all 3. Trouble falling or staying asleep, or sleeping too much: not at all 4. Feeling tired or having little energy: not at all 5. Poor appetite or overeating: not at all 6. Feeling bad about yourself - or that you are a failure or have let yourself or your family down: not at all 7. Trouble concentrating on things, such as reading the newspaper or watching television: not at all 8. Moving or speaking so slowly that other people could have noticed. Or the opposite - being so fidgety or restless that you have been moving around a lot more than usual: not at all 9. Thoughts that you would be better off or of hurting yourself in some way: not at all Total score: 0 Depression Screening Interpretation: Negative Depression Screening Done: Yes Source: Developed by Drs. Adan Nicholson, Silvia Tse, Fracisco Davila and colleagues, with an educational monisha from [employer]. Thrive Questionnaire Date Thrive assessed: 09/03/23 I am a: Patient What is your living situation today?: I have a steady place to live Within the past 12 months, did the food you bought not last and you didn't have the money to get more?: Never true Within the past 12 months, did you worry whether your food would run out before you got money to buy more?: Never true Do you have trouble paying for medicines?: No Do you have trouble getting transportation to medical appointments?: No Do you have trouble paying your heating and electricity bill?: No Do you have trouble taking care of your child, family member or friend?: No Do you have trouble with day-to-day activities such as bathing, preparing meals, shopping, managing finances, etc.?: No Are you currently unemployed and looking for a job?: No Are you interested in more education?: No Please select the resources that you would like help with: None THRIVE Score: 0 AUDIT C Alcohol Use Questionnaire (AUDIT-C) 1. How often do you have a drink containing alcohol?: Never 2. How many drinks containing alcohol do you have on a typical day when you are drinking?: 1 or 2 (0) 3. How often do you have six or more drinks on one occasion?: Never Total Score: 0 LAUREN-7 AMB Questionnaire LAUREN-7 Date LAUREN - 7 assessed: 09/03/23 Feeling nervous, anxious, or on edge: 0 = Not at all Not being able to stop or control worryin = Not at all Worrying too much about different things: 0 = Not at all Trouble relaxin = Not at all Being so restless that it is hard to sit still: 0 = Not at all Becoming easily annoyed or irritable: 0 = Not at all Feeling afraid as if something awful might happen: 0 = Not at all Total LAUREN-7 score (0-4 normal; 5-9 mild; 10-14 moderate; 15-21 severe): 0 Source: Developed by Drs. Adan Nicholson, Silvia Tse, Fracisco Davila and colleagues, with an educational monisha from [employer]. Physical exam (Primary Care) Vital Signs: Last Vital Signs Pulse 75 09/03/23 14:25 BP 136/62 09/03/23 14:25 Pulse Ox 98 09/03/23 14:25 Oxygen Delivery Method Room Air 09/03/23 14:25 BMI result Body Mass Index 16.3 Tobacco/Smoking Status: Tobacco use Status Tobacco use date assessed 09/03/23 09/03/23 14:27 Patient Tobacco Use Status Former Tobacco user 09/03/23 14:27 Tobacco use type Cigarette 09/03/23 14:27 e-Cigarette/Vaping Use Never Used 09/03/23 14:27 PHQ-9: PHQ-9 Score PHQ-9: Total score 0 09/03/23 14:27 Depression Screening Interpretation: Negative Thrive Assessment: Date of Thrive Assessment Date Thrive assessed 09/03/23 09/03/23 14:27 Const General: alert; No acute distress Eyes Conjunctivae: conjunctivae normal Resp Auscultation: clear to auscultation bilaterally Cardio Rate: regular rate Rhythm: regular rhythm GI Inspection: Yes normal to inspection Extrem General: Yes normal to inspection and No edema Assessment and Plan Assessment & Plan (1) Hypertension: Code(s): I10 - Essential (primary) hypertension Plan: Continue with blood pressure medication. Decrease salt intake and exercise on amlodipine 2.5 mg once a day and metoprolol 25 mg once a day (2) Coronary artery disease: Comment: Acute inferior [place] September 2018 CABG DE LE[place]N to LAD, Dr. Salgado September 2018 echo December 2018 40-45% moderate MR akinetic multiple areas Code(s): I25.10 - Atherosclerotic heart disease of [place] coronary artery without angina pectoris Qualifiers: Coronary Disease-Associated Artery/Lesion type: [place] artery [place] vs . transplanted heart: [place] heart Associated angina: without angina Qualified Code(s): I25.10 - Atherosclerotic heart disease of [place] coronary artery without angina pectoris Plan: Control the cholesterol, weight, blood pressure, diabetes continue with aspirin. Patient also has been following up with Cardiology (3) GERD (gastroesophageal reflux disease): Code(s): K21.9 - Gastro-esophageal reflux disease without esophagitis Qualifiers: Esophagitis presence: without esophagitis Qualified Code(s): K21.9 - [place] stro-esophageal reflux disease without esophagitis Plan: Avoid the foods that causes that usually spicy foods, tomato products, juices, coffee, soda and foods that your sensitive to. After eating do not lie down, allow 3-4 hours before in lie down. And keep the head of bed above 30 degrees to avoid the acid from going up. (4) Ischemic cardiomyopathy: Comment: 2021Technically limited study as only subcostal views could be obtained 2. LV systolic function appears to be normal from multiple views with LVEF of 55-60% 3. Mild mitral regurgitation and trivial aortic regurgitation 4. Normal measured RV systolic pressure 5. No gross pericardial effusion Code(s): I25.5 - Ischemic cardiomyopathy Plan: Low-salt diet and keep active Medications: Refilled amlodipine 2.5 mg PO DAILY 90 tabs 3RF atorvastatin 10 mg PO DAILY 90 tabs 3RF metoprolol succinate ER 25 mg PO DAILY 90 tabs 3RF I25.5 - Ischemic cardiomyopathy pantoprazole 40 mg PO DAILY 90 tabs 2RF R35.0 - Frequency of micturition Coding Level of Care Code Est Pt Level 4 (00878) Diagnoses Hypertension I10 Coronary artery disease involving [place] coronary artery of [place] heart without angina pectoris I25.10 Coronary Disease-Associated Artery/Lesion type: [place] artery [place] vs. transplanted heart: [place] heart Associated angina: without angina Gastroesophageal reflux disease without esophagitis K21.9 Esophagitis presence: without esophagitis Ischemic cardiomyopathy I25.5
== END 2023-09-03 14:53 | disposition home or self-care (01) ==
PROVIDERS: PCP Internal Medicine; Visit Provider Internal Medicine
DX: I10 Essential (primary) hypertension (principal); I25.10 Atherosclerotic heart disease of native coronary artery without angina pectoris; K21.9 Gastro-esophageal reflux disease without esophagitis; I25.5 Ischemic cardiomyopathy
CPT/HCPCS: 99214

== ENCOUNTER 2024-03-25 10:17 | Outpatient (AMB) | payer MEDICARE, SELFPAY ==
[2024-03-25 10:29] VITALS: BP 144/88; PULSE 87; O2SAT 95
--- NOTE | 2024-03-25 10:29 | MHC.PC.OV ---
Vital Signs 03/25/24 10:29 03/25/24 10:53 Height 5 ft 1 in Weight 106 lb BMI 20.0 BP 144/88 H 130/70 Blood Pressure Location Lt brachial Lt brachial Position Sitting Sitting Pulse 87 Pulse Source Pulse Oximeter Pulse Oximetry (%) 95 Oxygen Delivery Method Room Air Intake Visit Reasons: Annual exam Allergies lisinopril Adverse Reaction (Unknown, Verified 03/25/24 10:30) cough Medication List - Last Reconciled 03/25/24 by Fran Munson MD amlodipine 2.5 mg PO DAILY aspirin 81 mg PO DAILY atorvastatin 10 mg PO DAILY metoprolol succinate ER 25 mg PO DAILY pantoprazole 40 mg PO DAILY vitamin B complex 1 tab PO DAILY Tobacco use date assessed: 03/25/24 Fall risk assessment: No Falls in past year Last assessed Fall Risk: 03/25/24 Dental Screening Dental Screen Date: 03/25/24 Did you have a dental visit in the last 12 months?: Yes Did you have a dental problem in the last 6 months where you did not have access to dental care?: No Was dental information given to patient?: Patient has dentist HPI Annual exam HPI Details The patient is a 78-year-old male presenting for a physical examination and routine health maintenance. He has a chronic history of ischemic cardiomyopathy, coronary artery disease, and hypertension. He is currently managed on metoprolol and amlodipine for hypertension and atorvastatin for cholesterol control. Additionally, he takes aspirin and pantoprazole for gastroesophageal reflux disease (GERD), and supplements with vitamin B. He was last seen in August 2023 and has had previous blood work in October 2022. The patient reports iron deficiency anemia and denies any recent history of new diagnoses or surgeries since the previous visit. He has a history of a small bowel obstruction that required exploratory laparotomy in 2021. There are intermittent issues with urinary frequency, which may be related to prostate enlargement, but the patient declines further diagnostic testing at this time. - Continue blood pressure control with metoprolol and amlodipine. - Manage cholesterol levels with atorvastatin. - Continue current GERD treatment with pantoprazole. - Administration of flu vaccine recommended and accepted. - Discussed the importance of maintaining regular cardiology follow-ups, next scheduled in June. - Discussed the potential need for an ultrasound to evaluate the bladder in relation to urinary frequency, but the patient declined. - Denies alcohol consumption. - Denies tobacco use. - Reports increased frequency of urination at night, waking 3-4 times. - Does not use a home blood pressure machine. - Respiratory: Denies shortness of breath at rest, occasional shortness of breath occurs. - Cardiovascular: Denies chest pain, palpitations. - Gastrointestinal: Denies abdominal pain, constipation; occasional cough during meals. - Genitourinary: Urinary frequency, nocturia 3-4 times per night - Labs: Previous blood work completed in October 2022; results not detailed in the conversation. [facility] Medical History Colon cancer screening Colonoscopy refused Malnourished Lower extremity edema Low serum albumin Colon cancer screening declined Essential hypertension Atherosclerotic cardiovascular disease Scalp lesion Leukoencephalopathy Peptic ulcer disease Iron deficiency anemia Coronary artery disease GERD (gastroesophageal reflux disease) Impaired fasting glucose Hypercholesterolemia Ischemic cardiomyopathy Stable angina Surgical History History of exploratory laparotomy (05/08/21) Status post aorto-coronary artery bypass graft S/P CABG x 5 Status post surgical removal of malignant neoplasm of skin History of tonsillectomy History of hernia repair History of appendectomy Family History Father No problems noted. Mother No problems noted. Social History Household Members: Spouse Housing: House Do you presently have visiting nurse or other home services: No Alcohol intake: never Patient Tobacco Use Status: Former Tobacco user Tobacco use type: Cigarette Years Smoked: 2017 quit e-Cigarette/Vaping Use: Never Used Second Hand Smoke Exposure: No Advance Directives Date on File: 05/05/21 service: No Current occupational status: retired Cognitive needs: Yes (walker) Hearing needs: No Vision needs: Yes (glasses) Questionnaire PHQ-9 Over the last 2 weeks, how often have you been bothered by any of the following problems? 1. Little interest or pleasure in doing things: not at all 2. Feeling down, depressed, or hopeless: not at all 3. Trouble falling or staying asleep, or sleeping too much: not at all 4. Feeling tired or having little energy: not at all 5. Poor appetite or overeating: more than half the days 6. Feeling bad about yourself - or that you are a failure or have let yourself or your family down: not at all 7. Trouble concentrating on things, such as reading the newspaper or watching television: not at all 8. Moving or speaking so slowly that other people could have noticed. Or the opposite - being so fidgety or restless that you have been moving around a lot more than usual: nearly every day 9. Thoughts that you would be better off or of hurting yourself in some way: not at all Total score: 5 Depression Screening Interpretation: Positive Depression Screening Done: Yes 65606 - PHQ-9 Billing: Yes Source: Developed by Drs. Adan Nicholson, Silvia Tse, Fracisco Davila and colleagues, with an educational monisha from [employer]. Thrive Questionnaire Date Thrive assessed: 03/25/24 I am a: Patient What is your living situation today?: I have a steady place to live Within the past 12 months, did the food you bought not last and you didn't have the money to get more?: I choose not to answer this question Within the past 12 months, did you worry whether your food would run out before you got money to buy more?: Never true Do you have trouble paying for medicines?: No Do you have trouble getting transportation to medical appointments?: Yes Do you have trouble paying your heating and electricity bill?: No Do you have trouble taking care of your child, family member or friend?: No Do you have trouble with day-to-day activities such as bathing, preparing meals, shopping, managing finances, etc.?: I choose not to answer this question Are you currently unemployed and looking for a job?: No Are you interested in more education?: Yes Please select the resources that you would like help with: None Currently or been in a relationship where the following occur: I choose not to answer THRIVE Score: 1 AUDIT C Alcohol Use Questionnaire (AUDIT-C) 1. How often do you have a drink containing alcohol?: Never Total Score: 0 LAUREN-7 AMB Questionnaire LAUREN-7 Date LAUREN - 7 assessed: 03/25/24 Feeling nervous, anxious, or on edge: 0 = Not at all Not being able to stop or control worryin = Not at all Worrying too much about different things: 0 = Not at all Trouble relaxin = Not at all Being so restless that it is hard to sit still: 0 = Not at all Becoming easily annoyed or irritable: 0 = Not at all Feeling afraid as if something awful might happen: 0 = Not at all Total LAUREN-7 score (0-4 normal; 5-9 mild; 10-14 moderate; 15-21 severe): 0 Source: Developed by Drs. Adan Nicholson, Silvia Tse, Fracisco Davila and colleagues, with an educational monisha from [employer]. Review of Systems Const Denies poor appetite and Denies weakness Eyes Denies no additional complaints ENT Reports Normal hearing present, Denies dizziness, Denies nasal congestion, Denies tinnitus and Denies sore throat Card Denies chest pain, Denies syncope, Denies rapid heart rate and Denies dyspnea Resp Denies cough and Denies dyspnea GI Denies change in stool character, Reports constipation, Denies diarrhea, Denies nausea and Denies vomiting Denies dysuria and Denies urinary frequency Neuro Reports Normal hearing present, Denies confusion, Denies dizziness, Denies syncope and Denies weakness Psych Denies confusion Physical exam (Primary Care) Vital Signs: Last Vital Signs Pulse 87 03/25/24 10:29 BP 130/70 03/25/24 10:53 Pulse Ox 95 03/25/24 10:29 Oxygen Delivery Method Room Air 03/25/24 10:29 BMI result Body Mass Index 20.0 Tobacco/Smoking Status: Tobacco use Status Tobacco use date assessed 03/25/24 03/25/24 10:30 Patient Tobacco Use Status Former Tobacco user 03/25/24 10:30 Tobacco use type Cigarette 03/25/24 10:30 e-Cigarette/Vaping Use Never Used 03/25/24 10:30 PHQ-9: PHQ-9 Score PHQ-9: Total score 5 03/25/24 10:50 Depression Screening Interpretation: Positive Thrive Assessment: Date of Thrive Assessment Date Thrive assessed 03/25/24 03/25/24 10:30 Currently or been in a relationship where the following occur: I choose not to answer Const General: No confusion Orientation/consciousness: No confusion HENMT Head: Yes normocephalic Ears: external ears normal and TM's normal bilaterally Face and sinus: Yes normal facial exam Mouth: moist mucous membranes Throat: Yes tonsils normal Eyes Conjunctivae: conjunctivae normal Pupils: Equal, round and reactive pupils present and Pupil accommodation reflex normal Direct Ophthalmoscopy: normal light reflex Neck Neck: No lymphadenopathy Thyroid: Thyroid normal Chest Chest palpation & inspection: normal inspection of the chest Resp Effort & Inspection: normal respiratory effort and no audible wheezes Auscultation: clear to auscultation bilaterally, no crackles, no wheezes and lung sounds not diminished Cardio Rate: regular rate Rhythm: regular rhythm Peripheral pulses: radial pulses present and dorsalis pedis present GI Other: guaaic negative , prostate mild enlarged Palpation (GI): no masses Auscultation: normal bowel sounds and normoactive bowel sounds Male General Exam: Yes normal external exam Skin General skin exam: no rashes or lesions noted Rashes: no rashes Neuro General: No confusion Cranial nerves: Yes Equal, round and reactive pupils present and Yes Normal hearing present Cognition (Neuro): normal cognition Gait exam (Neuro): Normal gait present Motor exam (neuro): 5/5 motor strength present throughout Deep tendon reflexes (DTR's): Right brachioradialis reflex intensity grade: 2+, Left brachioradialis reflex intensity grade: 2+, Right patellar reflex intensity grade: 2+ and Left patellar reflex intensity grade: 2+ Extrem General: No edema Office Procedures Flu Questionnaire Does the patient have a severe egg allergy?: No Does the patient have severe life threatening allergies?: No Does the patient have a fever or illness today?: No Has the patient ever had Guillain-[place] Syndrome?: No Has the patient ever had any past reaction to a flu shot?: No Immunizations Fluarix Triv [id number] (PF) 45 mcg (15 mcg x 3)/0.5 mL IM syringe Performing Provider: Fran Munson MD [facility] Administered by: Billie Persaud CMA on 03/25/24 11:09 Dose Route Admin Location Dispensed Lot Number Expiration Date NDC Hand Tool Lapper 0.5 mL IM Left Deltoid 0.5 mL [id number] 08/10/24 [id number] VIS Given Date VIS Provided VIS Publication Date 03/25/24 Single Vaccine 20 Eligibility Eligibility Date Funding Source Not [facility] Eligible 03/25/24 Private Coding Level of Care Code Est Pt Prev Care >65y(89064) Diagnoses Annual physical exam Z00.00 Ischemic cardiomyopathy I25.5 Coronary artery disease involving [place] coronary artery of [place] heart without angina pectoris I25.10 Coronary Disease-Associated Artery/Lesion type: [place] artery [place] vs. transplanted heart: [place] heart Associated angina: without angina Gastroesophageal reflux disease without esophagitis K21.9 Esophagitis presence: without esophagitis Hypertension I10 Frequency of urination R35.0 Additional Codes PHQ-9 - 52021 - PHQ-9 Billing: Yes ([id number]) Assessment & Plan Assessment & Plan (1) Annual physical exam: Code(s): Z00.00 - Encounter for general adult medical examination without abnormal findings Category: Medical Plan: Patient is advised to eat healthy, keep well hydrated, keep active and have adequate sleep. (2) Ischemic cardiomyopathy: Comment: 2021Technically limited study as only subcostal views could be obtained 2. LV systolic function appears to be normal from multiple views with LVEF of 55-60% 3. Mild mitral regurgitation and trivial aortic regurgitation 4. Normal measured RV systolic pressure 5. No gross pericardial effusion Code(s): I25.5 - Ischemic cardiomyopathy Category: Medical Plan: Continue with blood pressure control cholesterol control. (3) Coronary artery disease: Comment: Acute inferior [place] September 2018 CABG DE LEÓN to LADDr. Salgado September 2018 echo December 2018 40-45% moderate MR akinetic multiple areas Code(s): I25.10 - Atherosclerotic heart disease of [place] coronary artery without angina pectoris Category: Medical Qualifiers: Coronary Disease-Associated Artery/Lesion type: [place] artery [place] vs. transplanted heart: [place] heart Associated angina: without angina Qualified Code(s): I25.10 - Atherosclerotic heart disease of [place] coronary artery without angina pectoris Plan: Control the cholesterol, weight, blood pressure (4) GERD (gastroesophageal reflux disease): Code(s): K21.9 - Gastro-esophageal reflux disease without esophagitis Category: Medical Qualifiers: Esophagitis presence: without esophagitis Qualified Code(s): K21.9 - Gastro-esophageal reflux disease without esophagitis Plan: Avoid the foods that causes that usually spicy foods, tomato products, juices, coffee, soda and foods that your sensitive to. After eating do not lie down, allow 3-4 hours before in lie down. And keep the head of bed above 30 degrees to avoid the acid from going up. (5) Hypertension: Code(s): I10 - Essential (primary) hypertension Category: Medical Plan: On metoprolol and amlodipine for blood pressure (6) Frequency of urination: Code(s): R35.0 - Frequency of micturition Category: Medical Plan: declined work up for now Plan - Continue current pharmacotherapy for hypertension and cholesterol. - Continue GERD management with pantoprazole. - Administer influenza vaccination. - Ensure cardiology follow-up occurs in June, and remind to forward notes. - Discuss potential bladder ultrasound for urinary frequency if issues worsen. During today?s visit, we discussed the management of the patient?s ongoing ischemic cardiomyopathy and coronary artery disease. I emphasized the importance of continuing his current medication regimen. We talked about his GERD symptoms and confirmed the effectiveness of pantoprazole. We reviewed the potential need for further evaluation of urinary symptoms with a bladder ultrasound, which the patient declined. I provided education on the risks of respiratory infections, particularly noting the benefits of getting a flu shot, which was administered. The patient was informed about the importance of ongoing monitoring of blood pressure and cholesterol, as well as maintaining regular appointments with cardiology. No new medication issues since the last visit were reported. - Continue taking all medications as prescribed, including metoprolol, amlodipine, atorvastatin, aspirin, and pantoprazole. - Maintain regular cardiology appointments and bring notes to future visits. - Monitor any changes in urination patterns and report if frequency increases. - Avoid fluid intake two hours before bed to reduce nocturia. - Stay updated with vaccinations as advised. - Practice respiratory illness precautions, especially during flu season. Orders: Orders Free T4 (Free Thyroxine) Today I25.10 - Atherosclerotic heart disease of [place] coronary artery without angina pectoris Thyroid Stimulating Hormone Today I25.10 - Atherosclerotic heart disease of [place] coronary artery without angina pectoris Influenza [id number] Immunization Today Z23 - Encounter for immunization Medications: New Fluarix Triv [id number] (PF) (flu vacc [id number] 6mos up(PF)) 0.5 mL IM ONCE 0.5 mL 0RF NS Z23 - Encounter for immunization
[2024-03-25 10:53] VITALS: BP 130/70
== END 2024-03-25 11:20 | disposition home or self-care (01) ==
PROVIDERS: PCP Internal Medicine; Visit Provider Internal Medicine
DX: Z00.00 Encounter for general adult medical examination without abnormal findings (principal); I25.5 Ischemic cardiomyopathy; I25.10 Atherosclerotic heart disease of native coronary artery without angina pectoris; K21.9 Gastro-esophageal reflux disease without esophagitis; I10 Essential (primary) hypertension; R35.0 Frequency of micturition; Z23 Encounter for immunization

== ENCOUNTER → 2024-03-25 10:17 | Outpatient (BNVA) | payer MEDICARE, SELFPAY | PROVIDERS: PCP Internal Medicine; Visit Provider Internal Medicine | DX: Z00.00 Encounter for general adult medical examination without abnormal findings (principal); Z23 Encounter for immunization; I25.5 Ischemic cardiomyopathy; I25.10 Atherosclerotic heart disease of native coronary artery without angina pectoris; K21.9 Gastro-esophageal reflux disease without esophagitis; I10 Essential (primary) hypertension; R35.0 Frequency of micturition | CPT/HCPCS: 90471; 90656; 96127; 99397 ==

== ENCOUNTER 2024-06-16 12:13 | Outpatient (AMB) | payer MEDICARE, SELFPAY ==
--- NOTE | 2024-06-16 12:31 | MHC.OFFVIS ---
Vital Signs 06/16/24 12:32 Height 5 ft 1 in Weight 101 lb 6.602 oz BMI 19.2 BP 138/70 Blood Pressure Location Lt brachial Position Sitting Pulse 77 Pulse Source Monitor Intake Visit Reasons: 1yr follow up Allergies lisinopril Adverse Reaction (Unknown, Verified 03/25/24 10:30) cough Medication List - Last Reconciled 06/16/24 by Chuy Castanon MD amlodipine 2.5 mg PO DAILY aspirin 81 mg PO DAILY atorvastatin 10 mg PO DAILY metoprolol succinate ER 25 mg PO DAILY pantoprazole 40 mg PO DAILY vitamin B complex 1 tab PO DAILY HPI Comments Details: Jacob is here for follow-up regarding coronary artery disease and bypass surgery. In 2019, he underwent bypass surgery following inferior wall ST-elevation myocardial infarction. He denies experiencing any chest pain, breathing difficulties, or palpitations. He reports a steady weight around 100 to 101 pounds for the last several years. He has a history of tobacco use but quit seven years ago. He is compliant with his medication regimen. The patient ambulates with a walker and relies on his spouse for transportation, as he has not been driving. Exercise The patient ambulates with a walker and does not participate in regular exercise or sports. No specific symptoms related to exercise were reported. [facility] Medical History Colon cancer screening Colonoscopy refused Malnourished Lower extremity edema Low serum albumin Colon cancer screening declined Essential hypertension Atherosclerotic cardiovascular disease Scalp lesion Leukoencephalopathy Peptic ulcer disease Iron deficiency anemia Coronary artery disease GERD (gastroesophageal reflux disease) Impaired fasting glucose Hypercholesterolemia Ischemic cardiomyopathy Stable angina Surgical History History of exploratory laparotomy (05/08/21) Status post aorto-coronary artery bypass graft S/P CABG x 5 Status post surgical removal of malignant neoplasm of skin History of tonsillectomy History of hernia repair History of appendectomy Family History Father No problems noted. Mother No problems noted. Social History Household Members: Spouse Housing: House Do you presently have visiting nurse or other home services: No Alcohol intake: never Patient Tobacco Use Status: Former Tobacco user Tobacco use type: Cigarette Years Smoked: 2017 quit e-Cigarette/Vaping Use: Never Used Second Hand Smoke Exposure: No Advance Directives Date on File: 05/05/21 service: No Current occupational status: retired Cognitive needs: Yes (walker) Hearing needs: No Vision needs: Yes (glasses) Review of Systems Const Denies weakness ENT Denies dizziness Card Denies chest pain, Denies chest pain with activity, Denies syncope, Denies rapid heart rate, Denies pedal edema, Denies edema, Denies leg edema, Denies lightheadedness, Denies palpitations, Denies dyspnea, Denies dyspnea on exertion and Denies orthopnea Resp Denies cough, Denies dyspnea and Denies dyspnea on exertion GI Denies hematochezia and Denies change in stool character Musc Denies abnormal gait, Reports arthralgias, Denies muscle cramps, Denies muscle weakness, Denies numbness, Denies radiating pain into limb and Denies tingling Neuro Denies abnormal gait, Denies dizziness, Denies syncope, Denies numbness, Denies tingling and Denies weakness Endo Denies palpitations Physical Exam Vital Signs: Last Vital Signs Pulse 77 06/16/24 12:32 BP 138/70 06/16/24 12:32 BMI result Body Mass Index 19.2 Const General: comfortable and no acute distress Orientation/consciousness: patient oriented x3 HEENT Other: Unremarkable Head: Yes normal to inspection Neck Neck: Yes normal visual inspection Chest Chest palpation & inspection: normal inspection of the chest Resp Auscultation: clear to auscultation bilaterally Cardio Palpation: normal PMI Heart sounds: S1 normal heart sound present, S2 normal heart sound present, no gallops, no murmurs and no rubs GI Palpation (GI): Soft to palpation Back/Spine/Pelvis Other: unremarkable Skin General skin exam: no rashes or lesions noted Neuro General: patient oriented x3 Extrem General: Yes normal to inspection Psych Mental Status: mental status grossly normal Office Procedures EKG Details: EKG with underlying sinus rhythm at 77/Min; incomplete right bundle-branch block pattern; left ventricular hypertrophy with some repolarization changes; old inferior infarct; [place] [address]-Zlnrblyujzblrixwy, Complete Assessment & Plan Assessment & Plan (1) Atherosclerotic cardiovascular disease: Code(s): I25.10 - Atherosclerotic heart disease of [place] coronary artery without angina pectoris Category: Medical (2) Status post aorto-coronary artery bypass graft: Code(s): Z95.1 - Presence of aortocoronary bypass graft Category: Surgical (3) Non-rheumatic mitral regurgitation: Code(s): I34.0 - Nonrheumatic mitral (valve) insufficiency Category: Medical (4) Ischemic cardiomyopathy: Comment: 2021Technically limited study as only subcostal views could be obtained 2. LV systolic function appears to be normal from multiple views with LVEF of 55-60% 3. Mild mitral regurgitation and trivial aortic regurgitation 4. Normal measured RV systolic pressure 5. No gross pericardial effusion Code(s): I25.5 - Ischemic cardiomyopathy Category: Medical (5) Essential hypertension: Code(s): I10 - Essential (primary) hypertension Category: Medical (6) Malnourished: Code(s): E46 - Unspecified protein-calorie malnutrition Category: Medical Plan Cardiac studies reviewed. Last echocardiogram with LVEF 55-60%. Study was not adequate to assess wall motion. However, prior to that thought to have inferior/inferolateral akinesis. Mitral regurgitation has been mild to moderate in different studies. Carotid [id number]% stenosis bilaterally. Overall, stable coronary artery disease. Continue aspirin, metoprolol, amlodipine and statins. Blood pressure is somewhat borderline but no changes made today. Weight has been like this for a long time and doubt it is going to improve. We will follow up in one year. He will call us with any concerns in the interim. Discussion Notes In discussing potential management, we agreed on arranging an echocardiogram to assess his cardiac function further. I explained to the patient the importance of maintaining his current medication regimen and using his walker for safe mobility. We discussed the benefits and risks of the echocardiogram and agreed on continued annual evaluations moving forward. With his consent, we will proceed as planned. I also made sure to acknowledge the positive impacts of his smoking cessation seven years ago on his cardiovascular health. Patient was informed and verbally consented to the use of an ambient scribe for clinic note documentation during this visit. Orders: Orders CA echo transthoracic complete 1 Year I34.0 - Nonrheumatic mitral (valve) insufficiency Patient Instructions: - Continue taking all your prescribed medications regularly. - Use your walker consistently for safe mobility. - Return for your echocardiogram as scheduled. - Follow up with our team once a year for routine evaluations. - If experiencing any chest pain, breathing problems, or new symptoms, seek care immediately. Coding Level of Care Code Est Pt Level 4 (37565) Complex EM visit Add On G2211 Diagnoses Atherosclerotic cardiovascular disease I25.10 Status post aorto-coronary artery bypass graft Z95.1 Non-rheumatic mitral regurgitation I34.0 Ischemic cardiomyopathy I25.5 Essential hypertension I10 Malnourished E46 CPT Codes EKG - CPT: 49257-[id number], Complete ([id number])
[2024-06-16 12:32] VITALS: BP 138/70; PULSE 77; BMI 19.2
== END 2024-06-16 12:57 | disposition home or self-care (01) ==
LOC: HO.HCS 12:14
PROVIDERS: PCP Internal Medicine; Visit Provider Internal Medicine
DX: I25.10 Atherosclerotic heart disease of native coronary artery without angina pectoris (principal); Z95.1 Presence of aortocoronary bypass graft; I34.0 Nonrheumatic mitral (valve) insufficiency; I25.5 Ischemic cardiomyopathy; I10 Essential (primary) hypertension; E46 Unspecified protein-calorie malnutrition
CPT/HCPCS: 93010; 99214; G2211

== ENCOUNTER → 2024-06-16 12:13 | Outpatient (BNVA) | payer MEDICARE, SELFPAY | PROVIDERS: PCP Internal Medicine; Visit Provider Internal Medicine | DX: I25.10 Atherosclerotic heart disease of native coronary artery without angina pectoris (principal); I34.0 Nonrheumatic mitral (valve) insufficiency; I25.5 Ischemic cardiomyopathy; I10 Essential (primary) hypertension; E46 Unspecified protein-calorie malnutrition; Z95.1 Presence of aortocoronary bypass graft | CPT/HCPCS: 93005; 99212 ==

== ENCOUNTER 2024-06-30 11:15 | Outpatient (AMB) | payer MEDICARE, SELFPAY ==
[2024-06-30 11:20] VITALS: BP 160/72; PULSE 79; O2SAT 96; BMI 20.3
--- NOTE | 2024-06-30 11:20 | MHC.PC.OV ---
Vital Signs 06/30/24 11:20 Height 5 ft Weight 104 lb BMI 20.3 BP 160/72 H Blood Pressure Location Lt brachial Position Sitting Pulse 79 Pulse Source Pulse Oximeter Pulse Oximetry (%) 96 Oxygen Delivery Method Room Air Intake Visit Reasons: Coronary artery disease Allergies lisinopril Adverse Reaction (Unknown, Verified 06/30/24 11:21) cough Medication List - Last Reconciled 06/30/24 by Fran Munson MD amlodipine 2.5 mg PO DAILY aspirin 81 mg PO DAILY atorvastatin 10 mg PO DAILY meloxicam 15 mg PO DAILY metoprolol succinate ER 25 mg PO DAILY pantoprazole 40 mg PO DAILY vitamin B complex 1 tab PO DAILY Tobacco use date assessed: 03/25/24 Fall risk assessment: No Falls in past year Last assessed Fall Risk: 06/30/24 Dental Screening Dental Screen Date: 03/25/24 [facility] Medical History Colon cancer screening Colonoscopy refused Malnourished Lower extremity edema Low serum albumin Colon cancer screening declined Essential hypertension Atherosclerotic cardiovascular disease Scalp lesion Leukoencephalopathy Peptic ulcer disease Iron deficiency anemia Coronary artery disease GERD (gastroesophageal reflux disease) Impaired fasting glucose Hypercholesterolemia Ischemic cardiomyopathy Stable angina Surgical History History of exploratory laparotomy (05/08/21) Status post aorto-coronary artery bypass graft S/P CABG x 5 Status post surgical removal of malignant neoplasm of skin History of tonsillectomy History of hernia repair History of appendectomy Family History Father No problems noted. Mother No problems noted. Social History Household Members: Spouse Housing: House Do you presently have visiting nurse or other home services: No Alcohol intake: never Patient Tobacco Use Status: Former Tobacco user Tobacco use type: Cigarette Years Smoked: 2017 quit e-Cigarette/Vaping Use: Never Used Second Hand Smoke Exposure: No Advance Directives Date on File: 05/05/21 service: No Current occupational status: retired Cognitive needs: Yes (walker) Hearing needs: No Vision needs: Yes (glasses) Questionnaire PHQ-9 Over the last 2 weeks, how often have you been bothered by any of the following problems? 1. Little interest or pleasure in doing things: not at all 2. Feeling down, depressed, or hopeless: not at all 3. Trouble falling or staying asleep, or sleeping too much: several days 4. Feeling tired or having little energy: several days 5. Poor appetite or overeating: not at all 6. Feeling bad about yourself - or that you are a failure or have let yourself or your family down: not at all 7. Trouble concentrating on things, such as reading the newspaper or watching television: not at all 8. Moving or speaking so slowly that other people could have noticed. Or the opposite - being so fidgety or restless that you have been moving around a lot more than usual: not at all 9. Thoughts that you would be better off or of hurting yourself in some way: not at all Total score: 2 Depression Screening Interpretation: Positive Depression Screening Done: Yes Source: Developed by Drs. Adan Nicholson, Sivlia Tse, Fracisco Davila and colleagues, with an educational monisha from [employer]. Thrive Questionnaire Date Thrive assessed: 06/30/24 I am a: Patient What is your living situation today?: I have a steady place to live Within the past 12 months, did the food you bought not last and you didn't have the money to get more?: I choose not to answer this question Within the past 12 months, did you worry whether your food would run out before you got money to buy more?: Never true Do you have trouble paying for medicines?: No Do you have trouble getting transportation to medical appointments?: Yes Do you have trouble paying your heating and electricity bill?: No Do you have trouble taking care of your child, family member or friend?: No Do you have trouble with day-to-day activities such as bathing, preparing meals, shopping, managing finances, etc.?: I choose not to answer this question Are you currently unemployed and looking for a job?: No Are you interested in more education?: Yes Please select the resources that you would like help with: None Currently or been in a relationship where the following occur: I choose not to answer THRIVE Score: 1 LAUREN-7 AMB Questionnaire LAUREN-7 Date LAUREN - 7 assessed: 06/30/24 Feeling nervous, anxious, or on edge: 1 = Several days Not being able to stop or control worryin = Not at all Worrying too much about different things: 0 = Not at all Trouble relaxin = Several days Being so restless that it is hard to sit still: 0 = Not at all Becoming easily annoyed or irritable: 1 = Several days Feeling afraid as if something awful might happen: 0 = Not at all Total LAUREN-7 score (0-4 normal; 5-9 mild; 10-14 moderate; 15-21 severe): 3 Source: Developed by Drs. Adan Nicholson, Silvia Tse, Fracisco Davila and colleagues, with an educational monisha from [employer]. Physical exam (Primary Care) Vital Signs: Last Vital Signs Pulse 79 06/30/24 11:20 BP 160/72 H 06/30/24 11:20 Pulse Ox 96 06/30/24 11:20 Oxygen Delivery Method Room Air 06/30/24 11:20 BMI result Body Mass Index 20.3 Tobacco/Smoking Status: Tobacco use Status Tobacco use date assessed 03/25/24 06/30/24 11:21 Patient Tobacco Use Status Former Tobacco user 06/30/24 11:21 Tobacco use type Cigarette 06/30/24 11:21 e-Cigarette/Vaping Use Never Used 06/30/24 11:21 PHQ-9: PHQ-9 Score PHQ-9: Total score 2 06/30/24 11:53 Depression Screening Interpretation: Positive Thrive Assessment: Date of Thrive Assessment Date Thrive assessed 06/30/24 06/30/24 11:21 Currently or been in a relationship where the following occur: I choose not to answer Const General: alert; No acute distress Eyes Conjunctivae: conjunctivae normal Resp Auscultation: clear to auscultation bilaterally Cardio Rate: regular rate Rhythm: regular rhythm GI Inspection: Yes normal to inspection Extrem General: Yes normal to inspection and No edema Coding Level of Care Code Est Pt Level 4 (81005) Complex EM visit Add On G2211 Diagnoses Hypertension I10 Coronary artery disease involving [place] coronary artery of [place] heart without angina pectoris I25.10 Associated angina: without angina Coronary Disease-Associated Artery/Lesion type: [place] artery [place] vs. transplanted heart: [place] heart Ischemic cardiomyopathy I25.5 Gastroesophageal reflux disease without esophagitis K21.9 Esophagitis presence: without esophagitis Major depression F32.9 Knee osteoarthritis M17.9 Assessment & Plan Assessment & Plan (1) Hypertension: Code(s): I10 - Essential (primary) hypertension Category: Medical Plan: Continue with blood pressure medication. Decrease salt intake and exercise on amlodipine 2.5 mg once a day metoprolol 25 mg once a day (2) Coronary artery disease: Comment: Acute inferior [place] September 2018 CABG DE LE[place]N to LAD, Dr. Salgado September 2018 echo December 2018 40-45% moderate MR akinetic multiple areas Code(s): I25.10 - Atherosclerotic heart disease of [place] coronary artery without angina pectoris Category: Medical Qualifiers: Associated angina: without angina Coronary Disease-Associated Artery/Lesion type: [place] artery [place] vs. transplanted heart: [place] heart Qualified Code(s): I25.10 - Atherosclerotic heart disease of [place] coronary artery without angina pectoris Plan: Control the cholesterol, weight, blood pressure, continue with aspirin 81 mg once a (3) Ischemic cardiomyopathy: Comment: 2021Technically limited study as only subcostal views could be obtained 2. LV systolic function appears to be normal from multiple views with LVEF of 55-60% 3. Mild mitral regurgitation and trivial aortic regurgitation 4. Normal measured RV systolic pressure 5. No gross pericardial effusion Code(s): I25.5 - Ischemic cardiomyopathy Category: Medical Plan: Continue to follow-up with cardiology and advised echocardiogram in 1 year (4) GERD (gastroesophageal reflux disease): Code(s): K21.9 - Gastro-esophageal reflux disease without esophagitis Category: Medical Qualifiers: Esophagitis presence: without esophagitis Qualified Code(s): K21.9 - Gastro-esophageal reflux disease without esophagitis Plan: Avoid the foods that causes that usually spicy foods, tomato products, juices, coffee, soda and foods that your sensitive to. After eating do not lie down, allow 3-4 hours before in lie down. And keep the head of bed above 30 degrees to avoid the acid from going up. (5) Major depression: Comment: decline referral 06/2024 Code(s): F32.9 - Major depressive disorder, single episode, unspecified Category: Medical (6) Knee osteoarthritis: Code(s): M17.9 - Osteoarthritis of knee, unspecified Category: Medical Plan History of Present Illness The patient is a 78-year-old male presenting with a follow-up for chronic medical conditions including chemocardiomyopathy, coronary artery disease, GERD, mitral regurgitation, essential hypertension, and a history of small bowel obstruction and anorexia. He has been evaluated by cardiology, with normal blood counts reported in October 2022. His management includes aspirin, metoprolol, amlodipine, and statins. An echocardiogram is planned in one year for further cardiac assessment. The patient engages in plant-growing as a hobby and manages occasional depression independently. Health Maintenance - Refused colonoscopy screening in March 2024 - Blood count normal as of October 2022 - Echocardiogram planned in one year - Received shingles vaccination 3 weeks ago with no adverse effects - Up-to-date with tetanus and pneumonia vaccinations Social History - Engages in growing small plants like basil and cilantro - Occasionally experiences brief episodes of depression Review of Systems - Cardiovascular: Reports occasional depression - Gastrointestinal: Reports GERD symptoms managed with current medication - Psychological: Reports mild intermittent depression with independent resolution strategies Physical Exam Results - Labs: Normal blood count (October 2022) Plan The patient will continue with aspirin, metoprolol, amlodipine, and statins. Further evaluation with an echocardiogram will be carried out in a year to assess cardiac function. Pain medication was prescribed for as-needed use. The patient is advised to follow up regularly for monitoring and blood work. All vaccinations are current, with positive management of depression noted but without mental health interventions at this time. Patient was informed and verbally consented to the use of an ambient scribe for clinic note documentation during this visit. Discussion Notes I discussed the ongoing management of the patient's medical conditions, including discussions around the benefits and continuation of current medication therapy for blood pressure and heart disease. We reviewed the importance of an upcoming echocardiogram for cardiac monitoring and the need for routine blood work. The decision against psychiatric intervention for occasional depression was agreed upon, emphasizing the importance of self-monitoring. The patient confirmed understanding of general follow-up timelines and vaccine updates. Patient Instructions - Continue current medication regimen as prescribed. - Use prescribed pain medication as needed. - Schedule an echocardiogram in one year. - Follow up regularly for blood work and monitoring. - Contact the office if mood symptoms worsen or if there are any questions or concerns. - Engage in hobbies and regular activities for mental wellness. Medications: New meloxicam 15 mg PO DAILY 45 tabs 0RF M17.9 - Osteoarthritis of knee, unspecified
== END 2024-06-30 12:10 | disposition home or self-care (01) ==
LOC: HO.HMCH 11:16
PROVIDERS: PCP Internal Medicine; Visit Provider Internal Medicine
DX: I10 Essential (primary) hypertension (principal); I25.10 Atherosclerotic heart disease of native coronary artery without angina pectoris; I25.5 Ischemic cardiomyopathy; K21.9 Gastro-esophageal reflux disease without esophagitis; F32.9 Major depressive disorder, single episode, unspecified; M17.9 Osteoarthritis of knee, unspecified

== ENCOUNTER → 2024-06-30 11:15 | Outpatient (BNVA) | payer MEDICARE, SELFPAY | PROVIDERS: PCP Internal Medicine; Visit Provider Internal Medicine | DX: I25.10 Atherosclerotic heart disease of native coronary artery without angina pectoris (principal); I10 Essential (primary) hypertension; I25.5 Ischemic cardiomyopathy; K21.9 Gastro-esophageal reflux disease without esophagitis; F32.9 Major depressive disorder, single episode, unspecified; M17.9 Osteoarthritis of knee, unspecified | CPT/HCPCS: 96127; 99212 ==

== ENCOUNTER 2024-07-27 07:36 | Outpatient (REF) | payer MEDICARE, SELFPAY ==
[2024-07-27 10:24] LABS: MANUAL DIFF FLAG NO
[2024-07-27 10:31] LABS: B Type Natriuretic Peptide 177 pg/mL (<100); Basophils Absolute Auto 0.1 X10*3/uL (0.0-0.2); Basophils Percent Auto 1.3 % (0-2); Eosinophils Absolute Auto 0.2 X10*3/uL (0.0-0.4); Eosinophils Percent Auto 2.6 % (0-4); Hemoglobin 13.8 g/dl (14.0-18.0); Imm Gran Abs Auto 0.02 X10*3/uL (0.00-0.03); Imm Gran Pct Auto 0.3 % (0.0-0.4); Immature Retic Fraction 13.2 % (2.3-13.4); Lymphocytes Percent Auto 25.3 % (20-40); Mean Corpuscular HGB Conc 31.4 g/dl (31.0-36.0); Mean Corpuscular Hemoglobin 26.1 pg (27.0-33.0); Mean Corpuscular Volume 83.3 fL (80.0-98.0); Mean Platelet Volume 9.8 fL (9.4-12.4); Monocytes Percent Auto 12.3 % (2-11); Neutrophils Absolute Auto 4.6 x10*3/uL (2.0-8.3); Neutrophils Percent Auto 58.2 % (45-73); Platelet Count 290 X10*3/uL (160-400); Red Blood Count 5.28 X10*6/uL (4.60-5.80); Red Cell Distribution Width 16.8 % (11.0-16.0); Reticulocytes Absolute 0.051 X10*6/uL (0.026-0.095)
[2024-07-27 10:59] LABS: Alanine Aminotransferase 21 U/L (0-40); Albumin Level 4.5 g/dL (3.5-5.0); Alkaline Phosphatase 73 U/L (39-117); Anion Gap 12 (12-20); Aspartate Amino Transferase 28 U/L (5-37); Bilirubin Total 0.5 mg/dL (0.0-1.0); Blood Urea Nitrogen 33 mg/dL (9-16); Calcium 9.8 mg/dL (8.4-10.2); Carbon Dioxide 27 mmol/L (22-29); Chloride 105 mmol/L (96-108); Cholesterol 161 mg/dL (<200); Estimated Glomerular Filt Rate > 60; Glucose Random 89 mg/dL (60-115); HDL Cholesterol 50 mg/dL (>40); Iron 66 mcg/dL (45-160); LDL Cholesterol Calculated 85 mg/dL (<100); Percent Iron Saturation 17 % (15-50); Potassium 4.5 mmol/L (3.3-5.1); Sodium 139 mmol/L (135-145); Total Iron Binding Capacity 394 mcg/dL (228-428); Total Protein 7.6 g/dL (6.5-8.0); Triglycerides 132 mg/dL (<150); Unsaturated Iron Binding 328 ug/dL
[2024-07-27 11:14] LABS: Folate 15.2 ng/mL (> or = 4.0); Vitamin B12 > 2000 pg/mL (200-900)
[2024-07-27 11:25] LABS: Ferritin 19 ng/mL (20-250); Free T4 (Free Thyroxine) 1.06 ng/dL (0.71-1.85); Thyroid Stimulating Hormone 1.46 uIU/mL (0.32-4.0); Vitamin D 25-OH Total > 154.2 ng/mL (>30)
== END 2024-07-27 07:37 | disposition home or self-care (01) ==
LOC: HO.HMGCLDS 07:36
PROVIDERS: PCP Internal Medicine; Visit Provider Internal Medicine
DX: R60.1 Generalized edema (principal); I25.10 Atherosclerotic heart disease of native coronary artery without angina pectoris; E78.00 Pure hypercholesterolemia, unspecified
CPT/HCPCS: 36415; 80053; 80061; 82306; 82607; 82728; 82746; 83540; 83880; 84439; 84443; 85025; 85045

== ENCOUNTER 2024-11-10 13:13 | Outpatient (AMB) | payer MEDICARE, SELFPAY ==
[2024-11-10 13:16] VITALS: BP 132/80; PULSE 74; TEMP 36.1; O2SAT 97; BMI 19.3
--- NOTE | 2024-11-10 13:16 | MHC.OFFVIS ---
Vital Signs 11/10/24 13:16 Height 5 ft 1 in Weight 102 lb 4.712 oz BMI 19.3 Temp 97.0 F Temp Source Temporal Artery Scan Intake Visit Reasons: Hypertension Allergies lisinopril Adverse Reaction (Unknown, Verified 06/30/24 11:21) cough PFSH Medical History Colon cancer screening Colonoscopy refused Malnourished Lower extremity edema Low serum albumin Colon cancer screening declined Essential hypertension Atherosclerotic cardiovascular disease Scalp lesion Leukoencephalopathy Peptic ulcer disease Iron deficiency anemia Coronary artery disease GERD (gastroesophageal reflux disease) Impaired fasting glucose Hypercholesterolemia Ischemic cardiomyopathy Stable angina Surgical History History of exploratory laparotomy (05/08/21) Status post aorto-coronary artery bypass graft S/P CABG x 5 Status post surgical removal of malignant neoplasm of skin History of tonsillectomy History of hernia repair History of appendectomy Family History Father No problems noted. Mother No problems noted. Social History Household Members: Spouse Housing: House Do you presently have visiting nurse or other home services: No Alcohol intake: never Patient Tobacco Use Status: Former Tobacco user Tobacco use type: Cigarette Years Smoked: 2017 quit e-Cigarette/Vaping Use: Never Used Second Hand Smoke Exposure: No Advance Directives Date on File: 05/05/21 service: No Current occupational status: retired Cognitive needs: Yes (walker) Hearing needs: No Vision needs: Yes (glasses) Coding
--- NOTE | 2024-11-10 13:22 | A.OFFPC_ITS ---
Vital Signs 11/10/24 13:16 Height 5 ft 1 in Weight 102 lb 4.712 oz BMI 19.3 BP 132/80 Blood Pressure Location Lt brachial Position Sitting Pulse 74 Pulse Source Pulse Oximeter Temp 97.0 F Temp Source Temporal Artery Scan Pulse Oximetry (%) 97 Oxygen Delivery Method Room Air Intake Visit Reasons: Hypertension Allergies lisinopril Adverse Reaction (Unknown, Verified 11/10/24 13:22) cough Tobacco use date assessed: 11/10/24 Fall risk assessment: 2 + Falls in past year Last assessed Fall Risk: 11/10/24 Dental Screening Dental Screen Date: 11/10/24 Did you have a dental visit in the last 12 months?: Yes Did you have a dental problem in the last 6 months where you did not have access to dental care?: No Was dental information given to patient?: Patient has dentist [facility] Medical History (Updated 11/10/24 @ 13:38 by Fran Munson MD) Colon cancer screening Colonoscopy refused Malnourished Lower extremity edema Low serum albumin Colon cancer screening declined Essential hypertension Atherosclerotic cardiovascular disease Scalp lesion Leukoencephalopathy Peptic ulcer disease Iron deficiency anemia Coronary artery disease GERD (gastroesophageal reflux disease) Impaired fasting glucose Hypercholesterolemia Ischemic cardiomyopathy Stable angina Surgical History History of exploratory laparotomy (05/08/21) Status post aorto-coronary artery bypass graft S/P CABG x 5 Status post surgical removal of malignant neoplasm of skin History of tonsillectomy History of hernia repair History of appendectomy Family History Father No problems noted. Mother No problems noted. Social History Household Members: Spouse Housing: House Do you presently have visiting nurse or other home services: No Alcohol intake: never Patient Tobacco Use Status: Former Tobacco user Tobacco use type: Cigarette Years Smoked: 2017 quit e-Cigarette/Vaping Use: Never Used Second Hand Smoke Exposure: No Advance Directives Date on File: 05/05/21 service: No Current occupational status: retired Cognitive needs: Yes (walker) Hearing needs: No Vision needs: Yes (glasses) Questionnaire PHQ-9 Over the last 2 weeks, how often have you been bothered by any of the following problems? 1. Little interest or pleasure in doing things: not at all 2. Feeling down, depressed, or hopeless: not at all 3. Trouble falling or staying asleep, or sleeping too much: several days 4. Feeling tired or having little energy: several days 5. Poor appetite or overeating: not at all 6. Feeling bad about yourself - or that you are a failure or have let yourself or your family down: not at all 7. Trouble concentrating on things, such as reading the newspaper or watching television: not at all 8. Moving or speaking so slowly that other people could have noticed. Or the opposite - being so fidgety or restless that you have been moving around a lot more than usual: not at all 9. Thoughts that you would be better off or of hurting yourself in some way: not at all Total score: 2 Depression Screening Interpretation: Positive Depression Screening Done: Yes Source: Developed by Drs. Adan Nicholson, Silvia Tse, Fracisco Davila and colleagues, with an educational monisha from [employer]. Thrive Questionnaire Date Thrive assessed: 03/25/24 I am a: Patient What is your living situation today?: I have a steady place to live Within the past 12 months, did the food you bought not last and you didn't have the money to get more?: I choose not to answer this question Within the past 12 months, did you worry whether your food would run out before you got money to buy more?: Never true Do you have trouble paying for medicines?: No Do you have trouble getting transportation to medical appointments?: Yes Do you have trouble paying your heating and electricity bill?: No Do you have trouble taking care of your child, family member or friend?: No Do you have trouble with day-to-day activities such as bathing, preparing meals, shopping, managing finances, etc.?: I choose not to answer this question Are you currently unemployed and looking for a job?: No Are you interested in more education?: Yes Please select the resources that you would like help with: None Currently or been in a relationship where the following occur: I choose not to answer THRIVE Score: 1 AUDIT C Alcohol Use Questionnaire (AUDIT-C) 1. How often do you have a drink containing alcohol?: Never 3. How often do you have six or more drinks on one occasion?: Never Total Score: 0 LAUREN-7 AMB Questionnaire LAUREN-7 Date LAUREN - 7 assessed: 06/30/24 Feeling nervous, anxious, or on edge: 1 = Several days Not being able to stop or control worryin = Not at all Worrying too much about different things: 0 = Not at all Trouble relaxin = Several days Being so restless that it is hard to sit still: 0 = Not at all Becoming easily annoyed or irritable: 1 = Several days Feeling afraid as if something awful might happen: 0 = Not at all Total LAUREN-7 score (0-4 normal; 5-9 mild; 10-14 moderate; 15-21 severe): 3 Source: Developed by Drs. Adan Nicholson, Silvia Tse, Fracisco Davila and colleagues, with an educational monisha from [employer]. Physical exam (Primary Care) Vital Signs: Last Vital Signs Temp 97.0 F 11/10/24 13:16 Pulse 74 11/10/24 13:16 BP 132/80 11/10/24 13:16 Pulse Ox 97 11/10/24 13:16 Oxygen Delivery Method Room Air 11/10/24 13:16 BMI result Body Mass Index 19.3 Tobacco/Smoking Status: Tobacco use Status Tobacco use date assessed 11/10/24 11/10/24 13:24 Patient Tobacco Use Status Former Tobacco user 11/10/24 13:24 Tobacco use type Cigarette 11/10/24 13:24 e-Cigarette/Vaping Use Never Used 11/10/24 13:24 PHQ-9: PHQ-9 Score PHQ-9: Total score 2 11/10/24 17:39 Depression Screening Interpretation: Positive Thrive Assessment: Date of Thrive Assessment Date Thrive assessed 03/25/24 11/10/24 13:24 Currently or been in a relationship where the following occur: I choose not to answer Const General: alert; No acute distress Eyes Conjunctivae: conjunctivae normal Resp Auscultation: clear to auscultation bilaterally Cardio Rate: regular rate Rhythm: regular rhythm GI Inspection: Yes normal to inspection Extrem General: Yes normal to inspection and No edema Coding Level of Care Code Est Pt Level 4 (96142) Complex EM visit Add On G2211 Diagnoses Coronary artery disease involving [place] coronary artery of [place] heart without angina pectoris I25.10 Associated angina: without angina Coronary Disease-Associated Artery/Lesion type: [place] artery [place] vs. transplanted heart: [place] heart Hypertension I10 Hypercholesterolemia E78.00 Impaired fasting glucose R73.01 Gastroesophageal reflux disease without esophagitis K21.9 Esophagitis presence: without esophagitis Major depression F32.9 Assessment & Plan Assessment & Plan (1) Coronary artery disease: Comment: Acute inferior [place] September 2018 CABG DE LE[place]N to LAD, Dr. Salgado September 2018 echo December 2018 40-45% moderate MR akinetic multiple areas Code(s): I25.10 - Atherosclerotic heart disease of [place] coronary artery without angina pectoris Category: Medical Qualifiers: Associated angina: without angina Coronary Disease-Associated Artery/Lesion type: [place] artery [place] vs. transplanted heart: [place] heart Qualified Code(s): I25.10 - Atherosclerotic heart disease of [place] coronary artery without angina pectoris Plan: Control the cholesterol, weight, blood pressure, patient is on atorvastatin 10 mg once a day (2) Hypertension: Code(s): I10 - Essential (primary) hypertension Category: Medical Plan: Continue with blood pressure medication. Decrease salt intake and exercise on amlodipine 2.5 mg once a day metoprolol 25 mg once a day (3) Hypercholesterolemia: Code(s): E78.00 - Pure hypercholesterolemia, unspecified Category: Medical Plan: Avoid fried foods, chicken skin, eggs, butter margarine, pastries and meat. Be it pork or beef they have a lot of cholesterol LDL goal of less than 70 and triglyceride of less than 150. On atorvastatin 10 mg once a day (4) Impaired fasting glucose: Code(s): R73.01 - Impaired fasting glucose Category: Medical Plan: Decrease the amount of carbohydrate intake, pasta, bread, rice and potatoes are all sugar and that is aside from all the sweet stuff, remember that fruits are good but they are Sweet also. (5) GERD (gastroesophageal reflux disease): Code(s): K21.9 - Gastro-esophageal reflux disease without esophagitis Category: Medical Qualifiers: Esophagitis presence: without esophagitis Qualified Code(s): K21.9 - Gastro-esophageal reflux disease without esophagitis Plan: Avoid the foods that causes that usually spicy foods, tomato products, juices, coffee, soda and foods that your sensitive to. After eating do not lie down, allow 3-4 hours before in lie down. And keep the head of bed above 30 degrees to avoid the acid from going up. (6) Major depression: Comment: decline referral 06/2024 Code(s): F32.9 - Major depressive disorder, single episode, unspecified Category: Medical Plan: Stable Plan History of Present Illness The patient is a 79-year-old male presenting for a follow-up visit. The patient has a history of ischemic cardiomyopathy and coronary artery disease, requiring careful cholesterol management. His last blood work in July indicated mild anemia and low iron levels, with normal platelet count. Cholesterol management includes atorvastatin 10 mg daily, with an LDL target of less than 70 mg/dL. The patient also has gastroesophageal reflux disease and a history of small bowel obstruction, both currently stable. He reports no gastrointestinal symptoms, and bowel movements are regular. The patient has major depression but feels stable without needing further intervention. Knee osteoarthritis is present, with recent falls causing mild swelling but no significant pain. Swelling is linked to amlodipine, used for blood pressure control alongside metoprolol. Preventative care discussions included flu and shingles vaccines for health maintenance. Health Maintenance - Vaccination: Discussed flu and shingles vaccines for ongoing health maintenance - Cholesterol management: LDL goal of less than 70 mg/dL due to coronary artery disease Social History Review of Systems - Cardiovascular: Denies chest pain, dyspnea, or palpitations - Gastrointestinal: Denies nausea, vomiting, or changes in bowel habits - Musculoskeletal: Reports mild knee swelling, denies significant pain - Neurological: Denies dizziness or balance issues Physical Exam - Musculoskeletal: Mild swelling in the knee, no pain on palpation Results - Labs: Mild anemia with hemoglobin 13.8 g/dL, hematocrit 44%, low iron, normal platelet count - Labs: Cholesterol with LDL 85 mg/dL, goal less than 70 mg/dL - Labs: Elevated vitamin D and B12 levels Plan Patient was informed and verbally consented to the use of an ambient scribe for clinic note documentation during this visit. 1. Ischemic Cardiomyopathy The patient will continue with current medications, including atorvastatin for cholesterol management, aiming for an LDL goal of less than 70 mg/dL due to coronary artery disease. Regular follow-up with cardiology is planned, with a potential echocardiogram next year to monitor cardiac function. 2. Coronary Artery Disease Cholesterol management is emphasized with atorvastatin 10 mg daily, targeting an LDL of less than 70 mg/dL. The patient is advised to maintain a healthy diet and exercise routine to support cardiovascular health. 3. Gastroesophageal Reflux Disease (Gerd) The patient's GERD is currently stable, with no reported symptoms requiring intervention. 4. Small Bowel Obstruction The small bowel obstruction is stable, with no current symptoms or need for intervention. 5. Major Depression The patient reports feeling stable and does not require additional counseling or medication adjustments at this time. 6. Knee Osteoarthritis The patient experiences mild swelling attributed to amlodipine, with no significant pain or need for imaging. He is advised to monitor symptoms and report any worsening. 7. Hypercholesterolemia The patient is on atorvastatin 10 mg daily, with a goal to reduce LDL to less than 70 mg/dL. Regular monitoring of lipid levels is planned to ensure therapeutic goals are met. Discussion Notes During the visit, we discussed the importance of maintaining cholesterol levels below 70 mg/dL due to the patient's coronary artery disease. We reviewed the patient's current medication regimen, including atorvastatin and blood pressure medications, and emphasized the need for regular follow-up and monitoring. Preventative care measures, including vaccinations for flu and shingles, were also discussed to ensure ongoing health maintenance. Patient Instructions - Continue taking atorvastatin 10 mg daily to manage cholesterol levels. - Monitor for any changes in knee swelling or pain and report if symptoms worsen. - Schedule and receive flu and shingles vaccines as discussed. - Maintain a healthy diet and exercise routine to support cardiovascular health. Orders: Orders Complete Blood Count Auto Diff Today E78.00 - Pure hypercholesterolemia, unspecified Lipid Panel Today E78.00 - Pure hypercholesterolemia, unspecified Thyroid Stimulating Hormone Today E78.00 - Pure hypercholesterolemia, unspecified Hemoglobin A1c Today E78.00 - Pure hypercholesterolemia, unspecified Ferritin Today E78.00 - Pure hypercholesterolemia, unspecified IRON PROFILE Today E78.00 - Pure hypercholesterolemia, unspecified Vitamin D 25-OH Total Today E78.00 - Pure hypercholesterolemia, unspecified Magnesium Today E78.00 - Pure hypercholesterolemia, unspecified NT Pro B Type Natriuretic Pept Today E78.00 - Pure hypercholesterolemia, unspecified Comprehensive Met. Panel Today E78.00 - Pure hypercholesterolemia, unspecified Vitamin B12 and Folate Today E78.00 - Pure hypercholesterolemia, unspecified Free T4 (Free Thyroxine) Today E78.00 - Pure hypercholesterolemia, unspecified UA CC w/rflx Micro + Cult Today E78.00 - Pure hypercholesterolemia, unspecified, R30.0 - Dysuria Reticulocyte Count Today E78.00 - Pure hypercholesterolemia, unspecified
== END 2024-11-10 13:52 | disposition home or self-care (01) ==
LOC: HO.HMCH 13:14
PROVIDERS: PCP Internal Medicine; Visit Provider Internal Medicine
DX: I25.10 Atherosclerotic heart disease of native coronary artery without angina pectoris (principal); I10 Essential (primary) hypertension; E78.00 Pure hypercholesterolemia, unspecified; R73.01 Impaired fasting glucose; K21.9 Gastro-esophageal reflux disease without esophagitis; F32.9 Major depressive disorder, single episode, unspecified

== ENCOUNTER → 2024-11-10 13:13 | Outpatient (BNVA) | payer MEDICARE, SELFPAY | PROVIDERS: PCP Internal Medicine; Visit Provider Internal Medicine | DX: I10 Essential (primary) hypertension (principal); I25.10 Atherosclerotic heart disease of native coronary artery without angina pectoris; E78.00 Pure hypercholesterolemia, unspecified; R73.01 Impaired fasting glucose; K21.9 Gastro-esophageal reflux disease without esophagitis; F32.9 Major depressive disorder, single episode, unspecified; I25.5 Ischemic cardiomyopathy; K56.609 Unspecified intestinal obstruction, unspecified as to partial versus complete obstruction | CPT/HCPCS: 96127; 99212 ==